=== PATIENT | male | born 1960 | race American Indian/Alaskan Native ===

== ENCOUNTER 2016-11-08 14:16 | Emergency (ER) | payer MEDICAID ==
[2016-11-08] MEDS ORDERED: MOTRIN PO ONE (19:06)
[2016-11-08] MEDS ORDERED: MOTRIN ONE (19:07)
[2016-11-08 19:54] VITALS: BP 162/88
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
[2016-11-08] MEDS ORDERED: PERCOCET 5/325 PO ONE (19:56)
--- NOTE | 2016-11-08 21:02 | XRay Report ---
FINAL REPORT PROCEDURE: XR KNEE 1-2V RT TECHNIQUE: Three views of the right knee are obtained HISTORY: fall pain, prior surgery COMPARISON: No prior studies are available for comparison. FINDINGS: Moderate osteoarthritic changes are seen. No evidence of hardware failure is seen in the tibia. Large joint effusion is seen. Diffuse soft tissue swelling is seen. No fracture or dislocation is seen. IMPRESSION: Arthritic changes are seen with large joint effusion. No fracture is seen.
== END 2016-11-08 22:20 | disposition home or self-care (01) ==
LOC: ED 14:16
DX: S80.01XA Contusion of right knee, initial encounter (principal); S89.91XA Unspecified injury of right lower leg, initial encounter; M19.90 Unspecified osteoarthritis, unspecified site; I10 Essential (primary) hypertension; E11.9 Type 2 diabetes mellitus without complications; I25.2 Old myocardial infarction; H40.9 Unspecified glaucoma; F17.200 Nicotine dependence, unspecified, uncomplicated; Z98.890 Other specified postprocedural states; Z79.82 Long term (current) use of aspirin; W19.XXXA Unspecified fall, initial encounter; Y93.9 Activity, unspecified; Y92.89 Other specified places as the place of occurrence of the external cause; Y99.9 Unspecified external cause status

== ENCOUNTER 2017-09-17 17:51 | Inpatient (IN) | payer MEDICAID ==
[2017-09-17 20:03] LABS: Basophils # (Auto) 0.1 K/mm3 (0.0-0.1); Basophils % (Auto) 0.7 % (0.0-1.8); Eosinophils # (Auto) 0.1 K/mm3 (0.0-0.4); Eosinophils % (Auto) 1.5 % (0.0-4.3); Hematocrit 47.3 % (35.5-45.6); Lymphocytes # (Auto) 3.5 K/mm3 (1.2-5.4); Mean Corpuscular HGB Conc 34 % (32-34); Mean Corpuscular Hemoglobin 32 pg (28-32); Mean Corpuscular Volume 94 fl (84-94); Monocytes # (Auto) 0.7 K/mm3 (0.0-0.8); Monocytes % (Auto) 8.6 % (0.0-7.3); Platelet Count 290 K/mm3 (140-440); Red Blood Count 5.05 M/mm3 (3.65-5.03); Red Cell Distribution Width 17.8 % (13.2-15.2)
[2017-09-17 20:16] LABS: BUN/Creatinine Ratio 17; Blood Urea Nitrogen 10 mg/dL (9-20); Calcium 9.3 mg/dL (8.4-10.2); Hemolysis Index 3
[2017-09-18] MEDS ORDERED: MORPHINE IV ONE (10:21)
[2017-09-18] MEDS ORDERED: NACL 0.9% 500 ML 500 ML IV ONE (10:22)
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
--- NOTE | 2017-09-18 10:58 | XRay Report ---
Single view chest: Compared to 07/06/16. History: Chest pain. Findings: Normal cardiomediastinal silhouette the trachea is midline. No consolidation, pneumothorax or pleural effusion. Impression: No acute cardiopulmonary findings.
--- NOTE | 2017-09-18 12:04 | Cat Scan Report ---
CT scan of head without IV contrast: History: Headache. Findings: Ventricles are normal in size and midline the patient. No evidence of acute ischemia, hemorrhage or mass. No extra-axial fluid collection. Normal brainstem and cerebellum. Normal visualized sinuses and mastoid air cells. Impression: No acute intracranial abnormality.
[2017-09-18] MEDS ORDERED: NON-FORMULARY (Acetaminophen [Acetaminophen Er Tab] 650 MG) PO PRN (17:59)
[2017-09-18] MEDS ORDERED: NON-FORMULARY (Ipratropium/Albuterol Sulfate [Combivent Respimat] 1 PUFF) IH SCH (18:00)
[2017-09-18] MEDS ORDERED: ZOFRAN IV PRN (18:02)
[2017-09-18] MEDS ORDERED: SODIUM CHLORIDE FLUSH SYRINGE 10 ML IV PRN (18:02)
[2017-09-18] MEDS ORDERED: TYLENOL PO PRN (18:02)
[2017-09-18] MEDS: DUONEB *Not for PRN Use IH SCH ×2 (18:35→19:17)
--- NOTE | 2017-09-18 19:26 | History and Physical Report ---
History of Present Illness Date of examination: 09/18/17 Date of admission: 09/18/17 12:17 Chief complaint: Chief complaint: Left-sided chest pain for 2 weeks History of present illness: History of Present Illness: 57-year-old black male presents to the emergency room for left-sided chest pain for last couple of weeks. Chest pain radiates to the left arm. Chest there is also associated with some shortness of breath. Has wheezing. Patient has a medical history of coronary artery disease with 2 stents and 2 MIs. Patient also has history of diabetes hypertension and glaucoma causing legal blindness and bipolar disorder. Patient had a cardiac cath in June of last year that showed a few lesions at 60% occlusion RS and is being medically managed. Patient also says that he is exposed to black mold from our last 1 month and has problems breathing. Patient also has wheezing secondary to the mold exposure. No fever or chills. Smokes about a pack a day. No recent travel. Chest pain is about 8 on a scale of 1-10. Radiating to the left arm. No diaphoresis ,no palpitations. No diaphoresis. Past Medical History Hypertension: Yes Heart Attack/AMI: Yes (x 2) Diabetes: Yes Psychiatric Treatment: Yes (bipolar) Additional medical history: glaucoma. legally blind Surgical History y Past Surgical History?: Yes Hx Coronary Stent: Yes (x 2) Additional Surgical History: hernia repair. right leg surgery. Secondary to a crush injury Family history Social History Smoking Status: Current Every Day Smoker-smokes over half a pack a day Substance Use Type: Marijuana Medications Home Medications: Home Medications Medication Instructions Recorded Confirmed Last Taken Type AtorvaSTATin [Lipitor] 40 mg PO QHS #30 tablet 07/08/16 09/18/17 Unknown Rx Lisinopril [Zestril TAB] 5 mg PO QDAY #30 tablet 07/08/16 09/18/17 Unknown Rx amLODIPine [Norvasc] 5 mg PO DAILY #30 tab 07/08/16 09/18/17 Unknown Rx Acetaminophen [Acetaminophen ER 650 mg PO Q12H PRN 09/18/17 09/18/17 Unknown History TAB] Aspirin EC [Ecotrin] 325 mg PO QDAY 09/18/17 09/18/17 Unknown History Bimatoprost [Lumigan 0.01%] 1 drop OP HS 09/18/17 09/18/17 Unknown History Finasteride [Proscar] 5 mg PO QDAY 09/18/17 09/18/17 Unknown History Gabapentin [Neurontin] 100 mg PO BID 09/18/17 09/18/17 Unknown History Ipratropium/Albuterol Sulfate 1 puff IH QID 09/18/17 09/18/17 Unknown History [Combivent Respimat] Ipratropium/Albuterol Sulfate 1 ampul IH Q6HR 09/18/17 09/18/17 Unknown History [DUONEB *Not for PRN Use*] Sertraline [Zoloft] 50 mg PO QDAY 09/18/17 09/18/17 Unknown History Tamsulosin [Flomax] 0.4 mg PO QDAY 09/18/17 09/18/17 Unknown History hydrOXYzine PAMOATE [Vistaril] 50 mg PO HS 09/18/17 09/18/17 Unknown History Review of Systems ROS: Stated complaint: CHEST PAIN Other details as noted in HPI Comment: All other systems reviewed and negative Constitutional: denies: chills, fever Eyes: denies: eye pain, eye discharge, vision change ENT: denies: ear pain, throat pain Respiratory: shortness of breath. denies: cough Cardiovascular: chest pain. denies: palpitations Gastrointestinal: denies: abdominal pain, nausea, diarrhea Genitourinary: denies: urgency, dysuria Musculoskeletal: denies: back pain, joint swelling Skin: denies: rash, lesions Neurological: headache, paresthesias Medications and Allergies Allergies Allergy/AdvReac Type Severity Reaction Status Date / Time No Known Allergies Allergy Unverified 07/06/16 11:37 Home Medications Medication Instructions Recorded Confirmed Last Taken Type AtorvaSTATin [Lipitor] 40 mg PO QHS #30 tablet 07/08/16 09/18/17 Unknown Rx Lisinopril [Zestril TAB] 5 mg PO QDAY #30 tablet 07/08/16 09/18/17 Unknown Rx amLODIPine [Norvasc] 5 mg PO DAILY #30 tab 07/08/16 09/18/17 Unknown Rx Acetaminophen [Acetaminophen ER 650 mg PO Q12H PRN 09/18/17 09/18/17 Unknown History TAB] Aspirin EC [Ecotrin] 325 mg PO QDAY 09/18/17 09/18/17 Unknown History Bimatoprost [Lumigan 0.01%] 1 drop OP HS 09/18/17 09/18/17 Unknown History Finasteride [Proscar] 5 mg PO QDAY 09/18/17 09/18/17 Unknown History Gabapentin [Neurontin] 100 mg PO BID 09/18/17 09/18/17 Unknown History Ipratropium/Albuterol Sulfate 1 puff IH QID 09/18/17 09/18/17 Unknown History [Combivent Respimat] Ipratropium/Albuterol Sulfate 1 ampul IH Q6HR 09/18/17 09/18/17 Unknown History [DUONEB *Not for PRN Use*] Sertraline [Zoloft] 50 mg PO QDAY 09/18/17 09/18/17 Unknown History Tamsulosin [Flomax] 0.4 mg PO QDAY 09/18/17 09/18/17 Unknown History hydrOXYzine PAMOATE [Vistaril] 50 mg PO HS 09/18/17 09/18/17 Unknown History Active Meds: Active Medications Acetaminophen (Tylenol) 650 mg PO Q4H PRN PRN Reason: Pain MILD(1-3)/Fever >100.5/[facility] Albuterol/Ipratropium (Duoneb *Not For Prn Use*) 1 ampul IH Q6HR [facility] Last Admin: 09/18/17 19:17 Dose: 1 ampul Amlodipine Besylate (Norvasc) 5 mg PO DAILY [facility] Aspirin (Ecotrin) 325 mg PO QDAY [facility] Atorvastatin Calcium (Lipitor) 40 mg PO QHS [facility] Famotidine (Pepcid) 20 mg PO BID [facility] Finasteride (Proscar) 5 mg PO QDAY [facility] Gabapentin (Neurontin) 100 mg PO BID [facility] Heparin Sodium (Porcine) (Heparin) 5,000 unit SUB-Q Q8HR [facility] Hydromorphone HCl (Dilaudid) 0.25 mg IV Q3H PRN PRN Reason: Pain, Moderate (4-6) Hydroxyzine Pamoate (Vistaril) 50 mg PO HS [facility] Insulin Human Lispro (Humalog) 0 unit SUB-Q [facility]; Protocol Latanoprost (Latanoprost 0.005%) 1 drops OU QPM [facility] Lisinopril (Zestril) 5 mg PO QDAY [facility] Morphine Sulfate (Morphine) 2 mg IV Q4H PRN PRN Reason: Pain, Moderate (4-6) Ondansetron HCl (Zofran) 4 mg IV Q8H PRN PRN Reason: Nausea And Vomiting Oxycodone/Acetaminophen (Percocet 5/325) 1 tab PO Q6H PRN PRN Reason: Pain, Moderate (4-6) Sertraline HCl (Zoloft) 50 mg PO QDAY [facility] Sodium Chloride (Sodium Chloride Flush Syringe 10 Ml) 10 ml IV BID [facility] Sodium Chloride (Sodium Chloride Flush Syringe 10 Ml) 10 ml IV PRN PRN PRN Reason: LINE FLUSH Tamsulosin HCl (Flomax) 0.4 mg PO QDAY [facility] Exam - Physical Exam Narrative exam: lying in bed comfortably - Constitutional Vitals: Temp Pulse Resp BP Pulse Ox 98.2 F 60 18 124/64 96 09/18/17 17:39 09/18/17 19:18 09/18/17 19:18 09/18/17 17:39 09/18/17 17:39 General appearance: Present: no acute distress, well-nourished - EENT Eyes: Present: PERRL ENT: hearing intact, clear oral mucosa - Neck Neck: Present: supple, normal ROM - Respiratory Respiratory effort: normal Respiratory: bilateral: CTA - Cardiovascular Heart rate: 54 Rhythm: regular Heart Sounds: Present: S1 & S2. Absent: rub, click - Extremities Extremities: no ischemia, pulses intact, pulses symmetrical, No edema Peripheral Pulses: within normal limits - Abdominal General gastrointestinal: Present: soft, non-tender, non-distended, normal bowel sounds Male genitourinary: Present: normal - Rectal Rectal Exam: deferred - Integumentary Integumentary: Present: clear, warm, dry - Musculoskeletal Musculoskeletal: gait normal, strength equal bilaterally - Psychiatric Psychiatric: appropriate mood/affect, intact judgment & insight - Neurologic Neurologic: CNII-XII intact, moves all extremities - Allied Health Allied health notes reviewed: nursing, case management Results - Labs CBC & Chem 7: 09/17/17 19:49 09/17/17 19:49 Labs: Laboratory Last Values WBC 8.2 K/mm3 (4.5-11.0) 09/17/17 19:49 RBC 5.05 M/mm3 (3.65-5.03) H 09/17/17 19:49 Hgb 16.0 gm/dl (11.8-15.2) H 09/17/17 19:49 Hct 47.3 % (35.5-45.6) H 09/17/17 19:49 MCV 94 fl (84-94) 09/17/17 19:49 MCH 32 pg (28-32) 09/17/17 19:49 MCHC 34 % (32-34) 09/17/17 19:49 RDW 17.8 % (13.2-15.2) H 09/17/17 19:49 Plt Count 290 K/mm3 (140-440) 09/17/17 19:49 Lymph % (Auto) 43.0 % (13.4-35.0) H 09/17/17 19:49 [place] % (Auto) 8.6 % (0.0-7.3) H 09/17/17 19:49 Eos % (Auto) 1.5 % (0.0-4.3) 09/17/17 19:49 Baso % (Auto) 0.7 % (0.0-1.8) 09/17/17 19:49 Lymph # 3.5 K/mm3 (1.2-5.4) 09/17/17 19:49 [place] # 0.7 K/mm3 (0.0-0.8) 09/17/17 19:49 Eos # 0.1 K/mm3 (0.0-0.4) 09/17/17 19:49 Baso # 0.1 K/mm3 (0.0-0.1) 09/17/17 19:49 Seg Neutrophils % 46.2 % (40.0-70.0) 09/17/17 19:49 Seg Neutrophils # 3.8 K/mm3 (1.8-7.7) 09/17/17 19:49 D-Dimer 246.88 ng/mlDDU (0-234) H 09/18/17 10:29 Sodium 140 mmol/L (137-145) 09/17/17 19:49 Potassium 4.4 mmol/L (3.6-5.0) 09/17/17 19:49 Chloride 100.4 mmol/L (98-107) 09/17/17 19:49 Carbon Dioxide 28 mmol/L (22-30) 09/17/17 19:49 Anion Gap 16 mmol/L 09/17/17 19:49 BUN 10 mg/dL (9-20) 09/17/17 19:49 Creatinine 0.6 mg/dL (0.8-1.5) L 09/17/17 19:49 Estimated GFR > 60 ml/min 09/17/17 19:49 BUN/Creatinine Ratio 17 % 09/17/17 19:49 Glucose 97 mg/dL (75-100) 09/17/17 19:49 POC Glucose 84 (70-105) 09/18/17 12:26 Calcium 9.3 mg/dL (8.4-10.2) 09/17/17 19:49 Troponin T < 0.010 ng/mL (0.00-0.029) 09/18/17 04:04 Short CBC 09/17/17 Range/Units 19:49 WBC 8.2 (4.5-11.0) K/mm3 Hgb 16.0 H (11.8-15.2) gm/dl Hct 47.3 H (35.5-45.6) % Plt Count 290 (140-440) K/mm3 BMP 09/17/17 19:49 Sodium 140 Potassium 4.4 Chloride 100.4 Carbon Dioxide 28 BUN 10 Creatinine 0.6 L Glucose 97 Calcium 9.3 Cardiac Enzymes 09/17/17 09/17/17 09/18/17 Range/Units 19:49 23:02 04:04 Troponin T < 0.010 < 0.010 < 0.010 (0.00-0.029) ng/mL - Imaging and Cardiology EKG: report reviewed (normal sinus rhythm and sinus bradycardia heart rate of 54 1 minute left atrial enlargement EKG interpreted by me) Imaging and Cardiology: Chest x-ray Findings: Normal cardiomediastinal silhouette the trachea is midline. No consolidation, pneumothorax or pleural effusion. Impression: No acute cardiopulmonary findings. CT head Impression: No acute intracranial abnormality. Assessment and Plan Advance Directives: Yes (full code) VTE prophylaxis?: Chemical Plan of care discussed with patient/family: Yes - Patient Problems (1) Chest pain Current Visit: Yes Status: Acute Qualifiers: Chest pain type: unspecified Qualified Code(s): R07.9 - Chest pain, unspecified Plan to address problem: Chest pain workup Serial troponins negative still now Lexiscan in the morning GERD in the differential diagnosis Costochondritis unlikely--no chest wall tenderness (2) HTN (hypertension) Current Visit: Yes Status: Chronic Qualifiers: Hypertension type: essential hypertension Qualified Code(s): I10 - Essential (primary) hypertension Plan to address problem: Continue antihypertensives (3) CAD (coronary artery disease) Current Visit: No Status: Chronic Qualifiers: Coronary Disease-Associated Artery/Lesion type: [place] artery [place] vs. transplanted heart: [place] heart Plan to address problem: Continue aspirin and statins (4) BPH (benign prostatic hyperplasia) Current Visit: Yes Status: Chronic Qualifiers: Lower urinary tract symptom presence: symptoms present Lower urinary tract symptom detail: incomplete bladder emptying Qualified Code(s): N40.1 - Benign prostatic hyperplasia with lower urinary tract symptoms; R39.14 - Feeling of incomplete bladder emptying Plan to address problem: Continue Flomax and Proscar (5) Peripheral neuropathy Current Visit: Yes Status: Chronic Qualifiers: Peripheral neuropathy type: polyneuropathy, unspecified Qualified Code(s): G62.9 - Polyneuropathy, unspecified Plan to address problem: Continue gabapentin (6) COPD (chronic obstructive pulmonary disease) Current Visit: Yes Status: Chronic Qualifiers: COPD type: unspecified COPD Qualified Code(s): J44.9 - Chronic obstructive pulmonary disease, unspecified Plan to address problem: Continue Duonebs (7) Depression Current Visit: Yes Status: Chronic Qualifiers: Depression Type: unspecified Qualified Code(s): F32.9 - Major depressive disorder, single episode, unspecified Plan to address problem: Continue Zoloft (8) DVT prophylaxis Current Visit: Yes Status: Acute Plan to address problem: On Lovenox 40 mg subcutaneous daily
[2017-09-18] MEDS ORDERED: DUONEB *Not for PRN Use IH SCH (20:00)
[2017-09-18] MEDS: MORPHINE IV PRN (20:30)
[2017-09-18] MEDS: ZESTRIL PO SCH (20:33)
[2017-09-18] MEDS: ZOLOFT PO SCH (20:34)
[2017-09-18] MEDS: FLOMAX PO SCH (20:34)
[2017-09-18] MEDS: PEPCID PO SCH (20:34)
[2017-09-18] MEDS: NORVASC PO SCH (20:37)
[2017-09-18] MEDS: ECOTRIN PO SCH (20:37)
[2017-09-18] MEDS: HEPARIN SUB-Q SCH (20:38)
[2017-09-18] MEDS: PROSCAR PO SCH (20:50)
[2017-09-18] MEDS: SODIUM CHLORIDE FLUSH SYRINGE 10 ML IV SCH (20:50)
[2017-09-18] MEDS: NEURONTIN PO SCH (21:00)
[2017-09-18] MEDS ORDERED: NON-FORMULARY (Bimatoprost [Lumigan 0.01%] 1 DROP) OP SCH (22:00)
[2017-09-19] MEDS: DUONEB *Not for PRN Use IH SCH (00:15)
[2017-09-19] MEDS: HEPARIN SUB-Q SCH ×4 (00:16→22:52)
[2017-09-19] MEDS: PEPCID PO SCH ×3 (00:17→22:52)
[2017-09-19] MEDS: SODIUM CHLORIDE FLUSH SYRINGE 10 ML IV SCH ×3 (00:17→22:52)
[2017-09-19] MEDS: HumaLOG SUB-Q SCH ×5 (01:38→23:06)
[2017-09-19] MEDS: PERCOCET 5/325 PO PRN ×2 (01:39→14:05)
[2017-09-19] MEDS: VISTARIL PO SCH ×2 (01:39→22:52)
[2017-09-19 06:30] LABS: Basophils % (Auto) 0.6 % (0.0-1.8); Eosinophils # (Auto) 0.2 K/mm3 (0.0-0.4); Eosinophils % (Auto) 3.3 % (0.0-4.3); Hematocrit 44.7 % (35.5-45.6); Hemoglobin 15.3 gm/dl (11.8-15.2); Lymphocytes % (Auto) 51.9 % (13.4-35.0); Mean Corpuscular HGB Conc 34 % (32-34); Mean Corpuscular Hemoglobin 32 pg (28-32); Mean Corpuscular Volume 93 fl (84-94); Monocytes # (Auto) 0.2 K/mm3 (0.0-0.8); Monocytes % (Auto) 3.7 % (0.0-7.3); Platelet Count 280 K/mm3 (140-440); Red Cell Distribution Width 17.9 % (13.2-15.2)
[2017-09-19] MEDS: MORPHINE IV PRN (06:44)
[2017-09-19 06:49] LABS: Alanine Aminotransferase 16 units/L (7-56); Albumin 3.9 g/dL (3.9-5); BUN/Creatinine Ratio 19; Blood Urea Nitrogen 13 mg/dL (9-20); Hemolysis Index 7
[2017-09-19] MEDS: DILAUDID IV PRN ×5 (08:35→23:58)
[2017-09-19] MEDS ORDERED: LEXISCAN IV ONE (09:54)
--- NOTE | 2017-09-19 12:18 | Consultation ---
History of Present Illness Consult date: 09/19/17 Consult reason: chest pain History of present illness: Patient is presenting with left sided chest pain that has been going on for several days now. Pain is describes as tightness that is worse with 'stress' associated with radiation down the left arm and face. ECG showing no ischemic changes when compared to previous. Troponins are negative. Recent cath June 2016 showing patent Cx and PDA stents, Borderline 60% ostial OM1 stenosis, 50% ostial Cx stenosis, 40% mid D1 stenosis. Past History Past Medical History: acute [place], CAD, hypertension, hyperlipidemia Past Surgical History: PTCA Social history: smoking Family history: hypertension Medications and Allergies Allergies Allergy/AdvReac Type Severity Reaction Status Date / Time No Known Allergies Allergy Unverified 07/06/16 11:37 Home Medications Medication Instructions Recorded Confirmed Last Taken Type AtorvaSTATin [Lipitor] 40 mg PO QHS #30 tablet 07/08/16 09/18/17 Unknown Rx Lisinopril [Zestril TAB] 5 mg PO QDAY #30 tablet 07/08/16 09/18/17 Unknown Rx amLODIPine [Norvasc] 5 mg PO DAILY #30 tab 07/08/16 09/18/17 Unknown Rx Acetaminophen [Acetaminophen ER 650 mg PO Q12H PRN 09/18/17 09/18/17 Unknown History TAB] Aspirin EC [Ecotrin] 325 mg PO QDAY 09/18/17 09/18/17 Unknown History Bimatoprost [Lumigan 0.01%] 1 drop OP HS 09/18/17 09/18/17 Unknown History Finasteride [Proscar] 5 mg PO QDAY 09/18/17 09/18/17 Unknown History Gabapentin [Neurontin] 100 mg PO BID 09/18/17 09/18/17 Unknown History Ipratropium/Albuterol Sulfate 1 puff IH QID 09/18/17 09/18/17 Unknown History [Combivent Respimat] Ipratropium/Albuterol Sulfate 1 ampul IH Q6HR 09/18/17 09/18/17 Unknown History [DUONEB *Not for PRN Use*] Sertraline [Zoloft] 50 mg PO QDAY 09/18/17 09/18/17 Unknown History Tamsulosin [Flomax] 0.4 mg PO QDAY 09/18/17 09/18/17 Unknown History hydrOXYzine PAMOATE [Vistaril] 50 mg PO HS 09/18/17 09/18/17 Unknown History Active Meds: Active Medications Acetaminophen (Tylenol) 650 mg PO Q4H PRN PRN Reason: Pain MILD(1-3)/Fever >100.5/[facility] Albuterol (Proventil) 2.5 mg IH Q4HRT PRN PRN Reason: Shortness Of Breath Amlodipine Besylate (Norvasc) 5 mg PO DAILY [facility] Last Admin: 09/18/17 20:37 Dose: 5 mg Aspirin (Ecotrin) 325 mg PO QDAY [facility] Last Admin: 09/18/17 20:37 Dose: 325 mg Atorvastatin Calcium (Lipitor) 40 mg PO QHS [facility] Last Admin: 09/19/17 00:16 Dose: Not Given Famotidine (Pepcid) 20 mg PO BID [facility] Last Admin: 09/19/17 00:17 Dose: Not Given Finasteride (Proscar) 5 mg PO QDAY [facility] Last Admin: 09/18/17 20:50 Dose: Not Given Gabapentin (Neurontin) 100 mg PO BID [facility] Last Admin: 09/18/17 21:00 Dose: 100 mg Heparin Sodium (Porcine) (Heparin) 5,000 unit SUB-Q Q8HR [facility] Last Admin: 09/19/17 06:35 Dose: 5,000 unit Hydromorphone HCl (Dilaudid) 0.25 mg IV Q3H PRN PRN Reason: Pain, Moderate (4-6) Hydroxyzine Pamoate (Vistaril) 50 mg PO [facility] Last Admin: 09/19/17 01:39 Dose: 50 mg Insulin Human Lispro (Humalog) 0 unit SUB-Q [facility]; Protocol Last Admin: 09/19/17 07:30 Dose: Not Given Latanoprost (Latanoprost 0.005%) 1 drops OU QPM [facility] Lisinopril (Zestril) 5 mg PO QDAY [facility] Last Admin: 09/18/17 20:33 Dose: 5 mg Morphine Sulfate (Morphine) 2 mg IV Q4H PRN PRN Reason: Pain, Moderate (4-6) Last Admin: 09/19/17 06:44 Dose: 2 mg Ondansetron HCl (Zofran) 4 mg IV Q8H PRN PRN Reason: Nausea And Vomiting Oxycodone/Acetaminophen (Percocet 5/325) 1 tab PO Q6H PRN PRN Reason: Pain, Moderate (4-6) Last Admin: 09/19/17 01:39 Dose: 1 tab Sertraline HCl (Zoloft) 50 mg PO QDAY [facility] Last Admin: 09/18/17 20:34 Dose: 50 mg Sodium Chloride (Sodium Chloride Flush Syringe 10 Ml) 10 ml IV BID [facility] Last Admin: 09/19/17 00:17 Dose: Not Given Sodium Chloride (Sodium Chloride Flush Syringe 10 Ml) 10 ml IV PRN PRN PRN Reason: LINE FLUSH Tamsulosin HCl (Flomax) 0.4 mg PO QDAY [facility] Last Admin: 09/18/17 20:34 Dose: 0.4 mg Review of Systems All systems: negative Physical Examination Vital Signs Temp Pulse Resp BP Pulse Ox 98.6 F 56 L 16 111/69 96 09/17/17 19:10 09/17/17 19:10 09/17/17 19:10 09/17/17 19:10 09/17/17 19:10 General appearance: no acute distress HEENT: Positive: PERRL Neck: Positive: neck supple Cardiac: Positive: Reg Rate and Rhythm Lungs: Positive: Normal Exam Neuro: Positive: Grossly Intact Abdomen: Positive: Soft Extremities: Present: normal Results 09/19/17 06:06 09/19/17 06:06 Cardiac Enzymes 09/17/17 09/17/17 09/17/17 Range/Units 19:49 19:49 23:02 WBC 8.2 (4.5-11.0) K/mm3 RBC 5.05 H (3.65-5.03) M/mm3 Hgb 16.0 H (11.8-15.2) gm/dl Hct 47.3 H (35.5-45.6) % MCV 94 (84-94) fl MCH 32 (28-32) pg MCHC 34 (32-34) % RDW 17.8 H (13.2-15.2) % Plt Count 290 (140-440) K/mm3 Lymph % (Auto) 43.0 H (13.4-35.0) % [place] % (Auto) 8.6 H (0.0-7.3) % Eos % (Auto) 1.5 (0.0-4.3) % Baso % (Auto) 0.7 (0.0-1.8) % Lymph # 3.5 (1.2-5.4) K/mm3 [place] # 0.7 (0.0-0.8) K/mm3 Eos # 0.1 (0.0-0.4) K/mm3 Baso # 0.1 (0.0-0.1) K/mm3 Seg Neutrophils % 46.2 (40.0-70.0) % Seg Neutrophils # 3.8 (1.8-7.7) K/mm3 D-Dimer (0-234) ng/mlDDU Sodium 140 (137-145) mmol/L Potassium 4.4 (3.6-5.0) mmol/L Chloride 100.4 (98-107) mmol/L Carbon Dioxide 28 (22-30) mmol/L Anion Gap 16 mmol/L BUN 10 (9-20) mg/dL Creatinine 0.6 L (0.8-1.5) mg/dL Estimated GFR > 60 ml/min BUN/Creatinine Ratio 17 % Glucose 97 (75-100) mg/dL POC Glucose (70-105) Hemoglobin A1c (4-6) % Calcium 9.3 (8.4-10.2) mg/dL Total Bilirubin (0.1-1.2) mg/dL AST (5-40) units/L ALT (7-56) units/L Alkaline Phosphatase (35-129) units/L Troponin T < 0.010 < 0.010 (0.00-0.029) ng/mL Total Protein (6.3-8.2) g/dL Albumin (3.9-5) g/dL Albumin/Globulin Ratio % 09/18/17 09/18/17 09/18/17 Range/Units 04:04 10:29 12:26 WBC (4.5-11.0) K/mm3 RBC (3.65-5.03) M/mm3 Hgb (11.8-15.2) gm/dl Hct (35.5-45.6) % MCV (84-94) fl MCH (28-32) pg MCHC (32-34) % RDW (13.2-15.2) % Plt Count (140-440) K/mm3 Lymph % (Auto) (13.4-35.0) % [place] % (Auto) (0.0-7.3) % Eos % (Auto) (0.0-4.3) % Baso % (Auto) (0.0-1.8) % Lymph # (1.2-5.4) K/mm3 [place] # (0.0-0.8) K/mm3 Eos # (0.0-0.4) K/mm3 Baso # (0.0-0.1) K/mm3 Seg Neutrophils % (40.0-70.0) % Seg Neutrophils # (1.8-7.7) K/mm3 D-Dimer 246.88 H (0-234) ng/mlDDU Sodium (137-145) mmol/L Potassium (3.6-5.0) mmol/L Chloride (98-107) mmol/L Carbon Dioxide (22-30) mmol/L Anion Gap mmol/L BUN (9-20) mg/dL Creatinine (0.8-1.5) mg/dL Estimated GFR ml/min BUN/Creatinine Ratio % Glucose (75-100) mg/dL POC Glucose 84 (70-105) Hemoglobin A1c (4-6) % Calcium (8.4-10.2) mg/dL Total Bilirubin (0.1-1.2) mg/dL AST (5-40) units/L ALT (7-56) units/L Alkaline Phosphatase (35-129) units/L Troponin T < 0.010 (0.00-0.029) ng/mL Total Protein (6.3-8.2) g/dL Albumin (3.9-5) g/dL Albumin/Globulin Ratio % 09/18/17 09/18/17 09/19/17 Range/Units 22:49 22:49 00:48 WBC (4.5-11.0) K/mm3 RBC (3.65-5.03) M/mm3 Hgb (11.8-15.2) gm/dl Hct (35.5-45.6) % MCV (84-94) fl MCH (28-32) pg MCHC (32-34) % RDW (13.2-15.2) % Plt Count (140-440) K/mm3 Lymph % (Auto) (13.4-35.0) % [place] % (Auto) (0.0-7.3) % Eos % (Auto) (0.0-4.3) % Baso % (Auto) (0.0-1.8) % Lymph # (1.2-5.4) K/mm3 [place] # (0.0-0.8) K/mm3 Eos # (0.0-0.4) K/mm3 Baso # (0.0-0.1) K/mm3 Seg Neutrophils % (40.0-70.0) % Seg Neutrophils # (1.8-7.7) K/mm3 D-Dimer (0-234) ng/mlDDU Sodium (137-145) mmol/L Potassium (3.6-5.0) mmol/L Chloride (98-107) mmol/L Carbon Dioxide (22-30) mmol/L Anion Gap mmol/L BUN (9-20) mg/dL Creatinine (0.8-1.5) mg/dL Estimated GFR ml/min BUN/Creatinine Ratio % Glucose (75-100) mg/dL POC Glucose 111 H (70-105) Hemoglobin A1c 5.7 (4-6) % Calcium (8.4-10.2) mg/dL Total Bilirubin (0.1-1.2) mg/dL AST (5-40) units/L ALT (7-56) units/L Alkaline Phosphatase (35-129) units/L Troponin T < 0.010 (0.00-0.029) ng/mL Total Protein (6.3-8.2) g/dL Albumin (3.9-5) g/dL Albumin/Globulin Ratio % 09/19/17 09/19/17 09/19/17 Range/Units 06:06 06:06 06:06 WBC 5.8 (4.5-11.0) K/mm3 RBC 4.80 (3.65-5.03) M/mm3 Hgb 15.3 H (11.8-15.2) gm/dl Hct 44.7 (35.5-45.6) % MCV 93 (84-94) fl MCH 32 (28-32) pg MCHC 34 (32-34) % RDW 17.9 H (13.2-15.2) % Plt Count 280 (140-440) K/mm3 Lymph % (Auto) 51.9 H (13.4-35.0) % [place] % (Auto) 3.7 (0.0-7.3) % Eos % (Auto) 3.3 (0.0-4.3) % Baso % (Auto) 0.6 (0.0-1.8) % Lymph # 3.0 (1.2-5.4) K/mm3 [place] # 0.2 (0.0-0.8) K/mm3 Eos # 0.2 (0.0-0.4) K/mm3 Baso # 0.0 (0.0-0.1) K/mm3 Seg Neutrophils % 40.5 (40.0-70.0) % Seg Neutrophils # 2.4 (1.8-7.7) K/mm3 D-Dimer (0-234) ng/mlDDU Sodium 139 (137-145) mmol/L Potassium 4.2 (3.6-5.0) mmol/L Chloride 100.8 (98-107) mmol/L Carbon Dioxide 26 (22-30) mmol/L Anion Gap 16 mmol/L BUN 13 (9-20) mg/dL Creatinine 0.7 L (0.8-1.5) mg/dL Estimated GFR > 60 ml/min BUN/Creatinine Ratio 19 % Glucose 105 H (75-100) mg/dL POC Glucose (70-105) Hemoglobin A1c (4-6) % Calcium 9.0 (8.4-10.2) mg/dL Total Bilirubin < 0.20 (0.1-1.2) mg/dL AST 22 (5-40) units/L ALT 16 (7-56) units/L Alkaline Phosphatase 81 (35-129) units/L Troponin T < 0.010 (0.00-0.029) ng/mL Total Protein 6.6 (6.3-8.2) g/dL Albumin 3.9 (3.9-5) g/dL Albumin/Globulin Ratio 1.4 % 09/19/17 Range/Units 08:40 WBC (4.5-11.0) K/mm3 RBC (3.65-5.03) M/mm3 Hgb (11.8-15.2) gm/dl Hct (35.5-45.6) % MCV (84-94) fl MCH (28-32) pg MCHC (32-34) % RDW (13.2-15.2) % Plt Count (140-440) K/mm3 Lymph % (Auto) (13.4-35.0) % [place] % (Auto) (0.0-7.3) % Eos % (Auto) (0.0-4.3) % Baso % (Auto) (0.0-1.8) % Lymph # (1.2-5.4) K/mm3 [place] # (0.0-0.8) K/mm3 Eos # (0.0-0.4) K/mm3 Baso # (0.0-0.1) K/mm3 Seg Neutrophils % (40.0-70.0) % Seg Neutrophils # (1.8-7.7) K/mm3 D-Dimer (0-234) ng/mlDDU Sodium (137-145) mmol/L Potassium (3.6-5.0) mmol/L Chloride (98-107) mmol/L Carbon Dioxide (22-30) mmol/L Anion Gap mmol/L BUN (9-20) mg/dL Creatinine (0.8-1.5) mg/dL Estimated GFR ml/min BUN/Creatinine Ratio % Glucose (75-100) mg/dL POC Glucose 86 (70-105) Hemoglobin A1c (4-6) % Calcium (8.4-10.2) mg/dL Total Bilirubin (0.1-1.2) mg/dL AST (5-40) units/L ALT (7-56) units/L Alkaline Phosphatase (35-129) units/L Troponin T (0.00-0.029) ng/mL Total Protein (6.3-8.2) g/dL Albumin (3.9-5) g/dL Albumin/Globulin Ratio % CBC 09/19/17 Range/Units 06:06 WBC 5.8 (4.5-11.0) K/mm3 RBC 4.80 (3.65-5.03) M/mm3 Hgb 15.3 H (11.8-15.2) gm/dl Hct 44.7 (35.5-45.6) % Plt Count 280 (140-440) K/mm3 Lymph # 3.0 (1.2-5.4) K/mm3 [place] # 0.2 (0.0-0.8) K/mm3 Eos # 0.2 (0.0-0.4) K/mm3 Baso # 0.0 (0.0-0.1) K/mm3 Comprehensive Metabolic Panel 09/19/17 Range/Units 06:06 Sodium 139 (137-145) mmol/L Potassium 4.2 (3.6-5.0) mmol/L Chloride 100.8 (98-107) mmol/L Carbon Dioxide 26 (22-30) mmol/L BUN 13 (9-20) mg/dL Creatinine 0.7 L (0.8-1.5) mg/dL Glucose 105 H (75-100) mg/dL Calcium 9.0 (8.4-10.2) mg/dL AST 22 (5-40) units/L ALT 16 (7-56) units/L Alkaline Phosphatase 81 (35-129) units/L Total Protein 6.6 (6.3-8.2) g/dL Albumin 3.9 (3.9-5) g/dL - EKG Interpretation EKG: sinus rhythm EKG interpretations - Telemetry EKG Rhythm: Sinus Rhythm Assessment and Plan Chest pain No ischemic ECG changes Negative troponin Abnormal MPI showing a small and mildly reversible apical and mid anterior wall defect concerning for ischemia in the LAD distribution Coronary artery disease Cardiac cath 06/2016 showing patent Cx and PDA stents Borderline 60% ostial OM1 stenosis 50% ostial Cx stenosis 40% mid D1 stenosis Systemic Hypertension Hyperlipidemia Tobacco use Recommendations: Proceed with coronary angiography in am
[2017-09-19] MEDS ORDERED: NACL 0.9% 500 ML 500 ML IV SCH (13:00)
--- NOTE | 2017-09-19 14:04 | Progress Note ---
Assessment and Plan Chest pain with abnormal stress test - plan for cardiac cath tomorrow h/CAD s/p stent placement, cont aspirin, statin HLD, cont statin HTN, stable, cont current meds Obesity, dietary recommendation when medically stable Subjective Date of service: 09/19/17 Interval history: Pt seen and examined still c/o intermittent chest pain stress test this am was abnormal Objective - Constitutional Vitals: Vital Signs - 12hr 09/19/17 09/19/17 09/19/17 02:39 04:10 06:44 Temperature 98.1 F Pulse Rate 53 L Respiratory 20 18 20 Rate Blood Pressure 97/59 O2 Sat by Pulse 97 Oximetry 09/19/17 09/19/17 09/19/17 07:30 09:06 10:23 Temperature 98.3 F Pulse Rate 52 L 53 L Respiratory 18 Rate Blood Pressure 128/81 134/71 O2 Sat by Pulse 98 98 Oximetry 09/19/17 09/19/17 09/19/17 10:35 10:36 10:37 Temperature Pulse Rate 66 68 70 Respiratory Rate Blood Pressure 143/84 139/76 121/71 O2 Sat by Pulse Oximetry 09/19/17 09/19/17 09/19/17 10:38 10:39 10:40 Temperature Pulse Rate 67 66 64 Respiratory Rate Blood Pressure 119/74 106/69 114/70 O2 Sat by Pulse Oximetry 09/19/17 11:58 Temperature 98.5 F Pulse Rate 62 Respiratory 20 Rate Blood Pressure 142/78 O2 Sat by Pulse 96 Oximetry General appearance: Present: no acute distress, well-nourished - EENT Eyes: PERRL, EOM intact ENT: hearing intact, clear oral mucosa Ears: bilateral: normal - Neck Neck: supple, normal ROM - Respiratory Respiratory effort: normal Respiratory: bilateral: CTA - Cardiovascular Rhythm: regular Heart Sounds: Present: S1 & S2. Absent: gallop, rub Extremities: pulses intact, No edema, normal color, Full ROM - Gastrointestinal General gastrointestinal: Present: soft, non-tender, non-distended, normal bowel sounds - Integumentary Integumentary: clear, warm, dry - Musculoskeletal Musculoskeletal: 1, strength equal bilaterally - Neurologic Neurologic: moves all extremities - Psychiatric Psychiatric: memory intact, appropriate mood/affect, intact judgment & insight - Labs CBC & Chem 7: 09/20/17 05:49 09/20/17 05:49 Labs: Abnormal lab results 09/19/17 09/19/17 09/19/17 Range/Units 00:48 06:06 06:06 Hgb 15.3 H (11.8-15.2) gm/dl RDW 17.9 H (13.2-15.2) % Lymph % (Auto) 51.9 H (13.4-35.0) % Creatinine 0.7 L (0.8-1.5) mg/dL Glucose 105 H (75-100) mg/dL POC Glucose 111 H (70-105)
[2017-09-19] MEDS: PROSCAR PO SCH (14:45)
[2017-09-19] MEDS: FLOMAX PO SCH (14:45)
[2017-09-19] MEDS: NEURONTIN PO SCH ×2 (14:45→22:52)
[2017-09-19] MEDS: ECOTRIN PO SCH (14:45)
[2017-09-19] MEDS: NORVASC PO SCH (14:45)
[2017-09-19] MEDS: ZESTRIL PO SCH (14:46)
[2017-09-19] MEDS: ZOLOFT PO SCH (14:47)
[2017-09-19] MEDS ORDERED: LATANOPROST 0.005% OU SCH ×2 (18:00→22:00)
--- NOTE | 2017-09-19 22:35 | Treadmill Report ---
INDICATION: Chest pain. ORDERING PHYSICIAN: Bart Webb MD FINDINGS: There is evidence of a small mildly reversible mid and apical anterior wall defect suggesting possible ischemia in LAD distribution. The left ventricle is mildly dilated. The left ventricular ejection fraction is measured at 52% with normal wall motion and wall thickening. CONCLUSION: 1. Abnormal perfusion scan revealing a small mildly reversible apical and mid anterior wall defect suggesting ischemia in the LAD distribution. 2. Mildly dilated left ventricular cavity with an ejection fraction measured at 52%. JOB# [id number] AP/NTS
[2017-09-20 06:05] LABS: Hematocrit 45.1 % (35.5-45.6); Hemoglobin 15.4 gm/dl (11.8-15.2); Mean Corpuscular HGB Conc 34 % (32-34); Mean Corpuscular Hemoglobin 32 pg (28-32); Mean Corpuscular Volume 93 fl (84-94); Platelet Count 260 K/mm3 (140-440); Red Blood Count 4.85 M/mm3 (3.65-5.03); Red Cell Distribution Width 17.4 % (13.2-15.2)
[2017-09-20] MEDS: HEPARIN SUB-Q SCH ×3 (06:25→22:24)
[2017-09-20 06:30] LABS: BUN/Creatinine Ratio 16; Blood Urea Nitrogen 11 mg/dL (9-20); Hemolysis Index 9
[2017-09-20 06:34] LABS: INR 0.96 (0.87-1.13)
[2017-09-20 06:35] LABS: Partial Thromboplastin Time 30.8 Sec. (24.2-36.6)
[2017-09-20] MEDS ORDERED: NACL 0.9% 500 ML 500 ML IV SCH (07:30)
[2017-09-20] MEDS: HumaLOG SUB-Q SCH ×2 (08:31→22:00)
[2017-09-20] MEDS ORDERED: ECOTRIN PO ONE (11:14)
[2017-09-20] MEDS: ECOTRIN PO SCH (11:18)
[2017-09-20] MEDS ORDERED: SUBLIMAZE ONE (12:03)
[2017-09-20] MEDS ORDERED: HEPARIN/NS 5000 UNIT/500ML(CATH LAB) 1,000 ML IR ONE (12:03)
[2017-09-20] MEDS ORDERED: VERSED ONE (12:03)
[2017-09-20] MEDS ORDERED: HEPARIN 10,000 UNITS/10 ML ONE (12:03)
[2017-09-20] MEDS ORDERED: CALAN ONE (12:03)
[2017-09-20] MEDS ORDERED: NACL 0.9% 500 ML 500 ML ONE (12:04)
[2017-09-20] MEDS ORDERED: NITROGLYCERIN SYRINGE 0 ML ONE (12:04)
[2017-09-20] MEDS ORDERED: XYLOCAINE 2% INFILTRATI ONE ×2 (12:04→12:09)
[2017-09-20] MEDS ORDERED: ATROPINE 0.1% (CARDIAC) ONE (12:38)
--- NOTE | 2017-09-20 13:40 | Progress Note ---
Assessment and Plan - Patient Problems (1) CAD (coronary artery disease) Current Visit: No Status: Chronic Qualifiers: Coronary Disease-Associated Artery/Lesion type: viejas artery Resighini vs. transplanted heart: viejas heart Plan to address problem: Catheterization completed via the right femoral artery. No complications. We found patent stents in the mid circumflex and distal right coronary arteries, otherwise mild nonobstructive irregularities. Left ventricular systolic function was reduced at 30-35%, representing a predominantly nonischemic cardiomyopathy. The patient is recommended for medical therapy for his coronary artery disease, nonischemic cardiomyopathy to include lisinopril, Coreg, statin, Imdur, aspirin and Plavix. I have also recommended aggressive risk factor modification including smoking cessation. Otherwise, he is stable for cardiac discharge, with outpatient cardiac follow- up in 7 days. Subjective Date of service: 09/20/17 Interval history: Catheterization completed via the right femoral artery. No complications. We found patent stents in the mid circumflex and distal right coronary arteries, otherwise mild nonobstructive irregularities. Left ventricular systolic function was reduced at 30-35%, representing a predominantly nonischemic cardiomyopathy. Objective Vital Signs Temp Pulse Pulse Resp Resp BP BP 09/20/17 09:05 58 L 09/20/17 07:57 97.6 F 54 L 18 120/74 09/20/17 04:54 98.6 F 60 18 110/58 09/20/17 00:17 98.7 F 58 L 18 101/65 09/19/17 23:59 18 09/19/17 23:58 18 09/19/17 20:56 61 20 09/19/17 19:51 98.9 F 60 20 108/80 09/19/17 18:00 62 09/19/17 16:03 98.5 F 61 18 112/61 09/19/17 14:27 62 Pulse Ox 09/20/17 09:05 09/20/17 07:57 99 09/20/17 04:54 94 09/20/17 00:17 94 09/19/17 23:59 09/19/17 23:58 09/19/17 20:56 97 09/19/17 19:51 100 09/19/17 18:00 09/19/17 16:03 97 09/19/17 14:27 - Physical Examination General: No Apparent Distress HEENT: Positive: PERRL Neck: Positive: neck supple Cardiac: Positive: Reg Rate and Rhythm Lungs: Positive: Decreased Breath Sounds Neuro: Positive: Grossly Intact Abdomen: Positive: Soft Skin: Positive: Clear Extremities: Absent: edema - Labs and Meds Coagulation 09/20/17 Range/Units 05:49 PT 13.3 (12.2-14.9) Sec. INR 0.96 (0.87-1.13) APTT 30.8 (24.2-36.6) Sec. CBC 09/20/17 Range/Units 05:49 WBC 7.0 (4.5-11.0) K/mm3 RBC 4.85 (3.65-5.03) M/mm3 Hgb 15.4 H (11.8-15.2) gm/dl Hct 45.1 (35.5-45.6) % Plt Count 260 (140-440) K/mm3 Comprehensive Metabolic Panel 09/20/17 Range/Units 05:49 Sodium 135 L (137-145) mmol/L Potassium 4.2 (3.6-5.0) mmol/L Chloride 98.2 (98-107) mmol/L Carbon Dioxide 25 (22-30) mmol/L BUN 11 (9-20) mg/dL Creatinine 0.7 L (0.8-1.5) mg/dL Glucose 96 (75-100) mg/dL Calcium 9.0 (8.4-10.2) mg/dL - Imaging and Cardiology EKG: report reviewed (normal sinus rhythm and sinus bradycardia heart rate of 54 1 minute left atrial enlargement EKG interpreted by me)
--- NOTE | 2017-09-20 13:46 | Cardiac Catherization Report ---
CARDIAC CATHETERIZATION REPORT REASON FOR PROCEDURE: Chest pain and abnormal thallium stress test. PROCEDURES: 1. Left heart catheterization. 2. Selective left and right coronary angiography. 3. Left ventricle angiography. 4. Sedation time: Stat 12:39 and end 12:55. The patient was prepped and draped in a sterile fashion after informed consent. The right femoral artery was entered using Seldinger technique followed by placement of a 6-Malaysian sheath. Selective left and right coronary angiography was performed using #4 right Rodrigo, and a #4 left Rodrigo. A pigtail catheter was used for left ventricle angiography. The catheters and sheaths were removed, hemostasis achieved over the right femoral arteriotomy using an Angio-Seal device. The patient was returned to the postprocedure unit in stable condition. There were no complications. FINDINGS: HEMODYNAMICS: Left ventricle end diastolic pressure was 18, following coronary angiography. Ascending aortic pressure was 129/63. There was no significant pressure gradient on pullback across the aortic valve. CORONARY ANGIOGRAPHY: Left main coronary artery was angiographically normal. The left anterior descending artery and its diagonal branches contained mild luminal irregularities. There were mild irregularities of the mid and distal LAD. A medium sized ramus intermedius artery contained mild narrowing in its proximal to mid segment, there was an up to 20-30% luminal stenosis in this segment. The first obtuse marginal branch of the circumflex artery was a large vessel extending through most of the lateral wall, this vessel was free of significant disease. Following this, the AV groove circumflex was a medium sized system, which branched into a medium sized mid obtuse marginal and a much smaller terminal obtuse marginal. A stent was visible in the mid AV groove circumflex, the stented segment overlapped the origin of the mid obtuse marginal, stent was widely patent with only mild in-stent restenosis. The right coronary artery was dominant. This vessel contained mild diffuse atherosclerosis of its mid segment. A stent was visible in the distal right coronary artery, the terminal posterolateral branch. This distal right coronary artery stent was also widely patent. The left ventricle was mildly to moderately dilated. There was moderate left ventricular systolic dysfunction with diffuse hypokinesis. Left ventricular ejection fraction 30-35%. The severity of the left ventricular dysfunction is disproportionate to the degree of coronary artery disease that is evident. CONCLUSION: 1. Patent mid circumflex artery stent. 2. Patent distal right coronary artery stent. 3. Otherwise, mild irregularities with no significant residual stenosis. 4. Dilated, predominantly nonischemic cardiomyopathy, moderate left ventricular systolic dysfunction, ejection fraction 30-35%. RECOMMENDATION: 1. Risk factor modification including smoking cessation. 2. Medical therapy for coronary artery disease and nonischemic cardiomyopathy. JOB# [id number] CA/NTS
[2017-09-20] MEDS: PLAVIX PO SCH ×2 (14:31→17:05)
[2017-09-20] MEDS: IMDUR PO SCH ×2 (14:32→17:05)
[2017-09-20] MEDS: COREG PO SCH ×2 (14:33→22:24)
[2017-09-20] MEDS: ZOLOFT PO SCH (14:34)
[2017-09-20] MEDS: ZESTRIL PO SCH (14:34)
[2017-09-20] MEDS: FLOMAX PO SCH (14:34)
[2017-09-20] MEDS: PROSCAR PO SCH (14:34)
[2017-09-20] MEDS: NORVASC PO SCH (14:35)
[2017-09-20] MEDS: PEPCID PO SCH ×2 (14:35→22:24)
[2017-09-20] MEDS: NEURONTIN PO SCH ×2 (14:36→22:24)
[2017-09-20] MEDS ORDERED: NACL 0.9% 1000 ML 1,000 ML IV SCH (15:00)
--- NOTE | 2017-09-20 15:40 | Discharge Summary ---
Providers - Providers Date of Admission: 09/20/17 14:09 Date of discharge: 09/21/17 Attending physician: CHARISMA MEREDITH 09/18/17 12:22 Consult to Cardiology [CONS] Routine Consulting Provider: NANCY KERR Reason For Exam: chest pain 09/20/17 13:23 Consult to Cardiac Rehabilitation [CONS] Routine Reason For Exam: Cardiac Rehab Evaluation Primary care physician: MATERIAL MOVERS Hospitalization Condition: Stable Pertinent studies: Head CT MPI stress test Cardiac Cath CXR Hospital course: Discharge diagnosis and management: Chest pain with abnormal stress test - likely from underlying CHF - s/p cardiac cath today showed patent stents in the mid circumflex and distal right coronary arteries, otherwise mild nonobstructive irregularities. Left ventricular systolic function was reduced at 30-35%, representing a predominantly nonischemic cardiomyopathy. New diagnosed systolic CHF, compensated now h/o CAD s/p stent placement, cont aspirin, statin HLD, cont statin HTN, stable, cont current meds Obesity, dietary recommendation when medically stable Disposition: TO HOME OR SELFCARE Time spent for discharge: 34 minutes Core Measure Documentation - Palliative Care Palliative Care/ Comfort Measures: Not Applicable - Core Measures Any of the following diagnoses?: none Exam - Physical Exam Narrative exam: General appearance: Present: no acute distress, well-nourished - EENT Eyes: PERRL, EOM intact ENT: hearing intact, clear oral mucosa Ears: bilateral: normal - Neck Neck: supple, normal ROM - Respiratory Respiratory effort: normal Respiratory: bilateral: CTA - Cardiovascular Rhythm: regular Heart Sounds: Present: S1 & S2. Absent: gallop, rub Extremities: pulses intact, No edema, normal color, Full ROM - Gastrointestinal General gastrointestinal: Present: soft, non-tender, non-distended, normal bowel sounds - Integumentary Integumentary: clear, warm, dry - Musculoskeletal Musculoskeletal: 1, strength equal bilaterally - Neurologic Neurologic: moves all extremities - Psychiatric Psychiatric: memory intact, appropriate mood/affect, intact judgment & insight - Constitutional Vitals: Temp Pulse Resp BP Pulse Ox 97.6 F 56 L 20 135/54 99 09/20/17 07:57 09/20/17 14:33 09/20/17 13:23 09/20/17 14:32 09/20/17 13:23 Plan Activity: advance as tolerated Weight Bearing Status: Non-Weight Bearing Diet: low cholesterol, low salt Follow up with: PRIMARY CARE, [Primary Care Provider] - 3-5 Days Prescriptions: AtorvaSTATin [Lipitor] 40 mg PO QHS #30 tablet Aspirin EC [Aspirin Enteric Coated TAB] 81 mg PO QDAY #30 tablet Carvedilol [Coreg] 6.25 mg PO BID #60 tablet Clopidogrel [Plavix] 75 mg PO QDAY #30 tablet ISOSORBIDE MONOnitrate [Imdur ER] 30 mg PO QDAY #30 tablet Lisinopril [Zestril TAB] 5 mg PO QDAY #30 tablet
[2017-09-20] MEDS: MORPHINE IV PRN ×2 (17:19→22:25)
--- NOTE | 2017-09-20 17:23 | Progress Note ---
Assessment and Plan Chest pain with abnormal stress test - likely from underlying CHF - s/p cardiac cath today showed patent stents in the mid circumflex and distal right coronary arteries, otherwise mild nonobstructive irregularities. Left ventricular systolic function was reduced at 30-35%, representing a predominantly nonischemic cardiomyopathy. - cont aspirin/statin/plavix New diagnosed systolic CHF, compensated now h/o CAD s/p stent placement, cont aspirin, statin HLD, cont statin HTN, stable, cont current meds Obesity, dietary recommendation when medically stable Homelessness, SW informed - patient was planned to d/c today as was cleared by cardiology. But he refused to go and stated he is homeless no place to go. SW notified. Subjective Date of service: 09/20/17 Interval history: Pt seen and examined cont to c/o intermittent chest pain and SOB s/p cardiac cath today states he is homeless Objective - Exam Narrative Exam: General appearance: Present: no acute distress, well-nourished - EENT Eyes: PERRL, EOM intact ENT: hearing intact, clear oral mucosa Ears: bilateral: normal - Neck Neck: supple, normal ROM - Respiratory Respiratory effort: normal Respiratory: bilateral: CTA - Cardiovascular Rhythm: regular Heart Sounds: Present: S1 & S2. Absent: gallop, rub Extremities: pulses intact, No edema, normal color, Full ROM - Gastrointestinal General gastrointestinal: Present: soft, non-tender, non-distended, normal bowel sounds - Integumentary Integumentary: clear, warm, dry - Musculoskeletal Musculoskeletal: 1, strength equal bilaterally - Neurologic Neurologic: moves all extremities - Psychiatric Psychiatric: memory intact, appropriate mood/affect, intact judgment & insight - Constitutional Vitals: Vital Signs - 12hr 09/20/17 09/20/17 09/20/17 07:57 09:05 11:00 Temperature 97.6 F Pulse Rate 54 L 58 L Respiratory 18 Rate Blood Pressure 120/74 O2 Sat by Pulse 99 98 Oximetry 09/20/17 09/20/17 09/20/17 13:23 14:32 14:33 Temperature Pulse Rate 56 L 56 L Respiratory 20 Rate Blood Pressure 135/54 O2 Sat by Pulse 99 Oximetry 09/20/17 17:19 Temperature Pulse Rate Respiratory 20 Rate Blood Pressure O2 Sat by Pulse Oximetry - Labs CBC & Chem 7: 09/20/17 05:49 09/20/17 05:49 Labs: Abnormal lab results 09/20/17 09/20/17 Range/Units 05:49 05:49 Hgb 15.4 H (11.8-15.2) gm/dl RDW 17.4 H (13.2-15.2) % Sodium 135 L (137-145) mmol/L Creatinine 0.7 L (0.8-1.5) mg/dL
[2017-09-20] MEDS: VISTARIL PO SCH (22:23)
[2017-09-20] MEDS: SODIUM CHLORIDE FLUSH SYRINGE 10 ML IV SCH (22:29)
[2017-09-21] MEDS: PROVENTIL IH PRN ×2 (01:07→12:54)
[2017-09-21] MEDS: HEPARIN SUB-Q SCH ×2 (04:59→16:43)
[2017-09-21] MEDS: MORPHINE IV PRN (04:59)
--- NOTE | 2017-09-21 09:31 | Progress Note ---
Assessment and Plan Chest pain, musculoskeletal [facility] this admission: patent stents in the mid circumflex and distal right coronary arteries, otherwise mild nonobstructive irregularities. Left ventricular systolic function was reduced at 30-35%, representing a predominantly nonischemic cardiomyopathy. Coronary artery disease Systemic Hypertension Hyperlipidemia Tobacco use Recommendations: Continue medical therapy for coronary artery disease and nonischemic cardiomyopathy. Advised smoking cessation. Otherwise, he is stable for cardiac discharge. Patient will f/u with [facility] as scheduled . Subjective Date of service: 09/21/17 Interval history: Patient reports musculoskeletal chest pain, worse with deep inspirations. Objective Vital Signs Temp Pulse Pulse Resp Resp BP Pulse Ox 09/21/17 04:15 98.1 F 56 L 20 125/62 97 09/21/17 01:35 18 98 09/21/17 01:15 74 18 98 09/21/17 01:07 78 17 09/21/17 01:00 78 09/21/17 00:13 97.7 F 63 18 111/49 99 09/20/17 22:24 59 L 110/61 09/20/17 20:55 97.8 F 59 L 20 110/61 96 09/20/17 18:01 134/67 09/20/17 17:45 77 129/82 100 09/20/17 17:31 54 L 127/67 96 09/20/17 17:19 20 09/20/17 17:15 56 L 123/67 99 09/20/17 17:00 58 L 132/66 98 09/20/17 16:45 57 L 124/70 95 09/20/17 16:30 113/67 09/20/17 16:15 56 L 122/69 97 09/20/17 16:03 99.1 F 62 18 126/69 99 09/20/17 15:45 57 L 134/69 95 09/20/17 15:30 57 L 124/69 94 09/20/17 15:15 62 130/61 97 09/20/17 15:00 66 138/81 98 09/20/17 14:45 61 147/76 99 09/20/17 14:33 56 L 09/20/17 14:32 56 L 135/54 09/20/17 14:30 61 143/83 99 09/20/17 14:16 59 L 135/54 99 09/20/17 14:01 58 L 131/69 100 09/20/17 13:59 61 129/79 100 09/20/17 13:47 57 L 95 09/20/17 13:45 58 L 95 09/20/17 13:31 58 L 40/20 100 09/20/17 13:24 98.1 F 52 L 18 141/72 100 09/20/17 13:23 20 99 09/20/17 11:00 98 - Physical Examination General: No Apparent Distress HEENT: Positive: PERRL Cardiac: Positive: Reg Rate and Rhythm Lungs: Positive: Decreased Breath Sounds Neuro: Positive: Grossly Intact Extremities: Absent: edema
[2017-09-21] MEDS ORDERED: HALFPRIN EC PO SCH (10:00)
[2017-09-21] MEDS: PLAVIX PO SCH (10:30)
[2017-09-21] MEDS: NORVASC PO SCH (10:30)
[2017-09-21] MEDS: ZESTRIL PO SCH (10:30)
[2017-09-21] MEDS: NEURONTIN PO SCH (10:30)
[2017-09-21] MEDS: ZOLOFT PO SCH (10:30)
[2017-09-21] MEDS: FLOMAX PO SCH (10:30)
[2017-09-21] MEDS: PEPCID PO SCH (10:31)
[2017-09-21] MEDS: PROSCAR PO SCH (10:31)
[2017-09-21] MEDS: COREG PO SCH (10:32)
[2017-09-21] MEDS: IMDUR PO SCH (10:33)
[2017-09-21 15:04] VITALS: BP 117/61
--- NOTE | 2017-09-21 15:24 | Cat Scan Report ---
CTA CHEST INDICATION: Elevated d-dimer. COMPARISON: None similar. FINDINGS: Chest CTA performed following intravenous administration of 100 cc of Omnipaque 350. Rotational MIP's also obtained. Normal heart size. No effusions. No aortic aneurysm or dissection. Slight aortic arch calcifications. No suspicious pulmonary arterial filling defects. No size significant adenopathy. Patent central airway. Normal imaged thyroid. Slight emphysematous changes towards the apices, right more than left. Mild left lower lobe scarring posteriorly. A small 3-4 mm right paramediastinal calcified lung nodule on axial image 42, series 2. Mild nonspecific distal esophageal wall prominence/thickening, not excluded for gastroesophageal reflux and/or hiatal hernia, amongst others. No significant abnormality in the imaged upper abdomen. Multilevel spinal right-sided osteophytes. CONCLUSION: No acute chest CT abnormality with few other incidental findings, as above. Thank you for the opportunity to participate in this patient's care.
[2017-09-21] MEDS: PERCOCET 5/325 PO PRN (16:42)
== END 2017-09-21 18:28 | disposition home or self-care (01) | DRG 287 ==
LOC: ED 17:51 → 4A 09-18 12:17 → OBSVTOIN 09-20 14:09
PROVIDERS: ADMIT Internal Medicine; ATTEND Internal Medicine
PROC: 4A023N7 Measurement of Cardiac Sampling and Pressure, Left Heart, Percutaneous Approach (ICD-10-PCS; principal; 2017-09-20)
PROC: B2151ZZ Fluoroscopy of Left Heart using Low Osmolar Contrast (ICD-10-PCS; 2017-09-20)
PROC: B2111ZZ Fluoroscopy of Multiple Coronary Arteries using Low Osmolar Contrast (ICD-10-PCS; 2017-09-20)
DX: I11.0 Hypertensive heart disease with heart failure (principal); I50.21 Acute systolic (congestive) heart failure; K21.9 Gastro-esophageal reflux disease without esophagitis; I25.10 Atherosclerotic heart disease of native coronary artery without angina pectoris; I25.2 Old myocardial infarction; H54.8 Legal blindness, as defined in USA; H40.9 Unspecified glaucoma; Z79.82 Long term (current) use of aspirin; Z79.899 Other long term (current) drug therapy; F31.9 Bipolar disorder, unspecified; F17.200 Nicotine dependence, unspecified, uncomplicated; Z98.61 Coronary angioplasty status; R20.2 Paresthesia of skin; N40.0 Benign prostatic hyperplasia without lower urinary tract symptoms; E11.42 Type 2 diabetes mellitus with diabetic polyneuropathy; J44.9 Chronic obstructive pulmonary disease, unspecified; Z82.49 Family history of ischemic heart disease and other diseases of the circulatory system; E78.5 Hyperlipidemia, unspecified; E66.9 Obesity, unspecified; Z68.33 Body mass index [BMI] 33.0-33.9, adult; Z71.3 Dietary counseling and surveillance; I42.9 Cardiomyopathy, unspecified; Z59.0 Homelessness
CPT/HCPCS: 36415; 70450; 71045; 71275; 78452; 80048; 80053; 82565; 82962; 83036; 84484; 85025; 85027; 85379; 85610; 85730; 93005; 93010; 93017; 93458; 94640; 94760; 96374; 99285; A9270-GY; A9502; C1760; C1894; G0378; J0461; J1170; J1644; J2250; J2270; J2785; J3010; J7040; Q0177; Q9967

== ENCOUNTER 2018-11-27 11:54 | Inpatient (IN) | payer MEDICAID ==
--- NOTE | 2018-11-27 12:48 | Emergency Department Report ---
ED Neuro Deficit HPI - General Chief Complaint: Chest Pain Stated Complaint: DIFFICULTY BREATHING/CHEST PAIN Time Seen by Provider: 11/27/18 12:33 Source: patient, EMS Mode of arrival: Stretcher Limitations: Physical Limitation - History of Present Illness Initial Comments: Patient is 58 years old male, legally blind with history of hypertension and adrian betes. Patient brought to the emergency room via EMS initially for evaluation of left sided chest pain that is started this morning. Upon my examination patient stated that his symptoms started with numbness to his left face, left upper and lower extremity. Patient stated that he tried to walk and he felt weak on the left side and he fell, he denied any injury. Patient denied any slurred speech. Patient stated that his symptoms started approximately 9 AM. Stroke protocol immediately initiated. -: Sudden Location: left face, left arm, left leg Presenting Symptoms: Present: Weak/Paralyzed One Side, Facial Droop/Numbness History of same: No - Related Data Home Medications: Home Medications Medication Instructions Recorded Confirmed Last Taken Acetaminophen [Acetaminophen ER 650 mg PO Q12H PRN 09/18/17 11/27/18 11/26/18 TAB] Aspirin EC 325 mg PO QDAY 09/18/17 11/27/18 11/26/18 Bimatoprost [Lumigan 0.01%] 1 drop OP HS 09/18/17 11/27/18 11/26/18 Finasteride [Proscar] 5 mg PO QDAY 09/18/17 11/27/18 11/26/18 Gabapentin [Neurontin] 100 mg PO BID 09/18/17 11/27/18 11/26/18 Ipratropium/Albuterol Sulfate 1 puff IH QID 09/18/17 11/27/18 11/26/18 [Combivent Respimat] Ipratropium/Albuterol Sulfate 1 ampul IH Q6HR 09/18/17 11/27/18 11/26/18 [DUONEB *Not for PRN Use*] Sertraline [Zoloft] 50 mg PO QDAY 09/18/17 11/27/18 11/26/18 Tamsulosin [Flomax] 0.4 mg PO QDAY 09/18/17 11/27/18 11/26/18 hydrOXYzine PAMOATE [Vistaril] 50 mg PO HS 09/18/17 11/27/18 11/26/18 Previous Rx's Medication Instructions Recorded Last Taken Type amLODIPine [Norvasc] 5 mg PO DAILY #30 tab 07/08/16 11/26/18 Rx Aspirin EC [Halfprin EC] 81 mg PO QDAY #30 tablet 09/20/17 11/26/18 Rx Carvedilol [Coreg] 6.25 mg PO BID #60 tablet 09/20/17 11/26/18 Rx Clopidogrel [Plavix] 75 mg PO QDAY #30 tablet 09/20/17 11/26/18 Rx ISOSORBIDE MONOnitrate [Imdur ER] 30 mg PO QDAY #30 tablet 09/20/17 11/26/18 Rx AtorvaSTATin [Lipitor] 40 mg PO QHS #30 tablet 09/21/17 11/26/18 Rx Lisinopril [Zestril TAB] 5 mg PO QDAY #30 tablet 09/21/17 11/26/18 Rx Naproxen [Naprosyn] 500 mg PO BID #14 tablet 01/19/18 11/26/18 Rx Allergies/Adverse Reactions: Allergies Allergy/AdvReac Type Severity Reaction Status Date / Time ibuprofen [From Motrin] AdvReac Unknown Anaphylaxis Verified 11/27/18 16:09 ED Review of Systems ROS: Stated complaint: DIFFICULTY BREATHING/CHEST PAIN Other details as noted in HPI Comment: All other systems reviewed and negative Constitutional: denies: chills, fever Respiratory: shortness of breath. denies: cough Cardiovascular: chest pain. denies: palpitations, dyspnea on exertion Gastrointestinal: denies: abdominal pain, nausea, vomiting Genitourinary: denies: as per HPI Musculoskeletal: denies: back pain Neurological: headache, weakness, numbness, paresthesias. denies: confusion, abnormal gait ED Past Medical Hx - Past Medical History Hx Hypertension: Yes Hx Heart Attack/AMI: Yes Hx Congestive Heart Failure: No Hx Diabetes: Yes Hx Psychiatric Treatment: Yes (bipolar) Hx Asthma: No Hx COPD: No Additional medical history: glaucoma. legally blind - Surgical History Hx Coronary Stent: Yes (x2) Additional Surgical History: hernia repair. R leg sx 12/2016 - Social History Smoking Status: Current Every Day Smoker Substance Use Type: Alcohol - Medications Home Medications: Home Medications Medication Instructions Recorded Confirmed Last Taken Type amLODIPine [Norvasc] 5 mg PO DAILY #30 tab 07/08/16 11/27/18 11/26/18 Rx Acetaminophen [Acetaminophen ER 650 mg PO Q12H PRN 09/18/17 11/27/18 11/26/18 History TAB] Aspirin EC 325 mg PO QDAY 09/18/17 11/27/18 11/26/18 History Bimatoprost [Lumigan 0.01%] 1 drop OP HS 09/18/17 11/27/18 11/26/18 History Finasteride [Proscar] 5 mg PO QDAY 09/18/17 11/27/18 11/26/18 History Gabapentin [Neurontin] 100 mg PO BID 09/18/17 11/27/18 11/26/18 History Ipratropium/Albuterol Sulfate 1 puff IH QID 09/18/17 11/27/18 11/26/18 History [Combivent Respimat] Ipratropium/Albuterol Sulfate 1 ampul IH Q6HR 09/18/17 11/27/18 11/26/18 History [DUONEB *Not for PRN Use*] Sertraline [Zoloft] 50 mg PO QDAY 09/18/17 11/27/18 11/26/18 History Tamsulosin [Flomax] 0.4 mg PO QDAY 09/18/17 11/27/18 11/26/18 History hydrOXYzine PAMOATE [Vistaril] 50 mg PO HS 09/18/17 11/27/18 11/26/18 History Aspirin EC [Halfprin EC] 81 mg PO QDAY #30 tablet 09/20/17 11/27/18 11/26/18 Rx Carvedilol [Coreg] 6.25 mg PO BID #60 tablet 09/20/17 11/27/18 11/26/18 Rx Clopidogrel [Plavix] 75 mg PO QDAY #30 tablet 09/20/17 11/27/18 11/26/18 Rx ISOSORBIDE MONOnitrate [Imdur ER] 30 mg PO QDAY #30 tablet 09/20/17 11/27/18 11/26/18 Rx AtorvaSTATin [Lipitor] 40 mg PO QHS #30 tablet 09/21/17 11/27/18 11/26/18 Rx Lisinopril [Zestril TAB] 5 mg PO QDAY #30 tablet 09/21/17 11/27/18 11/26/18 Rx Naproxen [Naprosyn] 500 mg PO BID #14 tablet 01/19/18 11/27/18 11/26/18 Rx ED Neuro Physical Exam - General Limitations: Physical Limitation General appearance: alert, in no apparent distress Suspected Stroke: Yes - Head Head exam: Present: atraumatic, normocephalic, normal inspection - Eye Eye exam: Present: normal appearance - ENT ENT exam: Present: normal exam, normal orophraynx, mucous membranes moist - Neck Neck exam: Present: normal inspection, full ROM. Absent: tenderness, meningismus, lymphadenopathy, thyromegaly - Respiratory Respiratory exam: Present: normal lung sounds bilaterally - Cardiovascular Cardiovascular Exam: Present: regular rate, normal rhythm, normal heart sounds - GI/Abdominal GI/Abdominal exam: Present: soft, normal bowel sounds. Absent: distended, tenderness, guarding, rebound, rigid, organomegaly, mass, bruit, pulsatile mass - Extremities Exam Extremities exam: Present: normal inspection, full ROM, normal capillary refill. Absent: pedal edema, calf tenderness - Back Exam Back exam: Present: normal inspection, full ROM. Absent: CVA tenderness (R), CVA tenderness (L), muscle spasm, paraspinal tenderness, vertebral tenderness - Neurological Exam Neurological exam: Present: alert, oriented X3 - NIHSS Assessment Interval: Baseline 1a. Level of Consciousness: alert/keenly responsive 1b. LOC Questions: answers both correctly 1c. LOC Commands: performs tasks correctly 2. Best Gaze: normal 3. Visual: bilateral hemianopia 4. Facial Palsy: minor paralysis 5b. Motor Arm Right: no drift 5a. Motor Arm Left: no drift 6a. Motor Leg Left: no drift 6b. Motor Leg Right: no drift 7. Limb Ataxia: absent 8. Sensory: mild/moderate sensory loss 9. Best Language: no aphasia 10. Dysarthria: normal 11. Extinction/Inattention: no abnormality Total Score: 5 Stroke Severity: Moderate Stroke - Psychiatric Psychiatric exam: Present: normal mood - Skin Skin exam: Present: warm, intact, normal color ED Course Vital Signs 11/27/18 11/27/18 11/27/18 12:17 12:25 14:25 Temperature 98.6 F Pulse Rate 65 65 60 Respiratory 16 17 Rate Blood Pressure 117/70 Blood Pressure 117/70 116/61 [Right] O2 Sat by Pulse 100 99 Oximetry - Lab Data Lab Results 11/27/18 11/27/18 11/27/18 Range/Units 12:52 13:12 13:12 Thrombin Time 16.4 (15.1-19.6) Sec. POC Glucose 94 (70-105) Total Creatine Kinase 189 H (55-170) units/L CK-MB (CK-2) 2.3 (0.0-4.0) ng/mL CK-MB (CK-2) Rel Index 1.2 (0-4) - EKG Data -: EKG Interpreted by Me EKG shows normal: sinus rhythm Rate: normal Interpretation: no acute changes - Radiology Data Radiology results: report reviewed - Medical Decision Making Patient is 58 years old male, legally blind with history of hypertension and diabetes. Patient brought to the emergency room via EMS initially for evaluation of left sided chest pain that is started this morning. Upon my examination patient stated that his symptoms started with numbness to his left face, left upper and lower extremity. Patient stated that he tried to walk and he felt weak on the left side and he fell, he denied any injury. Patient denied any slurred speech. Patient stated that his symptoms started approximately 9 AM. Stroke protocol immediately initiated. Stroke telemetry neurologist examine the patient through video conference. He indicated that patient is not a TPA candidate. I discussed the patient with Dr. Saldana, he agreed to admit the patient to medical service. Critical Care Time: Yes Critical care time in (mins) excluding proc time.: 30 Critical care attestation.: If time is entered above; I have spent that time in minutes in the direct care of this critically ill patient, excluding procedure time. ED Disposition Clinical Impression: Chest pain CVA (cerebral vascular accident) Qualifiers: Precerebral and cerebral artery: middle cerebral artery Laterality of affected vessel: right Disposition: DC-09 OP ADMIT IP TO THIS HOSP Is pt being admited?: Yes Condition: Stable
--- NOTE | 2018-11-27 13:17 | Cat Scan Report ---
CT HEAD WITHOUT CONTRAST INDICATION : Stroke symptoms. Code stroke. TECHNIQUE: Axial imaging performed from the skull apex through the skull base without the use of con trast. All CT scans at this location are performed using CT dose reduction for ALARA by means of aut omated exposure control. COMPARISON: 09/18/2017 FINDINGS: Parenchyma: No abnormal density. No mass or mass effect. No hemorrhage or edema. Ventricles: Ventricles are normal in size and appear symmetric. Soft tissues: Soft tissues including the orbits appear normal. Bones: No acute osseous abnormality. Sinuses: Sinuses and mastoid air cells are clear. IMPRESSION: No evidence of acute infarct or hemorrhage. A verbal report was given to Dr. Lai in the emergency department on 11/27/2018 at 13:11 [place] Time. CODE STROKE Signer Name: Steven Pike MD Signed: 11/27/2018 1:13 PM Workstation Name: [id number]
[2018-11-27 13:44] LABS: Creatine Kinase MB 2.3 ng/mL (0.0-4.0)
--- NOTE | 2018-11-27 14:09 | XRay Report ---
CHEST 1 VIEW INDICATION: Stroke. COMPARISON: 09/18/2017 FINDINGS: Support devices: None. Heart: Borderline large. Pulmonary vasculature: Redistribution of pulmonary blood flow to the upper lobes. Lungs/Pleura: Normally expanded and clear lungs. No pleural effusion. Additional findings: Degenerative change in the spine. IMPRESSION: Borderline cardiomegaly and pulmonary venous hypertension. No CHF or pneumonia. Signer Name: Steven Pike MD Signed: 11/27/2018 2:05 PM Workstation Name: [id number]
[2018-11-27] MEDS ORDERED: MILK OF MAGNESIA PO PRN (14:58)
[2018-11-27] MEDS ORDERED: REGLAN PO PRN (14:58)
[2018-11-27] MEDS ORDERED: PROVENTIL IH PRN (14:58)
[2018-11-27] MEDS ORDERED: PHENERGAN PR PRN (14:58)
[2018-11-27] MEDS ORDERED: ZOFRAN IV PRN (14:58)
[2018-11-27] MEDS ORDERED: DULCOLAX PR PRN (14:58)
--- NOTE | 2018-11-27 14:58 | History and Physical Report ---
History of Present Illness Chief complaint: Im weak on my left side History of present illness: 58 YO Male with HTN, DM, Legally Blind, [place], Nicotine Dependence, CAD S/P Stent Placement, Bipolar Disorder, Glaucoma present to ED for evaluation. Pt states that he was in his usual state of health at bedtime around 2100hrs. Pt states that he experienced numbness to his the left side of his face and his left arm and leg that began around 0900 hrs. Pt states that he attempted to walk to a neighbors home and subsequently fell down due to his left sided weakness and subsequently lost consciousness. Pt also reports a headache, and chest discomfort. EMS notified, and upon arrival the patient was found to be in distress and transported to [facility]. Pt seen and evaluated in ED. A code stroke was called. Pt found to have symptoms consistent with CVA. Pt admitted to medical floor and initiated on CVA protocol. Teleneurology consulted in ED. Pt denies fever, chills, CP, Palpitations, NVD, Trauma, BRBPR, Productive cough, vertigo, loss of bowel/bladder continence, skin rash, or recent ill contacts. Prior admission on 09/20/18 reviewed. All listed medication reconciled at time of admission. Past History Past Medical History: other (see hpi) Past Surgical History: hernia repair, Other (Right leg surgery, cardiac stent placement) Social history: single, smoking Family history: diabetes, hypertension Medications and Allergies Allergies Allergy/AdvReac Type Severity Reaction Status Date / Time ibuprofen [From Motrin] AdvReac Unknown Anaphylaxis Verified 11/27/18 16:09 Home Medications Medication Instructions Recorded Confirmed Last Taken Type amLODIPine [Norvasc] 5 mg PO DAILY #30 tab 07/08/16 09/18/17 Unknown Rx Acetaminophen [Acetaminophen ER 650 mg PO Q12H PRN 09/18/17 09/18/17 Unknown History TAB] Aspirin EC 325 mg PO QDAY 09/18/17 09/18/17 Unknown History Bimatoprost [Lumigan 0.01%] 1 drop OP HS 09/18/17 09/18/17 Unknown History Finasteride [Proscar] 5 mg PO QDAY 09/18/17 09/18/17 Unknown History Gabapentin [Neurontin] 100 mg PO BID 09/18/17 09/18/17 Unknown History Ipratropium/Albuterol Sulfate 1 puff IH QID 09/18/17 09/18/17 Unknown History [Combivent Respimat] Ipratropium/Albuterol Sulfate 1 ampul IH Q6HR 09/18/17 09/18/17 Unknown History [DUONEB *Not for PRN Use*] Sertraline [Zoloft] 50 mg PO QDAY 09/18/17 09/18/17 Unknown History Tamsulosin [Flomax] 0.4 mg PO QDAY 09/18/17 09/18/17 Unknown History hydrOXYzine PAMOATE [Vistaril] 50 mg PO HS 09/18/17 09/18/17 Unknown History Aspirin EC [Halfprin EC] 81 mg PO QDAY #30 tablet 09/20/17 Unknown Rx Carvedilol [Coreg] 6.25 mg PO BID #60 tablet 09/20/17 Unknown Rx Clopidogrel [Plavix] 75 mg PO QDAY #30 tablet 09/20/17 Unknown Rx ISOSORBIDE MONOnitrate [Imdur ER] 30 mg PO QDAY #30 tablet 09/20/17 Unknown Rx AtorvaSTATin [Lipitor] 40 mg PO QHS #30 tablet 09/21/17 Unknown Rx Lisinopril [Zestril TAB] 5 mg PO QDAY #30 tablet 09/21/17 Unknown Rx Naproxen [Naprosyn] 500 mg PO BID #14 tablet 01/19/18 Unknown Rx Review of Systems Constitutional: no weight loss, no weight gain, no fever, no chills, no sweats, no night sweats, no malaise Ears, nose, mouth and throat: headache, no ear pain, no ear discharge, no tinnitis, no decreased hearing, no nose pain Cardiovascular: no chest pain, no orthopnea, no palpitations, no rapid/irregular heart beat, no edema Respiratory: no cough, no cough with sputum, no excessive sputum, no hemoptysis, no shortness of breath Gastrointestinal: no nausea, no vomiting, no diarrhea, no constipation, no change in bowel habits Genitourinary Male: no hematuria, no flank pain, no discharge, no urinary frequency, no urinary hesitancy Rectal: no pain, no incontinence, no bleeding Musculoskeletal: no neck stiffness, no neck pain, no shooting arm pain, no arm numbness/tingling Integumentary: no rash, no pruritis, no redness, no sores, no wounds Neurological: paralysis, weakness, numbness, syncope, lack of coordination, headaches, gait dysfunction, no seizures, no tremors, no confusion, no memory loss Psychiatric: no anxiety, no memory loss, no change in sleep habits, no sleep disturbances, no insomnia, no hypersomnia, no change in appetite Endocrine: no cold intolerance, no heat intolerance, no polyphagia, no excessive thirst, no polydipsia, no polyuria, no nocturia Hematologic/Lymphatic: no easy bruising, no easy bleeding, no lymphadenopathy, no lymphedema Allergic/Immunologic: no urticaria, no allergic rhinitis, no wheezing, no persistent infections, no anaphylaxis, no angioedema Exam - Constitutional Vitals: Temp Pulse Resp BP Pulse Ox 98.6 F 60 17 116/61 99 11/27/18 14:25 11/27/18 14:25 11/27/18 14:25 11/27/18 14:25 11/27/18 14:25 General appearance: Present: mild distress - EENT Eyes: Present: PERRL ENT: hearing intact, clear oral mucosa - Neck Neck: Present: supple, normal ROM - Respiratory Respiratory effort: normal Respiratory: bilateral: CTA - Cardiovascular Heart Sounds: Present: S1 & S2. Absent: rub, click - Extremities Extremities: pulses symmetrical, No edema Peripheral Pulses: within normal limits - Abdominal General gastrointestinal: Present: soft, non-tender, non-distended, normal bowel sounds Male genitourinary: Present: normal - Integumentary Integumentary: Present: clear, warm, dry - Musculoskeletal Musculoskeletal: left sided weakness - Psychiatric Psychiatric: appropriate mood/affect, intact judgment & insight - Neurologic Neurologic: CNII-XII intact, moves all extremities, no gait normal Results - Labs Labs: Abnormal lab results 11/27/18 Range/Units 13:12 Total Creatine Kinase 189 H (55-170) units/L Assessment and Plan - Patient Problems (1) CVA (cerebral vascular accident) Current Visit: Yes Status: Acute Qualifiers: Precerebral and cerebral artery: middle cerebral artery Laterality of affected vessel: right Plan to address problem: Stroke Protocol: CT Head, neuro check, seizure precautions, Neurology consulted in ED, Echo, carotid doppler, antiplatelet therapy, lipid panel, statin therapy, Further imaging as per neurology team. (2) Diabetes Current Visit: Yes Status: Acute Plan to address problem: ADA diet, insulin sliding scale, accu check, hypoglycemia protocol. (3) HTN (hypertension) Current Visit: No Status: Chronic Qualifiers: Hypertension type: essential hypertension Qualified Code(s): I10 - Essential (primary) hypertension Plan to address problem: monitor bp q shift, supportive care. (4) Syncope and collapse Current Visit: Yes Status: Acute Plan to address problem: Echo, seizure precautions, neuro checks, supportive care, IVF resuscitation therapy (5) Glaucoma Current Visit: Yes Status: Acute Plan to address problem: continue eye drops, outpatient Ophthalmology F/U care. (6) DVT prophylaxis Current Visit: No Status: Acute Plan to address problem: SCD to BLE while in bed
--- NOTE | 2018-11-27 15:00 | Cat Scan Report ---
CTA CHEST WITH CONTRAST INDICATION : chest pain rule out aortic dissection.. TECHNIQUE: Axial imaging performed through the chest, with contrast bolus timing set to maximize opa cification of the pulmonary arteries. Sagittal and coronal reformatted images. 3-plane MIP reformatte d images were obtained. All CT scans at this location are performed using CT dose reduction for ALAR A by means of automated exposure control. 100 mL of intravenous contrast administered. COMPARISON: FINDINGS: Bolus: Contrast bolus timing is adequate. PTE: No filling defect is present to suggest PTE. Thoracic aorta: No significant abnormality. Mediastinum: Heart and great vessels appear normal. No pathologic mediastinal adenopathy. Lungs: Lungs are clear. Bones: Degenerative changes in the spine with nothing acute. Upper abdomen: Limited imaging of the upper abdomen shows nothing acute. IMPRESSION: No evidence for aortic dissection. Unremarkable CTA chest. Signer Name: Dylan Mauricio Jr, MD Signed: 11/27/2018 2:55 PM Workstation Name: [id number]
[2018-11-27] MEDS ORDERED: NON-FORMULARY (Acetaminophen [Acetaminophen Er Tab] 650 MG) PO PRN (15:03)
--- NOTE | 2018-11-27 15:42 | Consultation ---
History of Present Illness - Reason for Consult Consult date: 11/27/18 STROKE - History of Present Illness [facility] Tele[facility]urology Consult Services Date of Service: 11/27/2018 12:55:05 Impression: RO Acute Ischemic Stroke Comments: Pt has left sided weakness that is noted, for a few days. Symptoms seem to be worsening. CTA head/neck and chest. is negative. Recommend MRI and MRA head/neck stat Metrics: Last Known Well: 11/23/2018 12:59:11 [facility] Notification Time: 11/27/2018 12:54:04 Arrival Time: 11/27/2018 12:56:47 Stamp Time: 11/27/2018 12:55:05 Time First Login Attempt: 11/27/2018 12:57:31 Video Start Time: 11/27/2018 12:57:31 Symptoms: something wrong with my face, NIHSS Start Assessment Time: 11/27/2018 13:01:46 Patient is not a candidate for tPA. Patient was not deemed candidate for tPA thrombolytics because of Last Well Known Above 4.5 Hours. Video End Time: 11/27/2018 01:20:00 CT head showed no acute hemorrhage or acute core infarct. ER physician notified of the decision on thrombolytics management. Our recommendations are outlined below. Recommendations: Antiplatelet Therapy Recommended Recommended Scan: MRI Head Therapies: Physical Therapy, Occupational Therapy, Speech Therapy Assessment When A pplicable Dysphaghia Screen: Swallow Evaluation, Bedside DVT prophylaxis: Choice of Primary Team Disposition: Follow up with Teleneurology Follow up History of Present Illness: Patient is a 58 years old Male. Patient was brought by EMS for symptoms of something wrong with my face, The patient was walking and saw a derek and could not breath. He initially came in to the hospital as chest pain. He had chest pain and came on emergency. The patient has left sided arm weaknss. CT head showed no acute hemorrhage or acute core infarct. Last seen normal was beyond 4.5 hours of presentation. There is no history of hemorrhagic complications or intracranial hemorrhage. There is no history of Recent Anticoagulants. There is no history of recent major surgery. There is no history of recent stroke. Examination: 1A: Level of Consciousness - Alert; keenly responsive + 0 1B: Ask Month and Age - 1 Question Right + 1 1C: Blink Eyes & Squeeze Hands - Performs Both Tasks + 0 2: Test Horizontal Extraocular Movements - Normal + 0 3: Test Visual Wolff - Complete Hemianopia + 2 4: Test Facial Palsy (Use Grimace if Obtunded) - Normal symmetry + 0 5A: Test Left Arm Motor Drift - Drift, but doesn't hit bed + 1 5B: Test Right Arm Motor Drift - Drift, hits bed + 2 6A: Test Left Leg Motor Drift - No Drift for 5 Seconds + 0 6B: Test Right Leg Motor Drift - No Drift for 5 Seconds + 0 7: Test Limb Ataxia (FNF/Heel-Caballero) - No Ataxia + 0 8: Test Sensation - Normal; No sensory loss + 0 9: Test Language/Aphasia - Normal; No aphasia + 0 10: Test Dysarthria - Normal + 0 11: Test Extinction/Inattention - Visual/tactile/auditory/spatial/personal inattention + 1 NIHSS Score: 7 Patient was informed the Neurology Consult would happen via TeleHealth consult by way of interactive audio and video telecommunications and consented to receiving care in this manner. Due to the immediate potential for life-threatening deterioration due to underlying acute neurologic illness, I spent 35 minutes providing critical care. This time includes time for face to face visit via telemedicine, review of medical records, imaging studies and discussion of findings with providers, the patient and/or family. Dr Lui [facility] Past History Past Surgical History: hernia repair, Other (Right leg surgery, cardiac stent placement) Social history: single, smoking Family history: diabetes, hypertension Medications and Allergies Allergies Allergy/AdvReac Type Severity Reaction Status Date / Time No Known Allergies Allergy Unverified 07/06/16 11:37 Home Medications Medication Instructions Recorded Confirmed Last Taken Type amLODIPine [Norvasc] 5 mg PO DAILY #30 tab 07/08/16 09/18/17 Unknown Rx Acetaminophen [Acetaminophen ER 650 mg PO Q12H PRN 09/18/17 09/18/17 Unknown History TAB] Aspirin EC 325 mg PO QDAY 09/18/17 09/18/17 Unknown History Bimatoprost [Lumigan 0.01%] 1 drop OP HS 09/18/17 09/18/17 Unknown History Finasteride [Proscar] 5 mg PO QDAY 09/18/17 09/18/17 Unknown History Gabapentin [Neurontin] 100 mg PO BID 09/18/17 09/18/17 Unknown History Ipratropium/Albuterol Sulfate 1 puff IH QID 09/18/17 09/18/17 Unknown History [Combivent Respimat] Ipratropium/Albuterol Sulfate 1 ampul IH Q6HR 09/18/17 09/18/17 Unknown History [DUONEB *Not for PRN Use*] Sertraline [Zoloft] 50 mg PO QDAY 09/18/17 09/18/17 Unknown History Tamsulosin [Flomax] 0.4 mg PO QDAY 09/18/17 09/18/17 Unknown History hydrOXYzine PAMOATE [Vistaril] 50 mg PO HS 09/18/17 09/18/17 Unknown History Aspirin EC [Halfprin EC] 81 mg PO QDAY #30 tablet 09/20/17 Unknown Rx Carvedilol [Coreg] 6.25 mg PO BID #60 tablet 09/20/17 Unknown Rx Clopidogrel [Plavix] 75 mg PO QDAY #30 tablet 09/20/17 Unknown Rx ISOSORBIDE MONOnitrate [Imdur ER] 30 mg PO QDAY #30 tablet 09/20/17 Unknown Rx AtorvaSTATin [Lipitor] 40 mg PO QHS #30 tablet 09/21/17 Unknown Rx Lisinopril [Zestril TAB] 5 mg PO QDAY #30 tablet 09/21/17 Unknown Rx Naproxen [Naprosyn] 500 mg PO BID #14 tablet 01/19/18 Unknown Rx Active Meds: Active Medications Acetaminophen (Tylenol) 650 mg PO Q4H PRN PRN Reason: Pain, Mild (1-3) Albuterol (Proventil) 2.5 mg IH Q3HRT PRN PRN Reason: Shortness Of Breath Aspirin (Aspirin) 325 mg PO QDAY [facility] Aspirin (Ecotrin) 325 mg PO QDAY [facility] Atorvastatin Calcium (Lipitor) 40 mg PO QHS [facility] Bisacodyl (Dulcolax) 10 mg [place] QDAY PRN PRN Reason: Constipation Clopidogrel Bisulfate (Plavix) 75 mg PO QDAY [facility] Finasteride (Proscar) 5 mg PO QDAY [facility] Gabapentin (Neurontin) 100 mg PO BID [facility] Hydroxyzine Pamoate (Vistaril) 50 mg PO HS [facility] Magnesium Hydroxide (Milk Of Magnesia) 30 ml PO Q4H PRN PRN Reason: Constipation Metoclopramide HCl (Reglan) 10 mg PO Q6H PRN PRN Reason: Nausea And Vomiting Miscellaneous Medication (Acetaminophen [Acetaminophen Er Tab]) 650 mg PO Q12H PRN PRN Reason: Pain, Moderate (4-6) Miscellaneous Medication (Bimatoprost [Lumigan 0.01%]) 1 drop OP HS [facility] Naproxen (Naprosyn) 500 mg PO BID [facility] Ondansetron HCl (Zofran) 4 mg IV Q8H PRN PRN Reason: Nausea And Vomiting Promethazine HCl (Phenergan) 25 mg [place] Q6H PRN PRN Reason: Nausea And Vomiting Sertraline HCl (Zoloft) 50 mg PO QDAY [facility] Sodium Chloride (Sodium Chloride Flush Syringe 10 Ml) 10 ml INJ PRN PRN PRN Reason: LINE FLUSH Tamsulosin HCl (Flomax) 0.4 mg PO QDAY [facility] Exam - Constitutional Vitals: Temp Pulse Resp BP Pulse Ox 98.6 F 60 17 116/61 99 11/27/18 14:25 11/27/18 14:25 11/27/18 14:25 11/27/18 14:25 11/27/18 14:25 Results - Labs Labs: Abnormal lab results 11/27/18 Range/Units 13:12 Total Creatine Kinase 189 H (55-170) units/L
--- NOTE | 2018-11-27 16:22 | Cat Scan Report ---
CTA ABDOMEN HISTORY: Chest pain, rule out aortic dissection COMPARISON: None. TECHNIQUE: Noncontrast CT abdomen obtained. Routine postcontrast CT angiography of the abdomen and p gaurav performed. Multiplanar/MIP/3D reformats were post-processed. All CT scans at this location are performed using CT dose reduction for ALARA by means of automated exposure control. CONTRAST: 100 ml of Omnipaque 350 FINDINGS: CTA ABDOMEN: Abdominal Aorta: No significant abnormality. Mild distal calcific plaques. Celiac Artery: No significant abnormality. Superior Mesenteric Artery: No significant abnormality. Renal Arteries: Right: No significant abnormality. Left: No significant abnormality. Inferior Mesenteric Artery: No significant abnormality. CTA PELVIS: RIGHT: Common Iliac Artery: No significant abnormality. Internal Iliac Artery: No significant abnormality. External Iliac Artery: No significant abnormality. LEFT: Common Iliac Artery: No significant abnormality. Internal Iliac Artery: No significant abnormality. External Iliac Artery: No significant abnormality. NONTARGET STRUCTURES: ABDOMEN: GI:No significant abnormality. :No significant abnormality. Lymphatics:No significant abnormality. PELVIS: :No significant abnormality. Osseous Structures: No significant abnormality. Additional Findings: None IMPRESSION: Unremarkable CTA of the abdomen. No evidence for dissection. Signer Name: Dylan Mauricio Jr, MD Signed: 11/27/2018 4:17 PM Workstation Name: [id number]
--- NOTE | 2018-11-27 17:50 | Consultation ---
History of Present Illness Consult date: 11/27/18 History of present illness: This is a 58 YO M who presented to the ED with multiple complaints. He was having chest pain, radiating pain down the left arm and decreased vision. Has compromised vision at baseline from glaucoma. Past History Past Medical History: acute [place], CAD, other (bipolar) Past Surgical History: hernia repair, Other (Right leg surgery, cardiac stent placement) Social history: single, smoking Family history: diabetes, hypertension Medications and Allergies Allergies Allergy/AdvReac Type Severity Reaction Status Date / Time ibuprofen [From Motrin] AdvReac Unknown Anaphylaxis Verified 11/27/18 16:09 Home Medications Medication Instructions Recorded Confirmed Last Taken Type amLODIPine [Norvasc] 5 mg PO DAILY #30 tab 07/08/16 11/27/18 11/26/18 Rx Acetaminophen [Acetaminophen ER 650 mg PO Q12H PRN 09/18/17 11/27/18 11/26/18 History TAB] Aspirin EC 325 mg PO QDAY 09/18/17 11/27/18 11/26/18 History Bimatoprost [Lumigan 0.01%] 1 drop OP HS 09/18/17 11/27/18 11/26/18 History Finasteride [Proscar] 5 mg PO QDAY 09/18/17 11/27/18 11/26/18 History Gabapentin [Neurontin] 100 mg PO BID 09/18/17 11/27/18 11/26/18 History Ipratropium/Albuterol Sulfate 1 puff IH QID 09/18/17 11/27/18 11/26/18 History [Combivent Respimat] Ipratropium/Albuterol Sulfate 1 ampul IH Q6HR 09/18/17 11/27/18 11/26/18 History [DUONEB *Not for PRN Use*] Sertraline [Zoloft] 50 mg PO QDAY 09/18/17 11/27/18 11/26/18 History Tamsulosin [Flomax] 0.4 mg PO QDAY 09/18/17 11/27/18 11/26/18 History hydrOXYzine PAMOATE [Vistaril] 50 mg PO HS 09/18/17 11/27/18 11/26/18 History Aspirin EC [Halfprin EC] 81 mg PO QDAY #30 tablet 09/20/17 11/27/18 11/26/18 Rx Carvedilol [Coreg] 6.25 mg PO BID #60 tablet 09/20/17 11/27/18 11/26/18 Rx Clopidogrel [Plavix] 75 mg PO QDAY #30 tablet 09/20/17 11/27/18 11/26/18 Rx ISOSORBIDE MONOnitrate [Imdur ER] 30 mg PO QDAY #30 tablet 09/20/17 11/27/18 11/26/18 Rx AtorvaSTATin [Lipitor] 40 mg PO QHS #30 tablet 09/21/17 11/27/18 11/26/18 Rx Lisinopril [Zestril TAB] 5 mg PO QDAY #30 tablet 09/21/17 11/27/18 11/26/18 Rx Naproxen [Naprosyn] 500 mg PO BID #14 tablet 01/19/18 11/27/18 11/26/18 Rx Active Meds: Active Medications Acetaminophen (Tylenol) 650 mg PO Q4H PRN PRN Reason: Pain, Mild (1-3) Albuterol (Proventil) 2.5 mg IH Q3HRT PRN PRN Reason: Shortness Of Breath Aspirin (Ecotrin) 325 mg PO QDAY [facility] Atorvastatin Calcium (Lipitor) 40 mg PO QHS [facility] Bisacodyl (Dulcolax) 10 mg [place] QDAY PRN PRN Reason: Constipation Clopidogrel Bisulfate (Plavix) 75 mg PO QDAY [facility] Finasteride (Proscar) 5 mg PO QDAY [facility] Gabapentin (Neurontin) 100 mg PO BID [facility] Hydroxyzine Pamoate (Vistaril) 50 mg PO HS [facility] Latanoprost (Latanoprost 0.005%) 1 drops OU QHS [facility] Magnesium Hydroxide (Milk Of Magnesia) 30 ml PO Q4H PRN PRN Reason: Constipation Metoclopramide HCl (Reglan) 10 mg PO Q6H PRN PRN Reason: Nausea And Vomiting Naproxen (Naprosyn) 500 mg PO BID [facility] Ondansetron HCl (Zofran) 4 mg IV Q8H PRN PRN Reason: Nausea And Vomiting Promethazine HCl (Phenergan) 25 mg [place] Q6H PRN PRN Reason: Nausea And Vomiting Sertraline HCl (Zoloft) 50 mg PO QDAY [facility] Sodium Chloride (Sodium Chloride Flush Syringe 10 Ml) 10 ml IV PRN PRN PRN Reason: LINE FLUSH Tamsulosin HCl (Flomax) 0.4 mg PO QDAY [facility] Review of Systems Neurological: loss of vision Physical Examination - Vital Signs Vital Signs: Vital Signs Pulse 65 11/27/18 12:17 - Constitutional General appearance: comfortable - EENT EENT: Present: ATNC, mucous membranes moist - Respiratory Respiratory: Present: lungs clear, normal breath sounds - Cardiovascular Cardiovascular: Present: regular rate - Gastrointestinal Gastrointestinal: Present: normoactive bowel sounds - Integumentary Integumentary: Present: normal - Neurologic Cranial nerve examination: face symmetric, tongue midline Sensorimotor examination: intact Motor examination - right side: 2/5: hip flexors, knee extensors, dorsiflexion, toe extension (EHL), plantarflexion, 5/5: biceps, triceps, wrist flexion, wrist extension, employment programs analyst Motor examination - left side: 5/5: biceps, triceps, wrist flexion, wrist extension, employment programs analyst, hip flexors, knee extensors, dorsiflexion, toe extension (EHL), plantarflexion Detailed sensory examination: intact Reflexes: 1+: ankle, bicep, knee, tricep - Psychiatric Psychiatric: Present: mood/affect appropriate Results - Laboratory Findings Abnormal Lab Findings: Abnormal Labs 11/27/18 13:12 Total Creatine Kinase 189 H - Diagnostic Findings Additional findings: CT head WNL Assessment and Plan This is a 58 YO M with mostly chest pain and radiating pain into the left arm. doubt stroke but has risk factors. Pain in left arm cardiac vs cervical radiculopathy Recommend: Find to do stroke work up MRI Brain and cervical Continue care for all medical issues as you are doing
[2018-11-27] MEDS: TYLENOL PO PRN (20:23)
--- NOTE | 2018-11-27 20:27 | Magnetic Resonance Report ---
MRA HEAD WITHOUT CONTRAST HISTORY: Left-sided weakness COMPARISON: None. TECHNIQUE: Routine MRA of the head is performed. 3-D/MIP reformats postprocessed. CONTRAST: None. FINDINGS: Intracranial vertebral arteries: No significant abnormality. Left vertebral artery is the dominant ar marilou. Right vertebral artery ends in the right PICA. Basilar artery: No significant abnormality. Posterior cerebral arteries: No significant abnormality. Intracranial internal carotid arteries: No significant abnormality. Anterior cerebral arteries: No significant abnormality. Middle cerebral arteries: No significant abnormality. Variants and anomalies:None Additional findings: None. IMPRESSION: Normal MRA of the brain. Signer Name: Renetta Zamora MD Signed: 11/27/2018 8:22 PM Workstation Name: [id number]
--- NOTE | 2018-11-27 20:29 | Magnetic Resonance Report ---
MRA NECK WITHOUT CONTRAST HISTORY: Left-sided weakness COMPARISON: None. TECHNIQUE: Routine MRA of the neck was performed. 3-D/MIP reformats postprocessed. Percentage stenos is is determined by direct quantitative measurements of distal internal carotid artery diameter kiran red with normal reference segments or by criteria similar to NASCET where applicable. CONTRAST: None. FINDINGS: Aortic arch: Arch is not included in this field of view. Cervical vertebral arteries: Patent in the foraminal segments. Common carotid arteries: No significant abnormality. Carotid bifurcations: Normal Cervical internal carotid arteries: No significant abnormality. Additional findings: None. IMPRESSION: 1. Normal nonenhanced MRA of the neck. Signer Name: Renetta Zamora MD Signed: 11/27/2018 8:24 PM Workstation Name: [id number]
[2018-11-27] MEDS ORDERED: NON-FORMULARY (Bimatoprost [Lumigan 0.01%] 1 DROP) OP SCH (22:00)
[2018-11-27] MEDS: VISTARIL PO SCH (22:00)
[2018-11-27] MEDS: NEURONTIN PO SCH (22:00)
[2018-11-27] MEDS: NAPROSYN PO SCH (22:01)
[2018-11-27] MEDS: LATANOPROST 0.005% OU SCH (22:07)
[2018-11-27] MEDS: SODIUM CHLORIDE FLUSH SYRINGE 10 ML IV PRN (22:10)
[2018-11-28 07:50] LABS: Chol/HDL Ratio 2.35 %
[2018-11-28] MEDS ORDERED: ASPIRIN PO SCH (10:00)
--- NOTE | 2018-11-28 10:01 | Magnetic Resonance Report ---
MRI CERVICAL SPINE WITHOUT CONTRAST INDICATION / CLINICAL INFORMATION: radiating neck pain on the left. Radiculopathy. TECHNIQUE: Multisequence, multiplanar images of the cervical spine were obtained. COMPARISON: None available. FINDINGS: CRANIOCERVICAL JUNCTION:No significant abnormality. ALIGNMENT: No significant abnormality. VERTEBRAE:Normal marrow signal and vertebral body height for age. Discs: There is mild diffuse disc desiccation and narrowing. Facet joints: Mild diffuse arthritic changes. No hypertrophic changes. VISUALIZED SPINAL CORD: No significant abnormality. SIHOB-ON-DMDOL ANALYSIS: C2-3: No significant disc abnormality, spinal canal stenosis, or neural foraminal stenosis. C3-4: Mild right uncovertebral spurring and moderate left uncovertebral spurring. Left neural foramin al narrowing is estimated at 50-75%. No central canal narrowing. C4-5: Mild posterior and bilateral uncovertebral spurring. Mild to moderate bilateral neural foramina l narrowing is estimated at 50 %. No central canal narrowing. C5-6: Mild to moderate bilateral uncovertebral spurring, left greater than right. Mild left neural fo raminal narrowing is estimated at 50 %. No central canal narrowing. C6-7: Mild bilateral uncovertebral spurring. Mild bilateral neural foraminal narrowing is estimated a t 25-50%. C7-T1: No significant disc abnormality, spinal canal stenosis, or neural foraminal stenosis. PARASPINAL SOFT TISSUES: No significant abnormality. ADDITIONAL FINDINGS: None. IMPRESSION: Mild to moderate multilevel degenerative disc disease and mild facet arthropathy as described above. No evidence for acute injury, malalignment, bone lesion or large herniation. Signer Name: Dylan Mauricio Jr, MD Signed: 11/28/2018 9:57 AM Workstation Name: [id number]
[2018-11-28] MEDS: FLOMAX PO SCH (10:23)
[2018-11-28] MEDS: NEURONTIN PO SCH ×2 (10:23→22:12)
[2018-11-28] MEDS: NAPROSYN PO SCH ×2 (10:23→22:09)
[2018-11-28] MEDS: ECOTRIN PO SCH (10:23)
[2018-11-28] MEDS: PLAVIX PO SCH (10:23)
[2018-11-28] MEDS: ZOLOFT PO SCH (10:23)
[2018-11-28] MEDS: PROSCAR PO SCH (10:23)
[2018-11-28] MEDS: SODIUM CHLORIDE FLUSH SYRINGE 10 ML IV PRN (10:24)
[2018-11-28] MEDS: TYLENOL PO PRN (12:37)
[2018-11-28] MEDS: ULTRAM PO PRN ×2 (15:07→22:10)
--- NOTE | 2018-11-28 16:25 | Progress Note ---
Assessment and Plan - Patient Problems (1) Radiculopathy Current Visit: Yes Status: Acute Plan to address problem: Superior his to be most likely etiology at this particular time. Symptoms not consistent with cardiac pain at this point. Essential workup was unremarkable. If cardiac isoenzymes stress test or unremarkable. We'll discharge home with primary care follow-up. In cardiology follow-up outpatient. (2) Chest pain Current Visit: Yes Status: Acute Plan to address problem: Patient actually did not have chest pain today. Patient had pain along the most interest. Of bus and lateral aspect of pectoral major. Pain was with palpation as well. Musculoskeletal versus radiculopathy. The conclusion of cardiac workup. Extremities negative for discharge home. (3) Diabetes Current Visit: Yes Status: Acute Plan to address problem: Present patient no evidence of hyperglycemia patient is not on any hypoglycemic agents. Will observe. May be diet controlled. (4) Paresthesias Current Visit: No Status: Acute Plan to address problem: Paresthesias as resolved. Likely secondary to radiculopathy. (5) HTN (hypertension) Current Visit: No Status: Chronic Qualifiers: Hypertension type: essential hypertension Qualified Code(s): I10 - Essential (primary) hypertension Plan to address problem: Patient currently has upper control blood pressure. Risk factors remained very well controlled. LDL 68. History Interval history: Should 58-year-old with a history of hypertension diabetes coronary artery disease status post stent bipolar disorder since with left arm pain. Patient states pain is intermittent will grab his chest. Associated with some shortness of breath as well. Initial workup has been unremarkable. Was questionable cardiac versus radiculopathy. Therefore patient had MRI done which was negative MRI of head MRI MRA unremarkable CT scan. Unremarkable abdominal CT unremarkable. Therefore stroke was ruled out. Hospitalist Physical - Constitutional Vitals: Temp Pulse Resp BP Pulse Ox 98.1 F 53 L 16 138/75 96 11/28/18 12:30 11/28/18 12:30 11/28/18 12:30 11/28/18 12:30 11/28/18 12:30 General appearance: Present: mild distress - EENT Eyes: Present: PERRL, EOM intact ENT: hearing intact, clear oral mucosa, dentition normal - Neck Neck: Present: supple, normal ROM - Respiratory Respiratory effort: normal Respiratory: bilateral: CTA - Cardiovascular Rhythm: regular - Extremities Extremities: no ischemia, pulses intact, pulses symmetrical, No edema, normal temperature Extremity abnormal: edema Peripheral Pulses: within normal limits - Abdominal General gastrointestinal: soft, non-tender, non-distended, normal bowel sounds - Integumentary Integumentary: Present: clear, warm, dry - Psychiatric Psychiatric: appropriate mood/affect, intact judgment & insight, cooperative - Neurologic Neurologic: CNII-XII intact Results - Labs Labs: Laboratory Last Values Thrombin Time 16.4 Sec. (15.1-19.6) 11/27/18 13:12 POC Glucose 123 (70-105) H 11/28/18 11:51 Total Creatine Kinase 189 units/L (55-170) H 11/27/18 13:12 CK-MB (CK-2) 2.3 ng/mL (0.0-4.0) 11/27/18 13:12 CK-MB (CK-2) Rel Index 1.2 (0-4) 11/27/18 13:12 Troponin T < 0.010 ng/mL (0.00-0.029) 11/27/18 22:50 Triglycerides 45 mg/dL (2-149) 11/28/18 07:09 Cholesterol 127 mg/dL (50-199) 11/28/18 07:09 LDL Cholesterol Direct 68 mg/dL (50-130) 11/28/18 07:09 HDL Cholesterol 54 mg/dL (40-59) 11/28/18 07:09 Cholesterol/HDL Ratio 2.35 % 11/28/18 07:09 Active Medications - Current Medications Current Medications: Generic Name Dose Route Start Last Admin Trade Name Freq PRN Reason Stop Dose Admin Acetaminophen 650 mg 11/27/18 14:58 11/28/18 12:37 Tylenol PO 650 mg Q4H PRN Administration Pain, Mild (1-3) Albuterol 2.5 mg 11/27/18 14:58 Proventil IH Q3HRT PRN Shortness Of Breath Aspirin 325 mg 11/28/18 10:00 11/28/18 10:23 Ecotrin PO 325 mg QDAY [facility] Administration Atorvastatin Calcium 40 mg 11/27/18 22:00 11/27/18 22:00 Lipitor PO 40 mg QHS [facility] Administration Bisacodyl 10 mg 11/27/18 14:58 Dulcolax [place] QDAY PRN Constipation Clopidogrel Bisulfate 75 mg 11/28/18 10:00 11/28/18 10:23 Plavix PO 75 mg QDAY [facility] Administration Finasteride 5 mg 11/28/18 10:00 11/28/18 10:23 Proscar PO 5 mg QDAY [facility] Administration Gabapentin 100 mg 11/27/18 22:00 11/28/18 10:23 Neurontin PO 100 mg BID [facility] Administration Hydroxyzine Pamoate 50 mg 11/27/18 22:00 11/27/18 22:00 Vistaril PO 50 mg HS [facility] Administration Latanoprost 1 drops 11/27/18 22:00 11/27/18 22:07 Latanoprost 0.005% OU 1 drops QHS [facility] Administration Magnesium Hydroxide 30 ml 11/27/18 14:58 Milk Of Magnesia PO Q4H PRN Constipation Metoclopramide HCl 10 mg 11/27/18 14:58 Reglan PO Q6H PRN Nausea And Vomiting Naproxen 500 mg 11/27/18 22:00 11/28/18 10:23 Naprosyn PO 500 mg BID [facility] Administration Ondansetron HCl 4 mg 11/27/18 14:58 Zofran IV Q8H PRN Nausea And Vomiting Promethazine HCl 25 mg 11/27/18 14:58 Phenergan [place] Q6H PRN Nausea And Vomiting Sertraline HCl 50 mg 11/28/18 10:00 11/28/18 10:23 Zoloft PO 50 mg QDAY [facility] Administration Sodium Chloride 10 ml 11/27/18 14:58 11/28/18 10:24 Sodium Chloride Flush Syringe 10 Ml IV 10 ml PRN PRN Administration LINE FLUSH Tamsulosin HCl 0.4 mg 11/28/18 10:00 11/28/18 10:23 Flomax PO 0.4 mg QDAY [facility] Administration Tramadol HCl 50 mg 11/28/18 14:53 11/28/18 15:07 Ultram PO 50 mg Q6H PRN Administration Pain, Moderate (4-6)
[2018-11-28] MEDS: LATANOPROST 0.005% OU SCH (22:08)
[2018-11-28] MEDS: VISTARIL PO SCH (22:09)
[2018-11-29] MEDS: ZOLOFT PO SCH (09:22)
[2018-11-29] MEDS: PLAVIX PO SCH (09:22)
[2018-11-29] MEDS: FLOMAX PO SCH (09:22)
[2018-11-29] MEDS: NAPROSYN PO SCH ×2 (09:22→21:52)
[2018-11-29] MEDS: PROSCAR PO SCH (09:23)
[2018-11-29] MEDS: ECOTRIN PO SCH (09:23)
[2018-11-29] MEDS: SODIUM CHLORIDE FLUSH SYRINGE 10 ML IV PRN (09:23)
[2018-11-29] MEDS: NEURONTIN PO SCH ×2 (09:23→22:12)
--- NOTE | 2018-11-29 10:26 | Consultation ---
History of Present Illness Consult date: 11/29/18 Consult reason: chest pain History of present illness: 58-year old male with a history of coronary artery disease dating back to 2016. Patient also has a non-ischemic cardiomyopathy by cardiac done September of 2017 reports patent stents in the mid circumflex and distal right coronary arteries, otherwise mild nonobstructive irregularities. Ejection fraction 30-35%. Follow up echocardiograms has shown a resolving cardiomyopathy with a ejection fraction 55-60%. Patient was admitted to this hospital 11/27 with multiple complaints. A cardiac consultation has been requested for chest pain evaluation. Chest pain is poorly described. He denies chest pain on exertion but reports intermittent shortness of breath. Cardiac enzymes were normal. An ECG is sinus rhythm, no acute ischemic changes. Past History Past Medical History: acute OR, CAD, other (bipolar) Past Surgical History: hernia repair, Other (Right leg surgery, cardiac stent placement) Social history: single, smoking Family history: diabetes, hypertension Medications and Allergies Allergies Allergy/AdvReac Type Severity Reaction Status Date / Time ibuprofen [From Motrin] AdvReac Unknown Anaphylaxis Verified 11/27/18 16:09 Home Medications Medication Instructions Recorded Confirmed Last Taken Type amLODIPine [Norvasc] 5 mg PO DAILY #30 tab 07/08/16 11/27/18 11/26/18 Rx Acetaminophen [Acetaminophen ER 650 mg PO Q12H PRN 09/18/17 11/27/18 11/26/18 History TAB] Aspirin EC 325 mg PO QDAY 09/18/17 11/27/18 11/26/18 History Bimatoprost [Lumigan 0.01%] 1 drop OP HS 09/18/17 11/27/18 11/26/18 History Finasteride [Proscar] 5 mg PO QDAY 09/18/17 11/27/18 11/26/18 History Gabapentin [Neurontin] 100 mg PO BID 09/18/17 11/27/18 11/26/18 History Ipratropium/Albuterol Sulfate 1 puff IH QID 09/18/17 11/27/18 11/26/18 History [Combivent Respimat] Ipratropium/Albuterol Sulfate 1 ampul IH Q6HR 09/18/17 11/27/18 11/26/18 History [DUONEB *Not for PRN Use*] Sertraline [Zoloft] 50 mg PO QDAY 09/18/17 11/27/18 11/26/18 History Tamsulosin [Flomax] 0.4 mg PO QDAY 09/18/17 11/27/18 11/26/18 History hydrOXYzine PAMOATE [Vistaril] 50 mg PO HS 09/18/17 11/27/18 11/26/18 History Aspirin EC [Halfprin EC] 81 mg PO QDAY #30 tablet 09/20/17 11/27/18 11/26/18 Rx Carvedilol [Coreg] 6.25 mg PO BID #60 tablet 09/20/17 11/27/18 11/26/18 Rx Clopidogrel [Plavix] 75 mg PO QDAY #30 tablet 09/20/17 11/27/18 11/26/18 Rx ISOSORBIDE MONOnitrate [Imdur ER] 30 mg PO QDAY #30 tablet 09/20/17 11/27/18 11/26/18 Rx AtorvaSTATin [Lipitor] 40 mg PO QHS #30 tablet 09/21/17 11/27/18 11/26/18 Rx Lisinopril [Zestril TAB] 5 mg PO QDAY #30 tablet 09/21/17 11/27/18 11/26/18 Rx Naproxen [Naprosyn] 500 mg PO BID #14 tablet 01/19/18 11/27/18 11/26/18 Rx Active Meds: Active Medications Acetaminophen (Tylenol) 650 mg PO Q4H PRN PRN Reason: Pain, Mild (1-3) Last Admin: 11/28/18 12:37 Dose: 650 mg Documented by: Albuterol (Proventil) 2.5 mg IH Q3HRT PRN PRN Reason: Shortness Of Breath Aspirin (Ecotrin) 325 mg PO QDAY [facility] Last Admin: 11/29/18 09:23 Dose: 325 mg Documented by: Atorvastatin Calcium (Lipitor) 40 mg PO QHS [facility] Last Admin: 11/28/18 22:09 Dose: 40 mg Documented by: Bisacodyl (Dulcolax) 10 mg MT QDAY PRN PRN Reason: Constipation Clopidogrel Bisulfate (Plavix) 75 mg PO QDAY [facility] Last Admin: 11/29/18 09:22 Dose: 75 mg Documented by: Finasteride (Proscar) 5 mg PO QDAY [facility] Last Admin: 11/29/18 09:23 Dose: 5 mg Documented by: Gabapentin (Neurontin) 100 mg PO BID [facility] Last Admin: 11/29/18 09:23 Dose: 100 mg Documented by: Hydroxyzine Pamoate (Vistaril) 50 mg PO HS [facility] Last Admin: 11/28/18 22:09 Dose: 50 mg Documented by: Latanoprost (Latanoprost 0.005%) 1 drops OU QHS [facility] Last Admin: 11/28/18 22:08 Dose: 1 drops Documented by: Magnesium Hydroxide (Milk Of Magnesia) 30 ml PO Q4H PRN PRN Reason: Constipation Metoclopramide HCl (Reglan) 10 mg PO Q6H PRN PRN Reason: Nausea And Vomiting Naproxen (Naprosyn) 500 mg PO BID [facility] Last Admin: 11/29/18 09:22 Dose: 500 mg Documented by: Ondansetron HCl (Zofran) 4 mg IV Q8H PRN PRN Reason: Nausea And Vomiting Promethazine HCl (Phenergan) 25 mg MT Q6H PRN PRN Reason: Nausea And Vomiting Sertraline HCl (Zoloft) 50 mg PO QDAY [facility] Last Admin: 11/29/18 09:22 Dose: 50 mg Documented by: Sodium Chloride (Sodium Chloride Flush Syringe 10 Ml) 10 ml IV PRN PRN PRN Reason: LINE FLUSH Last Admin: 11/29/18 09:23 Dose: 10 ml Documented by: Tamsulosin HCl (Flomax) 0.4 mg PO QDAY [facility] Last Admin: 11/29/18 09:22 Dose: 0.4 mg Documented by: Tramadol HCl (Ultram) 50 mg PO Q6H PRN PRN Reason: Pain, Moderate (4-6) Last Admin: 11/28/18 22:10 Dose: 50 mg Documented by: Physical Examination Vital Signs Pulse 65 11/27/18 12:17 General appearance: no acute distress HEENT: Positive: PERRL Neck: Positive: trachea midline Cardiac: Positive: Reg Rate and Rhythm Lungs: Positive: Decreased Breath Sounds Neuro: Positive: Grossly Intact Assessment and Plan Chest pain, musculoskeletal [facility] 09/2017: patent stents in the mid circumflex and distal right coronary arteries, otherwise mild nonobstructive irregularities. Left ventricular systolic function was reduced at 30-35% Resolving nonischemic cardiomyopathy EF 50-55% by echocardiogram this admission Hx of Coronary artery disease Systemic Hypertension Hyperlipidemia Recommendations: Continue medical therapy for coronary artery disease. Presantine thallium stress test will be done tomorrow morning.
--- NOTE | 2018-11-29 11:37 | Progress Note ---
Assessment and Plan Assessment and plan: Radiculopathy And see appropriate pain control and anti-inflammatories. Chest pain Patient's pain is reproducible with palpation. Cardiology was consulted and opted for stress test in a.m. If stress test negative, patient will be discharged home. Diabetes Continue sliding scale insulin and Accu-Cheks. HTN (hypertension) Continue antihypertensive medications. History Interval history: No new issues overnight. Hospitalist Physical - Constitutional Vitals: Temp Pulse Resp BP Pulse Ox 98.9 F 54 L 18 150/83 95 11/29/18 04:57 11/29/18 04:57 11/29/18 04:57 11/29/18 04:57 11/29/18 04:57 General appearance: Present: no acute distress - EENT Eyes: Present: PERRL, EOM intact ENT: hearing intact, clear oral mucosa, dentition normal - Neck Neck: Present: supple, normal ROM - Respiratory Respiratory effort: normal Respiratory: bilateral: CTA - Cardiovascular Rhythm: regular Heart Sounds: Present: S1 & S2. Absent: gallop, rub - Extremities Extremities: no ischemia, No edema, Full ROM - Abdominal General gastrointestinal: soft, non-tender, non-distended, normal bowel sounds - Integumentary Integumentary: Present: clear, warm, dry - Neurologic Neurologic: CNII-XII intact, moves all extremities Results - Labs Labs: Laboratory Last Values Thrombin Time 16.4 Sec. (15.1-19.6) 11/27/18 13:12 POC Glucose 118 (70-105) H 11/28/18 21:39 Total Creatine Kinase 189 units/L (55-170) H 11/27/18 13:12 CK-MB (CK-2) 2.3 ng/mL (0.0-4.0) 11/27/18 13:12 CK-MB (CK-2) Rel Index 1.2 (0-4) 11/27/18 13:12 Troponin T < 0.010 ng/mL (0.00-0.029) 11/27/18 22:50 Triglycerides 45 mg/dL (2-149) 11/28/18 07:09 Cholesterol 127 mg/dL (50-199) 11/28/18 07:09 LDL Cholesterol Direct 68 mg/dL (50-130) 11/28/18 07:09 HDL Cholesterol 54 mg/dL (40-59) 11/28/18 07:09 Cholesterol/HDL Ratio 2.35 % 11/28/18 07:09 Active Medications - Current Medications Current Medications: Generic Name Dose Route Start Last Admin Trade Name Freq PRN Reason Stop Dose Admin Acetaminophen 650 mg 11/27/18 14:58 11/28/18 12:37 Tylenol PO 650 mg Q4H PRN Administration Pain, Mild (1-3) Albuterol 2.5 mg 11/27/18 14:58 Proventil IH Q3HRT PRN Shortness Of Breath Aspirin 325 mg 11/28/18 10:00 11/29/18 09:23 Ecotrin PO 325 mg QDAY [facility] Administration Atorvastatin Calcium 40 mg 11/27/18 22:00 11/28/18 22:09 Lipitor PO 40 mg QHS [facility] Administration Bisacodyl 10 mg 11/27/18 14:58 Dulcolax [place] QDAY PRN Constipation Clopidogrel Bisulfate 75 mg 11/28/18 10:00 11/29/18 09:22 Plavix PO 75 mg QDAY [facility] Administration Finasteride 5 mg 11/28/18 10:00 11/29/18 09:23 Proscar PO 5 mg QDAY [facility] Administration Gabapentin 100 mg 11/27/18 22:00 11/29/18 09:23 Neurontin PO 100 mg BID [facility] Administration Hydroxyzine Pamoate 50 mg 11/27/18 22:00 11/28/18 22:09 Vistaril PO 50 mg HS [facility] Administration Isosorbide Mononitrate 60 mg 11/29/18 11:00 Imdur PO QDAY [facility] Latanoprost 1 drops 11/27/18 22:00 11/28/18 22:08 Latanoprost 0.005% OU 1 drops QHS [facility] Administration Magnesium Hydroxide 30 ml 11/27/18 14:58 Milk Of Magnesia PO Q4H PRN Constipation Metoclopramide HCl 10 mg 11/27/18 14:58 Reglan PO Q6H PRN Nausea And Vomiting Metoprolol Tartrate 12.5 mg 11/29/18 22:00 Lopressor PO BID [facility] Naproxen 500 mg 11/27/18 22:00 11/29/18 09:22 Naprosyn PO 500 mg BID [facility] Administration Ondansetron HCl 4 mg 10/16/19 14:58 Zofran IV Q8H PRN Nausea And Vomiting Promethazine HCl 25 mg 11/27/18 14:58 Phenergan CA Q6H PRN Nausea And Vomiting Sertraline HCl 50 mg 11/28/18 10:00 11/29/18 09:22 Zoloft PO 50 mg QDAY [facility] Administration Sodium Chloride 10 ml 11/27/18 14:58 11/29/18 09:23 Sodium Chloride Flush Syringe 10 Ml IV 10 ml PRN PRN Administration LINE FLUSH Tamsulosin HCl 0.4 mg 11/28/18 10:00 11/29/18 09:22 Flomax PO 0.4 mg QDAY [facility] Administration Tramadol HCl 50 mg 11/28/18 14:53 11/28/18 22:10 Ultram PO 50 mg Q6H PRN Administration Pain, Moderate (4-6)
[2018-11-29] MEDS: IMDUR PO SCH (13:04)
[2018-11-29] MEDS: TYLENOL PO PRN (20:25)
[2018-11-29] MEDS: LATANOPROST 0.005% OU SCH (21:51)
[2018-11-29] MEDS: LOPRESSOR PO SCH (21:53)
[2018-11-29] MEDS: VISTARIL PO SCH (21:55)
[2018-11-30] MEDS ORDERED: LEXISCAN IV ONE ×2 (08:01→08:07)
--- NOTE | 2018-11-30 09:32 | Progress Note ---
Assessment and Plan 1. Chest pain rule out ischemic coronary artery disease 2. Coronary artery disease status post multiple PCI's and stenting 3. Systemic arterial hypertension 4. Hyperlipidemia 5. Bipolar disorder Plan. Lexiscan MPI done today if negative discharge plan. Subjective Date of service: 11/30/18 Interval history: No chest pains Objective Vital Signs Temp Pulse Resp BP Pulse Ox 11/30/18 05:19 98.1 F 51 L 16 108/46 97 11/29/18 22:59 98.3 F 54 L 16 119/53 96 11/29/18 21:53 65 132/73 11/29/18 18:03 97.8 F 65 16 132/73 96 11/29/18 13:04 150/81 11/29/18 12:00 98.5 F 55 L 16 150/81 93 - Physical Examination General: Appears Well, No Apparent Distress HEENT: Positive: PERRL Neck: Positive: trachea midline Cardiac: Lungs: Neuro: Positive: Grossly Intact Abdomen: /Rectal: Normal Prostate, No Masses Skin: Musculoskeletal: No Fluid Collection, No Pain, Normal Range of Motion Gait: Normal Gait Extremities:
--- NOTE | 2018-11-30 09:48 | Discharge Summary ---
Providers - Providers Date of Admission: 11/27/18 14:58 Date of discharge: 11/30/18 Attending physician: HARESH BERNARD 11/27/18 Consult to Physician [CONS] Routine Comment: Consulting Provider: AMMY DE LA O Physician Instructions: Reason For Exam: cva 11/27/18 14:58 Occupational Therapy Evaluate and Treat [CONS] Routine Comment: Reason For Exam: Neuro deficits Physical Therapy Evaluation and Treat [CONS] Routine Comment: Reason For Exam: Neuro deficits 11/27/18 14:59 Speech Therapy Evaluation and Treat [CONS] Routine Reason For Exam: swallow eval 11/29/18 08:46 Consult to Physician [CONS] Routine Comment: Consulting Provider: SHARAD BOBO Physician Instructions: Reason For Exam: cp Primary care physician: DAMASCENER Hospitalization Reason for admission: cp, left arm numbness Condition: Stable Hospital course: 58-year old male admitted to this hospital 11/27 with multiple complaints primary complaints were left arm weakness/numbness and chest pain. The patient was seen by neurology in consultation who recommended MRI/MRA which is found be negative for CVA. Cervical MRI was completed which revealed mild to moderate multilevel degenerative disc disease and mild facet arthropathy. Etiology of left arm complaints was felt to be related to cervical radiculopathy. With regards to the chest pain, the Pt has a history of coronary artery disease dating back to 2016. Patient also has a non-ischemic cardiomyopathy by cardiac done September of 2017 reports patent stents in the mid circumflex and distal right coronary arteries, otherwise mild nonobstructive irregularities. Ejection fraction 30-35%. Follow up echocardiograms including one completed on this adm ission has shown a resolving cardiomyopathy with a ejection fraction 55-60%. Also, only showing concentric left ventricular hypertrophy. A cardiac consultation was requested for chest pain evaluation. Chest pain was poorly described. He denied chest pain on exertion but reported intermittent shortness of breath. Cardiac enzymes were normal. An ECG is sinus rhythm, no acute ischemic changes. Cardiology recommended stress test and if negative patient will be discharged home. Dedicated discharge time 35 minutes. Disposition: [id number] TO HOME OR SELFCARE Time spent for discharge: 35 - Discharge Diagnoses (1) Chest pain Status: Acute (2) Diabetes Status: Acute (3) Glaucoma Status: Acute (4) Radiculopathy Status: Acute (5) Diabetes mellitus type 2 in obese Status: Acute (6) Obesity (BMI 30.0-34.9) Status: Acute (7) Paresthesias Status: Acute (8) BPH (benign prostatic hyperplasia) Status: Chronic Qualifiers: Lower urinary tract symptom presence: symptoms present Lower urinary tract symptom detail: incomplete bladder emptying Qualified Code(s): N40.1 - Benign prostatic hyperplasia with lower urinary tract symptoms; R39.14 - Feeling of incomplete bladder emptying (9) CAD (coronary artery disease) Status: Chronic Qualifiers: Coronary Disease-Associated Artery/Lesion type: [place] artery [place] vs. transplanted heart: [place] heart (10) COPD (chronic obstructive pulmonary disease) Status: Chronic Qualifiers: COPD type: unspecified COPD Qualified Code(s): J44.9 - Chronic obstructive pulmonary disease, unspecified (11) HTN (hypertension) Status: Chronic Qualifiers: Hypertension type: essential hypertension Qualified Code(s): I10 - Essential (primary) hypertension Core Measure Documentation - Palliative Care Palliative Care/ Comfort Measures: Not Applicable - Core Measures Any of the following diagnoses?: none Exam - Constitutional Vitals: Temp Pulse Resp BP Pulse Ox 98.1 F 51 L 16 108/46 97 11/30/18 05:19 11/30/18 05:19 11/30/18 05:19 11/30/18 05:19 11/30/18 05:19 General appearance: Present: no acute distress, well-nourished - EENT Eyes: Present: PERRL ENT: hearing intact, clear oral mucosa - Neck Neck: Present: supple, normal ROM - Respiratory Respiratory effort: normal Respiratory: bilateral: CTA - Cardiovascular Heart Sounds: Present: S1 & S2. Absent: rub, click - Extremities Extremities: pulses symmetrical, No edema Peripheral Pulses: within normal limits - Abdominal General gastrointestinal: Present: soft, non-tender, non-distended, normal bowel sounds Male genitourinary: Present: normal - Integumentary Integumentary: Present: clear, warm, dry - Musculoskeletal Musculoskeletal: gait normal, strength equal bilaterally - Psychiatric Psychiatric: appropriate mood/affect, intact judgment & insight - Neurologic Neurologic: CNII-XII intact, moves all extremities Plan Activity: advance as tolerated Weight Bearing Status: Weight Bear as Tolerated Diet: diabetic Follow up with: NATASHA JENKINS MD [Primary Care Provider] - 3-5 Days SHARAD BOBO MD [Staff Physician] - 7 Days AMMY DE LA O MD [Staff Physician] - 7 Days Prescriptions: Aspirin EC 325 mg PO QDAY #30 Ipratropium/Albuterol Sulfate [Combivent Respimat] 1 puff IH QID 30 Days Ipratropium/Albuterol Sulfate [DUONEB *Not for PRN Use*] 1 ampul IH Q6HR 30 Days Tamsulosin [Flomax] 0.4 mg PO QDAY #30 cap ISOSORBIDE MONOnitrate [Imdur ER] 60 mg PO QDAY #60 tablet Latanoprost 0.005% 1 drops OU QHS 30 Days bottle AtorvaSTATin [Lipitor] 40 mg PO QHS #30 tablet Metoprolol [Lopressor TAB] 12.5 mg PO BID #60 tablet Gabapentin [Neurontin] 100 mg PO BID #60 capsule amLODIPine [Norvasc] 5 mg PO DAILY #30 tab Clopidogrel [Plavix] 75 mg PO QDAY #30 tablet Finasteride [Proscar] 5 mg PO QDAY #30 hydrOXYzine PAMOATE [Vistaril] 50 mg PO HS #30 cap Lisinopril [Zestril TAB] 5 mg PO QDAY #30 tablet Sertraline [Zoloft] 50 mg PO QDAY #30
--- NOTE | 2018-11-30 11:47 | Event Note ---
Date: 11/30/18 Lexiscan Stress MPI is normal perfusion scans with mild diaphragmatic attenuation.
[2018-11-30] MEDS: FLOMAX PO SCH (11:52)
[2018-11-30] MEDS: NEURONTIN PO SCH (11:53)
[2018-11-30] MEDS: PLAVIX PO SCH (11:53)
[2018-11-30] MEDS: IMDUR PO SCH (11:53)
[2018-11-30] MEDS: PROSCAR PO SCH (11:54)
[2018-11-30] MEDS: LOPRESSOR PO SCH (11:54)
[2018-11-30] MEDS: ZOLOFT PO SCH (11:54)
[2018-11-30] MEDS: NAPROSYN PO SCH (11:55)
[2018-11-30] MEDS: ECOTRIN PO SCH (11:55)
[2018-11-30 15:43] VITALS: BP 148/75
== END 2018-11-30 16:30 | disposition home or self-care (01) | DRG 552 ==
LOC: ED 11:54 → 3A 14:58
PROVIDERS: ADMIT Internal Medicine; ATTEND Hospitalist
DX: M50.121 Cervical disc disorder at C4-C5 level with radiculopathy (principal); I10 Essential (primary) hypertension; H40.9 Unspecified glaucoma; H54.8 Legal blindness, as defined in USA; I25.10 Atherosclerotic heart disease of native coronary artery without angina pectoris; F17.200 Nicotine dependence, unspecified, uncomplicated; E78.5 Hyperlipidemia, unspecified; I42.9 Cardiomyopathy, unspecified; N40.1 Benign prostatic hyperplasia with lower urinary tract symptoms; R07.89 Other chest pain; R39.14 Feeling of incomplete bladder emptying; J44.9 Chronic obstructive pulmonary disease, unspecified; E11.9 Type 2 diabetes mellitus without complications; E66.9 Obesity, unspecified; F31.9 Bipolar disorder, unspecified; W18.39XA Other fall on same level, initial encounter; I25.2 Old myocardial infarction; Z95.5 Presence of coronary angioplasty implant and graft; Y93.89 Activity, other specified; Y92.098 Other place in other non-institutional residence as the place of occurrence of the external cause; Y99.8 Other external cause status; Z83.3 Family history of diabetes mellitus; Z82.49 Family history of ischemic heart disease and other diseases of the circulatory system; Z88.6 Allergy status to analgesic agent; Z79.82 Long term (current) use of aspirin; Z79.899 Other long term (current) drug therapy; Z79.1 Long term (current) use of non-steroidal anti-inflammatories (NSAID); Z68.34 Body mass index [BMI] 34.0-34.9, adult; Z79.84 Long term (current) use of oral hypoglycemic drugs
CPT/HCPCS: 36415; 70450; 70544; 70547; 71045; 71275; 72141; 74175; 78452; 80061; 82550; 82553; 82962; 84484; 85670; 93005; 93010; 93017; 93306; 96374; 96375; 99406; G0378; A9270-GY; A9502; J2785; Q0177; Q9967

== ENCOUNTER 2018-12-16 20:04 | Emergency (ER) | payer MEDICAID ==
[2018-12-16] MEDS ORDERED: LORazepam 2 MG/ML VIAL IM PRN (20:26)
[2018-12-16] MEDS ORDERED: HALOPERIDOL LACTATE 5 MG/1 ML INJ IM PRN (20:26)
[2018-12-16] MEDS ORDERED: DEXTROSE 50% IN WATER (25GM) 50 ML SYRINGE IV ONE (20:26)
[2018-12-16] MEDS ORDERED: DEXTROSE 50% IN WATER (25GM) 50 ML SYRINGE IV PRN (20:26)
[2018-12-16] MEDS ORDERED: THIAMINE 100 MG, FOLIC ACID 1 MG, MULTIPLE VITAMIN INJ, ADULT 10 ML in SODIUM CHLORIDE ... IV ONE (20:26)
[2018-12-16] MEDS ORDERED: HALOPERIDOL LACTATE 5 MG/1 ML INJ ONE (20:27)
[2018-12-16] MEDS ORDERED: LORazepam 2 MG/ML VIAL ONE (20:27)
--- NOTE | 2018-12-16 20:29 | Emergency Department Report ---
ED General Adult HPI - General Chief complaint: Alcohol Stated complaint: ETOH Time Seen by Provider: 12/16/18 20:12 Source: patient, EMS ( EMS documentation not available at time of chart dictation ), RN notes reviewed, old records reviewed Mode of arrival: Stretcher Limitations: Other (intoxication, patient is a poor historian) - History of Present Illness Initial comments: This is a 58-year-old gentleman. Patient recently admitted to this hospital for multiple complaints, had MRI, MRA of the brain, negative for stroke, MRI cervical spine, demonstrating DJD, felt to have cervical radiculopathy, also has history of chest pain, has ejection fraction 30-35%, had a nonischemic cardiomyopathy, cardiac catheterization in 2018 showed essentially unremarkable arteries, with some patent stents. Patient also currently has a history of diabetes, glaucoma, obesity. He is brought to the hospital by emergency medical services. Apparently, the patient drank a large quantity of alcohol prior to arrival, and was found outside. Uncertain if he tripped, fell, or loose consciousness. In the emergency room, the patient is awake, moving 4 extremities, but floridly intoxicated, and does not exhibit decision-making capacity. In addition, he is not accompanied by any friends or family at this time for collateral information. His last known well time is not known at this time. -: unknown Quality: other Consistency: other Improves with: other Worsens with: other - Related Data Home Medications Medication Instructions Recorded Confirmed Last Taken Acetaminophen [Acetaminophen ER 650 mg PO Q12H PRN 09/18/17 11/27/18 11/26/18 TAB] Bimatoprost [Lumigan 0.01%] 1 drop OP HS 09/18/17 11/27/18 11/26/18 Previous Rx's Medication Instructions Recorded Last Taken Type Aspirin EC [Halfprin EC] 81 mg PO QDAY #30 tablet 09/20/17 11/26/18 Rx Naproxen [Naprosyn TAB] 500 mg PO BID #14 tablet 01/19/18 11/26/18 Rx Aspirin EC 325 mg PO QDAY #30 11/30/18 Unknown Rx AtorvaSTATin [Lipitor] 40 mg PO QHS #30 tablet 11/30/18 Unknown Rx Clopidogrel [Plavix] 75 mg PO QDAY #30 tablet 11/30/18 Unknown Rx Finasteride [Proscar] 5 mg PO QDAY #30 11/30/18 Unknown Rx Gabapentin 100 mg PO BID #60 capsule 11/30/18 Unknown Rx ISOSORBIDE MONOnitrate [Imdur ER] 60 mg PO QDAY #60 tablet 11/30/18 Unknown Rx Ipratropium/Albuterol Sulfate 1 puff IH QID 30 Days 11/30/18 Unknown Rx [Combivent Respimat] Ipratropium/Albuterol Sulfate 1 ampul IH Q6HR 30 Days 11/30/18 Unknown Rx [DUONEB *Not for PRN Use*] Latanoprost 0.005% 1 drops OU QHS 30 Days bottle 11/30/18 Unknown Rx Lisinopril [Zestril TAB] 5 mg PO QDAY #30 tablet 11/30/18 Unknown Rx Metoprolol [Lopressor TAB] 12.5 mg PO BID #60 tablet 11/30/18 Unknown Rx Sertraline [Zoloft] 50 mg PO QDAY tablet 11/30/18 Unknown Rx Sertraline [Zoloft] 50 mg PO QDAY #30 11/30/18 Unknown Rx Tamsulosin [Flomax] 0.4 mg PO QDAY #30 cap 11/30/18 Unknown Rx amLODIPine 5 mg PO DAILY #30 tab 11/30/18 Unknown Rx hydrOXYzine PAMOATE [Vistaril] 50 mg PO HS #30 cap 11/30/18 Unknown Rx traMADol [Ultram 50 MG tab] 50 mg PO Q6H PRN tablet 11/30/18 Unknown Rx Allergies Allergy/AdvReac Type Severity Reaction Status Date / Time ibuprofen [From Motrin] AdvReac Unknown Anaphylaxis Verified 11/27/18 16:09 ED Review of Systems ROS: Stated complaint: ETOH Other details as noted in HPI Comment: Unobtainable due to pts medical conditions ED Past Medical Hx - Past Medical History Hx Hypertension: Yes Hx Heart Attack/AMI: Yes Hx Congestive Heart Failure: No Hx Diabetes: Yes Hx Psychiatric Treatment: Yes (bipolar) Hx Asthma: No Hx COPD: No Additional medical history: glaucoma. legally blind - Surgical History Hx Coronary Stent: Yes (x2) Additional Surgical History: hernia repair. R leg sx 12/2016 - Social History Smoking Status: Current Every Day Smoker Substance Use Type: Alcohol - Medications Home Medications: Home Medications Medication Instructions Recorded Confirmed Last Taken Type Acetaminophen [Acetaminophen ER 650 mg PO Q12H PRN 09/18/17 11/27/18 11/26/18 History TAB] Bimatoprost [Lumigan 0.01%] 1 drop OP HS 09/18/17 11/27/18 11/26/18 History Aspirin EC [Halfprin EC] 81 mg PO QDAY #30 tablet 09/20/17 11/27/18 11/26/18 Rx Naproxen [Naprosyn TAB] 500 mg PO BID #14 tablet 01/19/18 11/27/18 11/26/18 Rx Aspirin EC 325 mg PO QDAY #30 11/30/18 Unknown Rx AtorvaSTATin [Lipitor] 40 mg PO QHS #30 tablet 11/30/18 Unknown Rx Clopidogrel [Plavix] 75 mg PO QDAY #30 tablet 11/30/18 Unknown Rx Finasteride [Proscar] 5 mg PO QDAY #30 11/30/18 Unknown Rx Gabapentin 100 mg PO BID #60 capsule 11/30/18 Unknown Rx ISOSORBIDE MONOnitrate [Imdur ER] 60 mg PO QDAY #60 tablet 11/30/18 Unknown Rx Ipratropium/Albuterol Sulfate 1 puff IH QID 30 Days 11/30/18 Unknown Rx [Combivent Respimat] Ipratropium/Albuterol Sulfate 1 ampul IH Q6HR 30 Days 11/30/18 Unknown Rx [DUONEB *Not for PRN Use*] Latanoprost 0.005% 1 drops OU QHS 30 Days bottle 11/30/18 Unknown Rx Lisinopril [Zestril TAB] 5 mg PO QDAY #30 tablet 11/30/18 Unknown Rx Metoprolol [Lopressor TAB] 12.5 mg PO BID #60 tablet 11/30/18 Unknown Rx Sertraline [Zoloft] 50 mg PO QDAY tablet 11/30/18 Unknown Rx Sertraline [Zoloft] 50 mg PO QDAY #30 11/30/18 Unknown Rx Tamsulosin [Flomax] 0.4 mg PO QDAY #30 cap 11/30/18 Unknown Rx amLODIPine 5 mg PO DAILY #30 tab 11/30/18 Unknown Rx hydrOXYzine PAMOATE [Vistaril] 50 mg PO HS #30 cap 11/30/18 Unknown Rx traMADol [Ultram 50 MG tab] 50 mg PO Q6H PRN tablet 11/30/18 Unknown Rx ED Physical Exam - General Limitations: Altered Mental Status, Other (intoxication) General appearance: appears intoxicated, obese - Head Head exam: Present: atraumatic, normocephalic - Eye Eye exam: Present: normal appearance, EOMI. Absent: nystagmus - ENT ENT exam: Present: normal exam, normal orophraynx, mucous membranes moist, normal external ear exam - Neck Neck exam: Present: normal inspection, full ROM. Absent: tenderness, meningismus - Respiratory Respiratory exam: Present: normal lung sounds bilaterally. Absent: respiratory distress, chest wall tenderness, decreased breath sounds - Cardiovascular Cardiovascular Exam: Present: regular rate, normal rhythm, normal heart sounds. Absent: bradycardia, tachycardia, irregular rhythm, systolic murmur, diastolic murmur, rubs, gallop - GI/Abdominal GI/Abdominal exam: Present: soft. Absent: distended, tenderness, guarding, rebound, rigid, pulsatile mass - Rectal Rectal exam: Present: normal inspection - exam: Present: normal inspection External exam: Present: normal external exam - Extremities Exam Extremities exam: Present: normal inspection, full ROM, other (2+ pulses noted in the bilateral upper, lower extremities. There is no long bone tenderness. Musculoskeletal compartments are soft. The pelvis is stable.). Absent: pedal edema, calf tenderness - Back Exam Back exam: Present: normal inspection, full ROM. Absent: tenderness, CVA tenderness (R), CVA tenderness (L), paraspinal tenderness, vertebral tenderness - Neurological Exam Neurological exam: Present: altered, other (moving 4 extremities spontaneously. No facial droop. Making nonsensical sounds. Detailed neurologic examination not possible secondary to intoxication) - Psychiatric Psychiatric exam: Present: agitated - Skin Skin exam: Present: warm, dry, intact, normal color. Absent: rash ED Course Vital Signs 12/16/18 12/16/18 12/16/18 20:20 20:31 20:38 Temperature 97.7 F Pulse Rate 83 Respiratory 18 Rate Blood Pressure 164/97 Blood Pressure [Left] Blood Pressure 158/72 [Right] O2 Sat by Pulse 96 94 98 Oximetry 12/16/18 12/16/18 12/16/18 20:45 21:00 21:15 Temperature Pulse Rate 82 79 82 Respiratory 16 15 17 Rate Blood Pressure 164/97 138/86 140/88 Blood Pressure [Left] Blood Pressure [Right] O2 Sat by Pulse Oximetry 12/16/18 12/16/18 12/16/18 21:30 21:45 22:00 Temperature Pulse Rate 85 82 81 Respiratory 18 20 17 Rate Blood Pressure 128/91 134/84 142/80 Blood Pressure [Left] Blood Pressure [Right] O2 Sat by Pulse Oximetry 12/16/18 12/16/18 12/16/18 22:15 22:30 22:45 Temperature Pulse Rate 75 76 77 Respiratory 14 13 11 L Rate Blood Pressure 151/81 162/77 149/86 Blood Pressure [Left] Blood Pressure [Right] O2 Sat by Pulse Oximetry 12/16/18 12/16/18 12/16/18 22:57 23:00 23:15 Temperature Pulse Rate 83 78 85 Respiratory 18 15 13 Rate Blood Pressure 149/86 156/74 152/75 Blood Pressure [Left] Blood Pressure [Right] O2 Sat by Pulse Oximetry 12/16/18 12/16/18 12/17/18 23:31 23:45 00:01 Temperature Pulse Rate 84 99 H 100 H Respiratory 11 L 12 21 Rate Blood Pressure 184/55 184/55 125/56 Blood Pressure [Left] Blood Pressure [Right] O2 Sat by Pulse 95 98 Oximetry 12/17/18 12/17/18 12/17/18 00:41 00:45 01:01 Temperature Pulse Rate 82 84 82 Respiratory 12 17 14 Rate Blood Pressure 125/56 125/56 138/85 Blood Pressure [Left] Blood Pressure [Right] O2 Sat by Pulse 97 97 95 Oximetry 12/17/18 12/17/18 12/17/18 01:15 01:30 01:45 Temperature Pulse Rate 85 85 98 H Respiratory 18 13 20 Rate Blood Pressure 125/56 183/90 162/70 Blood Pressure [Left] Blood Pressure [Right] O2 Sat by Pulse 82 L Oximetry 12/17/18 12/17/18 12/17/18 02:01 02:15 02:30 Temperature Pulse Rate 90 93 H 104 H Respiratory 17 19 18 Rate Blood Pressure 154/62 172/67 192/91 Blood Pressure [Left] Blood Pressure [Right] O2 Sat by Pulse Oximetry 12/17/18 12/17/18 12/17/18 02:45 03:00 03:15 Temperature Pulse Rate 83 86 84 Respiratory 16 17 14 Rate Blood Pressure 164/82 163/92 161/86 Blood Pressure [Left] Blood Pressure [Right] O2 Sat by Pulse Oximetry 12/17/18 12/17/18 12/17/18 03:30 03:45 04:00 Temperature Pulse Rate 82 85 86 Respiratory 12 9 L 12 Rate Blood Pressure 144/73 159/85 152/87 Blood Pressure [Left] Blood Pressure [Right] O2 Sat by Pulse Oximetry 12/17/18 12/17/18 12/17/18 04:15 04:30 04:45 Temperature Pulse Rate 85 87 78 Respiratory 14 14 11 L Rate Blood Pressure 160/84 155/89 174/90 Blood Pressure [Left] Blood Pressure [Right] O2 Sat by Pulse 96 97 Oximetry 12/17/18 12/17/18 12/17/18 05:00 05:15 05:31 Temperature Pulse Rate 76 82 77 Respiratory 11 L 13 12 Rate Blood Pressure 140/78 156/90 167/81 Blood Pressure [Left] Blood Pressure [Right] O2 Sat by Pulse 96 97 100 Oximetry 12/17/18 12/17/18 12/17/18 05:45 06:00 07:47 Temperature 98.8 F Pulse Rate 76 75 83 Respiratory 12 14 16 Rate Blood Pressure 144/83 160/76 Blood Pressure 159/84 [Left] Blood Pressure [Right] O2 Sat by Pulse 95 96 100 Oximetry 12/17/18 12/17/18 12/17/18 08:45 09:45 10:45 Temperature Pulse Rate 78 84 71 Respiratory 13 14 13 Rate Blood Pressure 161/80 144/57 144/57 Blood Pressure [Left] Blood Pressure [Right] O2 Sat by Pulse 100 100 100 Oximetry 12/17/18 11:49 Temperature 98.8 F Pulse Rate 80 Respiratory 16 Rate Blood Pressure Blood Pressure 115/80 [Left] Blood Pressure [Right] O2 Sat by Pulse 100 Oximetry - Reevaluation(s) Reevaluation #1: 12/16/18 20:45 Differential diagnosis, including not limited to: Alcohol intoxication, elec trolyte derangement, intracranial injury, cervical spine injury Assessment and plan: 58-year-old gentleman who is intoxicated at this time. He is protecting his airway, he is hemodynamically stable, on primary and secondary survey does not appear to have any significant blunt or penetrating injuries He will be placed in a cervical collar and in soft restraints. The patient does not respond to verbal techniques, or show of force, he does not have decision- making capacity, it he needs to be evaluated for potentially emergent life- threatening of injuries. CT scan, brain, cervical spine pending. Appropriate laboratory studies pending. X-ray chest pending at this time. We'll reassess after his data points have resulted. Reevaluation #2: 12/16/18 23:38 X-ray the chest is negative for acute disease. X-ray of the pelvis is negative for acute disease. CT scan brain, cervical spine pending at this time. Care will be transferred to the overnight physician, Dr. Rogers Fox, to follow-up on CT scans, and reassess for clinical sobriety. ED Medical Decision Making - Lab Data Result diagrams: 12/16/18 20:34 12/16/18 20:34 Vital Signs 12/16/18 20:38 Temperature 97.7 F Pulse Rate 83 Respiratory 18 Rate Blood Pressure 158/72 [Right] O2 Sat by Pulse 98 Oximetry Vital Signs 12/16/18 20:38 Temperature 97.7 F Pulse Rate 83 Respiratory 18 Rate Blood Pressure 158/72 [Right] O2 Sat by Pulse 98 Oximetry Lab Results 12/16/18 12/16/18 12/16/18 Range/Units 20:34 20:34 20:34 WBC 10.5 (4.5-11.0) K/mm3 RBC 5.17 H (3.65-5.03) M/mm3 Hgb 16.4 H (11.8-15.2) gm/dl Hct 48.6 H (35.5-45.6) % MCV 94 (84-94) fl MCH 32 (28-32) pg MCHC 34 (32-34) % RDW 14.9 (13.2-15.2) % Plt Count 278 (140-440) K/mm3 PT 13.3 (12.2-14.9) Sec. INR 1.02 (0.87-1.13) Sodium 145 (137-145) mmol/L Potassium 4.0 (3.6-5.0) mmol/L Chloride 105.9 (98-107) mmol/L Carbon Dioxide 23 (22-30) mmol/L Anion Gap 20 mmol/L BUN 10 (9-20) mg/dL Creatinine 0.7 L (0.8-1.5) mg/dL Estimated GFR > 60 ml/min BUN/Creatinine Ratio 14 % Glucose 106 H (75-100) mg/dL POC Glucose (70-105) Calcium 9.2 (8.4-10.2) mg/dL Magnesium 2.10 (1.7-2.3) mg/dL Total Creatine Kinase 547 H (55-170) units/L 12/16/18 Range/Units 20:57 WBC (4.5-11.0) K/mm3 RBC (3.65-5.03) M/mm3 Hgb (11.8-15.2) gm/dl Hct (35.5-45.6) % MCV (84-94) fl MCH (28-32) pg MCHC (32-34) % RDW (13.2-15.2) % Plt Count (140-440) K/mm3 PT (12.2-14.9) Sec. INR (0.87-1.13) Sodium (137-145) mmol/L Potassium (3.6-5.0) mmol/L Chloride (98-107) mmol/L Carbon Dioxide (22-30) mmol/L Anion Gap mmol/L BUN (9-20) mg/dL Creatinine (0.8-1.5) mg/dL Estimated GFR ml/min BUN/Creatinine Ratio % Glucose (75-100) mg/dL POC Glucose 87 (70-105) Calcium (8.4-10.2) mg/dL Magnesium (1.7-2.3) mg/dL Total Creatine Kinase (55-170) units/L - EKG Data 12/16/18 21:08 The EKG shows a sinus rhythm, 80 beats for minute, normal axis, QTC 466 ms, there is low voltage in the lateral leads, there is nonspecific ST T abnormalities anteroseptal leads, the EKG is abnormal, it appears to be unchanged from prior EKG from November 2018. The EKG is not consistent with STEMI - Radiology Data Radiology results: pending, report reviewed, image reviewed Critical care attestation.: If time is entered above; I have spent that time in minutes in the direct care of this critically ill patient, excluding procedure time. ED Disposition Clinical Impression: Alcohol intoxication Disposition: - TO HOME OR SELFCARE Is pt being admited?: No Does the pt Need Aspirin: No Condition: Stable Additional Instructions: Please limit or avoid consumption of alcohol. Long-term consumption of alcohol may cause disability, addiction, loss of quality of life, cardiac issues, neurologic issues. Recommend the patient continue current outpatient medications. Follow-up with your primary care doctor or back end architect within the next 2 weeks. Make certain to take an [id number] multivitamin. Return to the emergency room right away with new, worsened or different symptoms, or symptoms not present on the initial emergency room evaluation. Referrals: PRIMARY CARE, [Primary Care Provider] - 3-5 Days PETERSON GAITAN MD [Staff Physician] - 3-5 Days [facility] [Provider Group] - 3-5 Days
[2018-12-16 20:51] LABS: Hematocrit 48.6 % (35.5-45.6); Hemoglobin 16.4 gm/dl (11.8-15.2); Mean Corpuscular HGB Conc 34 % (32-34); Mean Corpuscular Volume 94 fl (84-94); Platelet Count 278 K/mm3 (140-440); Red Blood Count 5.17 M/mm3 (3.65-5.03); Red Cell Distribution Width 14.9 % (13.2-15.2)
[2018-12-16 21:00] LABS: BUN/Creatinine Ratio 14; Blood Urea Nitrogen 10 mg/dL (9-20); Calcium 9.2 mg/dL (8.4-10.2); Hemolysis Index 2
[2018-12-16 21:01] LABS: INR 1.02 (0.87-1.13)
--- NOTE | 2018-12-16 23:33 | XRay Report ---
AP PELVIS INDICATION / CLINICAL INFORMATION: etoh fall drunk. COMPARISON: None available. FINDINGS: No appreciable fracture or dislocation. Signer Name: Everton Tamayo MD Signed: 12/16/2018 11:28 PM Workstation Name: [id number]
--- NOTE | 2018-12-16 23:33 | XRay Report ---
CHEST 1 VIEW 12/16/2018 10:44 PM INDICATION / CLINICAL INFORMATION: etoh drunk fell. COMPARISON: 11/27/18 FINDINGS: SUPPORT DEVICES: None. HEART / MEDIASTINUM: Upper normal size and stable. LUNGS / PLEURA: No significant pulmonary or pleural abnormality. No pneumothorax. ADDITIONAL FINDINGS: No significant additional findings. IMPRESSION: 1. No acute findings. No significant change. Signer Name: Laurie Hodgson MD Signed: 12/16/2018 11:28 PM Workstation Name: [id number]
--- NOTE | 2018-12-17 01:17 | Cat Scan Report ---
CT HEAD WITHOUT CONTRAST INDICATION / CLINICAL INFORMATION: EtOH fall drunkl. TECHNIQUE: All CT scans at this location are performed using CT dose reduction for ALARA by means of automated e xposure control. COMPARISON: CT dated 11/27/18 FINDINGS: HEMORRHAGE: None. EXTRA-AXIAL SPACES: Normal in size and morphology for the patient's age. VENTRICULAR SYSTEM: Normal in size and morphology for the patient's age. CEREBRAL PARENCHYMA: No significant abnormality. No acute territorial infarct. MIDLINE SHIFT OR HERNIATION: None. CEREBELLUM / BRAINSTEM: No significant abnormality. ORBITS: Normal as visualized. SOFT TISSUES of HEAD: Mild forehead soft tissue swelling. CALVARIUM: No significant abnormality. PARANASAL SINUSES / MASTOID AIR CELLS: Normal as visualized. ADDITIONAL FINDINGS: None. IMPRESSION: 1. No acute intracranial abnormality. No significant change. Signer Name: Laurie Hodgson MD Signed: 12/17/2018 1:12 AM Workstation Name: [id number]
--- NOTE | 2018-12-17 01:18 | Cat Scan Report ---
CT CERVICAL SPINE WITHOUT CONTRAST INDICATION / CLINICAL INFORMATION: MAIN: EtOH fall drunk. TECHNIQUE: Axial CT images were obtained through the cervical spine. Sagittal and coronal reformatted images wer e produced. All CT scans at this location are performed using CT dose reduction for ALARA by means of automated exposure control. COMPARISON: None available. FINDINGS: VERTEBRAE: No significant abnormality. ALIGNMENT: No significant abnormality. DISC SPACES: No significant abnormality. FACET JOINTS: No significant abnormality. CRANIOCERVICAL JUNCTION:No significant abnormality. SPINAL CANAL: No significant abnormality. PARASPINAL SOFT TISSUES: No significant abnormality. ADDITIONAL FINDINGS: None. LUNG APICES: No significant abnormality of visualized lungs. IMPRESSION: 1. No acute abnormality. Signer Name: Laurie Hodgson MD Signed: 12/17/2018 1:14 AM Workstation Name: [id number]
[2018-12-17 11:50] VITALS: BP 115/80
== END 2018-12-17 11:49 | disposition home or self-care (01) ==
LOC: ED 20:04
DX: F10.120 Alcohol abuse with intoxication, uncomplicated (principal); M54.12 Radiculopathy, cervical region; I42.9 Cardiomyopathy, unspecified; I10 Essential (primary) hypertension; E11.9 Type 2 diabetes mellitus without complications; F31.9 Bipolar disorder, unspecified; F17.200 Nicotine dependence, unspecified, uncomplicated; Z79.899 Other long term (current) drug therapy; Z95.1 Presence of aortocoronary bypass graft; Z79.82 Long term (current) use of aspirin
CPT/HCPCS: 36415; 70450; 71045; 72125; 72170; 80048; 82550; 82962; 83735; 85027; 85610; 93005; 96365; 96366; 96372; 96375; 99285; J1630; J2060; J3411; J7030; 80320; G0480

== ENCOUNTER 2019-07-16 20:29 | Emergency (ER) | payer MEDICAID ==
[2019-07-16 21:41] VITALS: BP 137/76
[2019-07-16] MEDS ORDERED: MORPHINE 4 MG/1 ML INJ IM ONE (23:49)
[2019-07-16] MEDS ORDERED: ONDANSETRON 4 MG/2 ML INJ IM ONE (23:49)
--- NOTE | 2019-07-16 23:54 | Emergency Department Report ---
ED Lower Extremity HPI - General Chief Complaint: Extremity Injury, Lower Stated Complaint: RT LEG PAIN Time Seen by Provider: 07/16/19 23:43 Source: EMS Mode of arrival: Wheelchair Limitations: Physical Limitation - History of Present Illness Initial Comments: Patient is 58 years old male with history of hypertension, diabetes and bipolar disorder. Patient presented to the ER complaining of right leg pain. Patient stated that he fell last Sunday and he went to [facility] and he had a x-ray done and he was told that he had a tibia fracture but patient elected to come to [place] to follow-up with his primary care physician. Patient stated that he is here for pain medication. Patient stated that he is unable to fill his pain medicine that prescribe to him for his pain. Patient denied any other injuries. MD Complaint: leg injury - Related Data Home Medications Medication Instructions Recorded Confirmed Last Taken Acetaminophen [Acetaminophen ER 650 mg PO Q12H PRN 09/18/17 11/27/18 11/26/18 TAB] Bimatoprost [Lumigan 0.01%] 1 drop OP HS 09/18/17 11/27/18 11/26/18 Previous Rx's Medication Instructions Recorded Last Taken Type Aspirin EC [Halfprin EC] 81 mg PO QDAY #30 tablet 09/20/17 11/26/18 Rx Naproxen [Naprosyn TAB] 500 mg PO BID #14 tablet 01/19/18 11/26/18 Rx Aspirin EC [Ecotrin] 325 mg PO QDAY #30 11/30/18 Unknown Rx AtorvaSTATin [Lipitor] 40 mg PO QHS #30 tablet 11/30/18 Unknown Rx Clopidogrel [Plavix] 75 mg PO QDAY #30 tablet 11/30/18 Unknown Rx Finasteride [Proscar] 5 mg PO QDAY #30 11/30/18 Unknown Rx Gabapentin 100 mg PO BID #60 capsule 11/30/18 Unknown Rx ISOSORBIDE MONOnitrate [Imdur ER] 60 mg PO QDAY #60 tablet 11/30/18 Unknown Rx Ipratropium/Albuterol Sulfate 1 puff IH QID 30 Days 11/30/18 Unknown Rx [Combivent Respimat] Ipratropium/Albuterol Sulfate 1 ampul IH Q6HR 30 Days 11/30/18 Unknown Rx [DUONEB *Not for PRN Use*] Latanoprost 0.005% 1 drops OU QHS 30 Days bottle 11/30/18 Unknown Rx Metoprolol [Lopressor TAB] 12.5 mg PO BID #60 tablet 11/30/18 Unknown Rx Sertraline [Zoloft] 50 mg PO QDAY tablet 11/30/18 Unknown Rx Sertraline [Zoloft] 50 mg PO QDAY #30 11/30/18 Unknown Rx Tamsulosin [Flomax] 0.4 mg PO QDAY #30 cap 11/30/18 Unknown Rx amLODIPine 5 mg PO DAILY #30 tab 11/30/18 Unknown Rx hydrOXYzine PAMOATE [Vistaril] 50 mg PO HS #30 cap 11/30/18 Unknown Rx lisinopriL [Zestril TAB] 5 mg PO QDAY #30 tablet 11/30/18 Unknown Rx traMADoL [Ultram 50 MG tab] 50 mg PO Q6H PRN tablet 11/30/18 Unknown Rx Allergies Allergy/AdvReac Type Severity Reaction Status Date / Time ibuprofen [From Motrin] AdvReac Unknown Anaphylaxis Verified 11/27/18 16:09 ED Review of Systems ROS: Stated complaint: RT LEG PAIN Other details as noted in HPI Comment: All other systems reviewed and negative Constitutional: denies: chills, fever Respiratory: denies: cough, shortness of breath Cardiovascular: denies: chest pain Gastrointestinal: denies: abdominal pain, nausea, vomiting Musculoskeletal: denies: back pain ED Past Medical Hx - Past Medical History Previous Medical History?: Yes Hx Hypertension: Yes Hx Heart Attack/AMI: Yes Hx Congestive Heart Failure: No Hx Diabetes: Yes Hx Psychiatric Treatment: Yes (bipolar) Hx Asthma: No Hx COPD: No Additional medical history: glaucoma. legally blind - Surgical History Hx Coronary Stent: Yes (x2) Additional Surgical History: hernia repair. R leg sx 12/2016 - Social History Smoking Status: Unknown if ever smoked Substance Use Type: Alcohol, Marijuana - Medications Home Medications: Home Medications Medication Instructions Recorded Confirmed Last Taken Type Acetaminophen [Acetaminophen ER 650 mg PO Q12H PRN 09/18/17 11/27/18 11/26/18 History TAB] Bimatoprost [Lumigan 0.01%] 1 drop OP HS 09/18/17 11/27/18 11/26/18 History Aspirin EC [Halfprin EC] 81 mg PO QDAY #30 tablet 09/20/17 11/27/18 11/26/18 Rx Naproxen [Naprosyn TAB] 500 mg PO BID #14 tablet 01/19/18 11/27/18 11/26/18 Rx Aspirin EC [Ecotrin] 325 mg PO QDAY #30 11/30/18 Unknown Rx AtorvaSTATin [Lipitor] 40 mg PO QHS #30 tablet 11/30/18 Unknown Rx Clopidogrel [Plavix] 75 mg PO QDAY #30 tablet 11/30/18 Unknown Rx Finasteride [Proscar] 5 mg PO QDAY #30 11/30/18 Unknown Rx Gabapentin 100 mg PO BID #60 capsule 11/30/18 Unknown Rx ISOSORBIDE MONOnitrate [Imdur ER] 60 mg PO QDAY #60 tablet 11/30/18 Unknown Rx Ipratropium/Albuterol Sulfate 1 puff IH QID 30 Days 11/30/18 Unknown Rx [Combivent Respimat] Ipratropium/Albuterol Sulfate 1 ampul IH Q6HR 30 Days 11/30/18 Unknown Rx [DUONEB *Not for PRN Use*] Latanoprost 0.005% 1 drops OU QHS 30 Days bottle 11/30/18 Unknown Rx Metoprolol [Lopressor TAB] 12.5 mg PO BID #60 tablet 11/30/18 Unknown Rx Sertraline [Zoloft] 50 mg PO QDAY tablet 11/30/18 Unknown Rx Sertraline [Zoloft] 50 mg PO QDAY #30 11/30/18 Unknown Rx Tamsulosin [Flomax] 0.4 mg PO QDAY #30 cap 11/30/18 Unknown Rx amLODIPine 5 mg PO DAILY #30 tab 11/30/18 Unknown Rx hydrOXYzine PAMOATE [Vistaril] 50 mg PO HS #30 cap 11/30/18 Unknown Rx lisinopriL [Zestril TAB] 5 mg PO QDAY #30 tablet 11/30/18 Unknown Rx traMADoL [Ultram 50 MG tab] 50 mg PO Q6H PRN tablet 11/30/18 Unknown Rx ED Physical Exam - General Limitations: Physical Limitation General appearance: alert, in no apparent distress - Head Head exam: Present: atraumatic, normocephalic, normal inspection - Eye Eye exam: Present: normal appearance - ENT ENT exam: Present: normal exam, normal orophraynx, mucous membranes moist - Neck Neck exam: Present: normal inspection, full ROM. Absent: tenderness, meningismus - Respiratory Respiratory exam: Present: normal lung sounds bilaterally - Cardiovascular Cardiovascular Exam: Present: regular rate, normal rhythm, normal heart sounds - GI/Abdominal GI/Abdominal exam: Present: soft, normal bowel sounds. Absent: distended, tenderness, guarding, rebound, rigid, organomegaly, mass, bruit, pulsatile mass, hernia - Expanded Lower Extremity Exam Right Hip exam: Present: normal inspection, full ROM. Absent: tenderness Upper Leg exam: Present: normal inspection, full ROM Knee exam: Present: tenderness, swelling Lower Leg exam: Present: tenderness, swelling Ankle exam: Present: normal inspection, full ROM. Absent: tenderness Foot/Toe exam: Present: normal inspection, full ROM. Absent: tenderness Neuro vascular tendon exam: Present: no vascular compromise - Back Exam Back exam: Present: normal inspection, full ROM. Absent: CVA tenderness (R), CVA tenderness (L) - Neurological Exam Neurological exam: Present: alert, oriented X3, CN II-XII intact - Psychiatric Psychiatric exam: Present: normal mood. Absent: suicidal ideation - Skin Skin exam: Present: warm, intact, normal color ED Course Vital Signs 07/16/19 21:36 Temperature 98.6 F Pulse Rate 83 Respiratory 18 Rate Blood Pressure 137/76 O2 Sat by Pulse 95 Oximetry ED Lower Extremity MDM - Radiology Data Radiology results: report reviewed Patient is 58 years old male with history of hypertension, diabetes and bipolar disorder. Patient presented to the ER complaining of right leg pain. Patient stated that he fell last Sunday and he went to [facility] and he had a x-ray done and he was told that he had a tibia fracture but patient elected to come to [place] to follow-up with his primary care physician. Patient stated that he is here for pain medication. Patient stated that he is unable to fill his pain medicine that prescribe to him for his pain. Patient denied any other injuries. Patient received morphine 4 mg for pain. X-ray of the right tibia and fibula showed a healed fracture. Patient noted to have a splint on from his previous hospital visit. Patient advised to continue with his splint. I gave patient Dr. Batres, orthopedics to follow-up with in the next 2 to 3 days. Patient also given a prescription for his pain. At this moment I I do not see any evidence of compartment syndrome. Patient advised to return to the ER if he develop any new symptoms. Critical care attestation.: If time is entered above; I have spent that time in minutes in the direct care of this critically ill patient, excluding procedure time. ED Disposition Clinical Impression: Right leg pain Disposition: DC-01 TO HOME OR SELFCARE Is pt being admited?: No Condition: Stable Instructions: Leg Fracture (ED) Referrals: ERASTO BATRES MD [Staff Physician] - 3-5 Days
--- NOTE | 2019-07-17 00:27 | XRay Report ---
Right foreleg 4 views INDICATION: Right foreleg pain following injury IMPRESSION: Evidence of healed mid shaft fracture of the distal tibia and fibula. No new or acute fra ctures identified. Evidence of removed fixation hardware. Severe posttraumatic degenerative changes o f the knee present. Signer Name: Deepak Vincent MD Signed: 07/17/2019 12:22 AM Workstation Name: [id number]
== END 2019-07-17 01:58 | disposition home or self-care (01) ==
LOC: ED 20:29
DX: M79.604 Pain in right leg (principal); I10 Essential (primary) hypertension; I25.2 Old myocardial infarction; E11.9 Type 2 diabetes mellitus without complications; F31.9 Bipolar disorder, unspecified; F12.10 Cannabis abuse, uncomplicated; Z98.890 Other specified postprocedural states; Z79.899 Other long term (current) drug therapy; Z88.8 Allergy status to other drugs, medicaments and biological substances
CPT/HCPCS: 73590; 96372; 99283; J2270; J2405

== ENCOUNTER 2019-11-20 08:04 | Outpatient (CLI) | payer MEDICAID ==
[2019-11-20] MEDS ORDERED: LIDOCAINE (4%) 40 MG/ML TOPICAL SOLN 50 ML BOTTLE TP ONE (08:06)
== END 2019-11-20 08:05 | disposition home or self-care (01) ==
LOC: WOUND 08:04
PROVIDERS: ATTEND Surgery
DX: T81.31XA Disruption of external operation (surgical) wound, not elsewhere classified, initial encounter (principal); L97.212 Non-pressure chronic ulcer of right calf with fat layer exposed; I10 Essential (primary) hypertension; I25.2 Old myocardial infarction; H54.7 Unspecified visual loss; F17.210 Nicotine dependence, cigarettes, uncomplicated; F41.9 Anxiety disorder, unspecified; Z96.651 Presence of right artificial knee joint; Z95.5 Presence of coronary angioplasty implant and graft; Y83.8 Other surgical procedures as the cause of abnormal reaction of the patient, or of later complication, without mention of misadventure at the time of the procedure; Y92.238 Other place in hospital as the place of occurrence of the external cause
CPT/HCPCS: 11042; G0463; 99214

== ENCOUNTER 2019-11-21 11:04 | Inpatient (IN) | payer MEDICAID ==
[2019-11-21] MEDS ORDERED: HYDROmorphone 1 MG/1 ML INJ IV ONE (15:42)
--- NOTE | 2019-11-21 15:48 | Emergency Department Report ---
ED Extremity Problem HPI - General Chief complaint: Extremity Injury, Lower Stated complaint: PER DR BATRES RT SWOLLEN/INFECTED Time Seen by Provider: 11/21/19 15:40 Source: patient Mode of arrival: Ambulatory Limitations: No Limitations - History of Present Illness Initial comments: 59-year-old -[place] male presents to the emergency room for right knee drainage infection status post right knee replacement on August 25. Surgery was done by Dr. Batres here at the hospital. Patient states that he has not had any physical therapy no home nurse. Patient reports he did go to the wound care clinic yesterday had a cleaned out and was told to come to the emergency room for IV antibiotics and reevaluation. Patient denies any fever chills just reports excruciating pain to his right knee with copious amount of drainage. MD Complaint: extremity pain, extremity swelling Location: right, knee History of Same: No -: Yes arthralgia Severity scale (0 -10): 10 Quality: stabbing, aching, sharp Consistency: constant Improves with: nothing Worsens with: weight bearing, palpation Associated Symptoms: arthralgias - Related Data Home Medications Medication Instructions Recorded Confirmed Last Taken Acetaminophen [Acetaminophen ER 650 mg PO Q12H PRN 09/18/17 09/11/19 08/12/19 TAB] Bimatoprost [Lumigan 0.01%] 1 drop OP HS 09/18/17 08/26/19 09/10/19 Previous Rx's Medication Instructions Recorded Last Taken Type Aspirin EC [Ecotrin] 325 mg PO QDAY #30 11/30/18 08/12/19 09:00 Rx AtorvaSTATin [Lipitor] 40 mg PO QHS #30 tablet 11/30/18 09/10/19 Rx Finasteride [Proscar] 5 mg PO QDAY #30 11/30/18 09/11/19 08:30 Rx Gabapentin 100 mg PO BID #60 capsule 11/30/18 09/11/19 08:30 Rx ISOSORBIDE MONOnitrate [Imdur ER] 60 mg PO QDAY #60 tablet 11/30/18 09/11/19 08:30 Rx Ipratropium/Albuterol Sulfate 1 puff IH QID 30 Days 11/30/18 08/31/19 Rx [Combivent Respimat] Ipratropium/Albuterol Sulfate 1 ampul IH Q6HR 30 Days 11/30/18 08/31/19 Rx [DUONEB *Not for PRN Use*] Latanoprost 0.005% 1 drops OU QHS 30 Days bottle 11/30/18 09/10/19 Rx Metoprolol [Lopressor TAB] 12.5 mg PO BID #60 tablet 11/30/18 09/11/19 08:30 Rx Sertraline [Zoloft] 50 mg PO QDAY tablet 11/30/18 09/11/19 08:30 Rx Tamsulosin [Flomax] 0.4 mg PO QDAY #30 cap 11/30/18 09/11/19 08:30 Rx amLODIPine 5 mg PO DAILY #30 tab 11/30/18 09/11/19 08:30 Rx hydrOXYzine PAMOATE [Vistaril] 50 mg PO HS #30 cap 11/30/18 09/10/19 Rx Apixaban [Eliquis] 5 mg PO DAILY #30 tablet 09/12/19 Unknown Rx Oxycodone HCl/Acetaminophen 1 each PO Q6HR PRN #30 tablet 09/12/19 Unknown Rx [Percocet 10/325 mg] Allergies Allergy/AdvReac Type Severity Reaction Status Date / Time ibuprofen [From Motrin] Allergy Unknown Anaphylaxis Verified 09/11/19 12:38 tramadol Allergy Hives Verified 09/11/19 12:39 ED Review of Systems ROS: Stated complaint: PER DR BATRES RT SWOLLEN/INFECTED Other details as noted in HPI Comment: All other systems reviewed and negative ED Past Medical Hx - Past Medical History Previous Medical History?: Yes Hx Hypertension: Yes Hx Heart Attack/AMI: Yes (2015; neg stress test and normal EF 11/2018) Hx Congestive Heart Failure: Yes Hx Diabetes: No Hx Liver Disease: No Hx Renal Disease: No Hx Psychiatric Treatment: Yes (bipolar) Hx Asthma: No Hx COPD: Yes Hx HIV: No Additional medical history: glaucoma. legally blind - Surgical History Past Surgical History?: Yes Hx Coronary Stent: Yes Additional Surgical History: hernia repair. R leg sx 12/2016 - Social History Smoking Status: Current Every Day Smoker - Medications Home Medications: Home Medications Medication Instructions Recorded Confirmed Last Taken Type Acetaminophen [Acetaminophen ER 650 mg PO Q12H PRN 09/18/17 09/11/19 08/12/19 History TAB] Bimatoprost [Lumigan 0.01%] 1 drop OP HS 09/18/17 08/26/19 09/10/19 History Aspirin EC [Ecotrin] 325 mg PO QDAY #30 11/30/18 08/26/19 08/12/19 09:00 Rx AtorvaSTATin [Lipitor] 40 mg PO QHS #30 tablet 11/30/18 09/11/19 09/10/19 Rx Finasteride [Proscar] 5 mg PO QDAY #30 11/30/18 08/26/19 09/11/19 08:30 Rx Gabapentin 100 mg PO BID #60 capsule 11/30/18 08/26/19 09/11/19 08:30 Rx ISOSORBIDE MONOnitrate [Imdur ER] 60 mg PO QDAY #60 tablet 11/30/18 08/26/19 09/11/19 08:30 Rx Ipratropium/Albuterol Sulfate 1 puff IH QID 30 Days 11/30/18 09/11/19 08/31/19 Rx [Combivent Respimat] Ipratropium/Albuterol Sulfate 1 ampul IH Q6HR 30 Days 11/30/18 09/11/19 08/31/19 Rx [DUONEB *Not for PRN Use*] Latanoprost 0.005% 1 drops OU QHS 30 Days bottle 11/30/18 08/26/19 09/10/19 Rx Metoprolol [Lopressor TAB] 12.5 mg PO BID #60 tablet 11/30/18 09/11/19 09/11/19 08:30 Rx Sertraline [Zoloft] 50 mg PO QDAY tablet 11/30/18 08/26/19 09/11/19 08:30 Rx Tamsulosin [Flomax] 0.4 mg PO QDAY #30 cap 11/30/18 08/26/19 09/11/19 08:30 Rx amLODIPine 5 mg PO DAILY #30 tab 11/30/18 08/26/19 09/11/19 08:30 Rx hydrOXYzine PAMOATE [Vistaril] 50 mg PO HS #30 cap 11/30/18 08/26/19 09/10/19 Rx Apixaban [Eliquis] 5 mg PO DAILY #30 tablet 09/12/19 Unknown Rx Oxycodone HCl/Acetaminophen 1 each PO Q6HR PRN #30 tablet 09/12/19 Unknown Rx [Percocet 10/325 mg] ED Physical Exam - General Limitations: No Limitations General appearance: alert, in distress - Head Head exam: Present: atraumatic, normocephalic - Eye Eye exam: Present: normal appearance - ENT ENT exam: Present: mucous membranes moist - Neck Neck exam: Present: normal inspection, full ROM - Respiratory Respiratory exam: Present: normal lung sounds bilaterally - Cardiovascular Cardiovascular Exam: Present: regular rate - Expanded Lower Extremity Exam Right Hip exam: Present: normal inspection, full ROM Upper Leg exam: Present: normal inspection, full ROM Knee exam: Present: tenderness, swelling, erythema Lower Leg exam: Present: tenderness, swelling Foot/Toe exam: Present: full ROM Neuro vascular tendon exam: Present: no vascular compromise - Neurological Exam Neurological exam: Present: alert, oriented X3 - Psychiatric Psychiatric exam: Present: normal affect, normal mood ED Course Vital Signs 11/21/19 11/21/19 12:27 18:06 Temperature 98.9 F Pulse Rate 87 Respiratory 17 Rate Blood Pressure 147/72 [Left] O2 Sat by Pulse 100 Oximetry - Reevaluation(s) Reevaluation #1: 11/21/19 17:[address] Batres he requests the patient be admitted for him to do a washout in the morning. Call Dr. Matute hospitalist he will call me back to discuss case. ED Medical Decision Making - Lab Data Result diagrams: 11/22/19 09:20 11/22/19 12:59 - Radiology Data Radiology results: report reviewed Ordering Physician: KINGA ZEPEDA Date of Service: 11/21/19 Procedure(s): CT lower extremity RT w con Accession Number(s): [id number] cc: KINGA ZEPEDA CT lower extremity RT w con INDICATION / CLINICAL INFORMATION: Right knee swelling warmth status post surgery. TECHNIQUE: Routine CT foot right foreleg with IV contrast All CT scans at this location are performed using CT dose reduction for [place] by means of automated exposure control. COMPARISON: Radiograph 09/11/2019 FINDINGS: The exam was somewhat limited secondary to streak artifact from indwelling right knee arthroplasty however there does appear to be a significant amount of anterior soft tissue cellulitis involving the anterior soft tissues of the knee. In addition there appears to be a right suprapatellar effusion with significant surrounding soft tissue edema. There are chronic changes identified from prior hardware removal involving the proximal anterior tibia with diffuse disuse type osteopenia. Several foci of gas are identified within the knee joint space. No definite periprosthetic fracture is identified. IMPRESSION: 1. Small suprapatellar effusion with severe overlying cellulitis involving the soft tissues above and below the knee, as outlined above. Given the mixed fluid and gas within the articular space/suprapatellar pouch, septic arthrosis cannot be excluded. In addition, I cannot exclude early osteomyelitis involving the upper tibia especially near the tibial arthroplasty component which is difficult to visualize given adjacent streak artifact.. Signer Name: Deepak Vincent MD Signed: 11/21/2019 5:55 PM Workstation Name: [id number] Transcribed By: CHARLES Dictated By: Deepak Vincent MD Electronically Authenticated By: Deepak Vincent MD Signed Date/Time: 11/21/191754 DD/ 46 TD/TT: - Medical Decision Making 59-year-old -[place] male presents to the emergency room for right knee drainage infection status post right knee replacement on August 25. Surgery was done by Dr. Batres here at the hospital. Patient states that he has not had any physical therapy no home nurse. Patient reports he did go to the wound care clinic yesterday had a cleaned out and was told to come to the emergency room for IV antibiotics and reevaluation. Patient denies any fever chills just reports excruciating pain to his right knee with copious amount of drainage. Patient initially had basic labs done CBC CMP lactic acid mag and false. CT of right knee shows small suprapatellar effusion with severely overlying cellulitis involving the soft tissue above and below the knee. Given the mixed estelle and gas within the articular space/suprapatellar pouch, septic arthrosis cannot be excluded. In addition it cannot exclude early osteomyelitis involving the upper tibia especially near the tibia arthroplasty component which is difficult to visualize with adjacent streak artifact per radiologist. Patient was started with 2 g Ancef IV normal saline IV MAC pain medication. Contacted Dr. Batres informed him of his patient he request patient to be admitted under hospitalist and he will washout in the morning. Spoke to Dr. Juju wells orders were placed. Critical care attestation.: If time is entered above; I have spent that time in minutes in the direct care of this critically ill patient, excluding procedure time. ED Disposition Clinical Impression: Septic joint of right knee joint, Cellulitis of knee, right Disposition: DC-09 OP ADMIT IP TO THIS HOSP Is pt being admited?: Yes Does the pt Need Aspirin: Yes Condition: Stable
[2019-11-21 16:36] LABS: Basophils # (Auto) 0.1 K/mm3 (0.0-0.1); Basophils % (Auto) 0.4 % (0.0-1.8); Eosinophils # (Auto) 0.2 K/mm3 (0.0-0.4); Hematocrit 31.4 % (35.5-45.6); Hemoglobin 10.8 gm/dl (11.8-15.2); Lymphocytes # (Auto) 2.2 K/mm3 (1.2-5.4); Mean Corpuscular HGB Conc 35 % (32-34); Mean Corpuscular Volume 90 fl (84-94); Monocytes # (Auto) 1.2 K/mm3 (0.0-0.8); Monocytes % (Auto) 7.5 % (0.0-7.3); Platelet Count 688 K/mm3 (140-440); Red Blood Count 3.49 M/mm3 (3.65-5.03)
[2019-11-21 16:40] LABS: Alanine Aminotransferase 39 units/L (7-56); Albumin 3.6 g/dL (3.9-5); Blood Urea Nitrogen 9 mg/dL (9-20); Calcium 9.9 mg/dL (8.4-10.2); Hemolysis Index 43
[2019-11-21 16:43] LABS: BUN/Creatinine Ratio 15
--- NOTE | 2019-11-21 18:00 | Cat Scan Report ---
CT lower extremity RT w con INDICATION / CLINICAL INFORMATION: Right knee swelling warmth status post surgery. TECHNIQUE: Routine CT foot right foreleg with IV contrast All CT scans at this location are performed using CT d ose reduction for [place] by means of automated exposure control. COMPARISON: Radiograph 09/11/2019 FINDINGS: The exam was somewhat limited secondary to streak artifact from indwelling right knee arthroplasty ho wever there does appear to be a significant amount of anterior soft tissue cellulitis involving the a nterior soft tissues of the knee. In addition there appears to be a right suprapatellar effusion with significant surrounding soft tissue edema. There are chronic changes identified from prior hardware removal involving the proximal anterior tibia with diffuse disuse type osteopenia. Several foci of ga s are identified within the knee joint space. No definite periprosthetic fracture is identified. IMPRESSION: 1. Small suprapatellar effusion with severe overlying cellulitis involving the soft tissues above and below the knee, as outlined above. Given the mixed fluid and gas within the articular space/suprapat ellar pouch, septic arthrosis cannot be excluded. In addition, I cannot exclude early osteomyelitis involving the upper tibia especially near the tibial arthroplasty component which is difficult to vis ualize given adjacent streak artifact.. Signer Name: Deepak Vincent MD Signed: 11/21/2019 5:55 PM Workstation Name: [id number]
[2019-11-21] MEDS ORDERED: ASPIRIN 81 MG TAB CHEW PO ONE (19:23)
[2019-11-21] MEDS ORDERED: ACETAMINOPHEN 650 MG PO PRN (22:13)
--- NOTE | 2019-11-21 22:13 | History and Physical Report ---
History of Present Illness Date of examination: 11/21/19 Date of admission: 11/21/19 19:52 Chief complaint: Right knee drainage for 1 week History of present illness: 59-year-old -[place] male sent to the emergency room from wound care clinic for right knee giant drainage of mucopurulent fluid. Patient had a knee replacement on August 25. Patient has bilateral follow-up after total knee replacement. No fever or chills. Patient patient continues to have drainage and pain in the right knee. Pain is about 6 on a scale of 1-10. No fever or chills. No recent exposure to coronavirus. 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 Right knee drainage area was cleaned with the wound care clinic. Patient is wound care clinic wanted him to have IV antibiotics and possible right knee washout by Dr. Batres. Dr. Batres is a surgeon in August 31. - Past Medical History Previous Medical History?: Yes Hx Hypertension: Yes Hx Heart Attack/AMI: Yes (2015; neg stress test and normal EF 11/2018) Hx Congestive Heart Failure: Yes Hx Psychiatric Treatment: Yes (bipola Hx COPD: Yes Additional medical history: glaucoma. legally blind - Surgical History Past Surgical History?: Yes Hx Coronary Stent: Yes Additional Surgical History: hernia repair. R leg sx 12/2016 - Social History Smoking Status: Current Every Day Smoker Family history Htn Review of Systems ROS: Stated complaint: PER DR BATRES RT SWOLLEN/INFECTED Other details as noted in HPI Comment: All other systems reviewed and negative Medications and Allergies Allergies Allergy/AdvReac Type Severity Reaction Status Date / Time ibuprofen [From Motrin] Allergy Unknown Anaphylaxis Verified 09/11/19 12:38 tramadol Allergy Hives Verified 09/11/19 12:39 Home Medications Medication Instructions Recorded Confirmed Last Taken Type Acetaminophen [Acetaminophen ER 650 mg PO Q12H PRN 09/18/17 09/11/19 08/12/19 History TAB] Bimatoprost [Lumigan 0.01%] 1 drop OP HS 09/18/17 08/26/19 09/10/19 History Aspirin EC [Ecotrin] 325 mg PO QDAY #30 11/30/18 08/26/19 08/12/19 09:00 Rx AtorvaSTATin [Lipitor] 40 mg PO QHS #30 tablet 11/30/18 09/11/19 09/10/19 Rx Finasteride [Proscar] 5 mg PO QDAY #30 11/30/18 08/26/19 09/11/19 08:30 Rx Gabapentin 100 mg PO BID #60 capsule 11/30/18 08/26/19 09/11/19 08:30 Rx ISOSORBIDE MONOnitrate [Imdur ER] 60 mg PO QDAY #60 tablet 11/30/18 08/26/19 09/11/19 08:30 Rx Ipratropium/Albuterol Sulfate 1 puff IH QID 30 Days 11/30/18 09/11/19 08/31/19 Rx [Combivent Respimat] Ipratropium/Albuterol Sulfate 1 ampul IH Q6HR 30 Days 11/30/18 09/11/19 08/31/19 Rx [DUONEB *Not for PRN Use*] Latanoprost 0.005% 1 drops OU QHS 30 Days bottle 11/30/18 08/26/19 09/10/19 Rx Metoprolol [Lopressor TAB] 12.5 mg PO BID #60 tablet 11/30/18 09/11/19 09/11/19 08:30 Rx Sertraline [Zoloft] 50 mg PO QDAY tablet 11/30/18 08/26/19 09/11/19 08:30 Rx Tamsulosin [Flomax] 0.4 mg PO QDAY #30 cap 11/30/18 08/26/19 09/11/19 08:30 Rx amLODIPine 5 mg PO DAILY #30 tab 11/30/18 08/26/19 09/11/19 08:30 Rx hydrOXYzine PAMOATE [Vistaril] 50 mg PO HS #30 cap 11/30/18 08/26/19 09/10/19 Rx Apixaban [Eliquis] 5 mg PO DAILY #30 tablet 09/12/19 Unknown Rx Oxycodone HCl/Acetaminophen 1 each PO Q6HR PRN #30 tablet 09/12/19 Unknown Rx [Percocet 10/325 mg] Active Meds: Active Medications Hydromorphone HCl (Dilaudid) 0.5 mg IV Q3H PRN PRN Reason: Pain , Severe (7-10) Exam - Constitutional Vitals: Temp Pulse Resp BP Pulse Ox 98.9 F 87 17 147/72 100 11/21/19 18:06 11/21/19 12:27 11/21/19 12:27 11/21/19 12:27 11/21/19 12:27 General appearance: Present: mild distress, well-nourished - EENT Eyes: Present: PERRL ENT: hearing intact, clear oral mucosa - Neck Neck: Present: supple, normal ROM - Respiratory Respiratory effort: normal Respiratory: bilateral: CTA - Cardiovascular Heart rate: 78 Rhythm: regular Heart Sounds: Present: S1 & S2. Absent: rub, click - Extremities Extremities: pulses symmetrical, No edema Peripheral Pulses: within normal limits - Abdominal General gastrointestinal: Present: soft, non-tender, non-distended, normal bowel sounds Male genitourinary: Present: normal - Integumentary Integumentary: Present: clear, warm, dry - Musculoskeletal Musculoskeletal: gait normal, strength equal bilaterally - Psychiatric Psychiatric: appropriate mood/affect, intact judgment & insight - Neurologic Neurologic: CNII-XII intact, moves all extremities Results - Labs CBC & Chem 7: 11/21/19 15:53 11/21/19 15:53 Labs: Laboratory Last Values WBC 16.6 K/mm3 (4.5-11.0) H 11/21/19 15:53 RBC 3.49 M/mm3 (3.65-5.03) L 11/21/19 15:53 Hgb 10.8 gm/dl (11.8-15.2) L 11/21/19 15:53 Hct 31.4 % (35.5-45.6) L 11/21/19 15:53 MCV 90 fl (84-94) 11/21/19 15:53 MCH 31 pg (28-32) 11/21/19 15:53 MCHC 35 % (32-34) H 11/21/19 15:53 RDW 15.0 % (13.2-15.2) 11/21/19 15:53 Plt Count 688 K/mm3 (140-440) H 11/21/19 15:53 Lymph % (Auto) 13.0 % (13.4-35.0) L 11/21/19 15:53 [place] % (Auto) 7.5 % (0.0-7.3) H 11/21/19 15:53 Eos % (Auto) 1.0 % (0.0-4.3) 11/21/19 15:53 Baso % (Auto) 0.4 % (0.0-1.8) 11/21/19 15:53 Lymph # (Auto) 2.2 K/mm3 (1.2-5.4) 11/21/19 15:53 [place] # (Auto) 1.2 K/mm3 (0.0-0.8) H 11/21/19 15:53 Eos # (Auto) 0.2 K/mm3 (0.0-0.4) 11/21/19 15:53 Baso # (Auto) 0.1 K/mm3 (0.0-0.1) 11/21/19 15:53 Seg Neutrophils % 78.1 % (40.0-70.0) H 11/21/19 15:53 Seg Neutrophils # 13.0 K/mm3 (1.8-7.7) H 11/21/19 15:53 Sodium 137 mmol/L (137-145) 11/21/19 15:53 Potassium 4.7 mmol/L (3.6-5.0) 11/21/19 15:53 Chloride 98.3 mmol/L (98-107) 11/21/19 15:53 Carbon Dioxide 22 mmol/L (22-30) 11/21/19 15:53 Anion Gap 21 mmol/L 11/21/19 15:53 BUN 9 mg/dL (9-20) 11/21/19 15:53 Creatinine 0.6 mg/dL (0.8-1.3) L 11/21/19 15:53 Estimated GFR > 60 ml/min 11/21/19 15:53 BUN/Creatinine Ratio 15 % 11/21/19 15:53 Glucose 95 mg/dL (75-100) 11/21/19 15:53 Lactic Acid 0.80 mmol/L (0.7-2.0) 11/21/19 15:53 Calcium 9.9 mg/dL (8.4-10.2) 11/21/19 15:53 Phosphorus 3.50 mg/dL (2.5-4.5) 11/21/19 15:53 Magnesium 1.70 mg/dL (1.7-2.3) 11/21/19 15:53 Total Bilirubin 0.20 mg/dL (0.1-1.2) 11/21/19 15:53 AST 26 units/L (5-40) 11/21/19 15:53 ALT 39 units/L (7-56) 11/21/19 15:53 Alkaline Phosphatase 236 units/L (35-129) H 11/21/19 15:53 Lactate Dehydrogenase 207 units/L (91-180) H 11/21/19 15:53 Total Protein 8.1 g/dL (6.3-8.2) 11/21/19 15:53 Albumin 3.6 g/dL (3.9-5) L 11/21/19 15:53 Albumin/Globulin Ratio 0.8 % 11/21/19 15:53 - Imaging and Cardiology Imaging and Cardiology: More CT of the lower extremity Small suprapatellar patellar effusion with severe overlying cellulitis involving the soft tissues below and below the knee as outlined above. Given the mixed fluid and gas within the articular space/superolateral patellar pouch aseptic arthritis cannot be excluded. In addition I cannot exclude early osteomyelitis involving the upper tibia especially near the tibial arthroplasty complement. It is difficult to visualize given a distant streak infarct. Assessment and Plan Advance Directives: Yes (Full code) VTE prophylaxis?: Chemical Plan of care discussed with patient/family: Yes - Patient Problems (1) Cellulitis of knee, right Current Visit: Yes Status: Acute Plan to address problem: Patient initiated on Ancef and vancomycin. Orthopedic consult with Dr. Batres. Possible washout of the knee. Osteomyelitis suspected. (2) Glaucoma Current Visit: Yes Status: Chronic Qualifiers: Glaucoma type: unspecified Plan to address problem: Continue eyedrops. Especially the thromboplastin tomorrow. (3) Hypertension Current Visit: Yes Status: Chronic Qualifiers: Hypertension type: essential hypertension Qualified Code(s): I10 - Essent ial (primary) hypertension Plan to address problem: Continue antihypertensives. Patient not taking any medications at home. (4) BPH (benign prostatic hyperplasia) Current Visit: Yes Status: Chronic Qualifiers: Lower urinary tract symptom presence: symptoms present Plan to address problem: Continue Flomax and Proscar. (5) DVT prophylaxis Current Visit: Yes Status: Acute Plan to address problem: On heparin and GI prophylaxis.
[2019-11-21] MEDS ORDERED: HYDROmorphone 1 MG/1 ML INJ ONE (22:22)
[2019-11-21] MEDS ORDERED: ACETAMINOPHEN 325 MG TAB PO PRN (22:33)
[2019-11-21] MEDS ORDERED: VANCOMYCIN 1,500 MG in SODIUM CHLORIDE 0.9% 500 ML 500 ML IV ONE (23:00)
[2019-11-21] MEDS ORDERED: VANCOMYCIN PHARMACY TO DOSE IV SCH (23:00)
[2019-11-21] MEDS: METOPROLOL TARTRATE 25 MG TAB PO SCH (23:46)
[2019-11-21] MEDS: GABAPENTIN 100 MG CAP PO SCH (23:46)
[2019-11-22] MEDS: ceFAZolin/NS 1 GM/50 ML 1 GM/50 ML BAG IV SCH ×4 (00:15→22:00)
[2019-11-22] MEDS: HYDROmorphone 1 MG/1 ML INJ IV PRN ×8 (00:30→22:00)
[2019-11-22] MEDS: IPRATROPIUM/ALBUTEROL SULFATE 3 ML AMPUL.NEB IH SCH ×4 (01:38→22:06)
--- NOTE | 2019-11-22 08:00 | Progress Note ---
Assessment and Plan Assessment and plan: (1) Cellulitis of knee, right CT is concerning for septic arthritis, suprapatellar effusion, early osteomyelitis of the upper tibia Current Visit: Yes Status: Acute Plan to address problem: Patient initiated on Ancef and vancomycin. Orthopedic consult with Dr. Batres and will do washout this morning Possible washout of the knee. Osteomyelitis suspected. After surgery if the patient has osteomyelitis and in need of long-term IV antibiotics will consult ID Pain is uncontrolled and I increased his Dilaudid. (2) Glaucoma Current Visit: Yes Status: Chronic Qualifiers: Glaucoma type: unspecified Plan to address problem: Continue eyedrops. Especially the thromboplastin tomorrow. (3) Hypertension Current Visit: Yes Status: Chronic Qualifiers: Hypertension type: essential hypertension Qualified Code(s): I10 - Essential (primary) hypertension Plan to address problem: Continue antihypertensives. Patient not taking any medications at home. (4) BPH (benign prostatic hyperplasia) Current Visit: Yes Status: Chronic Qualifiers: Lower urinary tract symptom presence: symptoms present Plan to address problem: Continue Flomax and Proscar. (5) DVT prophylaxis Current Visit: Yes Status: Acute Plan to address problem: SCDs and GI prophylaxis. History Interval history: Patient was seen and evaluated this morning Patient was complaining severe pain on the right knee Hospitalist Physical - Physical exam Narrative exam: Not in cardiopulmonary distress. The patient appeared well nourished and normally developed. Vital signs as documented. Head exam is unremarkable. No scleral icterus . Neck is without jugular venous distension, thyromegaly, or carotid bruits. Lungs are clear to auscultation. Cardiac exam reveals regular rate and Rhythm. Abdominal exam reveals normal bowel sounds, nontender, no organomegaly. 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 No focal weakness. - Constitutional Vitals: Temp Pulse Resp BP Pulse Ox 98.0 F 79 20 146/72 98 11/22/19 07:32 11/22/19 07:32 11/22/19 07:32 11/22/19 07:32 11/22/19 07:32 General appearance: Present: mild distress, well-nourished Results - Labs CBC & Chem 7: 11/22/19 09:20 11/22/19 09:20 Labs: Laboratory Last Values WBC 16.6 K/mm3 (4.5-11.0) H 11/21/19 15:53 RBC 3.49 M/mm3 (3.65-5.03) L 11/21/19 15:53 Hgb 10.8 gm/dl (11.8-15.2) L 11/21/19 15:53 Hct 31.4 % (35.5-45.6) L 11/21/19 15:53 MCV 90 fl (84-94) 11/21/19 15:53 MCH 31 pg (28-32) 11/21/19 15:53 MCHC 35 % (32-34) H 11/21/19 15:53 RDW 15.0 % (13.2-15.2) 11/21/19 15:53 Plt Count 688 K/mm3 (140-440) H 11/21/19 15:53 Lymph % (Auto) 13.0 % (13.4-35.0) L 11/21/19 15:53 [place] % (Auto) 7.5 % (0.0-7.3) H 11/21/19 15:53 Eos % (Auto) 1.0 % (0.0-4.3) 11/21/19 15:53 Baso % (Auto) 0.4 % (0.0-1.8) 11/21/19 15:53 Lymph # (Auto) 2.2 K/mm3 (1.2-5.4) 11/21/19 15:53 [place] # (Auto) 1.2 K/mm3 (0.0-0.8) H 11/21/19 15:53 Eos # (Auto) 0.2 K/mm3 (0.0-0.4) 11/21/19 15:53 Baso # (Auto) 0.1 K/mm3 (0.0-0.1) 11/21/19 15:53 Seg Neutrophils % 78.1 % (40.0-70.0) H 11/21/19 15:53 Seg Neutrophils # 13.0 K/mm3 (1.8-7.7) H 11/21/19 15:53 Sodium 137 mmol/L (137-145) 11/21/19 15:53 Potassium 4.7 mmol/L (3.6-5.0) 11/21/19 15:53 Chloride 98.3 mmol/L (98-107) 11/21/19 15:53 Carbon Dioxide 22 mmol/L (22-30) 11/21/19 15:53 Anion Gap 21 mmol/L 11/21/19 15:53 BUN 9 mg/dL (9-20) 11/21/19 15:53 Creatinine 0.6 mg/dL (0.8-1.3) L 11/21/19 15:53 Estimated GFR > 60 ml/min 11/21/19 15:53 BUN/Creatinine Ratio 15 % 11/21/19 15:53 Glucose 95 mg/dL (75-100) 11/21/19 15:53 Lactic Acid 0.80 mmol/L (0.7-2.0) 11/21/19 15:53 Calcium 9.9 mg/dL (8.4-10.2) 11/21/19 15:53 Phosphorus 3.50 mg/dL (2.5-4.5) 11/21/19 15:53 Magnesium 1.70 mg/dL (1.7-2.3) 11/21/19 15:53 Total Bilirubin 0.20 mg/dL (0.1-1.2) 11/21/19 15:53 AST 26 units/L (5-40) 11/21/19 15:53 ALT 39 units/L (7-56) 11/21/19 15:53 Alkaline Phosphatase 236 units/L (35-129) H 11/21/19 15:53 Lactate Dehydrogenase 207 units/L (91-180) H 11/21/19 15:53 Total Protein 8.1 g/dL (6.3-8.2) 11/21/19 15:53 Albumin 3.6 g/dL (3.9-5) L 11/21/19 15:53 Albumin/Globulin Ratio 0.8 % 11/21/19 15:53 Turner/IV: Voiding Method Urinal IV Catheter Type [Left Peripheral IV Antecubital] Active Medications - Current Medications Current Medications: Generic Name Dose Route Start Last Admin Trade Name Freq PRN Reason Stop Dose Admin Acetaminophen 650 mg 11/21/19 22:33 Tylenol PO Q12H PRN Pain, Moderate (4-6) Albuterol/Ipratropium 1 ampul 11/22/19 02:00 11/22/19 01:38 Duoneb *Not For Prn Use* IH Not Given Q6HRT [facility] Amlodipine Besylate 5 mg 11/22/19 10:00 Amlodipine PO DAILY [facility] Atorvastatin Calcium 40 mg 11/22/19 22:00 Lipitor PO QHS [facility] Finasteride 5 mg 11/22/19 10:00 Proscar PO QDAY CASIM[facility]O Gabapentin 100 mg 11/21/19 23:00 11/21/19 23:46 Gabapentin PO 100 mg BID CASIMIRO Administration Hydromorphone HCl 0.5 mg 11/21/19 19:16 11/22/19 06:30 Dilaudid IV 0.5 mg Q3H PRN Administration Pain , Severe (7-10) Hydroxyzine Pamoate 50 mg 11/22/19 22:00 Vistaril PO HS [facility] Cefazolin Sodium 1 gm in 50 mls @ 100 mls/hr 11/21/19 23:45 11/22/19 06:30 Ancef/Ns 1 Gm/50 Ml IV 100 mls/hr Q8HR [facility] Administration Protocol Vancomycin HCl 1,250 mg/ 275 mls @ 166.667 mls/hr 11/22/19 12:00 Sodium Chloride IV Q12H [facility] Isosorbide Mononitrate 60 mg 11/22/19 10:00 Imdur PO QDAY [facility] Latanoprost 1 drops 11/22/19 22:00 Latanoprost 0.005% OU QHS [facility] Losartan Potassium 50 mg 11/22/19 10:00 Cozaar PO QDAY [facility] Metoprolol Tartrate 12.5 mg 11/21/19 23:00 11/21/19 23:46 Metoprolol PO 12.5 mg BID CASIMIRO Administration Sertraline HCl 50 mg 11/22/19 10:00 Zoloft PO QDAY [facility] Tamsulosin HCl 0.4 mg 11/22/19 10:00 Flomax PO QDAY [facility]
--- NOTE | 2019-11-22 08:42 | XRay Report ---
Right knee 2 views INDICATION: Right knee pain. IMPRESSION: Prominent swelling identified along the anterior prepatellar soft tissues. Small amount o f gas noted within the anterior joint space. Signer Name: Deepak Vincent MD Signed: 11/22/2019 8:37 AM Workstation Name: [id number]
[2019-11-22 09:46] LABS: Basophils # (Auto) 0.2 K/mm3 (0.0-0.1); Eosinophils # (Auto) 0.1 K/mm3 (0.0-0.4); Eosinophils % (Auto) 0.6 % (0.0-4.3); Hematocrit 31.4 % (35.5-45.6); Hemoglobin 11.1 gm/dl (11.8-15.2); Lymphocytes # (Auto) 2.6 K/mm3 (1.2-5.4); Lymphocytes % (Auto) 16.3 % (13.4-35.0); Mean Corpuscular HGB Conc 35 % (32-34); Mean Corpuscular Volume 89 fl (84-94); Monocytes # (Auto) 1.4 K/mm3 (0.0-0.8); Monocytes % (Auto) 8.8 % (0.0-7.3); Platelet Count 709 K/mm3 (140-440); Red Blood Count 3.54 M/mm3 (3.65-5.03); Red Cell Distribution Width 14.7 % (13.2-15.2)
[2019-11-22 09:55] LABS: Blood Urea Nitrogen 10 mg/dL (9-20); Calcium 9.4 mg/dL (8.4-10.2); Hemolysis Index 247
[2019-11-22 10:36] LABS: BUN/Creatinine Ratio TNR
[2019-11-22] MEDS: GABAPENTIN 100 MG CAP PO SCH ×2 (10:37→22:06)
[2019-11-22] MEDS: METOPROLOL TARTRATE 25 MG TAB PO SCH ×2 (10:38→22:05)
[2019-11-22] MEDS: VANCOMYCIN 1,250 MG in SODIUM CHLORIDE 0.9% 250ML 250 ML IV SCH ×2 (12:41→23:23)
[2019-11-22 13:24] LABS: Blood Urea Nitrogen 9 mg/dL (9-20); Calcium 9.7 mg/dL (8.4-10.2); Hemolysis Index 1
[2019-11-22 13:31] LABS: BUN/Creatinine Ratio 15
--- NOTE | 2019-11-22 15:24 | Anesthesia Consultation ---
Anesthesia Consult and Med Hx Date of service: 11/22/19 - Airway Anesthetic Teeth Evaluation: Good ROM Head & Neck: Adequate Mental/Hyoid Distance: Adequate Mallampati Class: Class II Intubation Access Assessment: Probably Good - Pulmonary Exam CTA: Yes - Cardiac Exam Cardiac Exam: RRR - Pre-Operative Health Status ASA Pre-Surgery Classification: ASA2 Proposed Anesthetic Plan: General - Pulmonary Hx Smoking: Yes Hx Asthma: No Hx Respiratory Symptoms: No COPD: Yes Hx Pneumonia: No Hx Sleep Apnea: No - Cardiovascular System Hx Hypertension: Yes Hx Coronary Artery Disease: Yes Hx Heart Attack/AMI: Yes (2015) Hx Angina: No Hx Percutaneous Transluminal Coronary Angioplasty (PTCA): No Hx Cardia Arrhythmia: No Hx Internal Defibrillator: No Hx Valvular Heart Disease: No Hx Heart Murmur: No Hx Peripheral Vascular Disease: No - Central Nervous System Hx Neuromuscular Disorder: Yes (cervical radiculopathy) Hx Seizures: No CVA: No Hx Psychiatric Problems: No - Gastrointestinal Hx Ulcer: No Hx Gastroesophageal Reflux Disease: No - Endocrine Hx Renal Disease: No Hx End Stage Renal Disease: No Hx Cirrhosis: No Hx Liver Disease: No Hx Insulin Dependent Diabetes: No Hx Non-Insulin Dependent Diabetes: No Hx Thyroid Disease: No Hx Hyperthyroidism: No - Hematic Hx Anemia: No Hx Sickle Cell Disease: No - Other Systems Hx Cancer: No Hx Obesity: No - Additional Comments Anesthesia Medical History Comments: Patient denied previous anesthesia complication
--- NOTE | 2019-11-22 15:25 | Anesthesia Day of Surgery ---
Anesthesia Day of Surgery - Day of Surgery Patient Examined: Yes Patient H&P Reviewed: Yes Patient is NPO: Yes Cardiac Clearance: No Pulmonary Clearance: No
[2019-11-22] MEDS ORDERED: dexAMETHasone 20 MG/5 ML VIAL ONE (15:29)
[2019-11-22] MEDS ORDERED: ONDANSETRON 4 MG/2 ML INJ ONE (15:29)
[2019-11-22] MEDS ORDERED: LIDOCAINE MPF (2%) 20 MG/1 ML VIAL 5 ML ONE (15:29)
[2019-11-22] MEDS ORDERED: HYDROmorphone 1 MG/1 ML INJ ONE ×3 (15:30→19:14)
[2019-11-22] MEDS ORDERED: propofoL 200 MG/20 ML VIAL IV ONE (15:30)
[2019-11-22] MEDS ORDERED: SODIUM CHLORIDE 0.9% IRRIG SOLN 2000 ML IR ONE ×2 (15:57)
[2019-11-22] MEDS ORDERED: GENTAMICIN 40 MG/ML VIAL 2 ML IV ONE ×2 (15:57)
[2019-11-22] MEDS ORDERED: WATER FOR IRRIG STERILE 1,500 ML BOTTLE IR ONE (15:59)
[2019-11-22] MEDS ORDERED: GENTAMICIN 40 MG/ML VIAL 2 ML ONE (16:01)
[2019-11-22] MEDS ORDERED: BUPIVACAINE/PF (0.5%) 5 MG/1 ML 30 ML VIAL INFILTRATI ONE ×2 (16:27→16:36)
[2019-11-22] MEDS ORDERED: KETOROLAC 30 MG/1 ML INJ ONE (16:27)
[2019-11-22] MEDS ORDERED: SODIUM CHLORIDE 0.9% 100 ML ONE (16:28)
[2019-11-22] MEDS ORDERED: SODIUM CHLORIDE 0.9% 100 ML IVPB IV ONE (16:35)
[2019-11-22] MEDS ORDERED: MORPHINE 10 MG/1 ML INJ IM ONE (16:37)
[2019-11-22] MEDS ORDERED: KETOROLAC 30 MG/1 ML INJ IV ONE (16:38)
[2019-11-22] MEDS ORDERED: LACTATED RINGERS 1,000 ML ONE (16:58)
--- NOTE | 2019-11-22 17:00 | Consultation ---
History of Present Illness - [facility] Consult date: 11/22/19 Consult reason: joint pain History of present illness: 59 y/o male with c/o pain and drainage right knee, recently underwent TKR 2 mos ago Medications and Allergies Allergies Allergy/AdvReac Type Severity Reaction Status Date / Time ibuprofen [From Motrin] Allergy Unknown Anaphylaxis Verified 09/11/19 12:38 tramadol Allergy Hives Verified 09/11/19 12:39 Home Medications Medication Instructions Recorded Confirmed Last Taken Type Acetaminophen [Acetaminophen ER 650 mg PO Q12H PRN 09/18/17 09/11/19 08/12/19 History TAB] Bimatoprost [Lumigan 0.01%] 1 drop OP HS 09/18/17 08/26/19 09/10/19 History Aspirin EC [Ecotrin] 325 mg PO QDAY #30 11/30/18 08/26/19 08/12/19 09:00 Rx AtorvaSTATin [Lipitor] 40 mg PO QHS #30 tablet 11/30/18 09/11/19 09/10/19 Rx Finasteride [Proscar] 5 mg PO QDAY #30 11/30/18 08/26/19 09/11/19 08:30 Rx Gabapentin 100 mg PO BID #60 capsule 11/30/18 08/26/19 09/11/19 08:30 Rx ISOSORBIDE MONOnitrate [Imdur ER] 60 mg PO QDAY #60 tablet 11/30/18 08/26/19 09/11/19 08:30 Rx Ipratropium/Albuterol Sulfate 1 puff IH QID 30 Days 11/30/18 09/11/19 08/31/19 Rx [Combivent Respimat] Ipratropium/Albuterol Sulfate 1 ampul IH Q6HR 30 Days 11/30/18 09/11/19 08/31/19 Rx [DUONEB *Not for PRN Use*] Latanoprost 0.005% 1 drops OU QHS 30 Days bottle 11/30/18 08/26/19 09/10/19 Rx Metoprolol [Lopressor TAB] 12.5 mg PO BID #60 tablet 11/30/18 09/11/19 09/11/19 08:30 Rx Sertraline [Zoloft] 50 mg PO QDAY tablet 11/30/18 08/26/19 09/11/19 08:30 Rx Tamsulosin [Flomax] 0.4 mg PO QDAY #30 cap 11/30/18 08/26/19 09/11/19 08:30 Rx amLODIPine 5 mg PO DAILY #30 tab 11/30/18 08/26/19 09/11/19 08:30 Rx hydrOXYzine PAMOATE [Vistaril] 50 mg PO HS #30 cap 11/30/18 08/26/19 09/10/19 Rx Apixaban [Eliquis] 5 mg PO DAILY #30 tablet 09/12/19 Unknown Rx Oxycodone HCl/Acetaminophen 1 each PO Q6HR PRN #30 tablet 09/12/19 Unknown Rx [Percocet 10/325 mg] Active Meds: Active Medications Acetaminophen (Tylenol) 650 mg PO Q12H PRN PRN Reason: Pain, Moderate (4-6) Albuterol/Ipratropium (Duoneb *Not For Prn Use*) 1 ampul IH Q6HRT [facility] Last Admin: 11/22/19 14:49 Dose: 1 ampul Documented by: Amlodipine Besylate (Amlodipine) 5 mg PO DAILY [facility] Atorvastatin Calcium (Lipitor) 40 mg PO QHS [facility] Finasteride (Proscar) 5 mg PO QDAY [facility] Gabapentin (Gabapentin) 100 mg PO BID [facility] Last Admin: 11/21/19 23:46 Dose: 100 mg Documented by: Hydromorphone HCl (Dilaudid) 2 mg IV Q3H PRN PRN Reason: Pain , Severe (7-10) Last Admin: 11/22/19 13:35 Dose: 2 mg Documented by: Hydroxyzine Pamoate (Vistaril) 50 mg PO HS [facility] Cefazolin Sodium (Ancef/Ns 1 Gm/50 Ml) 1 gm in 50 mls @ 100 mls/hr IV Q8HR [facility]; Protocol Last Admin: 11/22/19 06:30 Dose: 100 mls/hr Documented by: Vancomycin HCl 1,250 mg/ (Sodium Chloride) 275 mls @ 166.667 mls/hr IV Q12H [facility] Isosorbide Mononitrate (Imdur) 60 mg PO QDAY [facility] Latanoprost (Latanoprost 0.005%) 1 drops OU QHS [facility] Losartan Potassium (Cozaar) 50 mg PO QDAY [facility] Metoprolol Tartrate (Metoprolol) 12.5 mg PO BID [facility] Last Admin: 11/21/19 23:46 Dose: 12.5 mg Documented by: Sertraline HCl (Zoloft) 50 mg PO QDAY [facility] Tamsulosin HCl (Flomax) 0.4 mg PO QDAY [facility] Assessment and Plan infected right knee, s/p TKR will admit, take to OR for debridement and irrigation, followed by long-tern IVAB tx
--- NOTE | 2019-11-22 17:05 | Procedure Note ---
Date of procedure: 11/22/19 Pre-op diagnosis: Infected right knee status post right total knee replacement Post-op diagnosis: same Procedure: Debridement irrigation right knee Procedure The patient was brought to the OR and placed on the OR table in supine position following induction intubation by anesthesia the patient's right lower extremity was prepped and draped in the usual sterile manner. A timeout procedure was done to identify the patient and the correct operative site. The patient was noted to have 3 areas along the incision line inferiorly which dehisced along with some purulent drainage noted. Inflation of the pneumatic tourniquet to 300 mmHg utilizing the previous midline incision the incision was taken down through skin subcu the patella tendon was seen and appeared to be intact as well as the medial patellar retinacular the the structures were incised examination of the knee joint patient was noted to have no evidence of loosening of either the femoral or tibial component using rongeurs and curettes the saw you was debrided next pulse lavage solution with gentamicin was used to irrigate the wound copiously approximately 4 L of fluid were used to irrigate the wound following this the medial patellar retinaculum was repaired using a #1 Prolene the superficial subcutaneous tissues were closed with 2-0 Vicryl a a wound VAC will be used to mill operator helper in wound healing as well as IV antibiotics for approximately 6 to 8 weeks patient tolerated procedure there were no complications Anesthesia: ROCKY Surgeon: ERASTO SMITH Wafer Slicer: ALIREZA BLANC Estimated blood loss: minimal Pathology: list (Fluid in tissue cultures were sent for microbiology) Specimen disposition: to lab Condition: stable Disposition: PACU
[2019-11-22] MEDS ORDERED: HYDROmorphone 1 MG/1 ML INJ IV PRN (17:48)
[2019-11-22] MEDS ORDERED: ONDANSETRON 4 MG/2 ML INJ IV PRN (17:48)
--- NOTE | 2019-11-22 19:12 | Post Anesthesia Evaluation ---
- Post Anesthesia Evaluation Patient Participated: Yes Airway Patent: Yes Stable Respiratory Function: Yes Nausea/Vomiting: No Temp > 96.8F: Yes Pain Manageable: Yes Adequeate Hydration: Yes Anesthesia Complications: No Block Receding Appropriately: Not Applicable Patient on Ventilator: No
[2019-11-22] MEDS ORDERED: NON-FORMULARY EACH (Bimatoprost [Lumigan 0.01%] 1 DROP) OP SCH (22:00)
[2019-11-22] MEDS: LATANOPROST 0.005% OPHTH SOLN 2.5 ML OU SCH (22:07)
[2019-11-23] MEDS: HYDROmorphone 1 MG/1 ML INJ IV PRN ×6 (02:10→23:51)
[2019-11-23 05:53] LABS: Hematocrit 30.7 % (35.5-45.6); Hemoglobin 10.5 gm/dl (11.8-15.2); Mean Corpuscular HGB Conc 34 % (32-34); Mean Corpuscular Volume 90 fl (84-94); Platelet Count 755 K/mm3 (140-440); Red Blood Count 3.42 M/mm3 (3.65-5.03); Red Cell Distribution Width 15.2 % (13.2-15.2)
[2019-11-23 06:07] LABS: BUN/Creatinine Ratio 21; Blood Urea Nitrogen 15 mg/dL (9-20); Calcium 9.2 mg/dL (8.4-10.2); Hemolysis Index 3
[2019-11-23 07:09] LABS: Anisocytosis 1+; Band Neutrophils # (Manual) 0.1 K/mm3; Basophils % (Manual) 0 % (0.0-1.8); Eosinophils % (Manual) 0 % (0.0-4.3); Monocytes % (Manual) 1.5 % (0.0-7.3); Platelet Estimate Consistent w Auto; Target Cells 1+; Total Cells Counted 200
[2019-11-23] MEDS: ceFAZolin/NS 1 GM/50 ML 1 GM/50 ML BAG IV SCH (07:09)
[2019-11-23] MEDS: IPRATROPIUM/ALBUTEROL SULFATE 3 ML AMPUL.NEB IH SCH ×3 (07:31→21:12)
[2019-11-23] MEDS: FINASTERIDE 5 MG TAB PO SCH ×2 (11:23→19:16)
[2019-11-23] MEDS: METOPROLOL TARTRATE 25 MG TAB PO SCH ×2 (11:23→22:27)
[2019-11-23] MEDS: LOSARTAN 50 MG TAB PO SCH ×2 (11:24→19:16)
[2019-11-23] MEDS: amLODIPine 5 MG TAB PO SCH ×2 (11:24→19:16)
[2019-11-23] MEDS: TAMSULOSIN 0.4 MG CAP PO SCH ×2 (11:24→19:16)
[2019-11-23] MEDS: GABAPENTIN 100 MG CAP PO SCH ×2 (11:25→22:26)
[2019-11-23] MEDS: SERTRALINE 50 MG TAB PO SCH ×2 (11:25→19:16)
--- NOTE | 2019-11-23 12:23 | Progress Note ---
Assessment and Plan - Patient Problems (1) Cellulitis of knee, right Current Visit: Yes Status: Acute Plan to address problem: Cellulitis right knee status post total knee replacement. Now debridement and irrigation with wound VAC. High suspicion for osteomyelitis. Await ID recommendations for long-term antibiotic use. Patient currently on vancomycin and Ancef now. (2) Septic joint of right knee joint Current Visit: Yes Status: Acute Plan to address problem: Status post debridement irrigation. (3) Diabetes Current Visit: No Status: Acute Plan to address problem: Patient continues to have very good control of diabetes. Current Accu-Chek 80. (4) Dyslipidemia Current Visit: No Status: Acute Plan to address problem: Goal LDL less than 100. Subjective Date of service: 11/23/19 Principal diagnosis: Right knee cellulitis status post irrigation and debridement. Interval history: 59-year-old male with right knee pain status post total knee replacement 2 months ago presents with worsening pain serosanguineous exudate. Patient had irrigation and debridement done yesterday and wound VAC placed in knee. Patient currently on Ancef and vancomycin. Patient complains of pain to the area. Objective - Constitutional Vitals: Vital Signs - 12hr 11/23/19 11/23/19 11/23/19 02:10 02:40 06:00 Temperature Pulse Rate Pulse Rate [ Bilateral] Respiratory 20 20 18 Rate Respiratory Rate [Bilateral ] Blood Pressure Blood Pressure [Left] O2 Sat by Pulse Oximetry 11/23/19 11/23/19 11/23/19 06:02 06:30 07:23 Temperature 97.8 F 98.1 F Pulse Rate 73 62 Pulse Rate [ Bilateral] Respiratory 18 18 19 Rate Respiratory Rate [Bilateral ] Blood Pressure 134/75 132/67 Blood Pressure [Left] O2 Sat by Pulse 96 98 Oximetry 11/23/19 11/23/19 11/23/19 07:30 07:31 11:00 Temperature 98.2 F Pulse Rate 70 Pulse Rate [ 64 Bilateral] Respiratory 20 Rate Respiratory 18 Rate [Bilateral ] Blood Pressure Blood Pressure 138/72 [Left] O2 Sat by Pulse 99 98 Oximetry General appearance: Present: no acute distress, well-nourished - EENT Eyes: PERRL, EOM intact ENT: hearing intact, clear oral mucosa Ears: bilateral: normal - Neck Neck: supple, normal ROM - Respiratory Respiratory effort: normal Respiratory: bilateral: CTA - Breasts Breasts: normal - Cardiovascular Rhythm: regular Heart Sounds: Present: S1 & S2. Absent: gallop, rub Extremities: pulses intact, No edema, normal color, Full ROM Extremity abnormal: other (Right knee has wound VAC to the patella area. Some single sanguinous fluid.) - Gastrointestinal General gastrointestinal: Present: soft, non-tender, non-distended, normal bowel sounds - Genitourinary Male genitourinary: normal - Integumentary Integumentary: clear, warm, dry - Musculoskeletal Musculoskeletal: 1, strength equal bilaterally - Neurologic Neurologic: moves all extremities - Psychiatric Psychiatric: memory intact, appropriate mood/affect, intact judgment & insight - Labs CBC & Chem 7: 11/23/19 05:30 11/23/19 05:30 Labs: Abnormal lab results 11/22/19 11/23/19 11/23/19 Range/Units 12:59 05:30 05:30 WBC 21.3 H (4.5-11.0) K/mm3 RBC 3.42 L (3.65-5.03) M/mm3 Hgb 10.5 L (11.8-15.2) gm/dl Hct 30.7 L (35.5-45.6) % Plt Count 755 H (140-440) K/mm3 Seg Neuts % (Manual) 92.5 H (40.0-70.0) % Lymphocytes % (Manual) 5.5 L (13.4-35.0) % Seg Neutrophils # Man 19.7 H (1.8-7.7) K/mm3 Sodium 133 L (137-145) mmol/L Chloride 96.4 L (98-107) mmol/L Creatinine 0.6 L 0.7 L (0.8-1.3) mg/dL Glucose 138 H (75-100) mg/dL
[2019-11-23] MEDS: VANCOMYCIN 1,250 MG in SODIUM CHLORIDE 0.9% 250ML 250 ML IV SCH ×2 (12:30→23:51)
--- NOTE | 2019-11-23 12:32 | Progress Note ---
Assessment and Plan continue IVAB and observation will consult ID for skilled nursing IVAB tx Subjective Date of service: 11/23/19 Principal diagnosis: Right knee cellulitis status post irrigation and debridement. Interval history: c/o pain right knee, otherwise ok... Objective Vital signs: Vital Signs - 12hr 11/23/19 11/23/19 11/23/19 02:10 02:40 06:00 Temperature Pulse Rate Pulse Rate [ Bilateral] Respiratory 20 20 18 Rate Respiratory Rate [Bilateral ] Blood Pressure Blood Pressure [Left] O2 Sat by Pulse Oximetry 11/23/19 11/23/19 11/23/19 06:02 06:30 07:23 Temperature 97.8 F 98.1 F Pulse Rate 73 62 Pulse Rate [ Bilateral] Respiratory 18 18 19 Rate Respiratory Rate [Bilateral ] Blood Pressure 134/75 132/67 Blood Pressure [Left] O2 Sat by Pulse 96 98 Oximetry 11/23/19 11/23/19 11/23/19 07:30 07:31 11:00 Temperature 98.2 F Pulse Rate 70 Pulse Rate [ 64 Bilateral] Respiratory 20 Rate Respiratory 18 Rate [Bilateral ] Blood Pressure Blood Pressure 138/72 [Left] O2 Sat by Pulse 99 98 Oximetry Incision: draining, clean and dry Weight bearing status: as tolerated - Labs CBC & BMP: 11/23/19 05:30 11/23/19 05:30 Labs: Abnormal lab results 11/22/19 11/23/19 11/23/19 Range/Units 12:59 05:30 05:30 WBC 21.3 H (4.5-11.0) K/mm3 RBC 3.42 L (3.65-5.03) M/mm3 Hgb 10.5 L (11.8-15.2) gm/dl Hct 30.7 L (35.5-45.6) % Plt Count 755 H (140-440) K/mm3 Seg Neuts % (Manual) 92.5 H (40.0-70.0) % Lymphocytes % (Manual) 5.5 L (13.4-35.0) % Seg Neutrophils # Man 19.7 H (1.8-7.7) K/mm3 Sodium 133 L (137-145) mmol/L Chloride 96.4 L (98-107) mmol/L Creatinine 0.6 L 0.7 L (0.8-1.3) mg/dL Glucose 138 H (75-100) mg/dL
--- NOTE | 2019-11-23 13:31 | Consultation ---
History of Present Illness - Reason for Consult Consult date: 11/23/19 [facility] Requesting physician: ERASTO SMITH - History of Present Illness 59 years old male with history of with history of right total knee replacement on 08/26/2019 readmitted on due to surgical wound drainage associated with edema and tenderness. Pain is 6 out of 10. Patient reports he noted initially a small opening in the upper part of the wound with serous drainage. He then noted a second opening in the bottom of the wound. He reports last week large amount of copious purulence drained. He was placed on oral antibiotics. On arrival, patient was afebrile, HR 87, BP 147/72, O2 sat 100%. Initial WBC 16 0.6. Platelets 688. Creatinine 0.6. CT of the knee shows small suprapatellar effusion with severe cellulitis of the soft tissue. X-ray of the knee shows prominent swelling of the anterior prepatellar soft tissue with gas in the joint space. Status post debridement and irrigation of the knee on , OR findings no loosening of either femoral or tibial component, debrided with pulse lavage with gentamicin solution copiously with 4 L. Review of Systems: positive in bold print General: fever, chills, malaise Cutaneous: rash, pruritus Head: headaches or injury Eyes: changes in vision, eye pain, double vision Ears: ear pain, ear discharge, ringing or hearing loss Nose: nose bleeding, stuffiness Mouth & throat: bleeding gums, horseness, no dental problems, or swollen glands Neck: no pain, node enlargement/lumps, tyroid enlargement or tenderness Respiratory: SOB, cough, SCHULER, wheezing, sputum, hemoptysis, pleuritic chest pain Cardiovascular: chest pain, leg edema, cyanosis, SCHULER, orthopnea Musculoskeletal: Right knee edema, tenderness, wound dehiscence with purulence Gastrointestinal: nausea, vomiting, hematemesis, diarrhea, constipation, melena, bright red blood in stools, fecal incontinence, jaundice Genitourinary/Reproductive: frequent urination, dysuria, hematuria, incontinence Neurogical: seizures, headaches, weakness, paresthesias, loss of speech or vision; memory loss, vertigo, tremors, numbness Psychiatric: stable mood; excessive anxiety, sadness or moodiness Medications and Allergies Allergies Allergy/AdvReac Type Severity Reaction Status Date / Time ibuprofen [From Motrin] Allergy Unknown Anaphylaxis Verified 09/11/19 12:38 tramadol Allergy Hives Verified 09/11/19 12:39 Home Medications Medication Instructions Recorded Confirmed Last Taken Type Acetaminophen [Acetaminophen ER 650 mg PO Q12H PRN 09/18/17 09/11/19 08/12/19 History TAB] Bimatoprost [Lumigan 0.01%] 1 drop OP HS 09/18/17 08/26/19 09/10/19 History Aspirin EC [Ecotrin] 325 mg PO QDAY #30 11/30/18 08/26/19 08/12/19 09:00 Rx AtorvaSTATin [Lipitor] 40 mg PO QHS #30 tablet 11/30/18 09/11/19 09/10/19 Rx Finasteride [Proscar] 5 mg PO QDAY #30 11/30/18 08/26/19 09/11/19 08:30 Rx Gabapentin 100 mg PO BID #60 capsule 11/30/18 08/26/19 09/11/19 08:30 Rx ISOSORBIDE MONOnitrate [Imdur ER] 60 mg PO QDAY #60 tablet 11/30/18 08/26/19 09/11/19 08:30 Rx Ipratropium/Albuterol Sulfate 1 puff IH QID 30 Days 11/30/18 09/11/19 08/31/19 Rx [Combivent Respimat] Ipratropium/Albuterol Sulfate 1 ampul IH Q6HR 30 Days 11/30/18 09/11/19 08/31/19 Rx [DUONEB *Not for PRN Use*] Latanoprost 0.005% 1 drops OU QHS 30 Days bottle 11/30/18 08/26/19 09/10/19 Rx Metoprolol [Lopressor TAB] 12.5 mg PO BID #60 tablet 11/30/18 09/11/19 09/11/19 08:30 Rx Sertraline [Zoloft] 50 mg PO QDAY tablet 11/30/18 08/26/19 09/11/19 08:30 Rx Tamsulosin [Flomax] 0.4 mg PO QDAY #30 cap 11/30/18 08/26/19 09/11/19 08:30 Rx amLODIPine 5 mg PO DAILY #30 tab 1008/26/19 09/11/19 08:30 Rx hydrOXYzine PAMOATE [Vistaril] 50 mg PO HS #30 cap 11/30/18 08/26/19 09/10/19 Rx Apixaban [Eliquis] 5 mg PO DAILY #30 tablet 09/12/19 Unknown Rx Oxycodone HCl/Acetaminophen 1 each PO Q6HR PRN #30 tablet 09/12/19 Unknown Rx [Percocet 10/325 mg] Active Meds: Active Medications Acetaminophen (Tylenol) 650 mg PO Q12H PRN PRN Reason: Pain, Moderate (4-6) Albuterol/Ipratropium (Duoneb *Not For Prn Use*) 1 ampul IH TIDRT [facility] Last Admin: 11/23/19 13:25 Dose: 1 ampul Documented by: Amlodipine Besylate (Amlodipine) 5 mg PO DAILY [facility] Last Admin: 11/23/19 11:24 Dose: 5 mg Documented by: Atorvastatin Calcium (Lipitor) 40 mg PO QHS [facility] Last Admin: 11/22/19 22:07 Dose: 40 mg Documented by: Finasteride (Proscar) 5 mg PO QDAY [facility] Last Admin: 11/23/19 11:23 Dose: 5 mg Documented by: Gabapentin (Gabapentin) 100 mg PO BID [facility] Last Admin: 11/23/19 11:25 Dose: 100 mg Documented by: Hydromorphone HCl (Dilaudid) 2 mg IV Q3H PRN PRN Reason: Pain , Severe (7-10) Last Admin: 11/23/19 11:21 Dose: 2 mg Documented by: Hydromorphone HCl (Dilaudid) 0.5 mg IV Q10MIN PRN PRN Reason: Pain , Severe (7-10) Stop: 11/23/19 17:47 Last Admin: 11/22/19 18:03 Dose: 0.5 mg Documented by: Hydromorphone HCl (Dilaudid) 0.25 mg IV Q10MIN PRN PRN Reason: Pain, Moderate (4-6) Stop: 11/23/19 17:47 Hydroxyzine Pamoate (Vistaril) 50 mg PO HS [facility] Vancomycin HCl 1,250 mg/ (Sodium Chloride) 275 mls @ 166.667 mls/hr IV Q12H [facility] Last Admin: 11/22/19 23:23 Dose: 166.667 mls/hr Documented by: Piperacillin Sod/Tazobactam Sod (Zosyn/Ns 3.375gm/50ml) 3.375 gm in 50 mls @ 100 mls/hr IV Q8HR [facility]; Protocol Isosorbide Mononitrate (Imdur) 60 mg PO QDAY [facility] Last Admin: 11/23/19 11:23 Dose: 60 mg Documented by: Latanoprost (Latanoprost 0.005%) 1 drops OU QHS [facility] Last Admin: 11/22/19 22:07 Dose: 1 drops Documented by: Losartan Potassium (Cozaar) 50 mg PO QDAY [facility] Last Admin: 11/23/19 11:24 Dose: 50 mg Documented by: Metoprolol Tartrate (Metoprolol) 12.5 mg PO BID [facility] Last Admin: 11/23/19 11:23 Dose: 12.5 mg Documented by: Ondansetron HCl (Zofran) 4 mg IV ONCE PRN PRN Reason: Nausea And Vomiting Sertraline HCl (Zoloft) 50 mg PO QDAY [facility] Last Admin: 11/23/19 11:25 Dose: 50 mg Documented by: Tamsulosin HCl (Flomax) 0.4 mg PO QDAY [facility] Last Admin: 11/23/19 11:24 Dose: 0.4 mg Documented by: Physical Examination - Physical Exam Narrative exam: General appearance: Alert in NAD Eyes: anicteric sclerae, moist conjunctivae; no lid-lag; PERRLA HENT: Atraumatic; oropharynx clear with moist mucous membranes and no oral thrush; normal hard and soft palate. Lungs: CTA, with normal respiratory effort and no intercostal retractions CV: RRR no murmur Abdomen: Soft, non-tender; no masses or hepatosplenomegaly Extremities: Right knee covered with surgical dressing Skin: No rash. Psych: Appropriate affect, alert and oriented to person, place and time. Neuro: alert and oriented x 3. Moving all extermities - Constitutional Vitals: Vital Signs Temp Pulse Resp BP Pulse Ox 98.2 F 69 16 138/72 98 11/23/19 11:00 11/23/19 13:25 11/23/19 13:25 11/23/19 11:00 11/23/19 11:00 Temperature -Last 24 Hours Temperature 98.2 F Temperature 98.1 F Temperature 97.8 F Temperature 98.0 F Temperature 97.6 F Temperature 98.9 F Temperature 98.8 F Temperature 97.1 F Temperature 97.8 F Results - Labs CBC & Chem 7: 11/23/19 05:30 11/23/19 05:30 Labs: Abnormal lab results 11/22/19 11/23/19 11/23/19 Range/Units 12:59 05:30 05:30 WBC 21.3 H (4.5-11.0) K/mm3 RBC 3.42 L (3.65-5.03) M/mm3 Hgb 10.5 L (11.8-15.2) gm/dl Hct 30.7 L (35.5-45.6) % Plt Count 755 H (140-440) K/mm3 Seg Neuts % (Manual) 92.5 H (40.0-70.0) % Lymphocytes % (Manual) 5.5 L (13.4-35.0) % Seg Neutrophils # Man 19.7 H (1.8-7.7) K/mm3 Sodium 133 L (137-145) mmol/L Chloride 96.4 L (98-107) mmol/L Creatinine 0.6 L 0.7 L (0.8-1.3) mg/dL Glucose 138 H (75-100) mg/dL Assessment and Plan Cultures: OR culture with Staph aureus Assessment: 59 years old male with history of with history of right total knee replacement on 08/26/2019 readmitted on due to surgical wound drainage associated with edema and tenderness: #Leukocytosis: Secondary to right total knee replacement infection. 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 X-ray shows prominent swelling of the anterior prepatellar soft tissue with gas in the joint space. Status post debridement and irrigation of the knee on 11/22/2019, OR findings no loosening of either femoral or tibial component, debrided with pulse lavage with gentamicin solution copiously with 4 L. #Thrombocytosis: Likely due to infection. Recommendations: -Stop Zosyn -Start cefazolin 2 g IV every 8 hours -Continue vancomycin with PK consult -In light of debridement and retained prosthesis, patient will require 6 weeks of IV antibiotics followed by 6 months of oral antibiotics including rifampin -Obtain CRP Dr. Brandon evangelista tomorrow. Will follow. Moraima Plata MD Infectious Diseases [facility] M [phone] O [phone]
[2019-11-23] MEDS: CALCIUM CARBONATE 500 MG TAB CHEW PO PRN (16:54)
[2019-11-23] MEDS: PIPERACILLIN/TAZOBACTAM 3.375 3.375 GM/50 ML BAG IV SCH (19:19)
[2019-11-23] MEDS: LATANOPROST 0.005% OPHTH SOLN 2.5 ML OU SCH (22:27)
[2019-11-24] MEDS: HYDROmorphone 1 MG/1 ML INJ IV PRN ×6 (04:30→22:31)
[2019-11-24] MEDS: IPRATROPIUM/ALBUTEROL SULFATE 3 ML AMPUL.NEB IH SCH ×3 (07:41→20:39)
[2019-11-24] MEDS: LOSARTAN 50 MG TAB PO SCH (10:33)
[2019-11-24] MEDS: SERTRALINE 50 MG TAB PO SCH (10:34)
[2019-11-24] MEDS: amLODIPine 5 MG TAB PO SCH (10:34)
[2019-11-24] MEDS: GABAPENTIN 100 MG CAP PO SCH ×2 (10:34→22:30)
[2019-11-24] MEDS: FINASTERIDE 5 MG TAB PO SCH (10:34)
[2019-11-24] MEDS: TAMSULOSIN 0.4 MG CAP PO SCH (10:34)
[2019-11-24] MEDS: METOPROLOL TARTRATE 25 MG TAB PO SCH ×2 (10:35→22:29)
[2019-11-24] MEDS: CALCIUM CARBONATE 500 MG TAB CHEW PO PRN ×2 (12:00→18:14)
--- NOTE | 2019-11-24 12:38 | Progress Note ---
Assessment and Plan - Patient Problems (1) Cellulitis of knee, right Current Visit: Yes Status: Acute Plan to address problem: Cellulitis right knee improving. Antibiotics have been changed per infectious disease. Patient currently on ceftezole and 2 g IV every 8. Also will require 6 weeks IV antibiotics as well as 6 months of oral rifampin. Await case management to set up outpatient antibiotic therapy in preparation for discharge. We will also place midline as well prior to discharge (2) Septic joint of right knee joint Current Visit: Yes Status: Acute Plan to address problem: Antibiotics IV for 6 weeks as specified by infectious disease an additional 6 months of oral rifampin after discharge since we are retaining the prosthesis. (3) Diabetes Current Visit: No Status: Acute Plan to address problem: Patient continues to have very good control of diabetes. Current Accu-Chek 80. (4) Dyslipidemia Current Visit: No Status: Acute Plan to address problem: Goal LDL less than 100. Subjective Date of service: 11/24/19 Principal diagnosis: Right knee cellulitis status post irrigation and debridement. Interval history: 59-year-old male with right knee pain status post total knee replacement 2 months ago presents with worsening pain serosanguineous exudate. Postop day 3 of irrigation and debridement and wound VAC placement patient complains of local knee pain. Objective - Constitutional Vitals: Vital Signs - 12hr 11/24/19 11/24/19 11/24/19 05:27 07:22 07:40 Temperature 98.0 F 98.1 F Pulse Rate 70 69 Pulse Rate [ 76 Bilateral] Respiratory 18 18 Rate Respiratory 18 Rate [Bilateral ] Blood Pressure 122/70 125/69 O2 Sat by Pulse 94 95 Oximetry 11/24/19 11/24/19 11/24/19 09:20 09:49 11:30 Temperature 98.3 F Pulse Rate 75 Pulse Rate [ Bilateral] Respiratory 18 18 Rate Respiratory Rate [Bilateral ] Blood Pressure 149/76 O2 Sat by Pulse 99 97 Oximetry General appearance: Present: no acute distress - EENT ENT: other (Blindness) - Neck Neck: supple, normal ROM - Respiratory Respiratory effort: normal Respiratory: bilateral: CTA - Cardiovascular Rhythm: regular Heart Sounds: Present: S1 & S2. Absent: gallop, rub Extremity abnormal: other (Right knee with drain in place minimal drainage. Swelling appears to have decreased.) - Gastrointestinal General gastrointestinal: Present: soft, non-tender, non-distended, normal bowel sounds - Integumentary Integumentary: clear, warm, dry - Musculoskeletal Musculoskeletal: 1, strength equal bilaterally - Neurologic Neurologic: moves all extremities - Psychiatric Psychiatric: memory intact, appropriate mood/affect, intact judgment & insight - Labs CBC & Chem 7: 11/23/19 05:30 11/23/19 05:30 Labs: Abnormal lab results 11/23/19 Range/Units 15:11 C-Reactive Protein 8.30 H (0.00-1.30) mg/dL
--- NOTE | 2019-11-24 14:02 | Progress Note ---
Assessment and Plan Cultures: OR culture with MRSA Assessment: 59 years old male with history of with history of right total knee replacement on 08/26/2019 readmitted on due to surgical wound drainage associated with edema and tenderness: #Leukocytosis: Secondary to right total knee replacement infection. 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 X-ray shows prominent swelling of the anterior prepatellar soft tissue with gas in the joint space. Status post debridement and irrigation of the knee on 11/22/2019, OR findings no loosening of either femoral or tibial component, debrided with pulse lavage with gentamicin solution copiously with 4 L. #Thrombocytosis: Likely due to infection. Recommendations: -Stop cefazolin -Continue vancomycin with PK consult, goal trough 10-20 -In light of debridement and retained prosthesis, patient will require 6 weeks of IV antibiotics followed by 6 months of oral antibiotics including rifampin -Await vanc trough to ensure therapeutic vancomycin -Follow leukocytosis -Ultimately need PICC line, antibiotics to be determined if white count improves. We will follow Ayla Taylor MD [facility] M: [phone] O: [phone] F: [phone] Subjective Date of service: 11/24/19 Principal diagnosis: Right knee cellulitis status post irrigation and debridement. Interval history: Afebrile, white count worsened, now 21.3. Wound cultures now with MRSA. Objective - Exam Narrative Exam: General appearance: Alert in NAD Eyes: anicteric sclerae, moist conjunctivae; no lid-lag; PERRLA HENT: Atraumatic; oropharynx clear with moist mucous membranes and no oral thrush; normal hard and soft palate. Lungs: CTA, with normal respiratory effort and no intercostal retractions CV: RRR no murmur Abdomen: Soft, non-tender; no masses or hepatosplenomegaly Extremities: Right knee covered with surgical dressing Skin: No rash. Psych: Appropriate affect, alert and oriented to person, place and time. Neuro: alert and oriented x 3. Moving all extremities - Constitutional Vitals: Vital Signs Temp Pulse Resp BP Pulse Ox 98.3 F 75 18 149/76 97 11/24/19 11:30 11/24/19 11:30 11/24/19 11:30 11/24/19 11:30 11/24/19 11:30 Temperature -Last 24 Hours Temperature 98.3 F Temperature 98.1 F Temperature 98.0 F Temperature 97.9 F Temperature 98.4 F - Labs CBC & Chem 7: 11/23/19 05:30 11/23/19 05:30 Labs: Abnormal lab results 11/23/19 Range/Units 15:11 C-Reactive Protein 8.30 H (0.00-1.30) mg/dL
[2019-11-24] MEDS: VANCOMYCIN 1,250 MG in SODIUM CHLORIDE 0.9% 250ML 250 ML IV SCH (15:37)
[2019-11-24] MEDS: LATANOPROST 0.005% OPHTH SOLN 2.5 ML OU SCH (22:30)
[2019-11-25] MEDS: VANCOMYCIN 1,250 MG in SODIUM CHLORIDE 0.9% 250ML 250 ML IV SCH ×4 (01:59→17:01)
[2019-11-25] MEDS: HYDROmorphone 1 MG/1 ML INJ IV PRN ×6 (04:23→21:36)
[2019-11-25] MEDS: FINASTERIDE 5 MG TAB PO SCH (09:04)
[2019-11-25] MEDS: CALCIUM CARBONATE 500 MG TAB CHEW PO PRN ×2 (09:04→15:27)
[2019-11-25] MEDS: LOSARTAN 50 MG TAB PO SCH (09:04)
[2019-11-25] MEDS: METOPROLOL TARTRATE 25 MG TAB PO SCH ×2 (09:04→21:45)
[2019-11-25] MEDS: SERTRALINE 50 MG TAB PO SCH (09:05)
[2019-11-25] MEDS: GABAPENTIN 100 MG CAP PO SCH ×2 (09:05→21:37)
[2019-11-25] MEDS: TAMSULOSIN 0.4 MG CAP PO SCH (09:05)
[2019-11-25] MEDS: amLODIPine 5 MG TAB PO SCH (09:05)
--- NOTE | 2019-11-25 09:51 | Progress Note ---
Assessment and Plan Assessment and plan: Right knee prosthetic joint infection. Wound culture growing Staph aureus. Plain films reveal swelling of the prepatellar soft tissue with gas in the joint space. Patient is status post debridement and irrigation of the knee on 11/22/2019. Sepsis. Etiology secondary to above. Continue IV antibiotics. ID following. Patient will require 6 weeks of IV antibiotics per ID. Leukocytosis. Secondary to above. Thrombocytosis. Etiology secondary to infection. Disposition. Patient will need PICC line placement and long-term IV antibiotics. We will discuss with case management. History Interval history: No new issues overnight. Hospitalist Physical - Constitutional Vitals: Temp Pulse Resp BP Pulse Ox 98.5 F 73 18 140/67 96 11/25/19 07:24 11/25/19 07:24 11/25/19 07:24 11/25/19 07:24 11/25/19 07:24 General appearance: Present: no acute distress - EENT Eyes: Present: PERRL, EOM intact ENT: hearing intact, clear oral mucosa, dentition normal - Neck Neck: Present: supple, normal ROM - Respiratory Respiratory effort: normal Respiratory: bilateral: CTA - Cardiovascular Rhythm: regular Heart Sounds: Present: S1 & S2. Absent: gallop, rub - Extremities Extremities: no ischemia, No edema, Full ROM - Abdominal General gastrointestinal: soft, non-tender, non-distended, normal bowel sounds - Integumentary Integumentary: Present: clear, warm, dry - Neurologic Neurologic: CNII-XII intact, moves all extremities Results - Labs CBC & Chem 7: 11/23/19 05:30 11/23/19 05:30 Labs: Laboratory Last Values WBC 21.3 K/mm3 (4.5-11.0) H 11/23/19 05:30 RBC 3.42 M/mm3 (3.65-5.03) L 11/23/19 05:30 Hgb 10.5 gm/dl (11.8-15.2) L 11/23/19 05:30 Hct 30.7 % (35.5-45.6) L 11/23/19 05:30 MCV 90 fl (84-94) 11/23/19 05:30 MCH 31 pg (28-32) 11/23/19 05:30 MCHC 34 % (32-34) 11/23/19 05:30 RDW 15.2 % (13.2-15.2) 11/23/19 05:30 Plt Count 755 K/mm3 (140-440) H 11/23/19 05:30 Lymph % (Auto) 16.3 % (13.4-35.0) 11/22/19 09:20 [place] % (Auto) 8.8 % (0.0-7.3) H 11/22/19 09:20 Eos % (Auto) 0.6 % (0.0-4.3) 11/22/19 09:20 Baso % (Auto) 1.0 % (0.0-1.8) 11/22/19 09:20 Lymph # (Auto) 2.6 K/mm3 (1.2-5.4) 11/22/19 09:20 [place] # (Auto) 1.4 K/mm3 (0.0-0.8) H 11/22/19 09:20 Eos # (Auto) 0.1 K/mm3 (0.0-0.4) 11/22/19 09:20 Baso # (Auto) 0.2 K/mm3 (0.0-0.1) H 11/22/19 09:20 Add Manual Diff Complete 11/23/19 05:30 Total Counted 200 11/23/19 05:30 Seg Neutrophils % 73.3 % (40.0-70.0) H 11/22/19 09:20 Seg Neuts % (Manual) 92.5 % (40.0-70.0) H 11/23/19 05:30 Band Neutrophils % 0.5 % 11/23/19 05:30 Lymphocytes % (Manual) 5.5 % (13.4-35.0) L 11/23/19 05:30 Reactive Lymphs % (Man) 0 % 11/23/19 05:30 Monocytes % (Manual) 1.5 % (0.0-7.3) 11/23/19 05:30 Eosinophils % (Manual) 0 % (0.0-4.3) 11/23/19 05:30 Basophils % (Manual) 0 % (0.0-1.8) 11/23/19 05:30 Metamyelocytes % 0 % 11/23/19 05:30 Myelocytes % 0 % 11/23/19 05:30 Promyelocytes % 0 % 11/23/19 05:30 Blast Cells % 0 % 11/23/19 05:30 Nucleated RBC % Not Reportable 11/23/19 05:30 Seg Neutrophils # 11.8 K/mm3 (1.8-7.7) H 11/22/19 09:20 Seg Neutrophils # Man 19.7 K/mm3 (1.8-7.7) H 11/23/19 05:30 Band Neutrophils # 0.1 K/mm3 11/23/19 05:30 Lymphocytes # (Manual) 1.2 K/mm3 (1.2-5.4) 11/23/19 05:30 Abs React Lymphs (Man) 0.0 K/mm3 11/23/19 05:30 Monocytes # (Manual) 0.3 K/mm3 (0.0-0.8) 11/23/19 05:30 Eosinophils # (Manual) 0.0 K/mm3 (0.0-0.4) 11/23/19 05:30 Basophils # (Manual) 0.0 K/mm3 (0.0-0.1) 11/23/19 05:30 Metamyelocytes # 0.0 K/mm3 11/23/19 05:30 Myelocytes # 0.0 K/mm3 11/23/19 05:30 Promyelocytes # 0.0 K/mm3 11/23/19 05:30 Blast Cells # 0.0 K/mm3 11/23/19 05:30 WBC Morphology Not Reportable 11/23/19 05:30 Hypersegmented Neuts Not Reportable 11/23/19 05:30 Hyposegmented Neuts Not Reportable 11/23/19 05:30 Hypogranular Neuts Not Reportable 11/23/19 05:30 Smudge Cells Not Reportable 11/23/19 05:30 Toxic Granulation Not Reportable 11/23/19 05:30 Toxic Vacuolation Not Reportable 11/23/19 05:30 Dohle Bodies Not Reportable 11/23/19 05:30 Pelger-Huet Anomaly Not Reportable 11/23/19 05:30 Gregorio Rods Not Reportable 11/23/19 05:30 Platelet Estimate Consistent w auto 11/23/19 05:30 Clumped Platelets Not Reportable 11/23/19 05:30 Plt Clumps, EDTA Not Reportable 11/23/19 05:30 Large Platelets Not Reportable 11/23/19 05:30 Giant Platelets Not Reportable 11/23/19 05:30 Platelet Satelliting Not Reportable 11/23/19 05:30 Plt Morphology Comment Not Reportable 11/23/19 05:30 RBC Morphology Not Reportable 11/23/19 05:30 Dimorphic RBCs Not Reportable 11/23/19 05:30 Polychromasia Not Reportable 11/23/19 05:30 Hypochromasia Not Reportable 11/23/19 05:30 Poikilocytosis Not Reportable 11/23/19 05:30 Anisocytosis 1+ 11/23/19 05:30 Microcytosis Not Reportable 11/23/19 05:30 Macrocytosis Not Reportable 11/23/19 05:30 Spherocytes Not Reportable 11/23/19 05:30 Pappenheimer Bodies Not Reportable 11/23/19 05:30 Sickle Cells Not Reportable 11/23/19 05:30 Target Cells 1+ 11/23/19 05:30 Tear Drop Cells Not Reportable 11/23/19 05:30 Ovalocytes Not Reportable 11/23/19 05:30 Helmet Cells Not Reportable 11/23/19 05:30 Ruff-[place] Bodies Not Reportable 11/23/19 05:30 [place] Rings Not Reportable 11/23/19 05:30 [place] Cells Not Reportable 11/23/19 05:30 Bite Cells Not Reportable 11/23/19 05:30 Crenated Cell Not Reportable 11/23/19 05:30 Elliptocytes Not Reportable 11/23/19 05:30 Acanthocytes (Spur) Not Reportable 11/23/19 05:30 Rouleaux Not Reportable 11/23/19 05:30 Hemoglobin C Crystals Not Reportable 11/23/19 05:30 Schistocytes Not Reportable 11/23/19 05:30 Malaria parasites Not Reportable 11/23/19 05:30 Yoel Bodies Not Reportable 11/23/19 05:30 Hem Pathologist Commnt No 11/23/19 05:30 Sodium 133 mmol/L (137-145) L 11/23/19 05:30 Potassium 4.7 mmol/L (3.6-5.0) 11/23/19 05:30 Chloride 96.4 mmol/L (98-107) L 11/23/19 05:30 Carbon Dioxide 22 mmol/L (22-30) 11/23/19 05:30 Anion Gap 19 mmol/L 11/23/19 05:30 BUN 15 mg/dL (9-20) 11/23/19 05:30 Creatinine 0.7 mg/dL (0.8-1.3) L 11/23/19 05:30 Estimated GFR > 60 ml/min 11/23/19 05:30 BUN/Creatinine Ratio 21 % 11/23/19 05:30 Glucose 138 mg/dL (75-100) H 11/23/19 05:30 Lactic Acid 0.80 mmol/L (0.7-2.0) 11/21/19 15:53 Calcium 9.2 mg/dL (8.4-10.2) 11/23/19 05:30 Phosphorus 3.50 mg/dL (2.5-4.5) 11/21/19 15:53 Magnesium 1.70 mg/dL (1.7-2.3) 11/21/19 15:53 Total Bilirubin 0.20 mg/dL (0.1-1.2) 11/21/19 15:53 AST 26 units/L (5-40) 11/21/19 15:53 ALT 39 units/L (7-56) 11/21/19 15:53 Alkaline Phosphatase 236 units/L (35-129) H 11/21/19 15:53 Lactate Dehydrogenase 207 units/L (91-180) H 11/21/19 15:53 C-Reactive Protein 8.30 mg/dL (0.00-1.30) H 11/23/19 15:11 Total Protein 8.1 g/dL (6.3-8.2) 11/21/19 15:53 Albumin 3.6 g/dL (3.9-5) L 11/21/19 15:53 Albumin/Globulin Ratio 0.8 % 11/21/19 15:53 Vancomycin Trough 4.1 ug/mL (5.0-20.0) L 11/24/19 13:46 Microbiology: Microbiology 11/23/19 15:11 Peripheral/Venous Blood Culture - Preliminary NO GROWTH AFTER 24 HOURS 11/23/19 15:11 Peripheral/Venous Blood Culture - Preliminary NO GROWTH AFTER 24 HOURS 11/22/19 16:50 Knee - Right Anaerobic Culture - Preliminary 11/22/19 16:50 Knee - Right Surgical Biopsy Culture - Preliminary Methicillin Resist S. Aureus 11/22/19 16:50 Knee - Right Wound Culture - Final Methicillin Resist S. Aureus Turner/IV: Voiding Method Urinal IV Catheter Type [Right INT / Saline Lock Forearm] IV Catheter Type [Left Peripheral IV Antecubital] Active Medications - Current Medications Current Medications: Generic Name Dose Route Start Last Admin Trade Name Freq PRN Reason Stop Dose Admin Acetaminophen 650 mg 11/21/19 22:33 Tylenol PO Q12H PRN Pain, Moderate (4-6) Albuterol/Ipratropium 1 ampul 11/23/19 08:00 11/24/19 20:39 Duoneb *Not For Prn Use* IH 1 ampul TIDRT CASIMIRO Administration Amlodipine Besylate 5 mg 11/22/19 10:00 11/25/19 09:05 Amlodipine PO 5 mg DAILY CASIMIRO Administration Atorvastatin Calcium 40 mg 11/22/19 22:00 11/24/19 22:30 Lipitor PO 40 mg QHS CASIMIRO Administration Calcium Carbonate/Glycine 1,000 mg 11/23/19 16:13 11/25/19 09:04 Tums PO 1,000 mg Q4H PRN Administration Indigestion Finasteride 5 mg 11/22/19 10:00 11/25/19 09:04 Proscar PO 5 mg QDAY CASIMIRO Administration Gabapentin 100 mg 11/21/19 23:00 11/25/19 09:05 Gabapentin PO 100 mg BID CASIMIRO Administration Hydromorphone HCl 2 mg 11/22/19 08:57 11/25/19 09:06 Dilaudid IV 2 mg Q3H PRN Administration Pain , Severe (7-10) Hydroxyzine Pamoate 50 mg 11/22/19 22:00 11/24/19 22:30 Vistaril PO 50 mg HS CASIMIRO Administration Vancomycin HCl 1,250 mg/ 275 mls @ 166.667 mls/hr 11/25/19 00:00 11/25/19 09:05 Sodium Chloride IV 166.667 mls/hr Q8H CASIMIRO Administration Isosorbide Mononitrate 60 mg 11/22/19 10:00 11/25/19 09:04 Imdur PO 60 mg QDAY CASIMIRO Administration Latanoprost 1 drops 11/22/19 22:00 11/24/19 22:30 Latanoprost 0.005% OU 1 drops QHS CASIMIRO Administration Losartan Potassium 50 mg 11/22/19 10:00 11/25/19 09:04 Cozaar PO 50 mg QDAY CASIMIRO Administration Metoprolol Tartrate 12.5 mg 11/21/19 23:00 11/25/19 09:04 Metoprolol PO 12.5 mg BID CASIMIRO Administration Sertraline HCl 50 mg 11/22/19 10:00 11/25/19 09:05 Zoloft PO 50 mg QDAY CASIMIRO Administration Tamsulosin HCl 0.4 mg 11/22/19 10:00 11/25/19 09:05 Flomax PO 0.4 mg QDAY CASIMIRO Administration
--- NOTE | 2019-11-25 11:19 | Progress Note ---
Assessment and Plan Cultures: OR culture with MRSA Assessment: 59 years old male with history of with history of right total knee replacement on 08/26/2019 readmitted on due to surgical wound drainage associated with edema and tenderness: #Leukocytosis: Secondary to right total knee replacement infection. 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 X-ray shows prominent swelling of the anterior prepatellar soft tissue with gas in the joint space. Status post debridement and irrigation of the knee on 11/22/2019, OR findings no loosening of either femoral or tibial component, debrided with pulse lavage with gentamicin solution copiously with 4 L. #Thrombocytosis: Likely due to infection. Recommendations: -Continue vancomycin with PK consult, goal trough 10-20 -In light of debridement and retained prosthesis, patient will require 6 weeks of IV antibiotics followed by 6 months of oral antibiotics including rifampin -Vancomycin trough was low which likely explains leukocytosis. If next is low would switch to daptomycin -Follow leukocytosis -Ultimately need PICC line, antibiotics to be determined if white count improves. We will follow Ayla Taylor MD [facility] M: [phone] O: [phone] F: [phone] Subjective Date of service: 11/25/19 Principal diagnosis: Right knee cellulitis status post irrigation and debridement. Interval history: Afebrile, no other acute issues at present time. Vancomycin trough was low yesterday at 4.1. Objective - Exam Narrative Exam: General appearance: Alert in NAD Eyes: anicteric sclerae, moist conjunctivae; no lid-lag; PERRLA HENT: Atraumatic; oropharynx clear with moist mucous membranes and no oral thrush; normal hard and soft palate. Lungs: CTA, with normal respiratory effort and no intercostal retractions CV: RRR no murmur Abdomen: Soft, non-tender; no masses or hepatosplenomegaly Extremities: Right knee covered with surgical dressing Skin: No rash. Psych: Appropriate affect, alert and oriented to person, place and time. Neuro: alert and oriented x 3. Moving all extremities - Constitutional Vitals: Vital Signs Temp Pulse Resp BP Pulse Ox 98.5 F 73 18 140/67 96 11/25/19 07:24 11/25/19 07:24 11/25/19 07:24 11/25/19 07:24 11/25/19 07:24 Temperature -Last 24 Hours Temperature 98.5 F Temperature 98.6 F Temperature 98.3 F Temperature 98.3 F Temperature 97.8 F Temperature 98.3 F - Labs CBC & Chem 7: 11/23/19 05:30 11/23/19 05:30 Labs: Abnormal lab results 11/24/19 Range/Units 13:46 Vancomycin Trough 4.1 L (5.0-20.0) ug/mL
--- NOTE | 2019-11-25 15:12 | Progress Note ---
Assessment and Plan Continue IV antibiotics observation physical therapy and pain management Subjective Date of service: 11/25/19 Principal diagnosis: Right knee cellulitis status post irrigation and debridement. Interval history: Complaining of right knee pain otherwise doing okay Objective Vital signs: Vital Signs - 12hr 11/25/19 11/25/19 11/25/19 05:28 07:24 09:36 Temperature 98.6 F 98.5 F Pulse Rate 71 73 Respiratory 18 18 18 Rate Blood Pressure 118/68 140/67 O2 Sat by Pulse 93 96 Oximetry 11/25/19 11:32 Temperature 98.6 F Pulse Rate 71 Respiratory 18 Rate Blood Pressure 119/57 O2 Sat by Pulse 94 Oximetry Incision: clean and dry Weight bearing status: as tolerated - Labs CBC & BMP: 11/23/19 05:30 11/23/19 05:30
[2019-11-25] MEDS: IPRATROPIUM/ALBUTEROL SULFATE 3 ML AMPUL.NEB IH SCH ×3 (17:52→20:16)
[2019-11-25] MEDS: LATANOPROST 0.005% OPHTH SOLN 2.5 ML OU SCH (21:36)
[2019-11-26] MEDS: VANCOMYCIN 1,250 MG in SODIUM CHLORIDE 0.9% 250ML 250 ML IV SCH ×4 (01:18→23:44)
[2019-11-26] MEDS: HYDROmorphone 1 MG/1 ML INJ IV PRN ×6 (01:18→22:28)
--- NOTE | 2019-11-26 09:02 | Progress Note ---
Assessment and Plan Assessment and plan: Right knee prosthetic joint infection. Wound culture growing Staph aureus. Plain films reveal swelling of the prepatellar soft tissue with gas in the joint space. Patient is status post debridement and irrigation of the knee on 11/22/2019. Sepsis. Etiology secondary to above. Continue IV antibiotics. ID following. Patient will require 6 weeks of IV antibiotics per ID. Leukocytosis. Secondary to above. Thrombocytosis. Etiology secondary to infection. Disposition. Patient will need PICC line placement and long-term IV antibiotics. We will discuss with case management. 11/26/2019. Continue vancomycin per ID recommendations. Follow-up trough level and switch to daptomycin if leukocytosis persists. PICC line placement ordered. ID following. History Interval history: No new issues overnight. Hospitalist Physical - Constitutional Vitals: Temp Pulse Resp BP Pulse Ox 98.5 F 73 16 130/72 95 11/26/19 07:46 11/26/19 07:46 11/26/19 07:46 11/26/19 07:46 11/26/19 07:46 General appearance: Present: no acute distress - EENT Eyes: Present: PERRL, EOM intact ENT: hearing intact, clear oral mucosa, dentition normal - Neck Neck: Present: supple, normal ROM - Respiratory Respiratory effort: normal Respiratory: bilateral: CTA - Cardiovascular Rhythm: regular Heart Sounds: Present: S1 & S2. Absent: gallop, rub - Extremities Extremities: no ischemia, No edema, Full ROM - Abdominal General gastrointestinal: soft, non-tender, non-distended, normal bowel sounds - Integumentary Integumentary: Present: clear, warm, dry - Neurologic Neurologic: CNII-XII intact, moves all extremities Results - Labs CBC & Chem 7: 11/23/19 05:30 11/23/19 05:30 Labs: Laboratory Last Values WBC 21.3 K/mm3 (4.5-11.0) H 11/23/19 05:30 RBC 3.42 M/mm3 (3.65-5.03) L 11/23/19 05:30 Hgb 10.5 gm/dl (11.8-15.2) L 11/23/19 05:30 Hct 30.7 % (35.5-45.6) L 11/23/19 05:30 MCV 90 fl (84-94) 11/23/19 05:30 MCH 31 pg (28-32) 11/23/19 05:30 MCHC 34 % (32-34) 11/23/19 05:30 RDW 15.2 % (13.2-15.2) 11/23/19 05:30 Plt Count 755 K/mm3 (140-440) H 11/23/19 05:30 Lymph % (Auto) 16.3 % (13.4-35.0) 11/22/19 09:20 [place] % (Auto) 8.8 % (0.0-7.3) H 11/22/19 09:20 Eos % (Auto) 0.6 % (0.0-4.3) 11/22/19 09:20 Baso % (Auto) 1.0 % (0.0-1.8) 11/22/19 09:20 Lymph # (Auto) 2.6 K/mm3 (1.2-5.4) 11/22/19 09:20 [place] # (Auto) 1.4 K/mm3 (0.0-0.8) H 11/22/19 09:20 Eos # (Auto) 0.1 K/mm3 (0.0-0.4) 11/22/19 09:20 Baso # (Auto) 0.2 K/mm3 (0.0-0.1) H 11/22/19 09:20 Add Manual Diff Complete 11/23/19 05:30 Total Counted 200 11/23/19 05:30 Seg Neutrophils % 73.3 % (40.0-70.0) H 11/22/19 09:20 Seg Neuts % (Manual) 92.5 % (40.0-70.0) H 11/23/19 05:30 Band Neutrophils % 0.5 % 11/23/19 05:30 Lymphocytes % (Manual) 5.5 % (13.4-35.0) L 11/23/19 05:30 Reactive Lymphs % (Man) 0 % 11/23/19 05:30 Monocytes % (Manual) 1.5 % (0.0-7.3) 11/23/19 05:30 Eosinophils % (Manual) 0 % (0.0-4.3) 11/23/19 05:30 Basophils % (Manual) 0 % (0.0-1.8) 11/23/19 05:30 Metamyelocytes % 0 % 11/23/19 05:30 Myelocytes % 0 % 11/23/19 05:30 Promyelocytes % 0 % 11/23/19 05:30 Blast Cells % 0 % 11/23/19 05:30 Nucleated RBC % Not Reportable 11/23/19 05:30 Seg Neutrophils # 11.8 K/mm3 (1.8-7.7) H 11/22/19 09:20 Seg Neutrophils # Man 19.7 K/mm3 (1.8-7.7) H 11/23/19 05:30 Band Neutrophils # 0.1 K/mm3 11/23/19 05:30 Lymphocytes # (Manual) 1.2 K/mm3 (1.2-5.4) 11/23/19 05:30 Abs React Lymphs (Man) 0.0 K/mm3 11/23/19 05:30 Monocytes # (Manual) 0.3 K/mm3 (0.0-0.8) 11/23/19 05:30 Eosinophils # (Manual) 0.0 K/mm3 (0.0-0.4) 11/23/19 05:30 Basophils # (Manual) 0.0 K/mm3 (0.0-0.1) 11/23/19 05:30 Metamyelocytes # 0.0 K/mm3 11/23/19 05:30 Myelocytes # 0.0 K/mm3 11/23/19 05:30 Promyelocytes # 0.0 K/mm3 11/23/19 05:30 Blast Cells # 0.0 K/mm3 11/23/19 05:30 WBC Morphology Not Reportable 11/23/19 05:30 Hypersegmented Neuts Not Reportable 11/23/19 05:30 Hyposegmented Neuts Not Reportable 11/23/19 05:30 Hypogranular Neuts Not Reportable 11/23/19 05:30 Smudge Cells Not Reportable 11/23/19 05:30 Toxic Granulation Not Reportable 11/23/19 05:30 Toxic Vacuolation Not Reportable 11/23/19 05:30 Dohle Bodies Not Reportable 11/23/19 05:30 Pelger-Huet Anomaly Not Reportable 11/23/19 05:30 Gregorio Rods Not Reportable 11/23/19 05:30 Platelet Estimate Consistent w auto 11/23/19 05:30 Clumped Platelets Not Reportable 11/23/19 05:30 Plt Clumps, EDTA Not Reportable 11/23/19 05:30 Large Platelets Not Reportable 11/23/19 05:30 Giant Platelets Not Reportable 11/23/19 05:30 Platelet Satelliting Not Reportable 11/23/19 05:30 Plt Morphology Comment Not Reportable 11/23/19 05:30 RBC Morphology Not Reportable 11/23/19 05:30 Dimorphic RBCs Not Reportable 11/23/19 05:30 Polychromasia Not Reportable 11/23/19 05:30 Hypochromasia Not Reportable 11/23/19 05:30 Poikilocytosis Not Reportable 11/23/19 05:30 Anisocytosis 1+ 11/23/19 05:30 Microcytosis Not Reportable 11/23/19 05:30 Macrocytosis Not Reportable 11/23/19 05:30 Spherocytes Not Reportable 11/23/19 05:30 Pappenheimer Bodies Not Reportable 11/23/19 05:30 Sickle Cells Not Reportable 11/23/19 05:30 Target Cells 1+ 11/23/19 05:30 Tear Drop Cells Not Reportable 11/23/19 05:30 Ovalocytes Not Reportable 11/23/19 05:30 Helmet Cells Not Reportable 11/23/19 05:30 Ruff-[place] Bodies Not Reportable 11/23/19 05:30 [place] Rings Not Reportable 11/23/19 05:30 [place] Cells Not Reportable 11/23/19 05:30 Bite Cells Not Reportable 11/23/19 05:30 Crenated Cell Not Reportable 11/23/19 05:30 Elliptocytes Not Reportable 11/23/19 05:30 Acanthocytes (Spur) Not Reportable 11/23/19 05:30 Rouleaux Not Reportable 11/23/19 05:30 Hemoglobin C Crystals Not Reportable 11/23/19 05:30 Schistocytes Not Reportable 11/23/19 05:30 Malaria parasites Not Reportable 11/23/19 05:30 Yoel Bodies Not Reportable 11/23/19 05:30 Hem Pathologist Commnt No 11/23/19 05:30 Sodium 133 mmol/L (137-145) L 11/23/19 05:30 Potassium 4.7 mmol/L (3.6-5.0) 11/23/19 05:30 Chloride 96.4 mmol/L (98-107) L 11/23/19 05:30 Carbon Dioxide 22 mmol/L (22-30) 11/23/19 05:30 Anion Gap 19 mmol/L 11/23/19 05:30 BUN 15 mg/dL (9-20) 11/23/19 05:30 Creatinine 0.7 mg/dL (0.8-1.3) L 11/23/19 05:30 Estimated GFR > 60 ml/min 11/23/19 05:30 BUN/Creatinine Ratio 21 % 11/23/19 05:30 Glucose 138 mg/dL (75-100) H 11/23/19 05:30 Lactic Acid 0.80 mmol/L (0.7-2.0) 11/21/19 15:53 Calcium 9.2 mg/dL (8.4-10.2) 11/23/19 05:30 Phosphorus 3.50 mg/dL (2.5-4.5) 11/21/19 15:53 Magnesium 1.70 mg/dL (1.7-2.3) 11/21/19 15:53 Total Bilirubin 0.20 mg/dL (0.1-1.2) 11/21/19 15:53 AST 26 units/L (5-40) 11/21/19 15:53 ALT 39 units/L (7-56) 11/21/19 15:53 Alkaline Phosphatase 236 units/L (35-129) H 11/21/19 15:53 Lactate Dehydrogenase 207 units/L (91-180) H 11/21/19 15:53 C-Reactive Protein 8.30 mg/dL (0.00-1.30) H 11/23/19 15:11 Total Protein 8.1 g/dL (6.3-8.2) 11/21/19 15:53 Albumin 3.6 g/dL (3.9-5) L 11/21/19 15:53 Albumin/Globulin Ratio 0.8 % 11/21/19 15:53 Vancomycin Trough 14.8 ug/mL (5.0-20.0) 11/25/19 23:10 Microbiology: Microbiology 10/11/20 15:11 Peripheral/Venous Blood Culture - Preliminary NO GROWTH AFTER 48 HOURS 11/23/19 15:11 Peripheral/Venous Blood Culture - Preliminary NO GROWTH AFTER 48 HOURS Turner/IV: Voiding Method Urinal IV Catheter Type [Right INT / Saline Lock Forearm] IV Catheter Type [Left Peripheral IV Antecubital] Active Medications - Current Medications Current Medications: Generic Name Dose Route Start Last Admin Trade Name Freq PRN Reason Stop Dose Admin Acetaminophen 650 mg 11/21/19 22:33 Tylenol PO Q12H PRN Pain, Moderate (4-6) Albuterol/Ipratropium 1 ampul 11/23/19 08:00 11/25/19 20:16 Duoneb *Not For Prn Use* IH Not Given TIDRT CASIMIRO Amlodipine Besylate 5 mg 11/22/19 10:00 11/25/19 09:05 Amlodipine PO 5 mg DAILY CASIMIRO Administration Atorvastatin Calcium 40 mg 11/22/19 22:00 11/25/19 21:37 Lipitor PO 40 mg QHS CASIMIRO Administration Calcium Carbonate/Glycine 1,000 mg 11/23/19 16:13 11/25/19 15:27 Tums PO 1,000 mg Q4H PRN Administration Indigestion Finasteride 5 mg 11/22/19 10:00 11/25/19 09:04 Proscar PO 5 mg QDAY CASIMIRO Administration Gabapentin 100 mg 11/21/19 23:00 11/25/19 21:37 Gabapentin PO 100 mg BID CASIMIRO Administration Hydromorphone HCl 2 mg 11/22/19 08:57 11/26/19 06:40 Dilaudid IV 2 mg Q3H PRN Administration Pain , Severe (7-10) Hydroxyzine Pamoate 50 mg 11/22/19 22:00 11/25/19 21:37 Vistaril PO 50 mg HS CASIMIRO Administration Vancomycin HCl 1,250 mg/ 275 mls @ 166.667 mls/hr 11/25/19 00:00 11/26/19 08:07 Sodium Chloride IV 166.667 mls/hr Q8H CASIMIRO Administration Isosorbide Mononitrate 60 mg 11/22/19 10:00 11/25/19 09:04 Imdur PO 60 mg QDAY CASIMIRO Administration Latanoprost 1 drops 11/22/19 22:00 11/25/19 21:36 Latanoprost 0.005% OU 1 drops QHS CASIMIRO Administration Losartan Potassium 50 mg 11/22/19 10:00 11/25/19 09:04 Cozaar PO 50 mg QDAY CASIMIRO Administration Metoprolol Tartrate 12.5 mg 11/21/19 23:00 11/25/19 21:45 Metoprolol PO 12.5 mg BID CASIMIRO Administration Sertraline HCl 50 mg 11/22/19 10:00 11/25/19 09:05 Zoloft PO 50 mg QDAY CASIMIRO Administration Tamsulosin HCl 0.4 mg 11/22/19 10:00 11/25/19 09:05 Flomax PO 0.4 mg QDAY CASIMIRO Administration
[2019-11-26] MEDS: TAMSULOSIN 0.4 MG CAP PO SCH (09:50)
[2019-11-26] MEDS: GABAPENTIN 100 MG CAP PO SCH ×2 (09:50→22:28)
[2019-11-26] MEDS: LOSARTAN 50 MG TAB PO SCH (09:50)
[2019-11-26] MEDS: amLODIPine 5 MG TAB PO SCH (09:50)
[2019-11-26] MEDS: METOPROLOL TARTRATE 25 MG TAB PO SCH ×2 (09:50→22:44)
[2019-11-26] MEDS: FINASTERIDE 5 MG TAB PO SCH (10:00)
[2019-11-26] MEDS: SERTRALINE 50 MG TAB PO SCH (10:20)
[2019-11-26] MEDS: IPRATROPIUM/ALBUTEROL SULFATE 3 ML AMPUL.NEB IH SCH ×3 (10:47→20:13)
--- NOTE | 2019-11-26 15:13 | Progress Note ---
Assessment and Plan Cultures: OR culture with MRSA Assessment: 59 years old male with history of with history of right total knee replacement on 08/26/2019 readmitted on due to surgical wound drainage associated with edema and tenderness: #Leukocytosis: Secondary to right total knee replacement infection. 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 X-ray shows prominent swelling of the anterior prepatellar soft tissue with gas in the joint space. Status post debridement and irrigation of the knee on 11/22/2019, OR findings no loosening of either femoral or tibial component, debrided with pulse lavage with gentamicin solution copiously with 4 L. #Thrombocytosis: Likely due to infection. Recommendations: -Continue vancomycin with PK consult, goal trough 10-20 -In light of debridement and retained prosthesis, patient will require 6 weeks of IV antibiotics followed by 6 months of oral antibiotics including rifampin -Repeat CBC in a.m. -Ordered PICC line We will follow Ayla Taylor MD [facility] ([facility]) M: [phone] O: [phone] F: [phone] Subjective Date of service: 11/26/19 Principal diagnosis: Right knee cellulitis status post irrigation and debridement. Interval history: Afebrile, no acute changes. Vancomycin trough now therapeutic. Objective - Exam Narrative Exam: General appearance: Alert in NAD Eyes: anicteric sclerae, moist conjunctivae; no lid-lag; PERRLA HENT: Atraumatic; oropharynx clear with moist mucous membranes and no oral thrush; normal hard and soft palate. Lungs: CTA, with normal respiratory effort and no intercostal retractions CV: RRR no murmur Abdomen: Soft, non-tender; no masses or hepatosplenomegaly Extremities: Right knee covered with surgical dressing Skin: No rash. Psych: Appropriate affect, alert and oriented to person, place and time. Neuro: alert and oriented x 3. Moving all extremities - Constitutional Vitals: Vital Signs Temp Pulse Resp BP Pulse Ox 98.8 F 88 18 133/68 97 11/26/19 12:00 11/26/19 12:00 11/26/19 12:00 11/26/19 12:00 11/26/19 12:00 Temperature -Last 24 Hours Temperature 98.8 F Temperature 98.5 F Temperature 98.5 F Temperature 99.4 F Temperature 98.4 F Temperature 98.4 F - Labs CBC & Chem 7: 11/23/19 05:30 11/23/19 05:30
[2019-11-26] MEDS: LATANOPROST 0.005% OPHTH SOLN 2.5 ML OU SCH (22:28)
[2019-11-27] MEDS: HYDROmorphone 1 MG/1 ML INJ IV PRN ×5 (01:44→20:36)
--- NOTE | 2019-11-27 08:19 | Progress Note ---
Assessment and Plan Assessment and plan: Right knee prosthetic joint infection. Wound culture growing Staph aureus. Plain films reveal swelling of the prepatellar soft tissue with gas in the joint space. Patient is status post debridement and irrigation of the knee on 11/22/2019. Sepsis. Etiology secondary to above. Continue IV antibiotics. ID following. Patient will require 6 weeks of IV antibiotics per ID. Leukocytosis. Secondary to above. Thrombocytosis. Etiology secondary to infection. Disposition. Patient will need PICC line placement and long-term IV antibiotics. We will discuss with case management. 11/26/2019. Continue vancomycin per ID recommendations. Follow-up trough level and switch to daptomycin if leukocytosis persists. PICC line placement ordered. ID following. 11/27/2019. Continue antibiotics per ID recommendations. PICC line placement today. Patient will require 6 weeks of IV antibiotics followed by 6 months of oral antibiotics including rifampin. History Interval history: No new issues overnight. Hospitalist Physical - Constitutional Vitals: Temp Pulse Resp BP Pulse Ox 98.3 F 71 18 125/71 96 11/27/19 06:03 11/27/19 06:03 11/27/19 06:03 11/27/19 06:03 11/27/19 06:03 General appearance: Present: no acute distress - EENT Eyes: Present: PERRL, EOM intact ENT: hearing intact, clear oral mucosa, dentition normal - Neck Neck: Present: supple, normal ROM - Respiratory Respiratory effort: normal Respiratory: bilateral: CTA - Cardiovascular Rhythm: regular Heart Sounds: Present: S1 & S2. Absent: gallop, rub - Extremities Extremities: no ischemia, No edema, Full ROM - Abdominal General gastrointestinal: soft, non-tender, non-distended, normal bowel sounds - Integumentary Integumentary: Present: clear, warm, dry - Neurologic Neurologic: CNII-XII intact, moves all extremities Results - Labs CBC & Chem 7: 11/23/19 05:30 11/23/19 05:30 Labs: Laboratory Last Values WBC 21.3 K/mm3 (4.5-11.0) H 11/23/19 05:30 RBC 3.42 M/mm3 (3.65-5.03) L 11/23/19 05:30 Hgb 10.5 gm/dl (11.8-15.2) L 11/23/19 05:30 Hct 30.7 % (35.5-45.6) L 11/23/19 05:30 MCV 90 fl (84-94) 11/23/19 05:30 MCH 31 pg (28-32) 11/23/19 05:30 MCHC 34 % (32-34) 11/23/19 05:30 RDW 15.2 % (13.2-15.2) 11/23/19 05:30 Plt Count 755 K/mm3 (140-440) H 11/23/19 05:30 Lymph % (Auto) 16.3 % (13.4-35.0) 11/22/19 09:20 Barron % (Auto) 8.8 % (0.0-7.3) H 11/22/19 09:20 Eos % (Auto) 0.6 % (0.0-4.3) 11/22/19 09:20 Baso % (Auto) 1.0 % (0.0-1.8) 11/22/19 09:20 Lymph # (Auto) 2.6 K/mm3 (1.2-5.4) 11/22/19 09:20 Barron # (Auto) 1.4 K/mm3 (0.0-0.8) H 11/22/19 09:20 Eos # (Auto) 0.1 K/mm3 (0.0-0.4) 11/22/19 09:20 Baso # (Auto) 0.2 K/mm3 (0.0-0.1) H 11/22/19 09:20 Add Manual Diff Complete 11/23/19 05:30 Total Counted 200 11/23/19 05:30 Seg Neutrophils % 73.3 % (40.0-70.0) H 11/22/19 09:20 Seg Neuts % (Manual) 92.5 % (40.0-70.0) H 11/23/19 05:30 Band Neutrophils % 0.5 % 11/23/19 05:30 Lymphocytes % (Manual) 5.5 % (13.4-35.0) L 11/23/19 05:30 Reactive Lymphs % (Man) 0 % 11/23/19 05:30 Monocytes % (Manual) 1.5 % (0.0-7.3) 11/23/19 05:30 Eosinophils % (Manual) 0 % (0.0-4.3) 11/23/19 05:30 Basophils % (Manual) 0 % (0.0-1.8) 11/23/19 05:30 Metamyelocytes % 0 % 11/23/19 05:30 Myelocytes % 0 % 11/23/19 05:30 Promyelocytes % 0 % 11/23/19 05:30 Blast Cells % 0 % 11/23/19 05:30 Nucleated RBC % Not Reportable 11/23/19 05:30 Seg Neutrophils # 11.8 K/mm3 (1.8-7.7) H 11/22/19 09:20 Seg Neutrophils # Man 19.7 K/mm3 (1.8-7.7) H 11/23/19 05:30 Band Neutrophils # 0.1 K/mm3 11/23/19 05:30 Lymphocytes # (Manual) 1.2 K/mm3 (1.2-5.4) 11/23/19 05:30 Abs React Lymphs (Man) 0.0 K/mm3 11/23/19 05:30 Monocytes # (Manual) 0.3 K/mm3 (0.0-0.8) 11/23/19 05:30 Eosinophils # (Manual) 0.0 K/mm3 (0.0-0.4) 11/23/19 05:30 Basophils # (Manual) 0.0 K/mm3 (0.0-0.1) 11/23/19 05:30 Metamyelocytes # 0.0 K/mm3 11/23/19 05:30 Myelocytes # 0.0 K/mm3 11/23/19 05:30 Promyelocytes # 0.0 K/mm3 11/23/19 05:30 Blast Cells # 0.0 K/mm3 11/23/19 05:30 WBC Morphology Not Reportable 11/23/19 05:30 Hypersegmented Neuts Not Reportable 11/23/19 05:30 Hyposegmented Neuts Not Reportable 11/23/19 05:30 Hypogranular Neuts Not Reportable 11/23/19 05:30 Smudge Cells Not Reportable 11/23/19 05:30 Toxic Granulation Not Reportable 11/23/19 05:30 Toxic Vacuolation Not Reportable 11/23/19 05:30 Dohle Bodies Not Reportable 11/23/19 05:30 Pelger-Huet Anomaly Not Reportable 11/23/19 05:30 Gregorio Rods Not Reportable 11/23/19 05:30 Platelet Estimate Consistent w auto 11/23/19 05:30 Clumped Platelets Not Reportable 11/23/19 05:30 Plt Clumps, EDTA Not Reportable 11/23/19 05:30 Large Platelets Not Reportable 11/23/19 05:30 Giant Platelets Not Reportable 11/23/19 05:30 Platelet Satelliting Not Reportable 11/23/19 05:30 Plt Morphology Comment Not Reportable 11/23/19 05:30 RBC Morphology Not Reportable 11/23/19 05:30 Dimorphic RBCs Not Reportable 11/23/19 05:30 Polychromasia Not Reportable 11/23/19 05:30 Hypochromasia Not Reportable 11/23/19 05:30 Poikilocytosis Not Reportable 11/23/19 05:30 Anisocytosis 1+ 11/23/19 05:30 Microcytosis Not Reportable 11/23/19 05:30 Macrocytosis Not Reportable 11/23/19 05:30 Spherocytes Not Reportable 11/23/19 05:30 Pappenheimer Bodies Not Reportable 11/23/19 05:30 Sickle Cells Not Reportable 11/23/19 05:30 Target Cells 1+ 11/23/19 05:30 Tear Drop Cells Not Reportable 11/23/19 05:30 Ovalocytes Not Reportable 11/23/19 05:30 Helmet Cells Not Reportable 11/23/19 05:30 [place] Bodies Not Reportable 11/23/19 05:30 [place] Rings Not Reportable 11/23/19 05:30 Jazmine Cells Not Reportable 11/23/19 05:30 Bite Cells Not Reportable 11/23/19 05:30 Crenated Cell Not Reportable 11/23/19 05:30 Elliptocytes Not Reportable 11/23/19 05:30 Acanthocytes (Spur) Not Reportable 11/23/19 05:30 Rouleaux Not Reportable 11/23/19 05:30 Hemoglobin C Crystals Not Reportable 11/23/19 05:30 Schistocytes Not Reportable 11/23/19 05:30 Malaria parasites Not Reportable 11/23/19 05:30 Yoel Bodies Not Reportable 11/23/19 05:30 Hem Pathologist Commnt No 11/23/19 05:30 Sodium 133 mmol/L (137-145) L 11/23/19 05:30 Potassium 4.7 mmol/L (3.6-5.0) 11/23/19 05:30 Chloride 96.4 mmol/L (98-107) L 11/23/19 05:30 Carbon Dioxide 22 mmol/L (22-30) 11/23/19 05:30 Anion Gap 19 mmol/L 11/23/19 05:30 BUN 15 mg/dL (9-20) 11/23/19 05:30 Creatinine 0.7 mg/dL (0.8-1.3) L 11/23/19 05:30 Estimated GFR > 60 ml/min 11/23/19 05:30 BUN/Creatinine Ratio 21 % 11/23/19 05:30 Glucose 138 mg/dL (75-100) H 11/23/19 05:30 Lactic Acid 0.80 mmol/L (0.7-2.0) 11/21/19 15:53 Calcium 9.2 mg/dL (8.4-10.2) 11/23/19 05:30 Phosphorus 3.50 mg/dL (2.5-4.5) 11/21/19 15:53 Magnesium 1.70 mg/dL (1.7-2.3) 11/21/19 15:53 Total Bilirubin 0.20 mg/dL (0.1-1.2) 11/21/19 15:53 AST 26 units/L (5-40) 11/21/19 15:53 ALT 39 units/L (7-56) 11/21/19 15:53 Alkaline Phosphatase 236 units/L (35-129) H 11/21/19 15:53 Lactate Dehydrogenase 207 units/L (91-180) H 11/21/19 15:53 C-Reactive Protein 8.30 mg/dL (0.00-1.30) H 11/23/19 15:11 Total Protein 8.1 g/dL (6.3-8.2) 11/21/19 15:53 Albumin 3.6 g/dL (3.9-5) L 11/21/19 15:53 Albumin/Globulin Ratio 0.8 % 11/21/19 15:53 Vancomycin Trough 14.8 ug/mL (5.0-20.0) 11/25/19 23:10 Microbiology: Microbiology 11/22/19 16:50 Knee - Right Surgical Biopsy Culture - Preliminary Methicillin Resist S. Aureus Enterococcus Faecalis 11/22/19 16:50 Knee - Right Anaerobic Culture - Final 11/23/19 15:11 Peripheral/Venous Blood Culture - Preliminary NO GROWTH AFTER 72 HOURS 11/23/19 15:11 Peripheral/Venous Blood Culture - Preliminary NO GROWTH AFTER 72 HOURS Turner/IV: Voiding Method Urinal IV Catheter Type [Left Forearm INT / Saline Lock ] IV Catheter Type [Right INT / Saline Lock Forearm] IV Catheter Type [Left Peripheral IV Antecubital] Active Medications - Current Medications Current Medications: Generic Name Dose Route Start Last Admin Trade Name Freq PRN Reason Stop Dose Admin Acetaminophen 650 mg 11/21/19 22:33 Tylenol PO Q12H PRN Pain, Moderate (4-6) Albuterol/Ipratropium 1 ampul 11/23/19 08:00 11/26/19 20:13 Duoneb *Not For Prn Use* IH 1 ampul TIDRT CASIMIRO Administration Amlodipine Besylate 5 mg 11/22/19 10:00 11/26/19 09:50 Amlodipine PO 5 mg DAILY CASIMIRO Administration Atorvastatin Calcium 40 mg 11/22/19 22:00 11/26/19 22:28 Lipitor PO 40 mg QHS CASIMIRO Administration Calcium Carbonate/Glycine 1,000 mg 11/23/19 16:13 11/25/19 15:27 Tums PO 1,000 mg Q4H PRN Administration Indigestion Finasteride 5 mg 11/22/19 10:00 11/26/19 10:00 Proscar PO 5 mg QDAY CASIMIRO Administration Gabapentin 100 mg 11/21/19 23:00 11/26/19 22:28 Gabapentin PO 100 mg BID CASIMIRO Administration Hydromorphone HCl 2 mg 11/22/19 08:57 11/27/19 01:44 Dilaudid IV 2 mg Q3H PRN Administration Pain , Severe (7-10) Hydroxyzine Pamoate 50 mg 11/22/19 22:00 11/26/19 22:28 Vistaril PO 50 mg HS CASIMIRO Administration Vancomycin HCl 1,250 mg/ 275 mls @ 166.667 mls/hr 11/25/19 00:00 11/26/19 23:44 Sodium Chloride IV 166.667 mls/hr Q8H CASIMIRO Administration Isosorbide Mononitrate 60 mg 11/22/19 10:00 11/26/19 09:50 Imdur PO 60 mg QDAY CASIMIRO Administration Latanoprost 1 drops 11/22/19 22:00 11/26/19 22:28 Latanoprost 0.005% OU 1 drops QHS CASIMIRO Administration Losartan Potassium 50 mg 11/22/19 10:00 11/26/19 09:50 Cozaar PO 50 mg QDAY CASIMIRO Administration Metoprolol Tartrate 12.5 mg 11/21/19 23:00 11/26/19 22:44 Metoprolol PO 12.5 mg BID CASIMIRO Administration Sertraline HCl 50 mg 11/22/19 10:00 11/26/19 10:20 Zoloft PO 50 mg QDAY CASIMIRO Administration Tamsulosin HCl 0.4 mg 11/22/19 10:00 11/26/19 09:50 Flomax PO 0.4 mg QDAY CASIMIRO Administration
[2019-11-27] MEDS: VANCOMYCIN 1,250 MG in SODIUM CHLORIDE 0.9% 250ML 250 ML IV SCH ×2 (09:26→17:41)
[2019-11-27] MEDS: FINASTERIDE 5 MG TAB PO SCH (09:26)
[2019-11-27] MEDS: GABAPENTIN 100 MG CAP PO SCH ×2 (09:27→21:21)
[2019-11-27] MEDS: amLODIPine 5 MG TAB PO SCH (09:27)
[2019-11-27] MEDS: SERTRALINE 50 MG TAB PO SCH (09:27)
[2019-11-27] MEDS: LOSARTAN 50 MG TAB PO SCH (09:27)
[2019-11-27] MEDS: TAMSULOSIN 0.4 MG CAP PO SCH (09:27)
[2019-11-27] MEDS: METOPROLOL TARTRATE 25 MG TAB PO SCH ×2 (09:27→21:22)
[2019-11-27] MEDS: IPRATROPIUM/ALBUTEROL SULFATE 3 ML AMPUL.NEB IH SCH ×2 (09:32→15:28)
[2019-11-27 10:36] LABS: Hematocrit 29.8 % (35.5-45.6); Hemoglobin 10.1 gm/dl (11.8-15.2); Mean Corpuscular HGB Conc 34 % (32-34); Mean Corpuscular Volume 88 fl (84-94); Red Blood Count 3.38 M/mm3 (3.65-5.03); Red Cell Distribution Width 15.2 % (13.2-15.2)
[2019-11-27 10:43] LABS: Platelet Count 1031 K/mm3 (140-440)
[2019-11-27 10:58] LABS: Blood Urea Nitrogen 10 mg/dL (9-20); Calcium 9.8 mg/dL (8.4-10.2); Hemolysis Index 1
[2019-11-27 10:59] LABS: BUN/Creatinine Ratio 17
[2019-11-27 11:20] LABS: Anisocytosis 1+; Band Neutrophils # (Manual) 0.1 K/mm3; Basophils % (Manual) 0 % (0.0-1.8); Eosinophils % (Manual) 0 % (0.0-4.3); Poikilocytosis 1+; Target Cells 1+; Total Cells Counted 100
[2019-11-27 11:21] LABS: Platelet Estimate Appears Increased
--- NOTE | 2019-11-27 15:05 | Progress Note ---
Assessment and Plan Cultures: OR culture with MRSA Assessment: 59 years old male with history of with history of right total knee replacement on 08/26/2019 readmitted on due to surgical wound drainage associated with edema and tenderness: #Leukocytosis: Secondary to right total knee replacement infection. 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 X-ray shows prominent swelling of the anterior prepatellar soft tissue with gas in the joint space. Status post debridement and irrigation of the knee on 11/22/2019, OR findings no loosening of either femoral or tibial component, debrided with pulse lavage with gentamicin solution copiously with 4 L. #Thrombocytosis: Likely due to infection. Recommendations: -Continue vancomycin with PK consult, goal trough 10-20 -In light of debridement and retained prosthesis, patient will require 6 weeks of IV antibiotics followed by 6 months of oral antibiotics including rifampin -BCx negative, will start rifampin 300mg q12h. Need to monitor for drug in teractions. No absolute contraindications noted amongst current medications. -Ordered PICC line -Case management consulted for vancomycin 1.25g q8h until 01/03/2020 We will follow Ayla Taylor MD [facility] ([facility]) M: [phone] O: [phone] F: [phone] Subjective Date of service: 11/27/19 Principal diagnosis: Right knee cellulitis status post irrigation and debridement. Interval history: Afebrile, white count improved to 13.5. No other acute issues. Objective - Exam Narrative Exam: General appearance: Alert in NAD Eyes: anicteric sclerae, moist conjunctivae; no lid-lag; PERRLA HENT: Atraumatic; oropharynx clear with moist mucous membranes and no oral thrush; normal hard and soft palate. Lungs: CTA, with normal respiratory effort and no intercostal retractions CV: RRR no murmur Abdomen: Soft, non-tender; no masses or hepatosplenomegaly Extremities: Right knee covered with surgical dressing Skin: No rash. Psych: Appropriate affect, alert and oriented to person, place and time. Neuro: alert and oriented x 3. Moving all extremities - Constitutional Vitals: Vital Signs Temp Pulse Resp BP Pulse Ox 98.1 F 68 19 114/61 96 11/27/19 11:00 11/27/19 11:00 11/27/19 11:00 11/27/19 11:00 11/27/19 11:00 Temperature -Last 24 Hours Temperature 98.1 F Temperature 98.3 F Temperature 98.2 F Temperature 98.2 F Temperature 98.5 F Temperature 98.5 F - Labs CBC & Chem 7: 11/27/19 09:18 11/27/19 09:18 Labs: Abnormal lab results 11/27/19 11/27/19 Range/Units 09:18 09:18 WBC 13.5 H (4.5-11.0) K/mm3 RBC 3.38 L (3.65-5.03) M/mm3 Hgb 10.1 L (11.8-15.2) gm/dl Hct 29.8 L (35.5-45.6) % Plt Count 1031 H* (140-440) K/mm3 Seg Neuts % (Manual) 74.0 H (40.0-70.0) % Monocytes % (Manual) 10.0 H (0.0-7.3) % Seg Neutrophils # Man 10.0 H (1.8-7.7) K/mm3 Monocytes # (Manual) 1.4 H (0.0-0.8) K/mm3 Sodium 135 L (137-145) mmol/L Chloride 96.5 L (98-107) mmol/L Creatinine 0.6 L (0.8-1.3) mg/dL Glucose 165 H (75-100) mg/dL
--- NOTE | 2019-11-27 17:24 | Progress Note ---
Subjective Date of service: 11/27/19 Principal diagnosis: Right knee cellulitis status post irrigation and debridement. Interval history: Complaining of right knee pain otherwise doing okay Objective Vital signs: Vital Signs - 12hr 11/27/19 11/27/19 11/27/19 06:03 09:32 10:00 Temperature 98.3 F Pulse Rate 71 Pulse Rate [ 79 Bilateral] Respiratory 18 Rate Respiratory 18 Rate [Bilateral ] Blood Pressure 125/71 Blood Pressure [Left] O2 Sat by Pulse 96 96 Oximetry 11/27/19 11/27/19 11:00 16:00 Temperature 98.1 F 97.6 F Pulse Rate 68 72 Pulse Rate [ Bilateral] Respiratory 19 18 Rate Respiratory Rate [Bilateral ] Blood Pressure Blood Pressure 114/61 105/48 [Left] O2 Sat by Pulse 96 94 Oximetry - Labs CBC & BMP: 11/27/19 09:18 11/27/19 09:18 Labs: Abnormal lab results 11/27/19 11/27/19 Range/Units 09:18 09:18 WBC 13.5 H (4.5-11.0) K/mm3 RBC 3.38 L (3.65-5.03) M/mm3 Hgb 10.1 L (11.8-15.2) gm/dl Hct 29.8 L (35.5-45.6) % Plt Count 1031 H* (140-440) K/mm3 Seg Neuts % (Manual) 74.0 H (40.0-70.0) % Monocytes % (Manual) 10.0 H (0.0-7.3) % Seg Neutrophils # Man 10.0 H (1.8-7.7) K/mm3 Monocytes # (Manual) 1.4 H (0.0-0.8) K/mm3 Sodium 135 L (137-145) mmol/L Chloride 96.5 L (98-107) mmol/L Creatinine 0.6 L (0.8-1.3) mg/dL Glucose 165 H (75-100) mg/dL
[2019-11-27] MEDS: LATANOPROST 0.005% OPHTH SOLN 2.5 ML OU SCH (21:21)
[2019-11-28] MEDS: IPRATROPIUM/ALBUTEROL SULFATE 3 ML AMPUL.NEB IH SCH ×3 (00:36→19:09)
[2019-11-28] MEDS: VANCOMYCIN 1,250 MG in SODIUM CHLORIDE 0.9% 250ML 250 ML IV SCH ×3 (00:36→17:29)
[2019-11-28] MEDS: rifAMPin 300 MG CAP PO SCH ×3 (00:36→21:15)
[2019-11-28] MEDS: HYDROmorphone 1 MG/1 ML INJ IV PRN ×4 (00:43→21:16)
--- NOTE | 2019-11-28 11:22 | Progress Note ---
Assessment and Plan Assessment and plan: Right knee prosthetic joint infection. Wound culture growing Staph aureus. Plain films reveal swelling of the prepatellar soft tissue with gas in the joint space. Patient is status post debridement and irrigation of the knee on 11/22/2019. Sepsis. Etiology secondary to above. Continue IV antibiotics. ID following. Patient will require 6 weeks of IV antibiotics per ID. Leukocytosis. Secondary to above. Thrombocytosis. Etiology secondary to infection. Disposition. Patient will need PICC line placement and long-term IV antibiotics. We will discuss with case management. 11/26/2019. Continue vancomycin per ID recommendations. Follow-up trough level and switch to daptomycin if leukocytosis persists. PICC line placement ordered. ID following. 11/27/2019. Continue antibiotics per ID recommendations. PICC line placement today. Patient will require 6 weeks of IV antibiotics followed by 6 months of oral antibiotics including rifampin. 11/28/19. PICC line placed. Await for wound vac and IV abx arrangements for discharge. D/W CM. Anticipate d/c next 1-2 days History Interval history: No new issues overnight. Hospitalist Physical - Constitutional Vitals: Temp Pulse Resp BP Pulse Ox 98 F 77 16 133/68 97 11/28/19 07:00 11/28/19 07:17 11/28/19 07:17 11/28/19 07:00 11/28/19 07:18 General appearance: Present: no acute distress - EENT Eyes: Present: PERRL, EOM intact ENT: hearing intact, clear oral mucosa, dentition normal - Neck Neck: Present: supple, normal ROM - Respiratory Respiratory effort: normal Respiratory: bilateral: CTA - Cardiovascular Rhythm: regular Heart Sounds: Present: S1 & S2. Absent: gallop, rub - Extremities Extremities: no ischemia, No edema, Full ROM - Abdominal General gastrointestinal: soft, non-tender, non-distended, normal bowel sounds - Integumentary Integumentary: Present: clear, warm, dry - Neurologic Neurologic: CNII-XII intact, moves all extremities Results - Labs CBC & Chem 7: 11/27/19 09:18 11/27/19 09:18 Labs: Laboratory Last Values WBC 13.5 K/mm3 (4.5-11.0) H 11/27/19 09:18 RBC 3.38 M/mm3 (3.65-5.03) L 11/27/19 09:18 Hgb 10.1 gm/dl (11.8-15.2) L 11/27/19 09:18 Hct 29.8 % (35.5-45.6) L 11/27/19 09:18 MCV 88 fl (84-94) 11/27/19 09:18 MCH 30 pg (28-32) 11/27/19 09:18 MCHC 34 % (32-34) 11/27/19 09:18 RDW 15.2 % (13.2-15.2) 11/27/19 09:18 Plt Count 1031 K/mm3 (140-440) H* 11/27/19 09:18 Lymph % (Auto) 16.3 % (13.4-35.0) 11/22/19 09:20 [place] % (Auto) 8.8 % (0.0-7.3) H 11/22/19 09:20 Eos % (Auto) 0.6 % (0.0-4.3) 11/22/19 09:20 Baso % (Auto) 1.0 % (0.0-1.8) 11/22/19 09:20 Lymph # (Auto) 2.6 K/mm3 (1.2-5.4) 11/22/19 09:20 Bacon # (Auto) 1.4 K/mm3 (0.0-0.8) H 11/22/19 09:20 Eos # (Auto) 0.1 K/mm3 (0.0-0.4) 11/22/19 09:20 Baso # (Auto) 0.2 K/mm3 (0.0-0.1) H 11/22/19 09:20 Add Manual Diff Complete 11/27/19 09:18 Total Counted 100 11/27/19 09:18 Seg Neutrophils % 73.3 % (40.0-70.0) H 11/22/19 09:20 Seg Neuts % (Manual) 74.0 % (40.0-70.0) H 11/27/19 09:18 Band Neutrophils % 1.0 % 11/27/19 09:18 Lymphocytes % (Manual) 15.0 % (13.4-35.0) 11/27/19 09:18 Reactive Lymphs % (Man) 0 % 11/27/19 09:18 Monocytes % (Manual) 10.0 % (0.0-7.3) H 11/27/19 09:18 Eosinophils % (Manual) 0 % (0.0-4.3) 11/27/19 09:18 Basophils % (Manual) 0 % (0.0-1.8) 11/27/19 09:18 Metamyelocytes % 0 % 11/27/19 09:18 Myelocytes % 0 % 11/27/19 09:18 Promyelocytes % 0 % 11/27/19 09:18 Blast Cells % 0 % 11/27/19 09:18 Nucleated RBC % Not Reportable 11/27/19 09:18 Seg Neutrophils # 11.8 K/mm3 (1.8-7.7) H 11/22/19 09:20 Seg Neutrophils # Man 10.0 K/mm3 (1.8-7.7) H 11/27/19 09:18 Band Neutrophils # 0.1 K/mm3 11/27/19 09:18 Lymphocytes # (Manual) 2.0 K/mm3 (1.2-5.4) 11/27/19 09:18 Abs React Lymphs (Man) 0.0 K/mm3 11/27/19 09:18 Monocytes # (Manual) 1.4 K/mm3 (0.0-0.8) H 11/27/19 09:18 Eosinophils # (Manual) 0.0 K/mm3 (0.0-0.4) 11/27/19 09:18 Basophils # (Manual) 0.0 K/mm3 (0.0-0.1) 11/27/19 09:18 Metamyelocytes # 0.0 K/mm3 11/27/19 09:18 Myelocytes # 0.0 K/mm3 11/27/19 09:18 Promyelocytes # 0.0 K/mm3 11/27/19 09:18 Blast Cells # 0.0 K/mm3 11/27/19 09:18 WBC Morphology Not Reportable 11/27/19 09:18 Hypersegmented Neuts Not Reportable 11/27/19 09:18 Hyposegmented Neuts Not Reportable 11/27/19 09:18 Hypogranular Neuts Not Reportable 11/27/19 09:18 Smudge Cells Not Reportable 11/27/19 09:18 Toxic Granulation Not Reportable 11/27/19 09:18 Toxic Vacuolation Not Reportable 11/27/19 09:18 Dohle Bodies Not Reportable 11/27/19 09:18 Pelger-Huet Anomaly Not Reportable 11/27/19 09:18 Gregorio Rods Not Reportable 11/27/19 09:18 Platelet Estimate Appears increased 11/27/19 09:18 Clumped Platelets Not Reportable 11/27/19 09:18 Plt Clumps, EDTA Not Reportable 11/27/19 09:18 Large Platelets Not Reportable 11/27/19 09:18 Giant Platelets Not Reportable 11/27/19 09:18 Platelet Satelliting Not Reportable 11/27/19 09:18 Plt Morphology Comment Not Reportable 11/27/19 09:18 RBC Morphology Not Reportable 11/27/19 09:18 Dimorphic RBCs Not Reportable 11/27/19 09:18 Polychromasia Not Reportable 11/27/19 09:18 Hypochromasia Not Reportable 11/27/19 09:18 Poikilocytosis 1+ 11/27/19 09:18 Anisocytosis 1+ 11/27/19 09:18 Microcytosis Not Reportable 11/27/19 09:18 Macrocytosis Not Reportable 11/27/19 09:18 Spherocytes Not Reportable 11/27/19 09:18 Pappenheimer Bodies Not Reportable 11/27/19 09:18 Sickle Cells Not Reportable 11/27/19 09:18 Target Cells 1+ 11/27/19 09:18 Tear Drop Cells Not Reportable 11/27/19 09:18 Ovalocytes Not Reportable 11/27/19 09:18 Helmet Cells Not Reportable 11/27/19 09:18 [place] Bodies Not Reportable 11/27/19 09:18 [place] Rings Not Reportable 11/27/19 09:18 [place] Cells Not Reportable 11/27/19 09:18 Bite Cells Not Reportable 11/27/19 09:18 Crenated Cell Not Reportable 11/27/19 09:18 Elliptocytes Not Reportable 11/27/19 09:18 Acanthocytes (Spur) Not Reportable 11/27/19 09:18 Rouleaux Not Reportable 11/27/19 09:18 Hemoglobin C Crystals Not Reportable 11/27/19 09:18 Schistocytes Not Reportable 11/27/19 09:18 Malaria parasites Not Reportable 11/27/19 09:18 Yoel Bodies Not Reportable 11/27/19 09:18 Hem Pathologist Commnt No 11/27/19 09:18 Sodium 135 mmol/L (137-145) L 11/27/19 09:18 Potassium 4.0 mmol/L (3.6-5.0) 11/27/19 09:18 Chloride 96.5 mmol/L (98-107) L 11/27/19 09:18 Carbon Dioxide 28 mmol/L (22-30) 11/27/19 09:18 Anion Gap 15 mmol/L 11/27/19 09:18 BUN 10 mg/dL (9-20) 11/27/19 09:18 Creatinine 0.6 mg/dL (0.8-1.3) L 11/27/19 09:18 Estimated GFR > 60 ml/min 11/27/19 09:18 BUN/Creatinine Ratio 17 % 11/27/19 09:18 Glucose 165 mg/dL (75-100) H 11/27/19 09:18 Lactic Acid 0.80 mmol/L (0.7-2.0) 11/21/19 15:53 Calcium 9.8 mg/dL (8.4-10.2) 11/27/19 09:18 Phosphorus 3.50 mg/dL (2.5-4.5) 11/21/19 15:53 Magnesium 1.70 mg/dL (1.7-2.3) 11/21/19 15:53 Total Bilirubin 0.20 mg/dL (0.1-1.2) 11/21/19 15:53 AST 26 units/L (5-40) 11/21/19 15:53 ALT 39 units/L (7-56) 11/21/19 15:53 Alkaline Phosphatase 236 units/L (35-129) H 11/21/19 15:53 Lactate Dehydrogenase 207 units/L (91-180) H 11/21/19 15:53 C-Reactive Protein 8.30 mg/dL (0.00-1.30) H 11/23/19 15:11 Total Protein 8.1 g/dL (6.3-8.2) 11/21/19 15:53 Albumin 3.6 g/dL (3.9-5) L 11/21/19 15:53 Albumin/Globulin Ratio 0.8 % 11/21/19 15:53 Vancomycin Trough 14.8 ug/mL (5.0-20.0) 11/25/19 23:10 Microbiology: Microbiology 11/23/19 15:11 Peripheral/Venous Blood Culture - Preliminary NO GROWTH AFTER 4 DAYS 11/23/19 15:11 Peripheral/Venous Blood Culture - Preliminary NO GROWTH AFTER 4 DAYS 11/22/19 16:50 Knee - Right Surgical Biopsy Culture - Preliminary Methicillin Resist S. Aureus Enterococcus Faecalis Turner/IV: Voiding Method Bedside Commode IV Catheter Type [Left Upper PICC Line arm] IV Catheter Type [Left Forearm INT / Saline Lock ] IV Catheter Type [Right INT / Saline Lock Forearm] IV Catheter Type [Left Peripheral IV Antecubital] Active Medications - Current Medications Current Medications: Generic Name Dose Route Start Last Admin Trade Name Freq PRN Reason Stop Dose Admin Acetaminophen 650 mg 11/21/19 22:33 Tylenol PO Q12H PRN Pain, Moderate (4-6) Albuterol/Ipratropium 1 ampul 11/23/19 08:00 11/28/19 07:16 Duoneb *Not For Prn Use* IH 1 ampul TIDRT CASIMIRO Administration Amlodipine Besylate 5 mg 11/22/19 10:00 11/27/19 09:27 Amlodipine PO 5 mg DAILY CASIMIRO Administration Atorvastatin Calcium 40 mg 11/22/19 22:00 11/27/19 21:20 Lipitor PO 40 mg QHS CASIMIRO Administration Calcium Carbonate/Glycine 1,000 mg 11/23/19 16:13 11/25/19 15:27 Tums PO 1,000 mg Q4H PRN Administration Indigestion Finasteride 5 mg 11/22/19 10:00 11/27/19 09:26 Proscar PO 5 mg QDAY CASIMIRO Administration Gabapentin 100 mg 11/21/19 23:00 11/27/19 21:21 Gabapentin PO 100 mg BID CASIMIRO Administration Hydromorphone HCl 2 mg 11/22/19 08:57 11/28/19 08:24 Dilaudid IV 2 mg Q3H PRN Administration Pain , Severe (7-10) Hydroxyzine Pamoate 50 mg 11/22/19 22:00 11/27/19 21:20 Vistaril PO 50 mg HS CASIMIRO Administration Vancomycin HCl 1,250 mg/ 275 mls @ 166.667 mls/hr 11/25/19 00:00 11/28/19 09:50 Sodium Chloride IV 01/03/20 17:38 166.667 mls/hr Q8H CASIMIRO Administration Isosorbide Mononitrate 60 mg 11/22/19 10:00 11/27/19 09:27 Imdur PO 60 mg QDAY CASIMIRO Administration Latanoprost 1 drops 11/22/19 22:00 11/27/19 21:21 Latanoprost 0.005% OU 1 drops QHS CASIMIRO Administration Losartan Potassium 50 mg 11/22/19 10:00 11/27/19 09:27 Cozaar PO 50 mg QDAY CASIMIRO Administration Metoprolol Tartrate 12.5 mg 11/21/19 23:00 11/27/19 21:22 Metoprolol PO 12.5 mg BID CASIMIRO Administration Polyethylene Glycol 17 gm 11/28/19 11:30 Miralax 3350 PO QDAY PRN Constipation Rifampin 300 mg 11/27/19 22:00 11/28/19 00:36 Rifadin PO 300 mg BID CASIMIRO Administration Sertraline HCl 50 mg 11/22/19 10:00 11/27/19 09:27 Zoloft PO 50 mg QDAY CASIMIRO Administration Tamsulosin HCl 0.4 mg 11/22/19 10:00 11/27/19 09:27 Flomax PO 0.4 mg QDAY CASIMIRO Administration
[2019-11-28] MEDS: GABAPENTIN 100 MG CAP PO SCH ×2 (12:23→21:15)
[2019-11-28] MEDS: amLODIPine 5 MG TAB PO SCH (12:23)
[2019-11-28] MEDS: METOPROLOL TARTRATE 25 MG TAB PO SCH ×2 (12:24→21:15)
[2019-11-28] MEDS: FINASTERIDE 5 MG TAB PO SCH (12:26)
[2019-11-28] MEDS: TAMSULOSIN 0.4 MG CAP PO SCH (12:26)
[2019-11-28] MEDS: SERTRALINE 50 MG TAB PO SCH (12:27)
[2019-11-28] MEDS: LOSARTAN 50 MG TAB PO SCH (12:29)
[2019-11-28] MEDS: POLYETHYLENE GLYCOL 3350 17 GM POWDER PO PRN (12:51)
--- NOTE | 2019-11-28 15:33 | Progress Note ---
Assessment and Plan Cultures: OR culture with MRSA Assessment: 59 years old male with history of with history of right total knee replacement on 08/26/2019 readmitted on due to surgical wound drainage associated with edema and tenderness: #Leukocytosis: Secondary to right total knee replacement infection. 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 X-ray shows prominent swelling of the anterior prepatellar soft tissue with gas in the joint space. Status post debridement and irrigation of the knee on 11/22/2019, OR findings no loosening of either femoral or tibial component, debrided with pulse lavage with gentamicin solution copiously with 4 L. #Thrombocytosis: Likely due to infection. Recommendations: -Continue vancomycin with PK consult, goal trough 10-20 -In light of debridement and retained prosthesis, patient will require 6 weeks of IV antibiotics followed by 6 months of oral antibiotics including rifampin -BCx negative, will start rifampin 300mg q12h. Need to monitor for drug in teractions. No absolute contraindications noted amongst current medications. -Ordered PICC line -Case management consulted for vancomycin 1.25g q8h until 01/03/2020 We will follow Ayla Taylor MD [facility] M: [phone] O: [phone] F: [phone] Subjective Date of service: 11/28/19 Principal diagnosis: Right knee cellulitis status post irrigation and debridement. Interval history: Afebrile, improving white count. No other change. Objective - Exam Narrative Exam: General appearance: Alert in NAD Eyes: anicteric sclerae, moist conjunctivae; no lid-lag; PERRLA HENT: Atraumatic; oropharynx clear with moist mucous membranes and no oral thrush; normal hard and soft palate. Lungs: CTA, with normal respiratory effort and no intercostal retractions CV: RRR no murmur Abdomen: Soft, non-tender; no masses or hepatosplenomegaly Extremities: Right knee covered with surgical dressing Skin: No rash. Psych: Appropriate affect, alert and oriented to person, place and time. Neuro: alert and oriented x 3. Moving all extremities - Constitutional Vitals: Vital Signs Temp Pulse Resp BP Pulse Ox 98.5 F 72 14 145/58 99 11/28/19 11:46 11/28/19 12:24 11/28/19 11:46 11/28/19 12:23 11/28/19 11:46 Temperature -Last 24 Hours Temperature 98.5 F Temperature 98 F Temperature 98.0 F Temperature 97.9 F Temperature 97.6 F - Labs CBC & Chem 7: 11/27/19 09:18 11/27/19 09:18
[2019-11-28] MEDS: LATANOPROST 0.005% OPHTH SOLN 2.5 ML OU SCH (21:15)
[2019-11-29] MEDS: VANCOMYCIN 1,250 MG in SODIUM CHLORIDE 0.9% 250ML 250 ML IV SCH ×3 (00:35→16:17)
[2019-11-29] MEDS: HYDROmorphone 1 MG/1 ML INJ IV PRN ×4 (05:52→20:00)
[2019-11-29] MEDS: IPRATROPIUM/ALBUTEROL SULFATE 3 ML AMPUL.NEB IH SCH ×4 (08:08→19:10)
--- NOTE | 2019-11-29 09:08 | Progress Note ---
Assessment and Plan Assessment and plan: Right knee prosthetic joint infection. Wound culture growing Staph aureus. Plain films reveal swelling of the prepatellar soft tissue with gas in the joint space. Patient is status post debridement and irrigation of the knee on 11/22/2019. Sepsis. Etiology secondary to above. Continue IV antibiotics. ID following. Patient will require 6 weeks of IV antibiotics per ID. Leukocytosis. Secondary to above. Thrombocytosis. Etiology secondary to infection. Hyponatremia. IV fluids of normal saline as needed. Disposition. Patient will need PICC line placement and long-term IV antibiotics. We will discuss with case management. 11/26/2019. Continue vancomycin per ID recommendations. Follow-up trough level and switch to daptomycin if leukocytosis persists. PICC line placement ordered. ID following. 11/27/2019. Continue antibiotics per ID recommendations. PICC line placement today. Patient will require 6 weeks of IV antibiotics followed by 6 months of oral antibiotics including rifampin. 11/28/19. PICC line placed. Await for wound vac and IV abx arrangements for discharge. D/W CM. Anticipate d/c next 1-2 days 11/29/2019. Continue vancomycin per ID recommendations. Blood cultures are negative. ID started rifampin 300 mg every 12 hours. Anticipate discharge 1 to 2 days. History Interval history: No new issues overnight. Hospitalist Physical - Constitutional Vitals: Temp Pulse Resp BP Pulse Ox 98.2 F 66 18 139/65 96 11/29/19 07:38 11/29/19 08:09 11/29/19 08:09 11/29/19 07:38 11/29/19 08:09 General appearance: Present: no acute distress - EENT Eyes: Present: PERRL, EOM intact ENT: hearing intact, clear oral mucosa, dentition normal - Neck Neck: Present: supple, normal ROM - Respiratory Respiratory effort: normal Respiratory: bilateral: CTA - Cardiovascular Rhythm: regular Heart Sounds: Present: S1 & S2. Absent: gallop, rub - Extremities Extremities: no ischemia, No edema, Full ROM - Abdominal General gastrointestinal: soft, non-tender, non-distended, normal bowel sounds - Integumentary Integumentary: Present: clear, warm, dry - Neurologic Neurologic: CNII-XII intact, moves all extremities Results - Labs CBC & Chem 7: 11/27/19 09:18 11/27/19 09:18 Labs: Laboratory Last Values WBC 13.5 K/mm3 (4.5-11.0) H 11/27/19 09:18 RBC 3.38 M/mm3 (3.65-5.03) L 11/27/19 09:18 Hgb 10.1 gm/dl (11.8-15.2) L 11/27/19 09:18 Hct 29.8 % (35.5-45.6) L 11/27/19 09:18 MCV 88 fl (84-94) 11/27/19 09:18 MCH 30 pg (28-32) 11/27/19 09:18 MCHC 34 % (32-34) 11/27/19 09:18 RDW 15.2 % (13.2-15.2) 11/27/19 09:18 Plt Count 1031 K/mm3 (140-440) H* 11/27/19 09:18 Lymph % (Auto) 16.3 % (13.4-35.0) 11/22/19 09:20 [place] % (Auto) 8.8 % (0.0-7.3) H 11/22/19 09:20 Eos % (Auto) 0.6 % (0.0-4.3) 11/22/19 09:20 Baso % (Auto) 1.0 % (0.0-1.8) 11/22/19 09:20 Lymph # (Auto) 2.6 K/mm3 (1.2-5.4) 11/22/19 09:20 [place] # (Auto) 1.4 K/mm3 (0.0-0.8) H 11/22/19 09:20 Eos # (Auto) 0.1 K/mm3 (0.0-0.4) 11/22/19 09:20 Baso # (Auto) 0.2 K/mm3 (0.0-0.1) H 11/22/19 09:20 Add Manual Diff Complete 11/27/19 09:18 Total Counted 100 11/27/19 09:18 Seg Neutrophils % 73.3 % (40.0-70.0) H 11/22/19 09:20 Seg Neuts % (Manual) 74.0 % (40.0-70.0) H 11/27/19 09:18 Band Neutrophils % 1.0 % 11/27/19 09:18 Lymphocytes % (Manual) 15.0 % (13.4-35.0) 11/27/19 09:18 Reactive Lymphs % (Man) 0 % 11/27/19 09:18 Monocytes % (Manual) 10.0 % (0.0-7.3) H 11/27/19 09:18 Eosinophils % (Manual) 0 % (0.0-4.3) 11/27/19 09:18 Basophils % (Manual) 0 % (0.0-1.8) 11/27/19 09:18 Metamyelocytes % 0 % 11/27/19 09:18 Myelocytes % 0 % 11/27/19 09:18 Promyelocytes % 0 % 11/27/19 09:18 Blast Cells % 0 % 11/27/19 09:18 Nucleated RBC % Not Reportable 11/27/19 09:18 Seg Neutrophils # 11.8 K/mm3 (1.8-7.7) H 11/22/19 09:20 Seg Neutrophils # Man 10.0 K/mm3 (1.8-7.7) H 11/27/19 09:18 Band Neutrophils # 0.1 K/mm3 11/27/19 09:18 Lymphocytes # (Manual) 2.0 K/mm3 (1.2-5.4) 11/27/19 09:18 Abs React Lymphs (Man) 0.0 K/mm3 11/27/19 09:18 Monocytes # (Manual) 1.4 K/mm3 (0.0-0.8) H 11/27/19 09:18 Eosinophils # (Manual) 0.0 K/mm3 (0.0-0.4) 11/27/19 09:18 Basophils # (Manual) 0.0 K/mm3 (0.0-0.1) 11/27/19 09:18 Metamyelocytes # 0.0 K/mm3 11/27/19 09:18 Myelocytes # 0.0 K/mm3 11/27/19 09:18 Promyelocytes # 0.0 K/mm3 11/27/19 09:18 Blast Cells # 0.0 K/mm3 11/27/19 09:18 WBC Morphology Not Reportable 11/27/19 09:18 Hypersegmented Neuts Not Reportable 11/27/19 09:18 Hyposegmented Neuts Not Reportable 11/27/19 09:18 Hypogranular Neuts Not Reportable 11/27/19 09:18 Smudge Cells Not Reportable 11/27/19 09:18 Toxic Granulation Not Reportable 11/27/19 09:18 Toxic Vacuolation Not Reportable 11/27/19 09:18 Dohle Bodies Not Reportable 11/27/19 09:18 Pelger-[place]uet Anomaly Not Reportable 11/27/19 09:18 Gregorio Rods Not Reportable 11/27/19 09:18 Platelet Estimate Appears increased 11/27/19 09:18 Clumped Platelets Not Reportable 11/27/19 09:18 Plt Clumps, EDTA Not Reportable 11/27/19 09:18 Large Platelets Not Reportable 11/27/19 09:18 Giant Platelets Not Reportable 11/27/19 09:18 Platelet Satelliting Not Reportable 11/27/19 09:18 Plt Morphology Comment Not Reportable 11/27/19 09:18 RBC Morphology Not Reportable 11/27/19 09:18 Dimorphic RBCs Not Reportable 11/27/19 09:18 Polychromasia Not Reportable 11/27/19 09:18 Hypochromasia Not Reportable 11/27/19 09:18 Poikilocytosis 1+ 11/27/19 09:18 Anisocytosis 1+ 11/27/19 09:18 Microcytosis Not Reportable 11/27/19 09:18 Macrocytosis Not Reportable 11/27/19 09:18 Spherocytes Not Reportable 11/27/19 09:18 Pappenheimer Bodies Not Reportable 11/27/19 09:18 Sickle Cells Not Reportable 11/27/19 09:18 Target Cells 1+ 11/27/19 09:18 Tear Drop Cells Not Reportable 11/27/19 09:18 Ovalocytes Not Reportable 11/27/19 09:18 Helmet Cells Not Reportable 11/27/19 09:18 [place] Bodies Not Reportable 11/27/19 09:18 [place] Rings Not Reportable 11/27/19 09:18 [place] Cells Not Reportable 11/27/19 09:18 Bite Cells Not Reportable 11/27/19 09:18 Crenated Cell Not Reportable 11/27/19 09:18 Elliptocytes Not Reportable 11/27/19 09:18 Acanthocytes (Spur) Not Reportable 11/27/19 09:18 Rouleaux Not Reportable 11/27/19 09:18 Hemoglobin C Crystals Not Reportable 11/27/19 09:18 Schistocytes Not Reportable 11/27/19 09:18 Malaria parasites Not Reportable 11/27/19 09:18 Yoel Bodies Not Reportable 11/27/19 09:18 Hem Pathologist Commnt No 11/27/19 09:18 Sodium 135 mmol/L (137-145) L 11/27/19 09:18 Potassium 4.0 mmol/L (3.6-5.0) 11/27/19 09:18 Chloride 96.5 mmol/L (98-107) L 11/27/19 09:18 Carbon Dioxide 28 mmol/L (22-30) 11/27/19 09:18 Anion Gap 15 mmol/L 11/27/19 09:18 BUN 10 mg/dL (9-20) 11/27/19 09:18 Creatinine 0.6 mg/dL (0.8-1.3) L 11/27/19 09:18 Estimated GFR > 60 ml/min 11/27/19 09:18 BUN/Creatinine Ratio 17 % 11/27/19 09:18 Glucose 165 mg/dL (75-100) H 11/27/19 09:18 Lactic Acid 0.80 mmol/L (0.7-2.0) 11/21/19 15:53 Calcium 9.8 mg/dL (8.4-10.2) 11/27/19 09:18 Phosphorus 3.50 mg/dL (2.5-4.5) 11/21/19 15:53 Magnesium 1.70 mg/dL (1.7-2.3) 11/21/19 15:53 Total Bilirubin 0.20 mg/dL (0.1-1.2) 11/21/19 15:53 AST 26 units/L (5-40) 11/21/19 15:53 ALT 39 units/L (7-56) 11/21/19 15:53 Alkaline Phosphatase 236 units/L (35-129) H 11/21/19 15:53 Lactate Dehydrogenase 207 units/L (91-180) H 11/21/19 15:53 C-Reactive Protein 8.30 mg/dL (0.00-1.30) H 11/23/19 15:11 Total Protein 8.1 g/dL (6.3-8.2) 11/21/19 15:53 Albumin 3.6 g/dL (3.9-5) L 11/21/19 15:53 Albumin/Globulin Ratio 0.8 % 11/21/19 15:53 Vancomycin Trough 14.8 ug/mL (5.0-20.0) 11/25/19 23:10 Microbiology: Microbiology 11/23/19 15:11 Peripheral/Venous Blood Culture - Final NO GROWTH AFTER 5 DAYS 11/23/19 15:11 Peripheral/Venous Blood Culture - Final NO GROWTH AFTER 5 DAYS 11/22/19 16:50 Knee - Right Surgical Biopsy Culture - Final Methicillin Resist S. Aureus Enterococcus Faecalis Turner/IV: Voiding Method Bedside Commode IV Catheter Type [Left Upper PICC Line arm] IV Catheter Type [Left Forearm INT / Saline Lock ] IV Catheter Type [Right INT / Saline Lock Forearm] IV Catheter Type [Left Peripheral IV Antecubital] Active Medications - Current Medications Current Medications: Generic Name Dose Route Start Last Admin Trade Name Freq PRN Reason Stop Dose Admin Acetaminophen 650 mg 11/21/19 22:33 11/28/19 17:48 Tylenol PO 650 mg Q12H PRN Administration Pain, Moderate (4-6) Albuterol/Ipratropium 1 ampul 11/23/19 08:00 11/29/19 08:09 Duoneb *Not For Prn Use* IH 1 ampul TIDRT CASIMIRO Administration Amlodipine Besylate 5 mg 11/22/19 10:00 11/28/19 12:23 Amlodipine PO 5 mg DAILY CASIMIRO Administration Atorvastatin Calcium 40 mg 11/22/19 22:00 11/28/19 21:15 Lipitor PO 40 mg QHS CASIMIRO Administration Calcium Carbonate/Glycine 1,000 mg 11/23/19 16:13 11/25/19 15:27 Tums PO 1,000 mg Q4H PRN Administration Indigestion Finasteride 5 mg 11/22/19 10:00 11/28/19 12:26 Proscar PO 5 mg QDAY CASIMIRO Administration Gabapentin 100 mg 11/21/19 23:00 11/28/19 21:15 Gabapentin PO 100 mg BID CASIMIRO Administration Hydromorphone HCl 2 mg 11/22/19 08:57 11/29/19 05:52 Dilaudid IV 2 mg Q3H PRN Administration Pain , Severe (7-10) Hydroxyzine Pamoate 50 mg 11/22/19 22:00 11/28/19 21:15 Vistaril PO 50 mg HS CASIMIRO Administration Vancomycin HCl 1,250 mg/ 275 mls @ 166.667 mls/hr 11/25/19 00:00 11/29/19 00:35 Sodium Chloride IV 01/03/20 17:38 166.667 mls/hr Q8H CASIMIRO Administration Isosorbide Mononitrate 60 mg 11/22/19 10:00 11/28/19 12:27 Imdur PO 60 mg QDAY CASIMIRO Administration Latanoprost 1 drops 11/22/19 22:00 11/28/19 21:15 Latanoprost 0.005% OU 1 drops QHS CASIMIRO Administration Losartan Potassium 50 mg 11/22/19 10:00 11/28/19 12:29 Cozaar PO 50 mg QDAY CASIMIRO Administration Metoprolol Tartrate 12.5 mg 11/21/19 23:00 11/28/19 21:15 Metoprolol PO 12.5 mg BID CASIMIRO Administration Polyethylene Glycol 17 gm 11/28/19 11:30 11/28/19 12:51 Miralax 3350 PO 17 gm QDAY PRN Administration Constipation Rifampin 300 mg 11/27/19 22:00 11/28/19 21:15 Rifadin PO 300 mg BID CASIMIRO Administration Sertraline HCl 50 mg 11/22/19 10:00 11/28/19 12:27 Zoloft PO 50 mg QDAY CASIMIRO Administration Tamsulosin HCl 0.4 mg 11/22/19 10:00 11/28/19 12:26 Flomax PO 0.4 mg QDAY CASIMIRO Administration Nutrition/Malnutrition Assess - Dietary Evaluation Nutrition/Malnutrition Findings: Nutrition Notes Start: 11/28/19 13:46 Freq: Status: Active Protocol: Document 11/28/19 13:46 LP (Rec: 11/28/19 13:46 LP [id number]) Nutrition Notes Need for Assessment generated from: LOS Initial or Follow up Brief Note Subjective/Other Information Screen for LOS. Pt consuming 100% of meals. Nutrition Intervention Revisit per MD consult or patient Sign Off request:
[2019-11-29] MEDS: LOSARTAN 50 MG TAB PO SCH (09:20)
[2019-11-29] MEDS: rifAMPin 300 MG CAP PO SCH ×2 (09:21→22:48)
[2019-11-29] MEDS: GABAPENTIN 100 MG CAP PO SCH ×2 (09:21→22:48)
[2019-11-29] MEDS: METOPROLOL TARTRATE 25 MG TAB PO SCH ×2 (09:21→22:48)
[2019-11-29] MEDS: TAMSULOSIN 0.4 MG CAP PO SCH (09:21)
[2019-11-29] MEDS: SERTRALINE 50 MG TAB PO SCH (09:21)
[2019-11-29] MEDS: amLODIPine 5 MG TAB PO SCH (09:23)
[2019-11-29] MEDS: FINASTERIDE 5 MG TAB PO SCH (09:24)
[2019-11-29] MEDS: POLYETHYLENE GLYCOL 3350 17 GM POWDER PO PRN (09:50)
[2019-11-29] MEDS: CALCIUM CARBONATE 500 MG TAB CHEW PO PRN (14:34)
[2019-11-29 15:36] LABS: BUN/Creatinine Ratio 20; Blood Urea Nitrogen 16 mg/dL (9-20); Calcium 9.3 mg/dL (8.4-10.2); Hemolysis Index 0
[2019-11-29] MEDS: LATANOPROST 0.005% OPHTH SOLN 2.5 ML OU SCH (22:00)
[2019-11-30] MEDS: VANCOMYCIN 1,250 MG in SODIUM CHLORIDE 0.9% 250ML 250 ML IV SCH ×3 (00:31→16:00)
[2019-11-30] MEDS: HYDROmorphone 1 MG/1 ML INJ IV PRN ×5 (00:31→20:22)
[2019-11-30] MEDS: IPRATROPIUM/ALBUTEROL SULFATE 3 ML AMPUL.NEB IH SCH ×3 (08:36→19:43)
[2019-11-30] MEDS: GABAPENTIN 100 MG CAP PO SCH ×3 (08:54→21:57)
--- NOTE | 2019-11-30 09:21 | Progress Note ---
Assessment and Plan Assessment and plan: Right knee prosthetic joint infection. Wound culture growing Staph aureus. Plain films reveal swelling of the prepatellar soft tissue with gas in the joint space. Patient is status post debridement and irrigation of the knee on 11/22/2019. Sepsis. Etiology secondary to above. Continue IV antibiotics. ID following. Patient will require 6 weeks of IV antibiotics per ID. Leukocytosis. Secondary to above. Thrombocytosis. Etiology secondary to infection. Hyponatremia. IV fluids of normal saline as needed. Disposition. Patient will need PICC line placement and long-term IV antibiotics. We will discuss with case management. 11/26/2019. Continue vancomycin per ID recommendations. Follow-up trough level and switch to daptomycin if leukocytosis persists. PICC line placement ordered. ID following. 11/27/2019. Continue antibiotics per ID recommendations. PICC line placement today. Patient will require 6 weeks of IV antibiotics followed by 6 months of oral antibiotics including rifampin. 11/28/19. PICC line placed. Await for wound vac and IV abx arrangements for discharge. D/W CM. Anticipate d/c next 1-2 days 11/29/2019. Continue vancomycin per ID recommendations. Blood cultures are negative. ID started rifampin 300 mg every 12 hours. Anticipate discharge 1 to 2 days. 11/30/2019. Continue antibiotics per ID recommendations. Blood cultures remain negative. Await arrangements for wound VAC IV antibiotics per case management. Anticipate discharge in a.m. History Interval history: No new issues overnight. Hospitalist Physical - Constitutional Vitals: Temp Pulse Resp BP Pulse Ox 98.9 F 75 18 143/76 99 11/30/19 07:52 11/30/19 08:36 11/30/19 08:36 11/30/19 07:52 11/30/19 08:36 General appearance: Present: no acute distress - EENT Eyes: Present: PERRL, EOM intact ENT: hearing intact, clear oral mucosa, dentition normal - Neck Neck: Present: supple, normal ROM - Respiratory Respiratory effort: normal Respiratory: bilateral: CTA - Cardiovascular Rhythm: regular Heart Sounds: Present: S1 & S2. Absent: gallop, rub - Extremities Extremities: no ischemia, No edema, Full ROM - Abdominal General gastrointestinal: soft, non-tender, non-distended, normal bowel sounds - Integumentary Integumentary: Present: clear, warm, dry - Neurologic Neurologic: CNII-XII intact, moves all extremities Results - Labs CBC & Chem 7: 11/27/19 09:18 11/29/19 14:53 Labs: Laboratory Last Values WBC 13.5 K/mm3 (4.5-11.0) H 11/27/19 09:18 RBC 3.38 M/mm3 (3.65-5.03) L 11/27/19 09:18 Hgb 10.1 gm/dl (11.8-15.2) L 11/27/19 09:18 Hct 29.8 % (35.5-45.6) L 11/27/19 09:18 MCV 88 fl (84-94) 11/27/19 09:18 MCH 30 pg (28-32) 11/27/19 09:18 MCHC 34 % (32-34) 11/27/19 09:18 RDW 15.2 % (13.2-15.2) 11/27/19 09:18 Plt Count 1031 K/mm3 (140-440) H* 11/27/19 09:18 Lymph % (Auto) 16.3 % (13.4-35.0) 11/22/19 09:20 [place] % (Auto) 8.8 % (0.0-7.3) H 11/22/19 09:20 Eos % (Auto) 0.6 % (0.0-4.3) 11/22/19 09:20 Baso % (Auto) 1.0 % (0.0-1.8) 11/22/19 09:20 Lymph # (Auto) 2.6 K/mm3 (1.2-5.4) 11/22/19 09:20 [place] # (Auto) 1.4 K/mm3 (0.0-0.8) H 11/22/19 09:20 Eos # (Auto) 0.1 K/mm3 (0.0-0.4) 11/22/19 09:20 Baso # (Auto) 0.2 K/mm3 (0.0-0.1) H 11/22/19 09:20 Add Manual Diff Complete 11/27/19 09:18 Total Counted 100 11/27/19 09:18 Seg Neutrophils % 73.3 % (40.0-70.0) H 11/22/19 09:20 Seg Neuts % (Manual) 74.0 % (40.0-70.0) H 11/27/19 09:18 Band Neutrophils % 1.0 % 11/27/19 09:18 Lymphocytes % (Manual) 15.0 % (13.4-35.0) 11/27/19 09:18 Reactive Lymphs % (Man) 0 % 11/27/19 09:18 Monocytes % (Manual) 10.0 % (0.0-7.3) H 11/27/19 09:18 Eosinophils % (Manual) 0 % (0.0-4.3) 11/27/19 09:18 Basophils % (Manual) 0 % (0.0-1.8) 11/27/19 09:18 Metamyelocytes % 0 % 11/27/19 09:18 Myelocytes % 0 % 11/27/19 09:18 Promyelocytes % 0 % 11/27/19 09:18 Blast Cells % 0 % 11/27/19 09:18 Nucleated RBC % Not Reportable 11/27/19 09:18 Seg Neutrophils # 11.8 K/mm3 (1.8-7.7) H 11/22/19 09:20 Seg Neutrophils # Man 10.0 K/mm3 (1.8-7.7) H 11/27/19 09:18 Band Neutrophils # 0.1 K/mm3 11/27/19 09:18 Lymphocytes # (Manual) 2.0 K/mm3 (1.2-5.4) 11/27/19 09:18 Abs React Lymphs (Man) 0.0 K/mm3 11/27/19 09:18 Monocytes # (Manual) 1.4 K/mm3 (0.0-0.8) H 11/27/19 09:18 Eosinophils # (Manual) 0.0 K/mm3 (0.0-0.4) 11/27/19 09:18 Basophils # (Manual) 0.0 K/mm3 (0.0-0.1) 11/27/19 09:18 Metamyelocytes # 0.0 K/mm3 11/27/19 09:18 Myelocytes # 0.0 K/mm3 11/27/19 09:18 Promyelocytes # 0.0 K/mm3 11/27/19 09:18 Blast Cells # 0.0 K/mm3 11/27/19 09:18 WBC Morphology Not Reportable 11/27/19 09:18 Hypersegmented Neuts Not Reportable 11/27/19 09:18 Hyposegmented Neuts Not Reportable 11/27/19 09:18 Hypogranular Neuts Not Reportable 11/27/19 09:18 Smudge Cells Not Reportable 11/27/19 09:18 Toxic Granulation Not Reportable 11/27/19 09:18 Toxic Vacuolation Not Reportable 11/27/19 09:18 Dohle Bodies Not Reportable 11/27/19 09:18 Pelger-Huet Anomaly Not Reportable 11/27/19 09:18 Gregorio Rods Not Reportable 11/27/19 09:18 Platelet Estimate Appears increased 11/27/19 09:18 Clumped Platelets Not Reportable 11/27/19 09:18 Plt Clumps, EDTA Not Reportable 11/27/19 09:18 Large Platelets Not Reportable 11/27/19 09:18 Giant Platelets Not Reportable 11/27/19 09:18 Platelet Satelliting Not Reportable 11/27/19 09:18 Plt Morphology Comment Not Reportable 11/27/19 09:18 RBC Morphology Not Reportable 11/27/19 09:18 Dimorphic RBCs Not Reportable 11/27/19 09:18 Polychromasia Not Reportable 11/27/19 09:18 Hypochromasia Not Reportable 11/27/19 09:18 Poikilocytosis 1+ 11/27/19 09:18 Anisocytosis 1+ 11/27/19 09:18 Microcytosis Not Reportable 11/27/19 09:18 Macrocytosis Not Reportable 11/27/19 09:18 Spherocytes Not Reportable 11/27/19 09:18 Pappenheimer Bodies Not Reportable 11/27/19 09:18 Sickle Cells Not Reportable 11/27/19 09:18 Target Cells 1+ 11/27/19 09:18 Tear Drop Cells Not Reportable 11/27/19 09:18 Ovalocytes Not Reportable 11/27/19 09:18 Helmet Cells Not Reportable 11/27/19 09:18 [place] Bodies Not Reportable 11/27/19 09:18 [place] Rings Not Reportable 11/27/19 09:18 [place] Cells Not Reportable 11/27/19 09:18 Bite Cells Not Reportable 11/27/19 09:18 Crenated Cell Not Reportable 11/27/19 09:18 Elliptocytes Not Reportable 11/27/19 09:18 Acanthocytes (Spur) Not Reportable 11/27/19 09:18 Rouleaux Not Reportable 11/27/19 09:18 Hemoglobin C Crystals Not Reportable 11/27/19 09:18 Schistocytes Not Reportable 11/27/19 09:18 Malaria parasites Not Reportable 11/27/19 09:18 Yoel Bodies Not Reportable 11/27/19 09:18 Hem Pathologist Commnt No 11/27/19 09:18 Sodium 136 mmol/L (137-145) L 11/29/19 14:53 Potassium 4.0 mmol/L (3.6-5.0) 11/29/19 14:53 Chloride 97.7 mmol/L (98-107) L 11/29/19 14:53 Carbon Dioxide 27 mmol/L (22-30) 11/29/19 14:53 Anion Gap 15 mmol/L 11/29/19 14:53 BUN 16 mg/dL (9-20) 11/29/19 14:53 Creatinine 0.8 mg/dL (0.8-1.3) 11/29/19 14:53 Estimated GFR > 60 ml/min 11/29/19 14:53 BUN/Creatinine Ratio 20 % 11/29/19 14:53 Glucose 104 mg/dL (75-100) H 11/29/19 14:53 Lactic Acid 0.80 mmol/L (0.7-2.0) 11/21/19 15:53 Calcium 9.3 mg/dL (8.4-10.2) 11/29/19 14:53 Phosphorus 3.50 mg/dL (2.5-4.5) 11/21/19 15:53 Magnesium 1.70 mg/dL (1.7-2.3) 11/21/19 15:53 Total Bilirubin 0.20 mg/dL (0.1-1.2) 11/21/19 15:53 AST 26 units/L (5-40) 11/21/19 15:53 ALT 39 units/L (7-56) 11/21/19 15:53 Alkaline Phosphatase 236 units/L (35-129) H 11/21/19 15:53 Lactate Dehydrogenase 207 units/L (91-180) H 11/21/19 15:53 C-Reactive Protein 8.30 mg/dL (0.00-1.30) H 11/23/19 15:11 Total Protein 8.1 g/dL (6.3-8.2) 11/21/19 15:53 Albumin 3.6 g/dL (3.9-5) L 11/21/19 15:53 Albumin/Globulin Ratio 0.8 % 11/21/19 15:53 Vancomycin Trough 14.8 ug/mL (5.0-20.0) 11/25/19 23:10 Turner/IV: Voiding Method Urinal IV Catheter Type [Left Upper PICC Line arm] IV Catheter Type [Left Forearm INT / Saline Lock ] IV Catheter Type [Right INT / Saline Lock Forearm] IV Catheter Type [Left Peripheral IV Antecubital] Active Medications - Current Medications Current Medications: Generic Name Dose Route Start Last Admin Trade Name Freq PRN Reason Stop Dose Admin Acetaminophen 650 mg 11/21/19 22:33 11/28/19 17:48 Tylenol PO 650 mg Q12H PRN Administration Pain, Moderate (4-6) Albuterol/Ipratropium 1 ampul 11/23/19 08:00 11/30/19 08:36 Duoneb *Not For Prn Use* IH 1 ampul TIDRT CASIMIRO Administration Amlodipine Besylate 5 mg 11/22/19 10:00 11/29/19 09:23 Amlodipine PO 5 mg DAILY CASIMIRO Administration Atorvastatin Calcium 40 mg 11/22/19 22:00 11/29/19 22:48 Lipitor PO 40 mg QHS CASIMIRO Administration Calcium Carbonate/Glycine 1,000 mg 11/23/19 16:13 11/29/19 14:34 Tums PO 1,000 mg Q4H PRN Administration Indigestion Finasteride 5 mg 11/22/19 10:00 11/29/19 09:24 Proscar PO 5 mg QDAY CASIMIRO Administration Gabapentin 100 mg 11/21/19 23:00 11/30/19 08:54 Gabapentin PO 100 mg BID CASIMIRO Administration Hydromorphone HCl 2 mg 11/22/19 08:57 11/30/19 06:46 Dilaudid IV 2 mg Q3H PRN Administration Pain , Severe (7-10) Hydroxyzine Pamoate 50 mg 11/22/19 22:00 11/29/19 22:48 Vistaril PO 50 mg HS CASIMIRO Administration Vancomycin HCl 1,250 mg/ 275 mls @ 166.667 mls/hr 11/25/19 00:00 11/30/19 08:54 Sodium Chloride IV 01/03/20 17:38 166.667 mls/hr Q8H CASIMIRO Administration Isosorbide Mononitrate 60 mg 11/22/19 10:00 11/29/19 09:20 Imdur PO 60 mg QDAY CASIMIRO Administration Latanoprost 1 drops 11/22/19 22:00 11/29/19 22:00 Latanoprost 0.005% OU 1 drops QHS CASIMIRO Administration Losartan Potassium 50 mg 11/22/19 10:00 11/29/19 09:20 Cozaar PO 50 mg QDAY CASIMIRO Administration Metoprolol Tartrate 12.5 mg 11/21/19 23:00 11/29/19 22:48 Metoprolol PO 12.5 mg BID CASIMIRO Administration Polyethylene Glycol 17 gm 11/28/19 11:30 11/29/19 09:50 Miralax 3350 PO 17 gm QDAY PRN Administration Constipation Rifampin 300 mg 11/27/19 22:00 11/29/19 22:48 Rifadin PO 300 mg BID CASIMIRO Administration Sertraline HCl 50 mg 11/22/19 10:00 11/29/19 09:21 Zoloft PO 50 mg QDAY CASIMIRO Administration Tamsulosin HCl 0.4 mg 11/22/19 10:00 11/29/19 09:21 Flomax PO 0.4 mg QDAY CASIMIRO Administration Nutrition/Malnutrition Assess - Dietary Evaluation Nutrition/Malnutrition Findings: Nutrition Notes Start: 11/28/19 13:46 Freq: Status: Active Protocol: Document 11/28/19 13:46 LP (Rec: 11/28/19 13:46 LP [id number]) Nutrition Notes Need for Assessment generated from: LOS Initial or Follow up Brief Note Subjective/Other Information Screen for LOS. Pt consuming 100% of meals. Nutrition Intervention Revisit per MD consult or patient Sign Off request:
[2019-11-30] MEDS: METOPROLOL TARTRATE 25 MG TAB PO SCH ×2 (10:36→21:57)
[2019-11-30] MEDS: rifAMPin 300 MG CAP PO SCH ×2 (10:37→21:56)
[2019-11-30] MEDS: FINASTERIDE 5 MG TAB PO SCH (10:37)
[2019-11-30] MEDS: amLODIPine 5 MG TAB PO SCH (10:37)
[2019-11-30] MEDS: TAMSULOSIN 0.4 MG CAP PO SCH (10:37)
[2019-11-30] MEDS: SERTRALINE 50 MG TAB PO SCH (10:37)
[2019-11-30] MEDS: LOSARTAN 50 MG TAB PO SCH (10:56)
[2019-11-30] MEDS: LATANOPROST 0.005% OPHTH SOLN 2.5 ML OU SCH (21:58)
[2019-12-01] MEDS: VANCOMYCIN 1,250 MG in SODIUM CHLORIDE 0.9% 250ML 250 ML IV SCH ×2 (00:04→09:37)
[2019-12-01] MEDS: HYDROmorphone 1 MG/1 ML INJ IV PRN ×3 (01:38→09:38)
[2019-12-01] MEDS: SERTRALINE 50 MG TAB PO SCH (09:37)
[2019-12-01] MEDS: amLODIPine 5 MG TAB PO SCH (09:37)
[2019-12-01] MEDS: METOPROLOL TARTRATE 25 MG TAB PO SCH (09:37)
[2019-12-01] MEDS: TAMSULOSIN 0.4 MG CAP PO SCH (09:37)
[2019-12-01] MEDS: LOSARTAN 50 MG TAB PO SCH (09:37)
[2019-12-01] MEDS: FINASTERIDE 5 MG TAB PO SCH (09:38)
[2019-12-01] MEDS: GABAPENTIN 100 MG CAP PO SCH (09:38)
[2019-12-01] MEDS: rifAMPin 300 MG CAP PO SCH (09:38)
[2019-12-01] MEDS: POLYETHYLENE GLYCOL 3350 17 GM POWDER PO PRN (11:10)
[2019-12-01 12:17] VITALS: BP 122/70
[2019-12-01] MEDS ORDERED: oxyCODONE /ACETAMINOPHEN 5-325MG TAB PO PRN (12:58)
--- NOTE | 2019-12-01 13:14 | Discharge Summary ---
Providers - Providers Date of Admission: 11/21/19 19:52 Date of discharge: 12/01/19 Attending physician: LINDA ORTIZ 11/21/19 19:21 Consult to Physician [CONS] Urgent Comment: Consulting Provider: ERASTO SMITH Physician Instructions: Reason For Exam: Septic joint 11/24/19 01:13 Consult to Wound/ET Nurse [CONS] Routine Reason For Exam: wound eval, R knee 11/25/19 11:39 PICC Line Placement [Consult to PICC Line RN] [CONS] Routine Reason For Exam: IV abx Type Line:: PICC 11/25/19 12:31 Physical Therapy Evaluation and Treat [CONS] Routine Comment: Reason For Exam: Eval and treatment 11/26/19 10:44 Occupational Therapy Evaluate and Treat [CONS] Routine Comment: Reason For Exam: ADL's 11/27/19 15:09 Consult to Case Management [CONS] Routine Services Needed at Discharge: Home Health Services Notified:: cm notified Additional Physician Instructions: Ayla Taylor MD [facility] ([facility]) M: [phone] O: [phone] F: [phone] Outpatient parenteral antibiotic therapy orders Diagnosis: MRSA knee PJI Antibiotic administration: Vancomycin 1.25 g every 8 hours until 01/03/2020 Line: PICC Lab monitoring: CBC with differential, BUN, creatinine, LFTs, vancomycin trough, CRP once per week preferably on Sunday or Sunday Vancomycin: Check creatinine and vancomycin trough every Sunday and , fax results to [phone] For critical labs, call office: [phone] Ayla Taylor Primary care physician: [employer] [facility] Hospitalization Condition: Stable Hospital course: Very pleasant 59-year-old male patient with significant history of right total knee replacement done in August 26, 2019 with surgical wound drainage and edema was readmitted, being managed symptomatically and with IV antibiotics, surgical wound cultures grew MRSA, evaluated by ID, started on appropriate antibiotics Patient had debridement and irrigation of the knee joint 11/22/2019. Surgical cultures are positive for MRSA ID recommend long-term antibiotics for total 6 weeks IV and 6 months oral. Case management has set up long-term IV antibiotics, client was placed case management set up outpatient antibiotics And today patient is comfortable no new complaints vital signs stable Physical examination is unremarkable, patient is hemodynamically stable at the time of discharge with very guarded prognosis. Disposition: [id number] HOME UNDER HOME [facility] Time spent for discharge: 35 min Core Measure Documentation - Palliative Care Palliative Care/ Comfort Measures: Not Applicable - Core Measures Any of the following diagnoses?: none Exam - Constitutional Vitals: Temp Pulse Resp BP Pulse Ox 98.8 F 82 16 122/70 98 12/01/19 11:18 12/01/19 11:18 12/01/19 11:18 12/01/19 11:18 12/01/19 11:18 Plan Activity: advance as tolerated Diet: other (Cardiac diet) Additional Instructions: Long-term antibiotics per ID/case management. Outpatient parenteral antibiotic therapy orders. Diagnosis: MRSA knee PJI. Antibiotic administration: Vancomycin 1.25 g every 8 hours until 01/03/2020. Line: PICC. Lab monitoring: CBC with differential, BUN, creatinine, LFTs, vancomycin. trough, CRP once per week preferably on Sunday or Sunday. Vancomycin: Check creatinine and vancomycin trough every Sunday and. , fax results to [phone]. For critical labs, call office: [phone]. Ayla Taylor Follow up with: PRIMARY CARE, [Primary Care Provider] - 7 Days Prescriptions: Losartan [Cozaar] 50 mg PO QDAY #30 tablet oxyCODONE /ACETAMINOPHEN [Percocet 5/325 mg] 1 tab PO Q8H PRN #30 tablet PRN Reason: Pain, Moderate (4-6)
--- NOTE | 2019-12-01 15:42 | Progress Note ---
Assessment and Plan Cultures: OR culture with MRSA Assessment: 59 years old male with history of with history of right total knee replacement on 08/26/2019 readmitted on due to surgical wound drainage associated with edema and tenderness: #Leukocytosis: Secondary to right total knee replacement infection. 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 X-ray shows prominent swelling of the anterior prepatellar soft tissue with gas in the joint space. Status post debridement and irrigation of the knee on 11/22/2019, OR findings no loosening of either femoral or tibial component, debrided with pulse lavage with gentamicin solution copiously with 4 L. #Thrombocytosis: Likely due to infection. Recommendations: -Continue vancomycin with PK consult, goal trough 10-20 -In light of debridement and retained prosthesis, patient will require 6 weeks of IV antibiotics followed by 6 months of oral antibiotics including rifampin -BCx negative, will start rifampin 300mg q12h. Need to monitor for drug in teractions. No absolute contraindications noted amongst current medications. -Case management consulted for vancomycin 1.25g q8h until 01/03/2020. Continue oral rifampin on discharge. -Follow-up with me in the clinic in 3 to 4 weeks. We will follow Ayla Taylor MD [facility] ([facility]) M: [phone] O: [phone] F: [phone] Subjective Date of service: 12/01/19 Principal diagnosis: Right knee cellulitis status post irrigation and debridement. Interval history: Afebrile, no acute changes. For discharge today. Objective - Exam Narrative Exam: General appearance: Alert in NAD Eyes: anicteric sclerae, moist conjunctivae; no lid-lag; PERRLA HENT: Atraumatic; oropharynx clear with moist mucous membranes and no oral thrush; normal hard and soft palate. Lungs: CTA, with normal respiratory effort and no intercostal retractions CV: RRR no murmur Abdomen: Soft, non-tender; no masses or hepatosplenomegaly Extremities: Right knee covered with surgical dressing Skin: No rash. Psych: Appropriate affect, alert and oriented to person, place and time. Neuro: alert and oriented x 3. Moving all extremities - Constitutional Vitals: Vital Signs Temp Pulse Resp BP Pulse Ox 98.8 F 82 16 122/70 98 10/19/20 11:18 12/01/19 11:18 12/01/19 11:18 12/01/19 11:18 12/01/19 11:18 Temperature -Last 24 Hours Temperature 98.8 F Temperature 98.8 F Temperature 97.9 F Temperature 99.0 F Temperature 98.4 F Temperature 98.1 F - Labs CBC & Chem 7: 11/27/19 09:18 11/29/19 14:53 Labs: Abnormal lab results 11/30/19 Range/Units 23:14 Vancomycin Trough 24.4 H (5.0-20.0) ug/mL
[2019-12-01] MEDS: IPRATROPIUM/ALBUTEROL SULFATE 3 ML AMPUL.NEB IH SCH (17:33)
[2019-12-02] MEDS ORDERED: VANCOMYCIN 1,250 MG in SODIUM CHLORIDE 0.9% 250ML 250 ML IV SCH (06:00)
== END 2019-12-01 17:20 | disposition home health service (06) | DRG 500 ==
LOC: ED 11:04 → 3B-SURG 19:52
PROVIDERS: ADMIT Internal Medicine; ATTEND Internal Medicine
PROC: 0QDD0ZZ Extraction of Right Patella, Open Approach (ICD-10-PCS; principal; 2019-11-22)
PROC: 02HV33Z Insertion of Infusion Device into Superior Vena Cava, Percutaneous Approach (ICD-10-PCS; 2019-11-27)
DX: T84.53XA Infection and inflammatory reaction due to internal right knee prosthesis, initial encounter (principal); A41.9 Sepsis, unspecified organism; M00.9 Pyogenic arthritis, unspecified; L03.115 Cellulitis of right lower limb; E87.1 Hypo-osmolality and hyponatremia; Z96.651 Presence of right artificial knee joint; D47.3 Essential (hemorrhagic) thrombocythemia; I11.0 Hypertensive heart disease with heart failure; I50.9 Heart failure, unspecified; J44.9 Chronic obstructive pulmonary disease, unspecified; F17.200 Nicotine dependence, unspecified, uncomplicated; H40.9 Unspecified glaucoma; N40.0 Benign prostatic hyperplasia without lower urinary tract symptoms; Y83.8 Other surgical procedures as the cause of abnormal reaction of the patient, or of later complication, without mention of misadventure at the time of the procedure; E78.5 Hyperlipidemia, unspecified; Z79.899 Other long term (current) drug therapy; Z79.82 Long term (current) use of aspirin; I25.2 Old myocardial infarction; Z95.5 Presence of coronary angioplasty implant and graft; Y92.89 Other specified places as the place of occurrence of the external cause
CPT/HCPCS: 36415; 80048; 80053; 80202; 82140; 83615; 83735; 84100; 85007; 85025; 86140; 87040; 87075; 87076; 87116; 87186; 94640; 94760; 96361; 96365; 96375; 96376; 99214; G0378; A4217; A9270-GY; G0463; J0690; J1100; J1170; J1580; J1885; J2270; J2405; J2543; J2704; J3370; J7040; J7050; J7120; Q0177; Q9967

== ENCOUNTER 2019-12-03 08:15 | Outpatient (CLI) | payer MEDICAID ==
[2019-12-03] MEDS ORDERED: LIDOCAINE (4%) 40 MG/ML TOPICAL SOLN 50 ML BOTTLE TP ONE (08:26)
== END 2019-12-03 08:16 | disposition home or self-care (01) ==
LOC: WOUND 08:15
PROVIDERS: ATTEND Surgery
DX: T81.31XD Disruption of external operation (surgical) wound, not elsewhere classified, subsequent encounter (principal); L97.215 Non-pressure chronic ulcer of right calf with muscle involvement without evidence of necrosis; I10 Essential (primary) hypertension; I25.2 Old myocardial infarction; H54.7 Unspecified visual loss; F17.210 Nicotine dependence, cigarettes, uncomplicated; F41.9 Anxiety disorder, unspecified; Z96.651 Presence of right artificial knee joint; Z95.5 Presence of coronary angioplasty implant and graft; Y83.8 Other surgical procedures as the cause of abnormal reaction of the patient, or of later complication, without mention of misadventure at the time of the procedure

== ENCOUNTER 2019-12-11 08:29 | Outpatient (CLI) | payer MEDICAID ==
[2019-12-11] MEDS ORDERED: LIDOCAINE (4%) 40 MG/ML TOPICAL SOLN 50 ML BOTTLE TP ONE (09:00)
== END 2019-12-11 08:30 | disposition home or self-care (01) ==
LOC: WOUND 08:29
PROVIDERS: ATTEND Surgery
DX: T81.31XD Disruption of external operation (surgical) wound, not elsewhere classified, subsequent encounter (principal); L97.215 Non-pressure chronic ulcer of right calf with muscle involvement without evidence of necrosis; I10 Essential (primary) hypertension; I25.2 Old myocardial infarction; H54.7 Unspecified visual loss; F17.210 Nicotine dependence, cigarettes, uncomplicated; F41.9 Anxiety disorder, unspecified; Z96.651 Presence of right artificial knee joint; Z95.5 Presence of coronary angioplasty implant and graft; Y83.8 Other surgical procedures as the cause of abnormal reaction of the patient, or of later complication, without mention of misadventure at the time of the procedure
CPT/HCPCS: 97605

== ENCOUNTER 2019-12-11 10:13 | Emergency (ER) | payer MEDICAID ==
[2019-12-11] MEDS ORDERED: oxyCODONE /ACETAMINOPHEN 5-325MG TAB PO ONE ×2 (11:41→16:42)
[2019-12-11] MEDS ORDERED: oxyCODONE /ACETAMINOPHEN 5-325MG TAB ONE (12:19)
--- NOTE | 2019-12-11 14:58 | Emergency Department Report ---
ED General Adult HPI - General Chief complaint: Medical Clearance Stated complaint: PICK LINE CLOGGED Time Seen by Provider: 12/11/19 14:08 Source: patient Mode of arrival: Ambulatory Limitations: No Limitations - History of Present Illness Initial comments: This chart was created during downtime procedures when [employer] was not available and previous medical record was not initially available for review 59-year-old male presents to the hospital complaining of malfunctioning PICC line. Patient was discharged from the hospital approximately 10 days ago with PICC line in place for right knee infection. Patient presents to the hospital with right knee wound VAC. He states that he has been prescribed IV antibiotics 3 times a day. He missed all 3 doses today and his dose this morning due to not being able to flush PICC line. Patient denies fever. He complains of moderate persistent right knee pain and needs to fill his recently prescribed pain medication. PMD: Dr. Shaver Chart created in [employer] once it was online - Related Data Home Medications Medication Instructions Recorded Confirmed Last Taken Acetaminophen [Acetaminophen ER 650 mg PO Q12H PRN 09/18/17 11/23/19 08/12/19 TAB] Bimatoprost [Lumigan 0.01%] 1 drop OP HS 09/18/17 11/23/19 09/10/19 Previous Rx's Medication Instructions Recorded Last Taken Type Aspirin EC [Ecotrin] 325 mg PO QDAY #30 11/30/18 08/12/19 09:00 Rx AtorvaSTATin [Lipitor] 40 mg PO QHS #30 tablet 11/30/18 09/10/19 Rx Finasteride [Proscar] 5 mg PO QDAY #30 11/30/18 09/11/19 08:30 Rx Gabapentin 100 mg PO BID #60 capsule 11/30/18 09/11/19 08:30 Rx ISOSORBIDE MONOnitrate [Imdur ER] 60 mg PO QDAY #60 tablet 11/30/18 09/11/19 08:30 Rx Ipratropium/Albuterol Sulfate 1 puff IH QID 30 Days 11/30/18 08/31/19 Rx [Combivent Respimat] Latanoprost 0.005% 1 drops OU QHS 30 Days bottle 11/30/18 09/10/19 Rx Metoprolol [Lopressor TAB] 12.5 mg PO BID #60 tablet 11/30/18 09/11/19 08:30 Rx Sertraline [Zoloft] 50 mg PO QDAY tablet 11/30/18 09/11/19 08:30 Rx Tamsulosin [Flomax] 0.4 mg PO QDAY #30 cap 11/30/18 09/11/19 08:30 Rx amLODIPine 5 mg PO DAILY #30 tab 11/30/18 09/11/19 08:30 Rx hydrOXYzine PAMOATE [Vistaril] 50 mg PO HS #30 cap 11/30/18 09/10/19 Rx Apixaban [Eliquis] 5 mg PO DAILY #30 tablet 09/12/19 Unknown Rx Losartan [Cozaar] 50 mg PO QDAY #30 tablet 12/01/19 Unknown Rx oxyCODONE /ACETAMINOPHEN [Percocet 1 tab PO Q8H PRN #30 tablet 12/01/19 Unknown Rx 5/325 mg] Allergies Allergy/AdvReac Type Severity Reaction Status Date / Time ibuprofen [From Motrin] Allergy Unknown Anaphylaxis Verified 12/11/19 10:32 tramadol Allergy Hives Verified 12/11/19 10:32 ED Review of Systems ROS: Stated complaint: PICK LINE CLOGGED Other details as noted in HPI Comment: All other systems reviewed and negative ED Past Medical Hx - Past Medical History Hx Hypertension: Yes Hx Heart Attack/AMI: Yes (2015; neg stress test and normal EF 11/2018) Hx Congestive Heart Failure: Yes Hx Diabetes: No Hx Deep Vein Thrombosis: No Hx Pulmonary Embolism: No Hx Liver Disease: No Hx Renal Disease: No Hx Sickle Cell Disease: No Hx Arthritis: No Hx Seizures: No Hx Kidney Stones: No Hx Psychiatric Treatment: Yes (bipolar) Hx Asthma: No Hx COPD: Yes Hx Tuberculosis: No Hx Dementia: No Hx HIV: No Additional medical history: glaucoma. legally blind - Surgical History Hx Coronary Stent: Yes Hx Open Heart Surgery: No Hx Pacemaker: No Hx Internal Defibrillator: No Hx Cholecystectomy: No Hx Appendectomy: No Additional Surgical History: hernia repair. R leg sx 12/2016 - Social History Smoking Status: Never Smoker - Medications Home Medications: Home Medications Medication Instructions Recorded Confirmed Last Taken Type Acetaminophen [Acetaminophen ER 650 mg PO Q12H PRN 09/18/17 11/23/19 08/12/19 H istory TAB] Bimatoprost [Lumigan 0.01%] 1 drop OP HS 09/18/17 11/23/19 09/10/19 History Aspirin EC [Ecotrin] 325 mg PO QDAY #30 11/30/18 11/23/19 08/12/19 09:00 Rx AtorvaSTATin [Lipitor] 40 mg PO QHS #30 tablet 11/30/18 11/23/19 09/10/19 Rx Finasteride [Proscar] 5 mg PO QDAY #30 11/30/18 11/23/19 09/11/19 08:30 Rx Gabapentin 100 mg PO BID #60 capsule 11/30/18 11/23/19 09/11/19 08:30 Rx ISOSORBIDE MONOnitrate [Imdur ER] 60 mg PO QDAY #60 tablet 11/30/18 11/23/19 09/11/19 08:30 Rx Ipratropium/Albuterol Sulfate 1 puff IH QID 30 Days 11/30/18 11/23/19 08/31/19 Rx [Combivent Respimat] Latanoprost 0.005% 1 drops OU QHS 30 Days bottle 11/30/18 11/23/19 09/10/19 Rx Metoprolol [Lopressor TAB] 12.5 mg PO BID #60 tablet 11/30/18 11/23/19 09/11/19 08:30 Rx Sertraline [Zoloft] 50 mg PO QDAY tablet 11/30/18 11/23/19 09/11/19 08:30 Rx Tamsulosin [Flomax] 0.4 mg PO QDAY #30 cap 11/30/18 11/23/19 09/11/19 08:30 Rx amLODIPine 5 mg PO DAILY #30 tab 11/30/18 11/23/19 09/11/19 08:30 Rx hydrOXYzine PAMOATE [Vistaril] 50 mg PO HS #30 cap 11/30/18 11/23/19 09/10/19 Rx Apixaban [Eliquis] 5 mg PO DAILY #30 tablet 09/12/19 11/23/19 Unknown Rx Losartan [Cozaar] 50 mg PO QDAY #30 tablet 12/01/19 Unknown Rx oxyCODONE /ACETAMINOPHEN [Percocet 1 tab PO Q8H PRN #30 tablet 12/01/19 Unknown Rx 5/325 mg] ED Physical Exam - General Limitations: No Limitations - Other Other exam information: General: No acute distress Head: Atraumatic Eyes: normal appearance ENT: Moist mucous membranes Neck: Normal appearance, no midline tenderness Chest: Clear to auscultation bilaterally CV: Regular rate and rhythm Abdomen: Soft, normal bowel sounds, nontender, nondistended, no rebound or guarding Back: Normal inspection Extremity: Right knee swollen with wound VAC in place pain with movement. Left arm with 1 port PICC line without arm swelling or warm Neuro: Alert O x 3, no facial asymmetry, speech clear, no gross motor sensory deficit Psych: Appropriate behavior Skin: No rash ED Course Vital Signs 12/11/19 10:28 Temperature 98.4 F Pulse Rate 85 Respiratory 18 Rate Blood Pressure 149/83 O2 Sat by Pulse 99 Oximetry ED Medical Decision Making - Medical Decision Making PICC line with flushed by nurse followed by administration of heparin. At time of discharge PICC line is flushing without obstruction. Patient did receive p.o. Percocet for pain and has a prescription at home for pain medication. He will be discharged home Critical Care Time: No Critical care attestation.: If time is entered above; I have spent that time in minutes in the direct care of this critically ill patient, excluding procedure time. ED Disposition Clinical Impression: Occluded PICC line, PIC line (peripherally inserted central catheter) flush, Septic joint of right knee joint Disposition: - TO HOME OR SELFCARE Is pt being admited?: No Does the pt Need Aspirin: No Condition: Stable Instructions: Peripherally Inserted Central Catheters and Midline Catheters (ED) Additional Instructions: Continue current medication as prescribed. Follow-up with your doctor or doctor/clinic provided. Return if symptoms worsen as indicated by your discharge instructions. Referrals: your, doctor [Other] - 3-5 Days Time of Disposition: 15:00
[2019-12-11 17:38] VITALS: BP 133/80
== END 2019-12-11 17:25 | disposition home or self-care (01) ==
LOC: ED 10:13
DX: T84.092A Other mechanical complication of internal right knee prosthesis, initial encounter (principal); I11.0 Hypertensive heart disease with heart failure; I50.9 Heart failure, unspecified; I25.2 Old myocardial infarction; F31.9 Bipolar disorder, unspecified; Z95.818 Presence of other cardiac implants and grafts; Z88.6 Allergy status to analgesic agent; Z98.890 Other specified postprocedural states; X58.XXXA Exposure to other specified factors, initial encounter
CPT/HCPCS: 99282; J1642; 97605

== ENCOUNTER 2019-12-18 08:19 | Outpatient (CLI) | payer MEDICAID ==
[2019-12-18] MEDS ORDERED: LIDOCAINE (4%) 40 MG/ML TOPICAL SOLN 50 ML BOTTLE TP SCH (08:30)
== END 2019-12-18 08:20 | disposition home or self-care (01) ==
LOC: WOUND 08:19
PROVIDERS: ATTEND Surgery
DX: T81.31XD Disruption of external operation (surgical) wound, not elsewhere classified, subsequent encounter (principal); L97.215 Non-pressure chronic ulcer of right calf with muscle involvement without evidence of necrosis; I10 Essential (primary) hypertension; I25.2 Old myocardial infarction; H54.7 Unspecified visual loss; F17.210 Nicotine dependence, cigarettes, uncomplicated; F41.9 Anxiety disorder, unspecified; Z96.651 Presence of right artificial knee joint; Z95.5 Presence of coronary angioplasty implant and graft; Y83.8 Other surgical procedures as the cause of abnormal reaction of the patient, or of later complication, without mention of misadventure at the time of the procedure
CPT/HCPCS: 97605

== ENCOUNTER 2019-12-25 08:06 | Outpatient (CLI) | payer MEDICAID ==
[2019-12-25] MEDS ORDERED: LIDOCAINE (4%) 40 MG/ML TOPICAL SOLN 50 ML BOTTLE TP SCH (08:10)
== END 2019-12-25 08:07 | disposition home or self-care (01) ==
LOC: WOUND 08:06
PROVIDERS: ATTEND Surgery
DX: T81.31XD Disruption of external operation (surgical) wound, not elsewhere classified, subsequent encounter (principal); L97.215 Non-pressure chronic ulcer of right calf with muscle involvement without evidence of necrosis; I10 Essential (primary) hypertension; I25.2 Old myocardial infarction; H54.7 Unspecified visual loss; F17.210 Nicotine dependence, cigarettes, uncomplicated; F41.9 Anxiety disorder, unspecified; Z96.651 Presence of right artificial knee joint; Z95.5 Presence of coronary angioplasty implant and graft; Y83.8 Other surgical procedures as the cause of abnormal reaction of the patient, or of later complication, without mention of misadventure at the time of the procedure
CPT/HCPCS: 97605

== ENCOUNTER 2019-12-29 09:21 | Outpatient (CLI) | payer MEDICAID | END 2019-12-29 09:22 | disposition home or self-care (01) | LOC: WOUND 09:21 | PROVIDERS: ATTEND Surgery | DX: T81.31XD Disruption of external operation (surgical) wound, not elsewhere classified, subsequent encounter (principal); L97.212 Non-pressure chronic ulcer of right calf with fat layer exposed; I10 Essential (primary) hypertension; I25.2 Old myocardial infarction; H54.7 Unspecified visual loss; F17.210 Nicotine dependence, cigarettes, uncomplicated; F41.9 Anxiety disorder, unspecified; Z96.651 Presence of right artificial knee joint; Z95.5 Presence of coronary angioplasty implant and graft; Y83.8 Other surgical procedures as the cause of abnormal reaction of the patient, or of later complication, without mention of misadventure at the time of the procedure | CPT/HCPCS: 97605 ==

== ENCOUNTER 2019-12-31 09:54 | Emergency (ER) | payer MEDICAID ==
[2019-12-31 13:57] VITALS: BP 145/76
[2019-12-31] MEDS ORDERED: MORPHINE 4 MG/1 ML INJ IM ONE (15:12)
--- NOTE | 2019-12-31 15:39 | Emergency Department Report ---
HPI - General Chief Complaint: Medical Clearance Time Seen by Provider: 12/31/19 15:05 - HPI HPI: This is a 59-year-old male who presents to the emergency department with a complaint of his PICC line not working for the past 2 days, and a 1 day history of his wound VAC not working. The patient has a history of a right knee replacement done in November by Dr. Batres and then the patient had a subsequent joint infection. He is on IV antibiotics 3 times a day but has not received these meds over the past 2 days secondary to the malfunctioning PICC line. He is supposed to continue taking the medication through Sunday, January 02, 3 days from now. The patient followed up with his infectious disease doctor in [place] but was told to come to the emergency department. Patient says that the wound VAC was placed and is maintained by the wound care clinic here at [facility]. He also has a past medical history of CHF, COPD, coronary artery disease, hypertension, glaucoma, bipolar disorder. ED Past Medical Hx - Past Medical History Hx Hypertension: Yes Hx Heart Attack/AMI: Yes (2015; neg stress test and normal EF 11/2018) Hx Congestive Heart Failure: Yes Hx Diabetes: No Hx Deep Vein Thrombosis: No Hx Pulmonary Embolism: No Hx Liver Disease: No Hx Renal Disease: No Hx Sickle Cell Disease: No Hx Arthritis: No Hx Seizures: No Hx Kidney Stones: No Hx Psychiatric Treatment: Yes (bipolar) Hx Asthma: No Hx COPD: Yes Hx Tuberculosis: No Hx Dementia: No Hx HIV: No Additional medical history: glaucoma. legally blind - Surgical History Hx Coronary Stent: Yes Hx Open Heart Surgery: No Hx Pacemaker: No Hx Internal Defibrillator: No Hx Cholecystectomy: No Hx Appendectomy: No Additional Surgical History: hernia repair. R leg sx 12/2016 - Social History Smoking Status: Never Smoker - Medications Home Medications: Home Medications Medication Instructions Recorded Confirmed Last Taken Type Acetaminophen [Acetaminophen ER 650 mg PO Q12H PRN 09/18/17 11/23/19 08/12/19 History TAB] Bimatoprost [Lumigan 0.01%] 1 drop OP HS 09/18/17 11/23/19 09/10/19 History Aspirin EC [Ecotrin] 325 mg PO QDAY #30 11/30/18 11/23/19 08/12/19 09:00 Rx AtorvaSTATin [Lipitor] 40 mg PO QHS #30 tablet 11/30/18 11/23/19 09/10/19 Rx Finasteride [Proscar] 5 mg PO QDAY #30 11/30/18 11/23/19 09/11/19 08:30 Rx Gabapentin 100 mg PO BID #60 capsule 11/30/18 11/23/19 09/11/19 08:30 Rx ISOSORBIDE MONOnitrate [Imdur ER] 60 mg PO QDAY #60 tablet 11/30/18 11/23/19 09/11/19 08:30 Rx Ipratropium/Albuterol Sulfate 1 puff IH QID 30 Days 11/30/18 11/23/19 08/31/19 Rx [Combivent Respimat] Latanoprost 0.005% 1 drops OU QHS 30 Days bottle 11/30/18 11/23/19 09/10/19 Rx Metoprolol [Lopressor TAB] 12.5 mg PO BID #60 tablet 11/30/18 11/23/19 09/11/19 08:30 Rx Sertraline [Zoloft] 50 mg PO QDAY tablet 11/30/18 11/23/19 09/11/19 08:30 Rx Tamsulosin [Flomax] 0.4 mg PO QDAY #30 cap 11/30/18 11/23/19 09/11/19 08:30 Rx amLODIPine 5 mg PO DAILY #30 tab 11/30/18 11/23/19 09/11/19 08:30 Rx hydrOXYzine PAMOATE [Vistaril] 50 mg PO HS #30 cap 11/30/18 11/23/19 09/10/19 Rx Apixaban [Eliquis] 5 mg PO DAILY #30 tablet 09/12/19 11/23/19 Unknown Rx Losartan [Cozaar] 50 mg PO QDAY #30 tablet 12/01/19 Unknown Rx oxyCODONE /ACETAMINOPHEN [Percocet 1 tab PO Q8H PRN #30 tablet 12/01/19 Unknown Rx 5/325 mg] ED Review of Systems ROS: Stated complaint: WOUND VAC AND PICC LINE IS CLOGGED Other details as noted in HPI Comment: All other systems reviewed and negative Constitutional: denies: chills, fever ENT: denies: ear pain, throat pain Respiratory: denies: cough, shortness of breath Cardiovascular: denies: chest pain, palpitations Gastrointestinal: denies: abdominal pain Musculoskeletal: arthralgia. denies: back pain Skin: lesions. denies: pruritus Neurological: denies: numbness, paresthesias Physical Exam - Physical Exam Vital Signs: Vital Signs 12/31/19 12/31/19 10:29 13:51 Temperature 98.1 F 98.1 F Pulse Rate 75 72 Respiratory 18 18 Rate Blood Pressure 148/77 145/76 O2 Sat by Pulse 97 98 Oximetry Physical Exam: GENERAL: The patient is well-developed well-nourished. HENT: Normocephalic. Atraumatic. Patient has moist mucous membranes. EYES: Extraocular motions are intact. NECK: Supple. Trachea is midline. CHEST/LUNGS: Clear to auscultation. There is no respiratory distress noted. HEART/CARDIOVASCULAR: Regular. There is no tachycardia. ABDOMEN: Abdomen is soft, nontender. Patient has normal bowel sounds. SKIN: Skin is warm and dry. Limited examination of the anterior right knee with wound VAC in place. NEURO: The patient is awake, alert, and oriented. The patient is cooperative. The patient has no focal neurologic deficits. Normal speech. MUSCULOSKELETAL: There is some tenderness to palpation to the right knee. There is no limitation range of motion. ED Course Vital Signs 12/31/19 12/31/19 10:29 13:51 Temperature 98.1 F 98.1 F Pulse Rate 75 72 Respiratory 18 18 Rate Blood Pressure 148/77 145/76 O2 Sat by Pulse 97 98 Oximetry - Consultations Consultation #1: 12/31/19 17:53 I spoke with the patient's orthopedist, Dr. Batres, regarding the patient's presentation for PICC line malfunction and wound VAC malfunction. He says that the patient can follow-up with him early next week. I spoke with the patient's wound care physician and general surgeon, Dr. Cruz. He is aware that the wound VAC has not been working since this morning. Since the patient has an appointment tomorrow with the wound care clinic, the patient can just follow-up tomorrow regarding the wound VAC. ED Medical Decision Making - Medical Decision Making This patient presents with a PICC line malfunction for the past 2 days and a wound VAC malfunction since this morning. He has a history of septic right knee. There is some tenderness to palpation to the knee but otherwise no surrounding erythema seen, purulent discharge. There is limited examination available to the anterior right knee secondary to the wound VAC being in place. The PICC line was flushed with 2 mg of alteplase and then began flowing well. We were able to infuse about 250 cc of IV fluid without difficulty. There appears to be functioning well enough to continue and/or restart his antibiotics. The wound VAC does not appear to be functioning appropriately. There is some serous fluid seen within the tubing. I spoke with Dr. Cruz who sees the patient at the wound care clinic, and Dr. Cruz says that the patient can follow-up tomorrow at his scheduled appointment and they will take care of the wound VAC at that time. Patient's vital signs have been reassuring including being afebrile. He will return to the emergency department with any worsening of his symptoms or with any acute distress. Critical Care Time: No Critical care attestation.: If time is entered above; I have spent that time in minutes in the direct care of this critically ill patient, excluding procedure time. ED Disposition Clinical Impression: Encounter for management of wound VAC, History of septic arthritis Occluded PICC line Qualifiers: Encounter type: initial encounter Qualified Code(s): T82.898A - Other specified complication of vascular prosthetic devices, implants and grafts, initial encounter Disposition: TO HOME OR SELFCARE Is pt being admited?: No Condition: Stable Additional Instructions: Please follow-up with the wound care clinic tomorrow as previously scheduled. Please follow-up with Dr. Batres, your orthopedist, early next week. Continue with your antibiotics as previously prescribed. Return to the emergency department with any worsening of your symptoms, new or concerning symptoms not addressed during this current emergency department visit, or with any acute distress. Referrals: PRIMARY CAREMD [Primary Care Provider] - 3-5 Days ERASTO BATRES MD [Staff Physician] - 3-5 Days [facility] [Outside] - 01/01/20 Time of Disposition: 18:03
[2019-12-31] MEDS ORDERED: ALTEPLASE 2 MG INJ IV ONE (16:16)
[2019-12-31] MEDS ORDERED: SODIUM CHLORIDE 0.9% 250ML 250 ML IV ONE (17:37)
== END 2019-12-31 18:53 | disposition home or self-care (01) ==
LOC: ED 09:54
DX: M00.9 Pyogenic arthritis, unspecified (principal); I11.0 Hypertensive heart disease with heart failure; I50.9 Heart failure, unspecified; I25.2 Old myocardial infarction; F31.9 Bipolar disorder, unspecified; J44.9 Chronic obstructive pulmonary disease, unspecified; Z98.890 Other specified postprocedural states; Z79.899 Other long term (current) drug therapy; Z88.8 Allergy status to other drugs, medicaments and biological substances; T82.898A Other specified complication of vascular prosthetic devices, implants and grafts, initial encounter; Z48.00 Encounter for change or removal of nonsurgical wound dressing
CPT/HCPCS: 96361; 96372; 96374; 99282; J2270; J2997; J7050

== ENCOUNTER 2020-01-01 08:11 | Outpatient (CLI) | payer MEDICAID ==
[2020-01-01] MEDS ORDERED: LIDOCAINE (4%) 40 MG/ML TOPICAL SOLN 50 ML BOTTLE TP ONE (08:13)
== END 2020-01-01 08:12 | disposition home or self-care (01) ==
LOC: WOUND 08:11
PROVIDERS: ATTEND Surgery
DX: T81.31XD Disruption of external operation (surgical) wound, not elsewhere classified, subsequent encounter (principal); L97.212 Non-pressure chronic ulcer of right calf with fat layer exposed; I10 Essential (primary) hypertension; I25.2 Old myocardial infarction; H54.7 Unspecified visual loss; F17.210 Nicotine dependence, cigarettes, uncomplicated; F41.9 Anxiety disorder, unspecified; Z96.651 Presence of right artificial knee joint; Z95.5 Presence of coronary angioplasty implant and graft; Y83.8 Other surgical procedures as the cause of abnormal reaction of the patient, or of later complication, without mention of misadventure at the time of the procedure

== ENCOUNTER 2020-01-02 10:32 | Outpatient (CLI) | payer MEDICAID | END 2020-01-02 10:33 | disposition home or self-care (01) | LOC: WOUND 10:32 | PROVIDERS: ATTEND Surgery | DX: T81.31XD Disruption of external operation (surgical) wound, not elsewhere classified, subsequent encounter (principal); L97.212 Non-pressure chronic ulcer of right calf with fat layer exposed; I10 Essential (primary) hypertension; I25.2 Old myocardial infarction; H54.7 Unspecified visual loss; F17.210 Nicotine dependence, cigarettes, uncomplicated; F41.9 Anxiety disorder, unspecified; Z96.651 Presence of right artificial knee joint; Z95.5 Presence of coronary angioplasty implant and graft; Y83.8 Other surgical procedures as the cause of abnormal reaction of the patient, or of later complication, without mention of misadventure at the time of the procedure | CPT/HCPCS: 97605 ==

== ENCOUNTER 2020-01-05 09:20 | Outpatient (CLI) | payer MEDICAID | END 2020-01-05 09:21 | disposition home or self-care (01) | LOC: WOUND 09:20 | PROVIDERS: ATTEND Surgery | DX: T81.31XD Disruption of external operation (surgical) wound, not elsewhere classified, subsequent encounter (principal); L97.212 Non-pressure chronic ulcer of right calf with fat layer exposed; I10 Essential (primary) hypertension; I25.2 Old myocardial infarction; H54.7 Unspecified visual loss; F41.9 Anxiety disorder, unspecified; F17.210 Nicotine dependence, cigarettes, uncomplicated; Z96.651 Presence of right artificial knee joint; Z95.5 Presence of coronary angioplasty implant and graft; Y83.8 Other surgical procedures as the cause of abnormal reaction of the patient, or of later complication, without mention of misadventure at the time of the procedure | CPT/HCPCS: 97605 ==

== ENCOUNTER 2020-01-07 08:01 | Outpatient (CLI) | payer MEDICAID ==
[2020-01-07] MEDS ORDERED: LIDOCAINE (4%) 40 MG/ML TOPICAL SOLN 50 ML BOTTLE TP ONE (08:30)
== END 2020-01-07 08:02 | disposition home or self-care (01) ==
LOC: WOUND 08:01
PROVIDERS: ATTEND Surgery
DX: T81.31XD Disruption of external operation (surgical) wound, not elsewhere classified, subsequent encounter (principal); L97.212 Non-pressure chronic ulcer of right calf with fat layer exposed; L97.813 Non-pressure chronic ulcer of other part of right lower leg with necrosis of muscle; I10 Essential (primary) hypertension; I25.2 Old myocardial infarction; H54.7 Unspecified visual loss; F41.9 Anxiety disorder, unspecified; F17.210 Nicotine dependence, cigarettes, uncomplicated; Z96.651 Presence of right artificial knee joint; Z95.5 Presence of coronary angioplasty implant and graft; Y83.8 Other surgical procedures as the cause of abnormal reaction of the patient, or of later complication, without mention of misadventure at the time of the procedure
CPT/HCPCS: 97605

== ENCOUNTER 2020-01-12 13:25 | Outpatient (CLI) | payer MEDICAID | END 2020-01-12 13:26 | disposition home or self-care (01) | LOC: WOUND 13:25 | PROVIDERS: ATTEND Surgery | DX: T81.31XD Disruption of external operation (surgical) wound, not elsewhere classified, subsequent encounter (principal); L97.212 Non-pressure chronic ulcer of right calf with fat layer exposed; I10 Essential (primary) hypertension; I25.2 Old myocardial infarction; H54.7 Unspecified visual loss; F41.9 Anxiety disorder, unspecified; F17.210 Nicotine dependence, cigarettes, uncomplicated; Z96.651 Presence of right artificial knee joint; Z95.5 Presence of coronary angioplasty implant and graft; Y83.8 Other surgical procedures as the cause of abnormal reaction of the patient, or of later complication, without mention of misadventure at the time of the procedure | CPT/HCPCS: 97605 ==

== ENCOUNTER 2020-01-15 08:20 | Outpatient (CLI) | payer MEDICAID ==
[2020-01-15] MEDS ORDERED: LIDOCAINE (4%) 40 MG/ML TOPICAL SOLN 50 ML BOTTLE TP SCH (09:00)
== END 2020-01-15 08:21 | disposition home or self-care (01) ==
LOC: WOUND 08:20
PROVIDERS: ATTEND Surgery
DX: T81.31XD Disruption of external operation (surgical) wound, not elsewhere classified, subsequent encounter (principal); L97.212 Non-pressure chronic ulcer of right calf with fat layer exposed; L97.813 Non-pressure chronic ulcer of other part of right lower leg with necrosis of muscle; I10 Essential (primary) hypertension; I25.2 Old myocardial infarction; H54.7 Unspecified visual loss; F41.9 Anxiety disorder, unspecified; F17.210 Nicotine dependence, cigarettes, uncomplicated; Z96.651 Presence of right artificial knee joint; Z95.5 Presence of coronary angioplasty implant and graft; Y83.8 Other surgical procedures as the cause of abnormal reaction of the patient, or of later complication, without mention of misadventure at the time of the procedure
CPT/HCPCS: 97605

== ENCOUNTER 2020-01-19 10:26 | Outpatient (CLI) | payer MEDICAID ==
[2020-01-20] MEDS ORDERED: VANCOMYCIN 1000 MG INJ ONE (15:59)
== END 2020-01-19 10:27 | disposition home or self-care (01) ==
LOC: WOUND 10:26
PROVIDERS: ATTEND Surgery
DX: T81.31XD Disruption of external operation (surgical) wound, not elsewhere classified, subsequent encounter (principal); L97.212 Non-pressure chronic ulcer of right calf with fat layer exposed; I10 Essential (primary) hypertension; I25.2 Old myocardial infarction; H54.7 Unspecified visual loss; F41.9 Anxiety disorder, unspecified; F17.210 Nicotine dependence, cigarettes, uncomplicated; Z96.651 Presence of right artificial knee joint; Z95.5 Presence of coronary angioplasty implant and graft; Y83.8 Other surgical procedures as the cause of abnormal reaction of the patient, or of later complication, without mention of misadventure at the time of the procedure
CPT/HCPCS: 99213; G0463; J3370

== ENCOUNTER 2020-02-12 09:06 | Outpatient (CLI) | payer MEDICAID ==
[2020-02-12] MEDS ORDERED: LIDOCAINE (4%) 40 MG/ML TOPICAL SOLN 50 ML BOTTLE TP ONE (09:10)
== END 2020-02-12 09:07 | disposition home or self-care (01) ==
LOC: WOUND 09:06
PROVIDERS: ATTEND Surgery
DX: T81.31XD Disruption of external operation (surgical) wound, not elsewhere classified, subsequent encounter (principal); L97.212 Non-pressure chronic ulcer of right calf with fat layer exposed; I10 Essential (primary) hypertension; I25.2 Old myocardial infarction; H54.7 Unspecified visual loss; F41.9 Anxiety disorder, unspecified; F17.210 Nicotine dependence, cigarettes, uncomplicated; Z96.651 Presence of right artificial knee joint; Z95.5 Presence of coronary angioplasty implant and graft; Y83.8 Other surgical procedures as the cause of abnormal reaction of the patient, or of later complication, without mention of misadventure at the time of the procedure
CPT/HCPCS: 82962

== ENCOUNTER 2020-02-25 13:15 | Outpatient (CLI) | payer MEDICAID ==
[2020-02-25] MEDS ORDERED: LIDOCAINE (4%) 40 MG/ML TOPICAL SOLN 50 ML BOTTLE TP ONE (14:49)
== END 2020-02-25 13:16 | disposition home or self-care (01) ==
LOC: WOUND 13:15
PROVIDERS: ATTEND Surgery
DX: T81.31XD Disruption of external operation (surgical) wound, not elsewhere classified, subsequent encounter (principal); L97.212 Non-pressure chronic ulcer of right calf with fat layer exposed; I10 Essential (primary) hypertension; I25.2 Old myocardial infarction; H54.7 Unspecified visual loss; F41.9 Anxiety disorder, unspecified; F17.210 Nicotine dependence, cigarettes, uncomplicated; Z96.651 Presence of right artificial knee joint; Z95.5 Presence of coronary angioplasty implant and graft; Y83.8 Other surgical procedures as the cause of abnormal reaction of the patient, or of later complication, without mention of misadventure at the time of the procedure

== ENCOUNTER 2020-03-31 11:15 | Outpatient (CLI) | payer MEDICAID ==
[2020-03-31 12:04] LABS: Basophils # (Auto) 0.1 K/mm3 (0.0-0.1); Basophils % (Auto) 0.6 % (0.0-1.8); Eosinophils # (Auto) 0.1 K/mm3 (0.0-0.4); Eosinophils % (Auto) 0.9 % (0.0-4.3); Hematocrit 38.3 % (35.5-45.6); Hemoglobin 12.8 gm/dl (11.8-15.2); Lymphocytes # (Auto) 2.7 K/mm3 (1.2-5.4); Lymphocytes % (Auto) 30.6 % (13.4-35.0); Mean Corpuscular HGB Conc 33 % (32-34); Mean Corpuscular Volume 86 fl (84-94); Monocytes # (Auto) 0.7 K/mm3 (0.0-0.8); Monocytes % (Auto) 8.5 % (0.0-7.3); Platelet Count 687 K/mm3 (140-440); Red Blood Count 4.45 M/mm3 (3.65-5.03); Red Cell Distribution Width 18.3 % (13.2-15.2)
[2020-03-31 12:15] LABS: Alanine Aminotransferase 25 units/L (7-56); Albumin 4.3 g/dL (3.9-5); Blood Urea Nitrogen 9 mg/dL (9-20); Calcium 9.6 mg/dL (8.4-10.2); Hemolysis Index 1
[2020-03-31 12:31] LABS: BUN/Creatinine Ratio 15
[2020-03-31 12:38] LABS: Erythrocyte Sedimentation Rate 55 mm/Hr (0-20)
== END 2020-03-31 11:16 | disposition home or self-care (01) ==
LOC: LAB 11:15
PROVIDERS: ATTEND Orthopaedic Surgery
DX: B95.62 Methicillin resistant Staphylococcus aureus infection as the cause of diseases classified elsewhere (principal)
CPT/HCPCS: 36415; 80053; 85025; 85652; 86140

== ENCOUNTER 2020-04-07 10:38 | Outpatient (CLI) | payer MEDICAID ==
[2020-04-07] MEDS ORDERED: LIDOCAINE (4%) 40 MG/ML TOPICAL SOLN 50 ML BOTTLE TP ONE (10:40)
== END 2020-04-07 10:39 | disposition home or self-care (01) ==
LOC: WOUND 10:38
PROVIDERS: ATTEND Surgery
DX: T81.31XD Disruption of external operation (surgical) wound, not elsewhere classified, subsequent encounter (principal); L97.212 Non-pressure chronic ulcer of right calf with fat layer exposed; I10 Essential (primary) hypertension; I25.2 Old myocardial infarction; H54.7 Unspecified visual loss; F41.9 Anxiety disorder, unspecified; F17.210 Nicotine dependence, cigarettes, uncomplicated; Z96.651 Presence of right artificial knee joint; Z95.5 Presence of coronary angioplasty implant and graft; Y83.8 Other surgical procedures as the cause of abnormal reaction of the patient, or of later complication, without mention of misadventure at the time of the procedure

== ENCOUNTER 2020-04-14 11:08 | Outpatient (CLI) | payer MEDICAID ==
[2020-04-14] MEDS ORDERED: LIDOCAINE (4%) 40 MG/ML TOPICAL SOLN 50 ML BOTTLE TP ONE (11:19)
== END 2020-04-14 11:09 | disposition home or self-care (01) ==
LOC: WOUND 11:08
PROVIDERS: ATTEND Surgery
DX: T81.31XD Disruption of external operation (surgical) wound, not elsewhere classified, subsequent encounter (principal); L97.212 Non-pressure chronic ulcer of right calf with fat layer exposed; I10 Essential (primary) hypertension; I25.2 Old myocardial infarction; H54.7 Unspecified visual loss; F41.9 Anxiety disorder, unspecified; F17.210 Nicotine dependence, cigarettes, uncomplicated; Z96.651 Presence of right artificial knee joint; Z95.5 Presence of coronary angioplasty implant and graft; Y83.8 Other surgical procedures as the cause of abnormal reaction of the patient, or of later complication, without mention of misadventure at the time of the procedure

== ENCOUNTER 2020-04-21 13:17 | Outpatient (CLI) | payer MEDICAID ==
[2020-04-21] MEDS ORDERED: LIDOCAINE (4%) 40 MG/ML TOPICAL SOLN 50 ML BOTTLE TP SCH (14:00)
== END 2020-04-21 13:18 | disposition home or self-care (01) ==
LOC: WOUND 13:17
PROVIDERS: ATTEND Surgery
DX: T81.89XD Other complications of procedures, not elsewhere classified, subsequent encounter (principal); L97.212 Non-pressure chronic ulcer of right calf with fat layer exposed; I10 Essential (primary) hypertension; I25.2 Old myocardial infarction; H54.7 Unspecified visual loss; F41.9 Anxiety disorder, unspecified; F17.210 Nicotine dependence, cigarettes, uncomplicated; Z96.651 Presence of right artificial knee joint; Z95.5 Presence of coronary angioplasty implant and graft; Y83.8 Other surgical procedures as the cause of abnormal reaction of the patient, or of later complication, without mention of misadventure at the time of the procedure

== ENCOUNTER 2020-04-28 08:26 | Outpatient (CLI) | payer MEDICAID ==
[2020-04-28] MEDS ORDERED: LIDOCAINE (4%) 40 MG/ML TOPICAL SOLN 50 ML BOTTLE TP ONE (08:27)
== END 2020-04-28 08:27 | disposition home or self-care (01) ==
LOC: WOUND 08:26
PROVIDERS: ATTEND Surgery
DX: T81.31XD Disruption of external operation (surgical) wound, not elsewhere classified, subsequent encounter (principal); L97.212 Non-pressure chronic ulcer of right calf with fat layer exposed; I10 Essential (primary) hypertension; I25.2 Old myocardial infarction; H54.7 Unspecified visual loss; F41.9 Anxiety disorder, unspecified; F17.210 Nicotine dependence, cigarettes, uncomplicated; Z96.651 Presence of right artificial knee joint; Z95.5 Presence of coronary angioplasty implant and graft; Y83.8 Other surgical procedures as the cause of abnormal reaction of the patient, or of later complication, without mention of misadventure at the time of the procedure

== ENCOUNTER 2020-05-19 08:13 | Outpatient (CLI) | payer MEDICAID ==
[2020-05-19] MEDS ORDERED: LIDOCAINE (4%) 40 MG/ML TOPICAL SOLN 50 ML BOTTLE TP SCH (09:00)
== END 2020-05-19 08:14 | disposition home or self-care (01) ==
LOC: WOUND 08:13
PROVIDERS: ATTEND Surgery
DX: T81.31XD Disruption of external operation (surgical) wound, not elsewhere classified, subsequent encounter (principal); L97.212 Non-pressure chronic ulcer of right calf with fat layer exposed; I10 Essential (primary) hypertension; I25.2 Old myocardial infarction; H54.7 Unspecified visual loss; F41.9 Anxiety disorder, unspecified; F17.210 Nicotine dependence, cigarettes, uncomplicated; Z96.651 Presence of right artificial knee joint; Z95.5 Presence of coronary angioplasty implant and graft; Y83.8 Other surgical procedures as the cause of abnormal reaction of the patient, or of later complication, without mention of misadventure at the time of the procedure

== ENCOUNTER 2020-06-09 14:04 | Outpatient (CLI) | payer MEDICAID ==
[2020-06-09] MEDS ORDERED: LIDOCAINE (4%) 40 MG/ML TOPICAL SOLN 50 ML BOTTLE TP SCH (15:00)
== END 2020-06-09 14:05 | disposition home or self-care (01) ==
LOC: WOUND 14:04
PROVIDERS: ATTEND Surgery
DX: T81.31XD Disruption of external operation (surgical) wound, not elsewhere classified, subsequent encounter (principal); L97.212 Non-pressure chronic ulcer of right calf with fat layer exposed; I10 Essential (primary) hypertension; I25.2 Old myocardial infarction; H54.7 Unspecified visual loss; F41.9 Anxiety disorder, unspecified; F17.210 Nicotine dependence, cigarettes, uncomplicated; Z96.651 Presence of right artificial knee joint; Z95.5 Presence of coronary angioplasty implant and graft; Y83.8 Other surgical procedures as the cause of abnormal reaction of the patient, or of later complication, without mention of misadventure at the time of the procedure
CPT/HCPCS: 87076; 87116; 87186

== ENCOUNTER 2020-06-23 09:37 | Outpatient (CLI) | payer MEDICAID ==
--- NOTE | 2020-06-23 10:47 | XRay Report ---
RIGHT KNEE 2 VIEWS INDICATION: PAIN IN RIGHT KNEE. COMPARISON: 01/24/2020 IMPRESSION: Right knee arthroplasty with cement spacers appear unchanged in position and alignment. There appears to be increased lucency surrounding the femoral and tibial components of the prosthesis which may indicate loosening or infection. Correlate with the patient's clinical presentation. No a cute fracture or malalignment at the joint space is appreciated. Large joint effusion extends to the suprapatellar bursa. There is diffuse soft tissue edema/swelling. Signer Name: Dylan Mauricio Jr, MD Signed: 06/23/2020 10:43 AM Workstation Name: [id number]
== END 2020-06-23 09:38 | disposition home or self-care (01) ==
LOC: XRAY 09:37
PROVIDERS: ATTEND Orthopaedic Surgery
DX: T81.31XD Disruption of external operation (surgical) wound, not elsewhere classified, subsequent encounter (principal); L97.212 Non-pressure chronic ulcer of right calf with fat layer exposed; I10 Essential (primary) hypertension; I25.2 Old myocardial infarction; M25.461 Effusion, right knee; H54.7 Unspecified visual loss; F41.9 Anxiety disorder, unspecified; F17.210 Nicotine dependence, cigarettes, uncomplicated; Z96.651 Presence of right artificial knee joint; Z95.5 Presence of coronary angioplasty implant and graft; Y83.8 Other surgical procedures as the cause of abnormal reaction of the patient, or of later complication, without mention of misadventure at the time of the procedure

== ENCOUNTER 2020-06-30 08:24 | Outpatient (CLI) | payer MEDICAID ==
[2020-06-30] MEDS ORDERED: LIDOCAINE (4%) 40 MG/ML TOPICAL SOLN 50 ML BOTTLE TP ONE (08:47)
== END 2020-06-30 08:25 | disposition home or self-care (01) ==
LOC: WOUND 08:24
PROVIDERS: ATTEND Surgery
DX: T81.31XD Disruption of external operation (surgical) wound, not elsewhere classified, subsequent encounter (principal); L97.212 Non-pressure chronic ulcer of right calf with fat layer exposed; I10 Essential (primary) hypertension; I25.2 Old myocardial infarction; H54.7 Unspecified visual loss; F41.9 Anxiety disorder, unspecified; F17.210 Nicotine dependence, cigarettes, uncomplicated; Z96.651 Presence of right artificial knee joint; Z95.5 Presence of coronary angioplasty implant and graft; Y83.8 Other surgical procedures as the cause of abnormal reaction of the patient, or of later complication, without mention of misadventure at the time of the procedure

== ENCOUNTER 2020-07-06 09:05 | Inpatient (IN) | payer MEDICAID ==
--- NOTE | 2020-07-06 13:18 | Event Note ---
ED Screening Note Date of service: 07/06/20 Time: 13:16 ED Screening Note: 59 year old male presents to ED sent by Dr. Batres to get admitted for surgery on his right knee. This initial assessment/diagnostic orders/clinical plan/treatment(s) is/are subject to change based on patients health status, clinical progression and re- assessment by fellow clinical providers in the ED. Further treatment and workup at subsequent clinical providers discretion. Patient/guardian urged not to elope from the ED as their condition may be serious if not clinically assessed and managed. Initial orders include: labs Page Dr Batres
[2020-07-06] MEDS ORDERED: ACETAMINOPHEN 325 MG TAB PO ONE (13:21)
[2020-07-06 14:28] LABS: Basophils % (Auto) 0.6 % (0.0-1.8); Eosinophils # (Auto) 0.1 K/mm3 (0.0-0.4); Eosinophils % (Auto) 1.8 % (0.0-4.3); Hematocrit 37.6 % (35.5-45.6); Hemoglobin 12.8 gm/dl (11.8-15.2); Lymphocytes # (Auto) 2.6 K/mm3 (1.2-5.4); Lymphocytes % (Auto) 33.7 % (13.4-35.0); Mean Corpuscular HGB Conc 34 % (32-34); Mean Corpuscular Volume 88 fl (84-94); Monocytes # (Auto) 0.7 K/mm3 (0.0-0.8); Monocytes % (Auto) 9.6 % (0.0-7.3); Platelet Count 403 K/mm3 (140-440); Red Blood Count 4.29 M/mm3 (3.65-5.03); Red Cell Distribution Width 18.1 % (13.2-15.2)
[2020-07-06 15:00] LABS: Alanine Aminotransferase 9 units/L (7-56); Albumin 4.2 g/dL (3.9-5); Blood Urea Nitrogen 9 mg/dL (9-20); Calcium 9.5 mg/dL (8.4-10.2); Hemolysis Index 0
[2020-07-06 15:50] LABS: BUN/Creatinine Ratio 15
[2020-07-06] MEDS ORDERED: oxyCODONE /ACETAMINOPHEN 5-325MG TAB PO ONE ×2 (19:28→20:00)
--- NOTE | 2020-07-06 19:58 | Emergency Department Report ---
ED General Adult HPI - General Chief complaint: Extremity Problem,Nontraumatic Stated complaint: FLUID ON KNEE Time Seen by Provider: 07/06/20 17:01 Source: patient Mode of arrival: Ambulatory Limitations: No Limitations - History of Present Illness Initial comments: 59-year-old -[place] male with past medical history of diabetes sent emerge department complaining of a recurrent right knee infection/pain. Ports having a knee replacement surgery and August 2019 which required corrective measures in January 2020 since that time been having some inflammatory and infectious facies off and on. States this particular flareup has been occurred over the last 1 month and resulted in right knee swelling pain and vein redness. He did did discuss the case with Dr. Batres staff and advised him to come to the emergency department to be admitted for possible surgical intervention. So far he has been taking oral antibiotics and then seen in wound wound management but despite the efforts his condition has worsened. Reports no fever, chills, sweats no hemoptysis no hematemesis no trauma. Severity scale (0 -10): 7 Consistency: constant Improves with: none Worsens with: none - Related Data Home Medications Medication Instructions Recorded Confirmed Last Taken Acetaminophen [Acetaminophen ER 650 mg PO Q12H PRN 09/18/17 01/20/20 08/12/19 TAB] Bimatoprost [Lumigan 0.01%] 1 drop OP HS 09/18/17 01/20/20 09/10/19 Previous Rx's Medication Instructions Recorded Last Taken Type Aspirin EC [Ecotrin] 325 mg PO QDAY #30 11/30/18 01/13/20 08:00 Rx AtorvaSTATin [Lipitor] 40 mg PO QHS #30 tablet 11/30/18 09/10/19 Rx Finasteride [Proscar] 5 mg PO QDAY #30 11/30/18 01/19/20 08:00 Rx Gabapentin 100 mg PO BID #60 capsule 11/30/18 01/19/20 08:00 Rx ISOSORBIDE MONOnitrate [Imdur ER] 60 mg PO QDAY #60 tablet 11/30/18 09/11/19 08:30 Rx Ipratropium/Albuterol Sulfate 1 puff IH QID 30 Days 11/30/18 08/31/19 Rx [Combivent Respimat] Latanoprost 0.005% 1 drops OU QHS 30 Days bottle 11/30/18 09/10/19 Rx Metoprolol [Lopressor TAB] 12.5 mg PO BID #60 tablet 11/30/18 01/20/20 08:00 Rx Sertraline [Zoloft] 50 mg PO QDAY tablet 11/30/18 09/11/19 08:30 Rx Tamsulosin [Flomax] 0.4 mg PO QDAY #30 cap 11/30/18 09/11/19 08:30 Rx amLODIPine 5 mg PO DAILY #30 tab 11/30/18 01/19/20 08:00 Rx hydrOXYzine PAMOATE [Vistaril] 50 mg PO HS #30 cap 11/30/18 09/10/19 Rx Apixaban [Eliquis] 5 mg PO DAILY #30 tablet 09/12/19 01/18/20 08:00 Rx Losartan [Cozaar] 50 mg PO QDAY #30 tablet 12/01/19 01/19/20 08:00 Rx oxyCODONE /ACETAMINOPHEN [Percocet 1 tab PO Q8H PRN #30 tablet 12/01/19 01/15/20 08:00 Rx 5/325 mg] Apixaban [Eliquis] 5 mg PO DAILY #30 tablet 01/22/20 Unknown Rx HYDROmorphone [Dilaudid] 2 mg PO Q6HR #36 tablet 01/22/20 Unknown Rx Allergies Allergy/AdvReac Type Severity Reaction Status Date / Time ibuprofen [From Motrin] Allergy Unknown Anaphylaxis Verified 07/06/20 17:26 tramadol Allergy Hives Verified 07/06/20 17:26 ED Review of Systems ROS: Stated complaint: FLUID ON KNEE Other details as noted in HPI Comment: All other systems reviewed and negative ED Past Medical Hx - Past Medical History Previous Medical History?: Yes Hx Hypertension: Yes Hx Heart Attack/AMI: Yes Hx Congestive Heart Failure: Yes Hx Diabetes: No Hx Deep Vein Thrombosis: (UNKNOWN) Hx Pulmonary Embolism: No Hx Liver Disease: No Hx Renal Disease: No Hx Sickle Cell Disease: No Hx Arthritis: No Hx Seizures: No Hx Kidney Stones: No Hx Psychiatric Treatment: Yes (bipolar) Hx Asthma: No Hx COPD: Yes Hx Tuberculosis: No Hx Dementia: No Hx HIV: No Additional medical history: glaucoma. legally blind - Surgical History Past Surgical History?: Yes Hx Coronary Stent: Yes Hx Open Heart Surgery: No Hx Pacemaker: No Hx Internal Defibrillator: No Hx Cholecystectomy: No Hx Appendectomy: No Additional Surgical History: hernia repair. R leg sx 12/2016 - Social History Smoking Status: Never Smoker - Medications Home Medications: Home Medications Medication Instructions Recorded Confirmed Last Taken Type Acetaminophen [Acetaminophen ER 650 mg PO Q12H PRN 09/18/17 01/20/20 08/12/19 History TAB] Bimatoprost [Lumigan 0.01%] 1 drop OP HS 09/18/17 01/20/20 09/10/19 History Aspirin EC [Ecotrin] 325 mg PO QDAY #30 11/30/18 01/20/20 01/13/20 08:00 Rx AtorvaSTATin [Lipitor] 40 mg PO QHS #30 tablet 11/30/18 01/20/20 09/10/19 Rx Finasteride [Proscar] 5 mg PO QDAY #30 11/30/18 01/20/20 01/19/20 08:00 Rx Gabapentin 100 mg PO BID #60 capsule 11/30/18 01/20/20 01/19/20 08:00 Rx ISOSORBIDE MONOnitrate [Imdur ER] 60 mg PO QDAY #60 tablet 11/30/18 01/20/20 09/11/19 08:30 Rx Ipratropium/Albuterol Sulfate 1 puff IH QID 30 Days 11/30/18 01/20/20 08/31/19 Rx [Combivent Respimat] Latanoprost 0.005% 1 drops OU QHS 30 Days bottle 11/30/18 01/20/20 09/10/19 Rx Metoprolol [Lopressor TAB] 12.5 mg PO BID #60 tablet 11/30/18 01/20/20 01/20/20 08:00 Rx Sertraline [Zoloft] 50 mg PO QDAY tablet 11/30/18 01/20/20 09/11/19 08:30 Rx Tamsulosin [Flomax] 0.4 mg PO QDAY #30 cap 11/30/18 01/20/20 09/11/19 08:30 Rx amLODIPine 5 mg PO DAILY #30 tab 11/30/18 01/20/20 01/19/20 08:00 Rx hydrOXYzine PAMOATE [Vistaril] 50 mg PO HS #30 cap 11/30/18 01/20/20 09/10/19 Rx Apixaban [Eliquis] 5 mg PO DAILY #30 tablet 09/12/19 01/20/20 01/18/20 08:00 Rx Losartan [Cozaar] 50 mg PO QDAY #30 tablet 12/01/19 01/20/20 01/19/20 08:00 Rx oxyCODONE /ACETAMINOPHEN [Percocet 1 tab PO Q8H PRN #30 tablet 12/01/19 01/20/20 01/15/20 08:00 Rx 5/325 mg] Apixaban [Eliquis] 5 mg PO DAILY #30 tablet 01/22/20 Unknown Rx HYDROmorphone [Dilaudid] 2 mg PO Q6HR #36 tablet 01/22/20 Unknown Rx ED Physical Exam - General Limitations: No Limitations General appearance: alert, in no apparent distress - Head Head exam: Present: atraumatic, normocephalic - Eye Eye exam: Present: normal appearance, PERRL, EOMI - ENT ENT exam: Present: mucous membranes moist, TM's normal bilaterally - Neck Neck exam: Present: normal inspection, full ROM. Absent: lymphadenopathy - Respiratory Respiratory exam: Present: normal lung sounds bilaterally. Absent: respiratory distress - Cardiovascular Cardiovascular Exam: Present: regular rate, normal rhythm. Absent: systolic murmur, diastolic murmur, rubs, gallop - GI/Abdominal GI/Abdominal exam: Present: soft, normal bowel sounds - Rectal Rectal exam: Present: deferred - Extremities Exam Extremities exam: Present: normal inspection, tenderness (To the right knee) - Expanded Lower Extremity Exam Right Knee exam: Present: tenderness, swelling, erythema, effusion Ankle exam: Present: normal inspection 1 - Wound to this area of the knee with somnolence purulent drainage and older. Tenderness with palpation. Swelling is noted. Popliteal pulses present - Back Exam Back exam: Present: normal inspection - Neurological Exam Neurological exam: Present: alert, oriented X3, CN II-XII intact - Psychiatric Psychiatric exam: Present: normal affect, normal mood - Skin Skin exam: Present: warm, dry, erythema, other. Absent: rash ED Course Vital Signs 07/06/20 07/06/20 07/06/20 09:41 15:35 16:25 Temperature 98.5 F Pulse Rate 71 88 Respiratory 16 18 Rate Blood Pressure 151/100 162/89 [Right] O2 Sat by Pulse 97 100 Oximetry ED Medical Decision Making - Lab Data Result diagrams: 07/06/20 13:21 07/06/20 13:21 - Medical Decision Making 59-year-old F [place] male diabetic with a chronic recurrent right gluteal wound plan to be admitted here today by Dr. Batres for suture facet july for surgical correction/treatment. We will manage analgesic control Critical care attestation.: If time is entered above; I have spent that time in minutes in the direct care of this critically ill patient, excluding procedure time. ED Disposition Clinical Impression: Septic joint of right knee joint, Cellulitis of knee, right Disposition: [id number] OP ADMIT IP TO THIS HOSP Is pt being admited?: Yes Does the pt Need Aspirin: No Condition: Stable
[2020-07-06] MEDS: ALUM-MAG HYDROXIDE-SIMETHICONE 200-200-20MG/5ML ORAL LIQD 30 ML PO PRN (20:01)
[2020-07-07] MEDS: oxyCODONE /ACETAMINOPHEN 5-325MG TAB PO PRN ×4 (01:21→20:55)
--- NOTE | 2020-07-07 07:49 | XRay Report ---
RIGHT KNEE 2 VIEWS 0729 INDICATION: infected right total knee COMPARISON: 01/24/2020 FINDINGS: Prosthesis is again seen which appears to be in satisfactory position. Irregular margins of the distal femur and proximal tibia with areas of sclerosis in the proximal tibia are again seen wit h pattern similar to the prior study. Surgical changes are seen in the upper tibial shaft. Lucency al yeimy the margins of the prosthesis in the femur and tibia are similar to prior study. Soft tissue defe ct is seen anterior to the proximal tibia thought to be an area of ulceration. Bandaging is seen over lying the knee. Though I do not see a significant change radiographically, MR may be useful. Signer Name: Bhanu Mccoy MD Signed: 07/07/2020 7:44 AM Workstation Name: [id number]
[2020-07-07] MEDS ORDERED: NEOMY 40 MG/POLYMYXIN B 200,000 UNITS/ML (GU) AMPULE IR ONE ×2 (12:41→14:15)
--- NOTE | 2020-07-07 12:47 | Consultation ---
History of Present Illness - Reason for Consult Consult date: 07/07/20 Requesting physician: ERASTO BATRES - History of Present Illness 59 YO Male with DM complicated by Peripheral Neuropathy, HLD, HTN, [place], BPH,COPD, CAD S/P Stent placement, Bipolar Disorder, CHF, Chronic Pain Syndrome, DVT currently on therapeutic anticoagulation admitted for surgical intervention by the Ortho Surgery team. Consult placed by Dr. Batres for medical management. Patient seen and evaluated in his room. Patient resting comfortably. Patient knowledges right knee pain overnight. Patient denies fever, chills, chest pain, palpitation, shortness of breath, skin rash, recent ill contacts, or known exposure to COVID-19. No reported nursing events. Past History Past Medical History: acute ND, COPD, heart failure, hypertension, hyperli pidemia, other (See HPI) Past Surgical History: hernia repair, Other (Cardiac stent placement) Social history: single. denies: smoking, alcohol abuse, prescription drug abuse Family history: diabetes, hypertension Medications and Allergies Allergies Allergy/AdvReac Type Severity Reaction Status Date / Time ibuprofen [From Motrin] Allergy Unknown Anaphylaxis Verified 07/06/20 17:26 tramadol Allergy Hives Verified 07/06/20 17:26 Home Medications Medication Instructions Recorded Confirmed Last Taken Type Acetaminophen [Acetaminophen ER 650 mg PO Q12H PRN 09/18/17 07/07/20 07/05/20 History TAB] Bimatoprost [Lumigan 0.01%] 1 drop OP HS 09/18/17 07/07/20 07/05/20 23:00 History Aspirin EC [Ecotrin] 325 mg PO QDAY #30 11/30/18 07/07/20 07/05/20 10:00 Rx AtorvaSTATin [Lipitor] 40 mg PO QHS #30 tablet 11/30/18 07/07/20 07/05/20 22:00 Rx Finasteride [Proscar] 5 mg PO QDAY #30 11/30/18 07/07/20 07/05/20 09:00 Rx Gabapentin 100 mg PO BID #60 capsule 11/30/18 07/07/20 01/19/20 08:00 Rx ISOSORBIDE MONOnitrate [Imdur ER] 60 mg PO QDAY #60 tablet 11/30/18 07/07/20 07/05/20 09:00 Rx Ipratropium/Albuterol Sulfate 1 puff IH QID 30 Days 11/30/18 07/07/20 07/05/20 Rx [Combivent Respimat] Latanoprost 0.005% 1 drops OU QHS 30 Days bottle 11/30/18 07/07/20 07/05/20 23:00 Rx Metoprolol [Lopressor TAB] 12.5 mg PO BID #60 tablet 11/30/18 07/07/20 07/05/20 22:00 Rx Sertraline [Zoloft] 50 mg PO QDAY tablet 11/30/18 07/07/20 07/05/20 Rx Tamsulosin [Flomax] 0.4 mg PO QDAY #30 cap 11/30/18 07/07/20 07/05/20 10:00 Rx amLODIPine 5 mg PO DAILY #30 tab 11/30/18 07/07/20 07/05/20 10:00 Rx hydrOXYzine PAMOATE [Vistaril] 50 mg PO HS #30 cap 11/30/18 07/07/20 07/05/20 22:00 Rx Losartan [Cozaar] 50 mg PO QDAY #30 tablet 12/01/19 07/07/20 07/05/20 11:00 Rx oxyCODONE /ACETAMINOPHEN [Percocet 1 tab PO Q8H PRN #30 tablet 12/01/19 07/07/20 07/05/20 Rx 5/325 mg] HYDROmorphone [Dilaudid] 2 mg PO Q6HR #36 tablet 01/22/20 07/07/20 07/05/20 Rx Apixaban [Eliquis] 5 mg PO BID 07/07/20 07/07/20 07/05/20 23:00 History Apixaban [Eliquis] 5 mg PO BID 07/07/20 07/07/20 07/05/20 23:00 History Active Meds: Active Medications Al Hydrox/Mg Hydrox/Simethicone (Alum-Mag Hydroxide-Simethicone 617-094-34lv/5ml Oral Liqd 30 Ml) 30 ml PO Q4H PRN PRN Reason: Indigestion Last Admin: 07/06/20 20:01 Dose: 30 ml Documented by: Oxycodone/Acetaminophen (Oxycodone /Acetaminophen 5-325mg Tab) 1 tab PO Q4H PRN PRN Reason: Pain, Moderate (4-6) Last Admin: 07/07/20 09:22 Dose: 1 tab Documented by: Review of Systems Constitutional: no weight loss, no weight gain, no fever, no chills Ears, nose, mouth and throat: no ear pain, no ear discharge, no tinnitis, no decreased hearing, no nose pain, no nasal congestion, no nasal discharge, no sinus pressure Cardiovascular: no chest pain, no orthopnea, no rapid/irregular heart beat Respiratory: no cough, no excessive sputum, no hemoptysis, no dyspnea on exertion Gastrointestinal: no abdominal pain, no nausea, no vomiting, no change in bowel habits Genitourinary Male: no hematuria, no flank pain, no discharge, no urinary frequency, no urinary hesitancy, no nocturia Rectal: no pain, no incontinence, no bleeding Musculoskeletal: other (Right knee pain), no neck stiffness, no neck pain Integumentary: no rash, no pruritis, no redness, no sores, no wounds Neurological: no head injury, no paralysis, no weakness, no numbness, no tremors Psychiatric: no anxiety, no change in sleep habits, no hypersomnia, no disorientation Endocrine: no cold intolerance, no heat intolerance, no polyphagia, no polydipsia, no polyuria, no nocturia, no excessive sweating Hematologic/Lymphatic: no easy bruising, no easy bleeding, no lymphadenopathy, no lymphedema Allergic/Immunologic: no urticaria, no allergic rhinitis, no persistent infections, no anaphylaxis Exam - Constitutional Vitals: Temp Pulse Resp BP Pulse Ox 97.9 F 76 18 147/87 100 07/07/20 05:52 07/07/20 05:52 07/07/20 05:52 07/07/20 05:52 07/07/20 05:52 General appearance: Present: mild distress, obese - EENT Eyes: Present: PERRL ENT: hearing intact, clear oral mucosa - Neck Neck: Present: supple, normal ROM - Respiratory Respiratory effort: normal Respiratory: bilateral: CTA - Cardiovascular Heart Sounds: Present: S1 & S2. Absent: rub, click - Extremities Extremities: pulses symmetrical, No edema Extremity abnormal: edema, erythema, other (Right knee) Peripheral Pulses: within normal limits - Abdominal General gastrointestinal: Present: soft, non-tender, non-distended, normal bowel sounds Male genitourinary: Present: normal - Integumentary Integumentary: Present: clear, warm, dry - Musculoskeletal Musculoskeletal: gait normal, strength equal bilaterally - Psychiatric Psychiatric: appropriate mood/affect, intact judgment & insight - Neurologic Neurologic: CNII-XII intact, moves all extremities Results - Labs CBC & Chem 7: 07/06/20 13:21 07/06/20 13:21 Labs: Abnormal lab results 07/06/20 07/06/20 Range/Units 13:21 13:21 RDW 18.1 H (13.2-15.2) % [place] % (Auto) 9.6 H (0.0-7.3) % Creatinine 0.6 L (0.8-1.3) mg/dL Total Protein 8.5 H (6.3-8.2) g/dL Assessment and Plan - Patient Problems (1) Septic joint of right knee joint Current Visit: Yes Status: Acute Plan to address problem: Care as per primary team, knee x-ray, patient pending surgical intervention, (2) Hypertension Current Visit: Yes Status: Acute Qualifiers: Hypertension type: essential hypertension Qualified Code(s): I10 - Essential (primary) hypertension Plan to address problem: Monitor blood pressure every shift, continue medical management. (3) Diabetes Current Visit: Yes Status: Acute Plan to address problem: Consistent carbohydrate diet, Accu-Chek, insulin protocol, hypoglycemia protocol. (4) CHF (congestive heart failure) Current Visit: Yes Status: Acute Qualifiers: Heart failure type: diastolic Heart failure chronicity: chronic Qualified Code(s): I50.32 - Chronic diastolic (congestive) heart failure Plan to address problem: Strict I's/O, monitor urine output every shift, daily weight, afterload reduction, blood pressure control, supportive care. (5) BPH (benign prostatic hyperplasia) Current Visit: No Status: Chronic Qualifiers: Lower urinary tract symptom presence: symptoms present Plan to address problem: Supportive care, continue Flomax. (6) CAD (coronary artery disease) Current Visit: No Status: Chronic Qualifiers: Coronary Disease-Associated Artery/Lesion type: [place] artery [place] vs. transplanted heart: [place] heart Associated angina: without angina Qualified Code(s): I25.10 - Atherosclerotic heart disease of [place] coronary artery without angina pectoris Plan to address problem: Continue antiplatelet therapy, risk factor reduction, statin therapy, supportive care. (7) Chronic pain syndrome Current Visit: Yes Status: Acute Plan to address problem: Continue medical management. Pain assessment as per nursing care protocol. (8) DVT prophylaxis Current Visit: No Status: Acute Plan to address problem: SCD to bilateral lower extremities while in bed, continue therapeutic anticoagulation postoperatively.
[2020-07-07] MEDS ORDERED: oxyCODONE /ACETAMINOPHEN 5-325MG TAB PO PRN (12:50)
[2020-07-07] MEDS ORDERED: ACETAMINOPHEN 650 MG PO PRN (12:50)
[2020-07-07] MEDS ORDERED: ONDANSETRON 4 MG/2 ML INJ IV PRN (13:15)
[2020-07-07] MEDS: LACTATED RINGERS 1,000 ML IV SCH (13:15)
--- NOTE | 2020-07-07 13:15 | Anesthesia Consultation ---
Anesthesia Consult and Med Hx Date of service: 07/07/20 - Airway Anesthetic Teeth Evaluation: Good ROM Head & Neck: Adequate Mental/Hyoid Distance: Adequate Mallampati Class: Class III Intubation Access Assessment: Possibly Difficult (previous LMA 4) - Pre-Operative Health Status ASA Pre-Surgery Classification: ASA3 Proposed Anesthetic Plan: General - Pulmonary Hx Smoking: Yes (5-6cigs/day) Hx Respiratory Symptoms: No COPD: No (noted in chart review, patient denies) - Cardiovascular System Hx Hypertension: Yes Hx Coronary Artery Disease: Yes Hx Heart Attack/AMI: Yes (2015) Hx Angina: No Hx Percutaneous Transluminal Coronary Angioplasty (PTCA): Yes (stent x2 2015; last dose ASA 07/05/20) - Central Nervous System CVA: No - Endocrine Hx Renal Disease: No Hx Liver Disease: No Hx Insulin Dependent Diabetes: No Hx Non-Insulin Dependent Diabetes: Yes (patient states no PO meds or insulin at home) Hx Thyroid Disease: No - Other Systems Hx Obesity: Yes (BMI 32) - Additional Comments Anesthesia Medical History Comments: No hx anesthetic complications. Patient reports only taking ASA however eliquis is noted in home med rec and was documented as last dose 07/05/20 PM.
--- NOTE | 2020-07-07 13:15 | Anesthesia Day of Surgery ---
Anesthesia Day of Surgery - Day of Surgery Patient Examined: Yes Patient H&P Reviewed: Yes Patient is NPO: Yes
[2020-07-07] MEDS ORDERED: ACETAMINOPHEN 325 MG TAB PO PRN (13:16)
[2020-07-07] MEDS ORDERED: MIDAZOLAM 2 MG/2 ML INJ IV NR (14:00)
[2020-07-07] MEDS ORDERED: SODIUM CHLORIDE 0.9% 100 ML IVPB IV ONE (14:40)
[2020-07-07] MEDS ORDERED: MORPHINE 10 MG/1 ML INJ IM ONE (14:40)
[2020-07-07] MEDS ORDERED: KETOROLAC 30 MG/1 ML INJ IV ONE (14:40)
[2020-07-07] MEDS ORDERED: BUPIVACAINE/PF (0.5%) 5 MG/1 ML 10 ML VIAL INFILTRATI ONE (14:40)
[2020-07-07] MEDS ORDERED: MORPHINE 10 MG/1 ML INJ ONE (14:42)
[2020-07-07] MEDS ORDERED: ESMOLOL 100 MG/10 ML INJ IV ONE (15:00)
[2020-07-07] MEDS ORDERED: dexAMETHasone 20 MG/5 ML VIAL ONE (15:00)
[2020-07-07] MEDS ORDERED: PHENYLEPHRINE/NS 1,000 MCG/10 ML SYRINGE (OR USE) IV ONE (15:00)
[2020-07-07] MEDS ORDERED: fentaNYL 100 MCG/2 ML INJ ONE (15:00)
[2020-07-07] MEDS ORDERED: HYDROmorphone 1 MG/1 ML INJ ONE (15:00)
[2020-07-07] MEDS ORDERED: LIDOCAINE PF 100 MG/5 ML (CARDIAC SYRINGE) IV ONE (15:00)
[2020-07-07] MEDS ORDERED: propofoL 200 MG/20 ML VIAL IV ONE (15:00)
[2020-07-07] MEDS ORDERED: hydrALAZINE 20 MG/1 ML INJ ONE (15:00)
[2020-07-07] MEDS ORDERED: LACTATED RINGERS 1000 ML IV SOLN ONE (15:00)
[2020-07-07] MEDS ORDERED: ONDANSETRON 4 MG/2 ML INJ ONE (15:00)
[2020-07-07] MEDS: HYDROmorphone 1 MG/1 ML INJ IV PRN ×2 (15:27→15:39)
[2020-07-07] MEDS ORDERED: hydrALAZINE 20 MG/1 ML INJ IV ONE ×2 (15:49→17:00)
--- NOTE | 2020-07-07 16:00 | Post Anesthesia Evaluation ---
- Post Anesthesia Evaluation Patient Participated: Yes Airway Patent: Yes Stable Respiratory Function: Yes Nausea/Vomiting: No Temp > 96.8F: Yes Pain Manageable: Yes Adequeate Hydration: Yes Anesthesia Complications: No
[2020-07-07] MEDS: FINASTERIDE 5 MG TAB PO SCH (17:21)
[2020-07-07] MEDS: SERTRALINE 50 MG TAB PO SCH (17:21)
[2020-07-07] MEDS: TAMSULOSIN 0.4 MG CAP PO SCH (17:21)
[2020-07-07] MEDS: amLODIPine 5 MG TAB PO SCH (17:21)
[2020-07-07] MEDS: LOSARTAN 50 MG TAB PO SCH (17:21)
--- NOTE | 2020-07-07 17:33 | Procedure Note ---
Date of procedure: 07/07/20 Pre-op diagnosis: infected right total knee replacement, s/p removal implants Post-op diagnosis: same Procedure: Incision and drainage right knee procedure the patient was brought to the OR and placed on the OR table supine following induction by anesthesia, the patient's right LE prepped and draped in usual sterile fashion. A time-out procedure done to identify the patient and correct operative site. The tourniquet inflated to 300mm Hg, utilizing previous incision the knee joint entered, the cement spacer appeared intact not much purulent material seen either, sample of tissue given to scrub nurse of microbiology. Next using pulse lavage the joint throughly irrigated with antibiotic solution, next the soft tissues repaired and oscar applied to the skin as well as post op dressings. He tolerated the procedure and there were no complications noted, taken to PACU in stable condition... Anesthesia: MAC Surgeon: ERASTO SMITH Estimated blood loss: minimal Pathology: list (tissue sent to microbiology for C/S studies) Specimen disposition: to lab Condition: stable Disposition: PACU
[2020-07-07] MEDS: METOPROLOL TARTRATE 25 MG TAB PO SCH ×2 (20:55→21:09)
[2020-07-07] MEDS: APIXABAN 5 MG TAB PO SCH ×2 (20:56→21:09)
[2020-07-07] MEDS: LATANOPROST 0.005% OPHTH SOLN 2.5 ML OU SCH ×2 (20:56→21:09)
[2020-07-07] MEDS: GABAPENTIN 100 MG CAP PO SCH ×2 (20:56→21:09)
[2020-07-07] MEDS ORDERED: NON-FORMULARY EACH (Bimatoprost [Lumigan 0.01%] 5 ML Drops) OP SCH (22:00)
[2020-07-07] MEDS ORDERED: NON-FORMULARY EACH (Apixaban 5 MG Tablet) PO SCH (22:00)
[2020-07-08] MEDS: oxyCODONE /ACETAMINOPHEN 5-325MG TAB PO PRN ×2 (02:41→06:35)
[2020-07-08] MEDS: LACTATED RINGERS 1,000 ML IV SCH ×2 (02:50→13:18)
[2020-07-08] MEDS: amLODIPine 5 MG TAB PO SCH (09:26)
[2020-07-08] MEDS: ASPIRIN EC 325 MG TAB PO SCH (09:26)
[2020-07-08] MEDS: LOSARTAN 50 MG TAB PO SCH (09:26)
[2020-07-08] MEDS: TAMSULOSIN 0.4 MG CAP PO SCH (09:26)
[2020-07-08] MEDS: APIXABAN 5 MG TAB PO SCH ×2 (09:26→21:18)
[2020-07-08] MEDS: FINASTERIDE 5 MG TAB PO SCH (09:26)
[2020-07-08] MEDS: SERTRALINE 50 MG TAB PO SCH (09:26)
[2020-07-08] MEDS: GABAPENTIN 100 MG CAP PO SCH ×2 (09:26→21:18)
[2020-07-08] MEDS: METOPROLOL TARTRATE 25 MG TAB PO SCH ×2 (09:26→21:18)
--- NOTE | 2020-07-08 11:21 | Progress Note ---
Assessment and Plan Assessment and plan: 59 YO Male with DM complicated by Peripheral Neuropathy, HLD, HTN, [place], BPH, COPD, CAD S/P Stent placement, Bipolar Disorder, CHF, Chronic Pain Syndrome, DVT currently on therapeutic anticoagulation admitted for surgical intervention by the Ortho Surgery team. Consult placed by Dr. Batres for medical management. Patient seen and evaluated in his room. Patient resting comfortably. Patient knowledges right knee pain overnight. Patient denies fever, chills, chest pain, palpitation, shortness of breath, skin rash, recent ill contacts, or known exposure to COVID-19. No reported nursing events. 07/08/20: S/P Incision and drainage right knee and wash out with spacer. Per procedure note Procedure The patient was brought to the OR and placed on the OR table supine following induction by anesthesia, the patient's right LE prepped and draped in usual sterile fashion. A time-out procedure done to identify the patient and correct operative site. The tourniquet inflated to 300mm Hg, utilizing previous incision the knee joint entered, the cement spacer appeared intact not much purulent material seen either, sample of tissue given to scrub nurse of microbiology. Next using pulse lavage the joint throughly irrigated with antibiotic solution, next the soft tissues repaired and oscar applied to the skin as well as post op dressings. He tolerated the procedure and there were no complications noted, taken to PACU in stable condition. Follow with [facility]. Consult placed for ID to assist with antibiotics. Pain control. PT/OT. Patient is legally blind, will need all precautions in place. (1) Septic joint of right knee joint Current Visit: Yes Status: Acute Plan to address problem: Care as per primary team, knee x-ray, patient pending surgical intervention, (2) Hypertension Current Visit: Yes Status: Acute Qualifiers: Hypertension type: essential hypertension Qualified Code(s): I10 - Essential (primary) hypertension Plan to address problem: Monitor blood pressure every shift, continue medical management. (3) Diabetes Current Visit: Yes Status: Acute Plan to address problem: Consistent carbohydrate diet, Accu-Chek, insulin protocol, hypoglycemia protocol. (4) CHF (congestive heart failure) Current Visit: Yes Status: Acute Qualifiers: Heart failure type: diastolic Heart failure chronicity: chronic Qualified Code(s): I50.32 - Chronic diastolic (congestive) heart failure Plan to address problem: Strict I's/O, monitor urine output every shift, daily weight, afterload reduction, blood pressure control, supportive care. (5) BPH (benign prostatic hyperplasia) Current Visit: No Status: Chronic Qualifiers: Lower urinary tract symptom presence: symptoms present Plan to address problem: Supportive care, continue Flomax. (6) CAD (coronary artery disease) Current Visit: No Status: Chronic Qualifiers: Coronary Disease-Associated Artery/Lesion type: [place] artery [place] vs. transplanted heart: [place] heart Associated angina: without angina Qualified Code(s): I25.10 - Atherosclerotic heart disease of [place] coronary artery without angina pectoris Plan to address problem: Continue anti-platelet therapy, risk factor reduction, statin therapy, supportive care. (7) Chronic pain syndrome Current Visit: Yes Status: Acute Plan to address problem: Continue medical management. Pain assessment as per nursing care protocol. (8) Legally Blind (9) DVT prophylaxis Current Visit: No Status: Acute Plan to address problem: SCD to bilateral lower extremities while in bed, continue therapeutic anticoa gulation postoperatively. History Interval history: Patient seen and examined resting but complaints of pain in the knee following wash out and spacer placement. Hospitalist Physical - Physical exam Narrative exam: General appearance: Present: No distress, legally blind, obese - EENT Eyes: Present: PERRL ENT: hearing intact, clear oral mucosa - Neck Neck: Present: supple, normal ROM - Respiratory Respiratory effort: normal Respiratory: bilateral: CTA - Cardiovascular Heart Sounds: Present: S1 & S2. Absent: rub, click - Extremities Extremities: pulses symmetrical, No edema Extremity abnormal: dressing and support apparatus in place. notable swollen, erythema, other (Right knee) Peripheral Pulses: within normal limits - Abdominal General gastrointestinal: Present: soft, non-tender, non-distended, normal bowel sounds Male genitourinary: Present: normal - Integumentary Integumentary: Present: clear, warm, dry - Musculoskeletal Musculoskeletal: gait normal, strength equal bilaterally - Psychiatric Psychiatric: appropriate mood/affect, intact judgment & insight - Neurologic Neurologic: CNII-XII intact, moves all extremities - Constitutional Vitals: Temp Pulse Resp BP Pulse Ox 98.3 F 73 16 121/58 95 07/08/20 06:04 07/08/20 06:04 07/08/20 06:04 07/08/20 06:04 07/08/20 06:04 General appearance: Present: mild distress, obese Results - Labs CBC & Chem 7: 07/06/20 13:21 07/06/20 13:21 Labs: Laboratory Last Values WBC 7.6 K/mm3 (4.5-11.0) 07/06/20 13:21 RBC 4.29 M/mm3 (3.65-5.03) 07/06/20 13:21 Hgb 12.8 gm/dl (11.8-15.2) 07/06/20 13:21 Hct 37.6 % (35.5-45.6) 07/06/20 13:21 MCV 88 fl (84-94) 07/06/20 13:21 MCH 30 pg (28-32) 07/06/20 13:21 MCHC 34 % (32-34) 07/06/20 13:21 RDW 18.1 % (13.2-15.2) H 07/06/20 13:21 Plt Count 403 K/mm3 (140-440) 07/06/20 13:21 Lymph % (Auto) 33.7 % (13.4-35.0) 07/06/20 13:21 [place] % (Auto) 9.6 % (0.0-7.3) H 07/06/20 13:21 Eos % (Auto) 1.8 % (0.0-4.3) 07/06/20 13:21 Baso % (Auto) 0.6 % (0.0-1.8) 07/06/20 13:21 Lymph # (Auto) 2.6 K/mm3 (1.2-5.4) 07/06/20 13:21 [place] # (Auto) 0.7 K/mm3 (0.0-0.8) 07/06/20 13:21 Eos # (Auto) 0.1 K/mm3 (0.0-0.4) 07/06/20 13:21 Baso # (Auto) 0.0 K/mm3 (0.0-0.1) 07/06/20 13:21 Seg Neutrophils % 54.3 % (40.0-70.0) 07/06/20 13:21 Seg Neutrophils # 4.2 K/mm3 (1.8-7.7) 07/06/20 13:21 Sodium 138 mmol/L (137-145) 07/06/20 13:21 Potassium 4.2 mmol/L (3.6-5.0) 07/06/20 13:21 Chloride 101.6 mmol/L (98-107) 07/06/20 13:21 Carbon Dioxide 23 mmol/L (22-30) 07/06/20 13:21 Anion Gap 18 mmol/L 07/06/20 13:21 BUN 9 mg/dL (9-20) 07/06/20 13:21 Creatinine 0.6 mg/dL (0.8-1.3) L 07/06/20 13:21 Estimated GFR > 60 ml/min 07/06/20 13:21 BUN/Creatinine Ratio 15 % 07/06/20 13:21 Glucose 95 mg/dL (75-100) 07/06/20 13:21 POC Glucose 107 mg/dL (70-105) H 07/08/20 07:52 Lactic Acid 0.80 mmol/L (0.7-2.0) 07/06/20 13:21 Calcium 9.5 mg/dL (8.4-10.2) 07/06/20 13:21 Total Bilirubin 0.50 mg/dL (0.1-1.2) 07/06/20 13:21 AST 15 units/L (5-40) 07/06/20 13:21 ALT 9 units/L (7-56) 07/06/20 13:21 Alkaline Phosphatase 115 units/L (35-129) 07/06/20 13:21 Total Protein 8.5 g/dL (6.3-8.2) H 07/06/20 13:21 Albumin 4.2 g/dL (3.9-5) 07/06/20 13:21 Albumin/Globulin Ratio 1.0 % 07/06/20 13:21 Microbiology: Microbiology 07/07/20 Unknown Knee - Right Surgical Biopsy Culture - Preliminary Turner/IV: Voiding Method Urinal Active Medications - Current Medications Current Medications: Generic Name Dose Route Start Last Admin Trade Name Freq PRN Reason Stop Dose Admin Acetaminophen 650 mg 07/07/20 13:16 Acetaminophen 325 Mg Tab PO Q12H PRN Pain, Mild (1-3) Al Hydrox/Mg Hydrox/Simethicone 30 ml 07/06/20 19:28 07/06/20 20:01 Alum-Mag Hydroxide-Simethicone 036-223-25ma/5ml Oral Liqd 30 Ml PO 30 ml Q4H PRN Administration Indigestion Amlodipine Besylate 5 mg 07/07/20 14:00 07/08/20 09:26 Amlodipine 5 Mg Tab PO 5 mg DAILY CASIMIRO Administration Apixaban 5 mg 07/07/20 22:00 07/08/20 09:26 Apixaban 5 Mg Tab PO 5 mg Q12HR CASIMIRO Administration Aspirin 325 mg 07/08/20 10:00 07/08/20 09:26 Aspirin Ec 325 Mg Tab PO 325 mg QDAY CASIMIRO Administration Atorvastatin Calcium 40 mg 07/07/20 22:00 07/07/20 21:09 Atorvastatin 40 Mg Tab PO Not Given QHS CASIMIRO Finasteride 5 mg 07/07/20 14:00 07/08/20 09:26 Finasteride 5 Mg Tab PO 5 mg QDAY CASIMIRO Administration Gabapentin 100 mg 07/07/20 22:00 07/08/20 09:26 Gabapentin 100 Mg Cap PO 100 mg BID CASIMIRO Administration Hydromorphone HCl 0.25 mg 07/08/20 11:02 Hydromorphone 1 Mg/1 Ml Inj IV Q4H PRN Pain , Severe (7-10) Hydroxyzine Pamoate 50 mg 07/07/20 22:00 07/07/20 21:10 Hydroxyzine Pamoate 50 Mg Cap PO Not Given HS CASIMIRO Lactated Ringer's 1,000 mls @ 100 mls/hr 07/07/20 13:15 07/08/20 02:50 Lactated Ringers IV 100 mls/hr DIRECT CASIMIRO Administration Isosorbide Mononitrate 60 mg 07/07/20 14:00 07/08/20 09:26 Isosorbide Mononitrate Er 60 Mg Tab PO 60 mg QDAY CASIMIRO Administration Latanoprost 1 drops 07/07/20 22:00 07/07/20 21:09 Latanoprost 0.005% Ophth Soln 2.5 Ml OU Not Given QHS CASIMIRO Losartan Potassium 50 mg 07/07/20 14:00 07/08/20 09:26 Losartan 50 Mg Tab PO 50 mg QDAY CASIMIRO Administration Metoprolol Tartrate 12.5 mg 07/07/20 22:00 07/08/20 09:26 Metoprolol Tartrate 25 Mg Tab PO 12.5 mg BID CASIMIRO Administration Oxycodone/Acetaminophen 1 tab 07/07/20 01:10 07/08/20 06:35 Oxycodone /Acetaminophen 5-325mg Tab PO 1 tab Q4H PRN Administration Pain, Moderate (4-6) Sertraline HCl 50 mg 07/07/20 14:00 07/08/20 09:26 Sertraline 50 Mg Tab PO 50 mg QDAY CASIMIRO Administration Tamsulosin HCl 0.4 mg 07/07/20 14:00 07/08/20 09:26 Tamsulosin 0.4 Mg Cap PO 0.4 mg QDAY CASIMIRO Administration
[2020-07-08] MEDS: HYDROmorphone 1 MG/1 ML INJ IV PRN ×4 (11:29→23:50)
[2020-07-08] MEDS ORDERED: VANCOMYCIN 1,250 MG in SODIUM CHLORIDE 0.9% 500 ML 500 ML IV ONE (12:51)
--- NOTE | 2020-07-08 12:51 | Consultation ---
History of Present Illness - Reason for Consult Consult date: 07/08/20 septic arthritis Requesting physician: KINA FELDMAN - History of Present Illness The patient is a 59 years old male with DM, HTN, CAD, legally blind, right total knee replacement on 08/26/2019 complicated by prosthetic joint infection, was admitted in 11/21/2019 found to have MRSA s/p OR for debridement and irrigation of the knee on (1-stage procedure) treated with vancomycin IV and rifampin for 6 weeks until 01/03/2020, readmitted in January 2020 due to failure of 1-stage/IV/PO antibiotics, underwent removal of implants, spacer placement on 1cultures again grew MRSA, treated with IV Daptomycin 500 mg daily x 6 weeks ending 02/2020. Per review of clinic notes from Dr. Taylor, it seems patient had noncompliance with IV antibiotics. Most recently, patient was seen in ID clinic on 07/01/2020, recent cultures from the knee wound had grown E. coli and Proteus and patient had received about 30 days of p.o. Bactrim. Due to concern for poor compliance, and based on the cultures, he was given another round of p.o. ciprofloxacin for 6 weeks. His CRP was 75.8 mg/L. Now admitted from orthopedic clinic with drainage from the knee concerning for infection. Went to OR, underwent I&D, not much purulence seen. Review of Systems: General: no fevers,chills or rigors HEENT: no new visual disturbance Respiratory: No cough, sputum, hemoptysis or shortness of breath Cardiovascular: No chest pain, syncope Gastrointestinal: No nausea, vomiting or diarrhea Genitourinary: No dysuria or hematuria Musculoskeletal: No new or worsening neck pain or back pain Neurologic: No headaches, seizures Hematologic: No easy bruising or bleeding Endocrine: No night sweats or acute weight loss Skin: negative for rash, jaundice Psychiatric: No suicidal or homicidal ideation Past History Past Medical History: acute HI, COPD, heart failure, hypertension, hyperlipidemia, other (See HPI) Past Surgical History: hernia repair, Other (Cardiac stent placement) Social history: single. denies: smoking, alcohol abuse, prescription drug abuse Family history: diabetes, hypertension Medications and Allergies Allergies Allergy/AdvReac Type Severity Reaction Status Date / Time ibuprofen [From Motrin] Allergy Unknown Anaphylaxis Verified 07/06/20 17:26 tramadol Allergy Hives Verified 07/06/20 17:26 Home Medications Medication Instructions Recorded Confirmed Last Taken Type Acetaminophen [Acetaminophen ER 650 mg PO Q12H PRN 09/18/17 07/07/20 07/05/20 History TAB] Bimatoprost [Lumigan 0.01%] 1 drop OP HS 09/18/17 07/07/20 07/05/20 23:00 History Aspirin EC [Ecotrin] 325 mg PO QDAY #30 11/30/18 07/07/20 07/05/20 10:00 Rx AtorvaSTATin [Lipitor] 40 mg PO QHS #30 tablet 11/30/18 07/07/20 07/05/20 22:00 Rx Finasteride [Proscar] 5 mg PO QDAY #30 11/30/18 07/07/20 07/05/20 09:00 Rx Gabapentin 100 mg PO BID #60 capsule 11/30/18 07/07/20 01/19/20 08:00 Rx ISOSORBIDE MONOnitrate [Imdur ER] 60 mg PO QDAY #60 tablet 11/30/18 07/07/20 07/05/20 09:00 Rx Ipratropium/Albuterol Sulfate 1 puff IH QID 30 Days 11/30/18 07/07/20 07/05/20 Rx [Combivent Respimat] Latanoprost 0.005% 1 drops OU QHS 30 Days bottle 11/30/18 07/07/20 07/05/20 23:00 Rx Metoprolol [Lopressor TAB] 12.5 mg PO BID #60 tablet 11/30/18 07/07/20 07/05/20 22:00 Rx Sertraline [Zoloft] 50 mg PO QDAY tablet 11/30/18 07/07/20 07/05/20 Rx Tamsulosin [Flomax] 0.4 mg PO QDAY #30 cap 11/30/18 07/07/20 07/05/20 10:00 Rx amLODIPine 5 mg PO DAILY #30 tab 11/30/18 07/07/20 07/05/20 10:00 Rx hydrOXYzine PAMOATE [Vistaril] 50 mg PO HS #30 cap 11/30/18 07/07/20 07/05/20 22:00 Rx Losartan [Cozaar] 50 mg PO QDAY #30 tablet 12/01/19 07/07/20 07/05/20 11:00 Rx oxyCODONE /ACETAMINOPHEN [Percocet 1 tab PO Q8H PRN #30 tablet 12/01/19 07/07/20 07/05/20 Rx 5/325 mg] HYDROmorphone [Dilaudid] 2 mg PO Q6HR #36 tablet 01/22/20 07/07/20 07/05/20 Rx Apixaban [Eliquis] 5 mg PO BID 07/07/20 07/07/20 07/05/20 23:00 History Apixaban [Eliquis] 5 mg PO BID 07/07/20 07/07/20 07/05/20 23:00 History Active Meds: Active Medications Acetaminophen (Acetaminophen 325 Mg Tab) 650 mg PO Q12H PRN PRN Reason: Pain, Mild (1-3) Al Hydrox/Mg Hydrox/Simethicone (Alum-Mag Hydroxide-Simethicone [id number]/5ml Oral Liqd 30 Ml) 30 ml PO Q4H PRN PRN Reason: Indigestion Last Admin: 07/06/20 20:01 Dose: 30 ml Documented by: Amlodipine Besylate (Amlodipine 5 Mg Tab) 5 mg PO DAILY [facility] Last Admin: 07/08/20 09:26 Dose: 5 mg Documented by: Apixaban (Apixaban 5 Mg Tab) 5 mg PO Q12HR [facility] Last Admin: 07/08/20 09:26 Dose: 5 mg Documented by: Aspirin (Aspirin Ec 325 Mg Tab) 325 mg PO QDAY [facility] Last Admin: 07/08/20 09:26 Dose: 325 mg Documented by: Atorvastatin Calcium (Atorvastatin 40 Mg Tab) 40 mg PO QHS [facility] Last Admin: 07/07/20 21:09 Dose: Not Given Documented by: Finasteride (Finasteride 5 Mg Tab) 5 mg PO QDAY [facility] Last Admin: 07/08/20 09:26 Dose: 5 mg Documented by: Gabapentin (Gabapentin 100 Mg Cap) 100 mg PO BID [facility] Last Admin: 07/08/20 09:26 Dose: 100 mg Documented by: Hydromorphone HCl (Hydromorphone 1 Mg/1 Ml Inj) 0.25 mg IV Q4H PRN PRN Reason: Pain , Severe (7-10) Last Admin: 07/08/20 11:29 Dose: 0.25 mg Documented by: Hydroxyzine Pamoate (Hydroxyzine Pamoate 50 Mg Cap) 50 mg PO HS [facility] Last Admin: 07/07/20 21:10 Dose: Not Given Documented by: Lactated Ringer's (Lactated Ringers) 1,000 mls @ 100 mls/hr IV DIRECT [facility] Last Admin: 07/08/20 02:50 Dose: 100 mls/hr Documented by: Isosorbide Mononitrate (Isosorbide Mononitrate Er 60 Mg Tab) 60 mg PO QDAY [facility] Last Admin: 07/08/20 09:26 Dose: 60 mg Documented by: Latanoprost (Latanoprost 0.005% Ophth Soln 2.5 Ml) 1 drops OU QHS [facility] Last Admin: 07/07/20 21:09 Dose: Not Given Documented by: Losartan Potassium (Losartan 50 Mg Tab) 50 mg PO QDAY [facility] Last Admin: 07/08/20 09:26 Dose: 50 mg Documented by: Metoprolol Tartrate (Metoprolol Tartrate 25 Mg Tab) 12.5 mg PO BID [facility] Last Admin: 07/08/20 09:26 Dose: 12.5 mg Documented by: Oxycodone/Acetaminophen (Oxycodone /Acetaminophen 5-325mg Tab) 1 tab PO Q4H PRN PRN Reason: Pain, Moderate (4-6) Last Admin: 07/08/20 06:35 Dose: 1 tab Documented by: Sertraline HCl (Sertraline 50 Mg Tab) 50 mg PO QDAY [facility] Last Admin: 07/08/20 09:26 Dose: 50 mg Documented by: Tamsulosin HCl (Tamsulosin 0.4 Mg Cap) 0.4 mg PO QDAY [facility] Last Admin: 07/08/20 09:26 Dose: 0.4 mg Documented by: Physical Examination - Physical Exam Narrative exam: Physical Exam: Constitutional: Alert, cooperative. No acute distress Head, Ears, Nose: Normocephalic, atraumatic. External ears, nose normal Eyes: Conjunctivae/corneas clear. No icterus. No ptosis. Neck: Supple, no meningeal signs Cardiovascular: S1, S2 normal. Respiratory: Good air entry, clear to auscultation bilaterally GI: Soft, non-tender; bowel sounds normal. No peritoneal signs Musculoskeletal: Right knee dressing present Skin: No rash or abscess Hem/Lymphatic: No palpable cervical or supraclavicular nodes. No lymphangitis Psych: Mood ok. Affect normal Neurological: Awake, alert, oriented. No gross abnormality - Constitutional Vitals: Vital Signs Temp Pulse Resp BP Pulse Ox 99.6 F 86 16 143/74 96 07/08/20 11:00 07/08/20 11:00 07/08/20 11:00 07/08/20 11:00 07/08/20 11:00 Temperature -Last 24 Hours Temperature 99.6 F Temperature 98.3 F Temperature 98.3 F Temperature 98.6 F Temperature 98.0 F Temperature 97.6 F Temperature 98.6 F Results - Labs CBC & Chem 7: 07/06/20 13:21 07/06/20 13:21 Labs: Abnormal lab results 07/07/20 07/07/20 07/08/20 Range/Units 15:22 21:30 07:52 POC Glucose 117 H 112 H 107 H (70-105) mg/dL Assessment and Plan Cultures: Previous chart and cultures reviewed 07/07/2020 right knee OR culture: In process A/P: 59 years old male with DM, HTN, CAD, legally blind, right total knee replacement on 08/26/2019 complicated by prosthetic joint infection, was admitted in 11/21/2019 found to have MRSA s/p OR for debridement and irrigation of the knee on (1-stage procedure) treated with vancomycin IV and rifampin for 6 weeks until 01/03/2020, readmitted in January 2020 due to failure of 1- stage/IV/PO antibiotics, underwent removal of implants, spacer placement on 01/19/2021ultures again grew MRSA, treated with IV Daptomycin 500 mg daily x 6 weeks ending 02/2020. Per review of clinic notes from Dr. Taylor, it seems patient had noncompliance with IV antibiotics. Most recently, patient was seen in ID clinic on 07/01/2020, recent cultures from the knee wound had grown E. coli and Proteus and patient had received about 30 days of p.o. Bactrim. Due to concern for poor compliance, and based on the cultures, he was given another round of p.o. ciprofloxacin for 6 weeks. His CRP was 75.8 mg/L. Now with: #Right knee prosthetic joint infection: Prolonged and refractory course as discussed above. Status post I&D on 07/07/2020, not much purulence seen in the OR. #DM type II #Hypertension Recs: -Empiric IV ceftriaxone 2 g daily plus IV vancomycin for now -Follow-up OR cultures -CRP and ESR ordered -Considering his prolonged and complicated course, if patient has to do IV antibiotics, probably plan to set him up at her [facility] to ensure ap propriate compliance Abeba Willingham MD, FACP [facility] ([facility] O: [phone] F: [phone]
[2020-07-08] MEDS ORDERED: VANCOMYCIN PHARMACY TO DOSE IV SCH (13:00)
[2020-07-08] MEDS: cefTRIAXone/NS 2 GM/100 ML 2 GM/100 ML BAG IV SCH (13:15)
[2020-07-08] MEDS ORDERED: VANCOMYCIN 1,500 MG in SODIUM CHLORIDE 0.9% 500 ML 500 ML IV ONE (15:00)
--- NOTE | 2020-07-08 16:13 | Progress Note ---
Assessment and Plan s/p I&D right knee awaiting C/S from OR continue IVAB and observation Subjective Date of service: 07/08/20 Interval history: c/o incisional pain otherwise ok Objective Vital signs: Vital Signs - 12hr 07/08/20 07/08/20 06:04 11:00 Temperature 98.3 F 99.6 F Pulse Rate 73 86 Respiratory 16 16 Rate Blood Pressure 121/58 Blood Pressure 143/74 [Right] O2 Sat by Pulse 95 96 Oximetry Incision: healing, clean and dry Weight bearing status: as tolerated - Labs CBC & BMP: 07/06/20 13:21 07/06/20 13:21 Labs: Abnormal lab results 07/07/20 07/07/20 07/08/20 Range/Units 15:22 21:30 07:52 POC Glucose 117 H 112 H 107 H (70-105) mg/dL C-Reactive Protein (0.00-1.30) mg/dL 07/08/20 07/08/20 Range/Units 10:19 13:57 POC Glucose 133 H (70-105) mg/dL C-Reactive Protein 2.80 H (0.00-1.30) mg/dL
[2020-07-08] MEDS: LATANOPROST 0.005% OPHTH SOLN 2.5 ML OU SCH (21:18)
[2020-07-09] MEDS: ALUM-MAG HYDROXIDE-SIMETHICONE 200-200-20MG/5ML ORAL LIQD 30 ML PO PRN ×2 (00:03→03:56)
[2020-07-09] MEDS: VANCOMYCIN/NS 1 GM/250 ML 1 GM/250 ML BAG IV SCH ×2 (02:07→16:13)
[2020-07-09] MEDS: LACTATED RINGERS 1,000 ML IV SCH ×2 (02:07→19:56)
[2020-07-09] MEDS: HYDROmorphone 1 MG/1 ML INJ IV PRN ×4 (03:56→16:12)
[2020-07-09] MEDS: cefTRIAXone/NS 2 GM/100 ML 2 GM/100 ML BAG IV SCH (11:37)
[2020-07-09] MEDS: TAMSULOSIN 0.4 MG CAP PO SCH (11:38)
[2020-07-09] MEDS: ASPIRIN EC 325 MG TAB PO SCH (11:38)
[2020-07-09] MEDS: GABAPENTIN 100 MG CAP PO SCH ×2 (11:39→22:01)
[2020-07-09] MEDS: SERTRALINE 50 MG TAB PO SCH (11:39)
[2020-07-09] MEDS: APIXABAN 5 MG TAB PO SCH ×2 (11:39→22:01)
[2020-07-09] MEDS: FINASTERIDE 5 MG TAB PO SCH (11:40)
[2020-07-09] MEDS: LOSARTAN 50 MG TAB PO SCH (12:10)
[2020-07-09] MEDS: amLODIPine 5 MG TAB PO SCH (12:11)
[2020-07-09] MEDS: METOPROLOL TARTRATE 25 MG TAB PO SCH ×2 (12:12→23:10)
--- NOTE | 2020-07-09 12:49 | Progress Note ---
Assessment and Plan Assessment and plan: 59 YO Male with DM complicated by Peripheral Neuropathy, HLD, HTN, ND, BPH, COPD, CAD S/P Stent placement, Bipolar Disorder, CHF, Chronic Pain Syndrome, DVT currently on therapeutic anticoagulation admitted for surgical intervention by the Ortho Surgery team. Consult placed by Dr. Batres for medical management. Patient seen and evaluated in his room. Patient resting comfortably. Patient knowledges right knee pain overnight. Patient denies fever, chills, chest pain, palpitation, shortness of breath, skin rash, recent ill contacts, or known exposure to COVID-19. No reported nursing events. 07/08/20: S/P Incision and drainage right knee and wash out with spacer. Per procedure note Procedure The patient was brought to the OR and placed on the OR table supine following induction by anesthesia, the patient's right LE prepped and draped in usual sterile fashion. A time-out procedure done to identify the patient and correct operative site. The tourniquet inflated to 300mm Hg, utilizing previous incision the knee joint entered, the cement spacer appeared intact not much purulent material seen either, sample of tissue given to scrub nurse of microbiology. Next using pulse lavage the joint throughly irrigated with antibiotic solution, next the soft tissues repaired and oscar applied to the skin as well as post op dressings. He tolerated the procedure and there were no complications noted, taken to PACU in stable condition. Follow with [facility] data. Consult placed for ID to assist with antibiotics. Pain control. PT/OT. Patient is legally blind, will need all precautions in place. 07/09: Cultures growing staph areus, not finalized yet, continue pain control, start stool softner. FALL PRECAUTIONS (1) Septic joint of right knee joint Current Visit: Yes Status: Acute Plan to address problem: Care as per primary team, knee x-ray, patient pending surgical intervention, (2) Hypertension Current Visit: Yes Status: Acute Qualifiers: Hypertension type: essential hypertension Qualified Code(s): I10 - Essential (primary) hypertension Plan to address problem: Monitor blood pressure every shift, continue medical management. (3) Diabetes Current Visit: Yes Status: Acute Plan to address problem: Consistent carbohydrate diet, Accu-Chek, insulin protocol, hypoglycemia protocol. (4) CHF (congestive heart failure) Current Visit: Yes Status: Acute Qualifiers: Heart failure type: diastolic Heart failure chronicity: chronic Qualified Code(s): I50.32 - Chronic diastolic (congestive) heart failure Plan to address problem: Strict I's/O, monitor urine output every shift, daily weight, afterload reduction, blood pressure control, supportive care. (5) BPH (benign prostatic hyperplasia) Current Visit: No Status: Chronic Qualifiers: Lower urinary tract symptom presence: symptoms present Plan to address problem: Supportive care, continue Flomax. (6) CAD (coronary artery disease) Current Visit: No Status: Chronic Qualifiers: Coronary Disease-Associated Artery/Lesion type: [place] artery [place] vs. transplanted heart: [place] heart Associated angina: without angina Qualified Code(s): I25.10 - Atherosclerotic heart disease of [place] coronary artery without angina pectoris Plan to address problem: Continue anti-platelet therapy, risk factor reduction, statin therapy, supportive care. (7) Chronic pain syndrome Current Visit: Yes Status: Acute Plan to address problem: Continue medical management. Pain assessment as per nursing care protocol. (8) Legally Blind (9) DVT prophylaxis Current Visit: No Status: Acute Plan to address problem: SCD to bilateral lower extremities while in bed, continue therapeutic anticoagulation postoperatively. History Interval history: Patient seen and examined resting, Still with some knee pain Hospitalist Physical - Physical exam Narrative exam: General appearance: Present: No distress, legally blind, obese - EENT Eyes: Present: PERRL ENT: hearing intact, clear oral mucosa - Neck Neck: Present: supple, normal ROM - Respiratory Respiratory effort: normal Respiratory: bilateral: CTA - Cardiovascular Heart Sounds: Present: S1 & S2. Absent: rub, click - Extremities Extremities: pulses symmetrical, No edema Extremity abnormal: dressing and support apparatus in place. notable swollen, erythema, other (Right knee) Peripheral Pulses: within normal limits - Abdominal General gastrointestinal: Present: soft, non-tender, non-distended, normal bowel sounds Male genitourinary: Present: normal - Integumentary Integumentary: Present: clear, warm, dry - Musculoskeletal Musculoskeletal: gait normal, strength equal bilaterally - Psychiatric Psychiatric: appropriate mood/affect, intact judgment & insight - Neurologic Neurologic: CNII-XII intact, moves all extremities - Constitutional Vitals: Temp Pulse Resp BP Pulse Ox 98.6 F 70 20 150/76 96 07/09/20 05:20 07/09/20 05:20 07/09/20 05:20 07/09/20 05:20 07/09/20 05:20 General appearance: Present: mild distress, obese Results - Labs CBC & Chem 7: 07/06/20 13:21 07/09/20 12:03 Labs: Laboratory Last Values WBC 7.6 K/mm3 (4.5-11.0) 07/06/20 13:21 RBC 4.29 M/mm3 (3.65-5.03) 07/06/20 13:21 Hgb 12.8 gm/dl (11.8-15.2) 07/06/20 13:21 Hct 37.6 % (35.5-45.6) 07/06/20 13:21 MCV 88 fl (84-94) 07/06/20 13:21 MCH 30 pg (28-32) 07/06/20 13:21 MCHC 34 % (32-34) 07/06/20 13:21 RDW 18.1 % (13.2-15.2) H 07/06/20 13:21 Plt Count 403 K/mm3 (140-440) 07/06/20 13:21 Lymph % (Auto) 33.7 % (13.4-35.0) 07/06/20 13:21 Anderson % (Auto) 9.6 % (0.0-7.3) H 07/06/20 13:21 Eos % (Auto) 1.8 % (0.0-4.3) 07/06/20 13:21 Baso % (Auto) 0.6 % (0.0-1.8) 07/06/20 13:21 Lymph # (Auto) 2.6 K/mm3 (1.2-5.4) 07/06/20 13:21 Anderson # (Auto) 0.7 K/mm3 (0.0-0.8) 07/06/20 13:21 Eos # (Auto) 0.1 K/mm3 (0.0-0.4) 07/06/20 13:21 Baso # (Auto) 0.0 K/mm3 (0.0-0.1) 07/06/20 13:21 Seg Neutrophils % 54.3 % (40.0-70.0) 07/06/20 13:21 Seg Neutrophils # 4.2 K/mm3 (1.8-7.7) 07/06/20 13:21 ESR 48 mm/Hr (0-20) 07/08/20 13:57 Sodium 138 mmol/L (137-145) 07/06/20 13:21 Potassium 4.2 mmol/L (3.6-5.0) 07/06/20 13:21 Chloride 101.6 mmol/L (98-107) 07/06/20 13:21 Carbon Dioxide 23 mmol/L (22-30) 07/06/20 13:21 Anion Gap 18 mmol/L 07/06/20 13:21 BUN 9 mg/dL (9-20) 07/06/20 13:21 Creatinine 0.6 mg/dL (0.8-1.3) L 07/06/20 13:21 Estimated GFR > 60 ml/min 07/06/20 13:21 BUN/Creatinine Ratio 15 % 07/06/20 13:21 Glucose 95 mg/dL (75-100) 07/06/20 13:21 POC Glucose 119 mg/dL (70-105) H 07/09/20 10:50 Lactic Acid 0.80 mmol/L (0.7-2.0) 07/06/20 13:21 Calcium 9.5 mg/dL (8.4-10.2) 07/06/20 13:21 Total Bilirubin 0.50 mg/dL (0.1-1.2) 07/06/20 13:21 AST 15 units/L (5-40) 07/06/20 13:21 ALT 9 units/L (7-56) 07/06/20 13:21 Alkaline Phosphatase 115 units/L (35-129) 07/06/20 13:21 C-Reactive Protein 2.80 mg/dL (0.00-1.30) H 07/08/20 13:57 Total Protein 8.5 g/dL (6.3-8.2) H 07/06/20 13:21 Albumin 4.2 g/dL (3.9-5) 07/06/20 13:21 Albumin/Globulin Ratio 1.0 % 07/06/20 13:21 Turner/IV: Voiding Method Urinal Active Medications - Current Medications Current Medications: Generic Name Dose Route Start Last Admin Trade Name Freq PRN Reason Stop Dose Admin Acetaminophen 650 mg 07/07/20 13:16 Acetaminophen 325 Mg Tab PO Q12H PRN Pain, Mild (1-3) Al Hydrox/Mg Hydrox/Simethicone 30 ml 07/06/20 19:28 07/09/20 03:56 Alum-Mag Hydroxide-Simethicone [phone]/5ml Oral Liqd 30 Ml PO 30 ml Q4H PRN Administration Indigestion Amlodipine Besylate 5 mg 07/07/20 14:00 07/09/20 12:11 Amlodipine 5 Mg Tab PO 5 mg DAILY [facility] Administration Apixaban 5 mg 07/07/20 22:00 07/09/20 11:39 Apixaban 5 Mg Tab PO 5 mg Q12HR [facility] Administration Aspirin 325 mg 07/08/20 10:00 07/09/20 11:38 Aspirin Ec 325 Mg Tab PO 325 mg QDAY [facility] Administration Atorvastatin Calcium 40 mg 07/07/20 22:00 07/08/20 21:18 Atorvastatin 40 Mg Tab PO 40 mg QHS [facility] Administration Finasteride 5 mg 07/07/20 14:00 07/09/20 11:40 Finasteride 5 Mg Tab PO 5 mg QDAY [facility] Administration Gabapentin 100 mg 07/07/20 22:00 07/09/20 11:39 Gabapentin 100 Mg Cap PO 100 mg BID [facility] Administration Hydromorphone HCl 0.25 mg 07/08/20 11:02 07/09/20 12:09 Hydromorphone 1 Mg/1 Ml Inj IV 0.25 mg Q4H PRN Administration Pain , Severe (7-10) Hydroxyzine Pamoate 50 mg 07/07/20 22:00 07/08/20 21:18 Hydroxyzine Pamoate 50 Mg Cap PO 50 mg HS [facility] Administration Lactated Ringer's 1,000 mls @ 100 mls/hr 07/07/20 13:15 07/09/20 02:07 Lactated Ringers IV 100 mls/hr DIRECT [facility] Administration Ceftriaxone Sodium 2 gm in 100 mls @ 200 mls/hr 07/08/20 13:00 07/09/20 11:37 Rocephin/Ns 2 Gm/100 Ml IV 200 mls/hr Q24HR [facility] Administration Protocol Vancomycin HCl 1 gm in 250 mls @ 166.667 mls/hr 07/09/20 03:00 07/09/20 02:07 Vancomycin/Ns 1 Gm/250 Ml IV 166.667 mls/hr Q12H [facility] Administration Isosorbide Mononitrate 60 mg 07/07/20 14:00 07/09/20 12:28 Isosorbide Mononitrate Er 60 Mg Tab PO 60 mg QDAY [facility] Administration Latanoprost 1 drops 07/07/20 22:00 07/08/20 21:18 Latanoprost 0.005% Ophth Soln 2.5 Ml OU 1 drops QHS [facility] Administration Losartan Potassium 50 mg 07/07/20 14:00 07/09/20 12:10 Losartan 50 Mg Tab PO 50 mg QDAY [facility] Administration Metoprolol Tartrate 12.5 mg 07/07/20 22:00 07/09/20 12:12 Metoprolol Tartrate 25 Mg Tab PO 12.5 mg BID [facility] Administration Oxycodone/Acetaminophen 1 tab 07/07/20 01:10 07/08/20 06:35 Oxycodone /Acetaminophen 5-325mg Tab PO 1 tab Q4H PRN Administration Pain, Moderate (4-6) Sertraline HCl 50 mg 07/07/20 14:00 07/09/20 11:39 Sertraline 50 Mg Tab PO 50 mg QDAY [facility] Administration Tamsulosin HCl 0.4 mg 07/07/20 14:00 07/09/20 11:38 Tamsulosin 0.4 Mg Cap PO 0.4 mg QDAY [facility] Administration
[2020-07-09 12:58] LABS: Blood Urea Nitrogen 8 mg/dL (9-20); Calcium 9.4 mg/dL (8.4-10.2); Hemolysis Index 6
[2020-07-09 13:30] LABS: BUN/Creatinine Ratio 16
--- NOTE | 2020-07-09 16:18 | Progress Note ---
Assessment and Plan Cultures: Previous chart and cultures reviewed 07/07/2020 right knee OR culture: Staph aureus A/P: 59 years old male with DM, HTN, CAD, legally blind, right total knee replacement on 08/26/2019 complicated by prosthetic joint infection, was admitted in 11/21/2019 found to have MRSA s/p OR for debridement and irrigation of the knee on (1-stage procedure) treated with vancomycin IV and rifampin for 6 weeks until 01/03/2020, readmitted in January 2020 due to failure of 1- stage/IV/PO antibiotics, underwent removal of implants, spacer placement on 01/19/2021ultures again grew MRSA, treated with IV Daptomycin 500 mg daily x 6 weeks ending 02/2020. Per review of clinic notes from Dr. Taylor, it seems patient had noncompliance with IV antibiotics. Most recently, patient was seen in ID clinic on 07/01/2020, recent cultures from the knee wound had grown E. coli and Proteus and patient had received about 30 days of p.o. Bactrim. Due to concern for poor compliance, and based on the cultures, he was given another round of p.o. ciprofloxacin for 6 weeks. His CRP was 75.8 mg/L. Now with: #Right knee prosthetic joint infection: Prolonged and refractory course as discussed above. Status post I&D on 07/07/2020, not much purulence seen in the OR but cultures positive again for Staph aureus #DM type II #Hypertension Recs: -continue IV ceftriaxone 2 g daily plus IV vancomycin for now -Given culture growth again of Staph aureus, if patient is to eventually get a new joint, may need to consider removal of current spacer, washout and placement of a new spacer along with 6 weeks of IV antibiotics probably at a care home to ensure good compliance since this has been a recurrent issue for the last several months and patient has failed multiple rounds of antibiotics Abeba Willingham MD, FACP [facility] O: [phone] F: [phone] Subjective Date of service: 07/09/20 Interval history: No fever. Complains of pain in the knee. Objective - Exam Narrative Exam: Physical Exam: Constitutional: Alert, cooperative. No acute distress Head, Ears, Nose: Normocephalic, atraumatic. External ears, nose normal Eyes: Conjunctivae/corneas clear. No icterus. No ptosis. Neck: Supple, no meningeal signs Cardiovascular: S1, S2 normal. Respiratory: Good air entry, clear to auscultation bilaterally GI: Soft, non-tender; bowel sounds normal. No peritoneal signs Musculoskeletal: Right knee dressing present Skin: No rash or abscess Hem/Lymphatic: No palpable cervical or supraclavicular nodes. No lymphangitis Psych: Mood ok. Affect normal Neurological: Awake, alert, oriented. No gross abnormality - Constitutional Vitals: Vital Signs Temp Pulse Resp BP Pulse Ox 98.6 F 70 20 150/76 96 07/09/20 05:20 07/09/20 05:20 07/09/20 05:20 07/09/20 05:20 07/09/20 05:20 Temperature -Last 24 Hours Temperature 98.6 F Temperature 98.7 F Temperature 98.4 F - Labs CBC & Chem 7: 07/06/20 13:21 07/09/20 12:03 Labs: Abnormal lab results 07/08/20 07/09/20 07/09/20 Range/Units 21:44 08:03 10:50 Sodium (137-145) mmol/L BUN (9-20) mg/dL Creatinine (0.8-1.3) mg/dL POC Glucose 164 H 121 H 119 H (70-105) mg/dL 07/09/20 Range/Units 12:03 Sodium 136 L (137-145) mmol/L BUN 8 L (9-20) mg/dL Creatinine 0.5 L (0.8-1.3) mg/dL POC Glucose (70-105) mg/dL
[2020-07-09] MEDS: oxyCODONE /ACETAMINOPHEN 5-325MG TAB PO PRN (20:55)
[2020-07-09] MEDS: LATANOPROST 0.005% OPHTH SOLN 2.5 ML OU SCH (22:03)
[2020-07-10] MEDS: HYDROmorphone 1 MG/1 ML INJ IV PRN ×4 (01:43→20:04)
[2020-07-10] MEDS: VANCOMYCIN/NS 1 GM/250 ML 1 GM/250 ML BAG IV SCH ×2 (03:20→15:35)
[2020-07-10] MEDS: oxyCODONE /ACETAMINOPHEN 5-325MG TAB PO PRN ×4 (04:53→22:45)
[2020-07-10] MEDS: LACTATED RINGERS 1,000 ML IV SCH ×2 (07:41→20:03)
--- NOTE | 2020-07-10 10:57 | Progress Note ---
Assessment and Plan Assessment and plan: 59 YO Male with DM complicated by Peripheral Neuropathy, HLD, HTN, ID, BPH, COPD, CAD S/P Stent placement, Bipolar Disorder, CHF, Chronic Pain Syndrome, DVT currently on therapeutic anticoagulation admitted for surgical intervention by the Ortho Surgery team. Consult placed by Dr. Batres for medical management. Patient seen and evaluated in his room. Patient resting comfortably. Patient knowledges right knee pain overnight. Patient denies fever, chills, chest pain, palpitation, shortness of breath, skin rash, recent ill contacts, or known exposure to COVID-19. No reported nursing events. 07/08/20: S/P Incision and drainage right knee and wash out with spacer. Per procedure note Procedure The patient was brought to the OR and placed on the OR table supine following induction by anesthesia, the patient's right LE prepped and draped in usual sterile fashion. A time-out procedure done to identify the patient and correct operative site. The tourniquet inflated to 300mm Hg, utilizing previous incision the knee joint entered, the cement spacer appeared intact not much purulent material seen either, sample of tissue given to scrub nurse of microbiology. Next using pulse lavage the joint throughly irrigated with antibiotic solution, next the soft tissues repaired and osacr applied to the skin as well as post op dressings. He tolerated the procedure and there were no complications noted, taken to PACU in stable condition. Follow with [facility] data. Consult placed for ID to assist with antibiotics. Pain control. PT/OT. Patient is legally blind, will need all precautions in place. 07/09: Cultures growing staph areus, not finalized yet, continue pain control, start stool softner. FALL PRECAUTIONS 07/10: Continue supportive care, Per ID Patient has had prolonged and refractory course as discussed above. Status post I&D on 07/07/2020, not much purulence seen in the OR but cultures positive again for Staph aureus- Recommendation is -continue IV ceftriaxone 2 g daily plus IV vancomycin for now -Given culture growth again of Staph aureus, if patient is to eventually get a new joint, may need to consider removal of current spacer, washout and placement of a new spacer along with 6 weeks of IV antibiotics probably at a skilled nursing to ensure good compliance since this has been a recurrent issue for the last several months and patient has failed multiple rounds of antibiotics Culture indeed is growing staph aureus although we are waiting for finalization. Will await surgical reevaluation and intervention. Nursing staff to apply ice pack awaiting for PT evaluation (1) Septic joint of right knee joint-#Right knee prosthetic joint infection Current Visit: Yes Status: Acute Plan to address problem: Care as per primary team, knee x-ray, patient pending surgical intervention, (2) Hypertension Current Visit: Yes Status: Acute Qualifiers: Hypertension type: essential hypertension Qualified Code(s): I10 - Essential (primary) hypertension Plan to address problem: Monitor blood pressure every shift, continue medical management. (3) Diabetes Current Visit: Yes Status: Acute Plan to address problem: Consistent carbohydrate diet, Accu-Chek, insulin protocol, hypoglycemia protocol. (4) CHF (congestive heart failure) Current Visit: Yes Status: Acute Qualifiers: Heart failure type: diastolic Heart failure chronicity: chronic Qualified Code(s): I50.32 - Chronic diastolic (congestive) heart failure Plan to address problem: Strict I's/O, monitor urine output every shift, daily weight, afterload reduction, blood pressure control, supportive care. (5) BPH (benign prostatic hyperplasia) Current Visit: No Status: Chronic Qualifiers: Lower urinary tract symptom presence: symptoms present Plan to address problem: Supportive care, continue Flomax. (6) CAD (coronary artery disease) Current Visit: No Status: Chronic Qualifiers: Coronary Disease-Associated Artery/Lesion type: [place] artery [place] vs. transplanted heart: [place] heart Associated angina: without angina Qualified Code(s): I25.10 - Atherosclerotic heart disease of [place] coronary artery without angina pectoris Plan to address problem: Continue anti-platelet therapy, risk factor reduction, statin therapy, supportive care. (7) Chronic pain syndrome Current Visit: Yes Status: Acute Plan to address problem: Continue medical management. Pain assessment as per nursing care protocol. (8) Legally Blind (9) DVT prophylaxis Current Visit: No Status: Acute Plan to address problem: SCD to bilateral lower extremities while in bed, continue therapeutic anticoagulation postoperatively. History Interval history: Patient seen and examined resting, Still with some knee pain asking for ice pack Hospitalist Physical - Physical exam Narrative exam: General appearance: Present: No distress, legally blind, obese - EENT Eyes: Present: PERRL ENT: hearing intact, clear oral mucosa - Neck Neck: Present: supple, normal ROM - Respiratory Respiratory effort: normal Respiratory: bilateral: CTA - Cardiovascular Heart Sounds: Present: S1 & S2. Absent: rub, click - Extremities Extremities: pulses symmetrical, No edema Extremity abnormal: dressing and support apparatus in place. notable swollen, e rythema, other (Right knee) Peripheral Pulses: within normal limits - Abdominal General gastrointestinal: Present: soft, non-tender, non-distended, normal bowel sounds Male genitourinary: Present: normal - Integumentary Integumentary: Present: clear, warm, dry - Musculoskeletal Musculoskeletal: gait normal, strength equal bilaterally - Psychiatric Psychiatric: appropriate mood/affect, intact judgment & insight - Neurologic Neurologic: CNII-XII intact, moves all extremities - Constitutional Vitals: Temp Pulse Resp BP Pulse Ox 98.0 F 75 18 131/69 97 07/10/20 03:41 07/10/20 03:41 07/10/20 03:41 07/10/20 03:41 07/10/20 03:41 General appearance: Present: mild distress, obese Results - Labs CBC & Chem 7: 07/06/20 13:21 07/09/20 12:03 Labs: Laboratory Last Values WBC 7.6 K/mm3 (4.5-11.0) 07/06/20 13:21 RBC 4.29 M/mm3 (3.65-5.03) 07/06/20 13:21 Hgb 12.8 gm/dl (11.8-15.2) 07/06/20 13:21 Hct 37.6 % (35.5-45.6) 07/06/20 13:21 MCV 88 fl (84-94) 07/06/20 13:21 MCH 30 pg (28-32) 07/06/20 13:21 MCHC 34 % (32-34) 07/06/20 13:21 RDW 18.1 % (13.2-15.2) H 07/06/20 13:21 Plt Count 403 K/mm3 (140-440) 07/06/20 13:21 Lymph % (Auto) 33.7 % (13.4-35.0) 07/06/20 13:21 [place] % (Auto) 9.6 % (0.0-7.3) H 07/06/20 13:21 Eos % (Auto) 1.8 % (0.0-4.3) 07/06/20 13:21 Baso % (Auto) 0.6 % (0.0-1.8) 07/06/20 13:21 Lymph # (Auto) 2.6 K/mm3 (1.2-5.4) 07/06/20 13:21 [place] # (Auto) 0.7 K/mm3 (0.0-0.8) 07/06/20 13:21 Eos # (Auto) 0.1 K/mm3 (0.0-0.4) 07/06/20 13:21 Baso # (Auto) 0.0 K/mm3 (0.0-0.1) 07/06/20 13:21 Seg Neutrophils % 54.3 % (40.0-70.0) 07/06/20 13:21 Seg Neutrophils # 4.2 K/mm3 (1.8-7.7) 07/06/20 13:21 ESR 48 mm/Hr (0-20) 07/08/20 13:57 Sodium 136 mmol/L (137-145) L 07/09/20 12:03 Potassium 4.1 mmol/L (3.6-5.0) 07/09/20 12:03 Chloride 103.0 mmol/L (98-107) 07/09/20 12:03 Carbon Dioxide 25 mmol/L (22-30) 07/09/20 12:03 Anion Gap 12 mmol/L 07/09/20 12:03 BUN 8 mg/dL (9-20) L 07/09/20 12:03 Creatinine 0.5 mg/dL (0.8-1.3) L 07/09/20 12:03 Estimated GFR > 60 ml/min 07/09/20 12:03 BUN/Creatinine Ratio 16 % 07/09/20 12:03 Glucose 100 mg/dL (75-100) 07/09/20 12:03 POC Glucose 115 mg/dL (70-105) H 07/09/20 21:47 Lactic Acid 0.80 mmol/L (0.7-2.0) 07/06/20 13:21 Calcium 9.4 mg/dL (8.4-10.2) 07/09/20 12:03 Total Bilirubin 0.50 mg/dL (0.1-1.2) 07/06/20 13:21 AST 15 units/L (5-40) 07/06/20 13:21 ALT 9 units/L (7-56) 07/06/20 13:21 Alkaline Phosphatase 115 units/L (35-129) 07/06/20 13:21 C-Reactive Protein 2.80 mg/dL (0.00-1.30) H 07/08/20 13:57 Total Protein 8.5 g/dL (6.3-8.2) H 07/06/20 13:21 Albumin 4.2 g/dL (3.9-5) 07/06/20 13:21 Albumin/Globulin Ratio 1.0 % 07/06/20 13:21 Microbiology: Microbiology 07/07/20 Unknown Knee - Right Anaerobic Culture - Preliminary 07/07/20 Unknown Knee - Right Surgical Biopsy Culture - Preliminary Staphylococcus Aureus 07/07/20 Unknown Knee - Right Surgical Culture - Preliminary Staphylococcus Aureus Turner/IV: Voiding Method Urinal Active Medications - Current Medications Current Medications: Generic Name Dose Route Start Last Admin Trade Name Freq PRN Reason Stop Dose Admin Acetaminophen 650 mg 07/07/20 13:16 Acetaminophen 325 Mg Tab PO Q12H PRN Pain, Mild (1-3) Al Hydrox/Mg Hydrox/Simethicone 30 ml 07/06/20 19:28 07/09/20 03:56 Alum-Mag Hydroxide-Simethicone [phone]/5ml Oral Liqd 30 Ml PO 30 ml Q4H PRN Administration Indigestion Amlodipine Besylate 5 mg 07/07/20 14:00 07/09/20 12:11 Amlodipine 5 Mg Tab PO 5 mg DAILY CASIMIRO Administration Apixaban 5 mg 07/07/20 22:00 07/09/20 22:01 Apixaban 5 Mg Tab PO 5 mg Q12HR CASIMIRO Administration Aspirin 325 mg 07/08/20 10:00 07/09/20 11:38 Aspirin Ec 325 Mg Tab PO 325 mg QDAY CASIMIRO Administration Atorvastatin Calcium 40 mg 07/07/20 22:00 07/09/20 22:00 Atorvastatin 40 Mg Tab PO 40 mg QHS CASIMIRO Administration Finasteride 5 mg 07/07/20 14:00 07/09/20 11:40 Finasteride 5 Mg Tab PO 5 mg QDAY CASIMIRO Administration Gabapentin 100 mg 07/07/20 22:00 07/09/20 22:01 Gabapentin 100 Mg Cap PO 100 mg BID CASIMIRO Administration Hydromorphone HCl 0.25 mg 07/08/20 11:02 07/10/20 08:06 Hydromorphone 1 Mg/1 Ml Inj IV 0.25 mg Q4H PRN Administration Pain , Severe (7-10) Hydroxyzine Pamoate 50 mg 07/07/20 22:00 07/09/20 22:00 Hydroxyzine Pamoate 50 Mg Cap PO 50 mg HS CASIMIRO Administration Lactated Ringer's 1,000 mls @ 100 mls/hr 07/07/20 13:15 07/10/20 07:41 Lactated Ringers IV 100 mls/hr DIRECT CASIMIRO Administration Ceftriaxone Sodium 2 gm in 100 mls @ 200 mls/hr 07/08/20 13:00 07/09/20 11:37 Rocephin/Ns 2 Gm/100 Ml IV 200 mls/hr Q24HR CASIMIRO Administration Protocol Vancomycin HCl 1 gm in 250 mls @ 166.667 mls/hr 07/09/20 03:00 07/10/20 03:20 Vancomycin/Ns 1 Gm/250 Ml IV 166.667 mls/hr Q12H CASIMIRO Administration Isosorbide Mononitrate 60 mg 07/07/20 14:00 07/09/20 12:28 Isosorbide Mononitrate Er 60 Mg Tab PO 60 mg QDAY CASIMIRO Administration Latanoprost 1 drops 07/07/20 22:00 07/09/20 22:03 Latanoprost 0.005% Ophth Soln 2.5 Ml OU 1 drops QHS CASIMIRO Administration Losartan Potassium 50 mg 07/07/20 14:00 07/09/20 12:10 Losartan 50 Mg Tab PO 50 mg QDAY CASIMIRO Administration Metoprolol Tartrate 12.5 mg 07/07/20 22:00 07/09/20 23:10 Metoprolol Tartrate 25 Mg Tab PO 12.5 mg BID CASIMIRO Administration Oxycodone/Acetaminophen 1 tab 07/07/20 01:10 07/10/20 04:53 Oxycodone /Acetaminophen 5-325mg Tab PO 1 tab Q4H PRN Administration Pain, Moderate (4-6) Sertraline HCl 50 mg 07/07/20 14:00 07/09/20 11:39 Sertraline 50 Mg Tab PO 50 mg QDAY CASIMIRO Administration Tamsulosin HCl 0.4 mg 07/07/20 14:00 07/09/20 11:38 Tamsulosin 0.4 Mg Cap PO 0.4 mg QDAY CASIMIRO Administration
--- NOTE | 2020-07-10 11:09 | Progress Note ---
Assessment and Plan Cultures: Previous chart and cultures reviewed 07/07/2020 right knee OR culture: MRSA A/P: 59 years old male with DM, HTN, CAD, legally blind, right total knee replacement on 08/26/2019 complicated by prosthetic joint infection, was admitted in 11/21/2019 found to have MRSA s/p OR for debridement and irrigation of the knee on (1-stage procedure) treated with vancomycin IV and rifampin for 6 weeks until 01/03/2020, readmitted in January 2020 due to failure of 1- stage/IV/PO antibiotics, underwent removal of implants, spacer placement on 1cultures again grew MRSA, treated with IV Daptomycin 500 mg daily x 6 weeks ending 02/2020. Per review of clinic notes from Dr. Taylor, it seems patient had noncompliance with IV antibiotics. Most recently, patient was seen in ID clinic on 07/01/2020, recent cultures from the knee wound had grown E. coli and Proteus and patient had received about 30 days of p.o. Bactrim. Due to concern for poor compliance, and based on the cultures, he was given another round of p.o. ciprofloxacin for 6 weeks. His CRP was 75.8 mg/L. Now with: #Right knee prosthetic joint infection: Prolonged and refractory course as discussed above. Status post I&D on 07/07/2020, not much purulence seen in the OR but cultures positive again for Staph aureus #DM type II #Hypertension Recs: -ceftriaxone discontinued -continue with IV vancomycin for now (vancomycin BENY is 2.0, so will likely plan for IV daptomycin upon discharge) -Given culture growth again of MRSA, if patient is to eventually get a new joint, may need to consider removal of current spacer, washout and placement of a new spacer along with 6 weeks of IV antibiotics probably at a assisted to ensure good compliance since this has been a recurrent issue for the last several months and patient has failed multiple rounds of antibiotics. If he is not a candidate for more surgery, chronic suppression with PO abx can be considered. Abeba Willingham MD, FACP [facility] O: [phone] F: [phone] Subjective Date of service: 07/10/20 Interval history: No fever. Complains of pain in the knee. Objective - Exam Narrative Exam: Physical Exam: Constitutional: Alert, cooperative. No acute distress Head, Ears, Nose: Normocephalic, atraumatic. External ears, nose normal Eyes: Conjunctivae/corneas clear. No icterus. No ptosis. Neck: Supple, no meningeal signs Cardiovascular: S1, S2 normal. Respiratory: Good air entry, clear to auscultation bilaterally GI: Soft, non-tender; bowel sounds normal. No peritoneal signs Musculoskeletal: Right knee dressing present Skin: No rash or abscess Hem/Lymphatic: No palpable cervical or supraclavicular nodes. No lymphangitis Psych: Mood ok. Affect normal Neurological: Awake, alert, oriented. No gross abnormality - Constitutional Vitals: Vital Signs Temp Pulse Resp BP Pulse Ox 98.0 F 75 18 131/69 97 07/10/20 03:41 07/10/20 03:41 07/10/20 03:41 07/10/20 03:41 07/10/20 03:41 Temperature -Last 24 Hours Temperature 98.0 F Temperature 98.3 F - Labs CBC & Chem 7: 07/06/20 13:21 07/09/20 12:03 Labs: Abnormal lab results 07/09/20 07/09/20 07/09/20 Range/Units 10:50 12:03 21:47 Sodium 136 L (137-145) mmol/L BUN 8 L (9-20) mg/dL Creatinine 0.5 L (0.8-1.3) mg/dL POC Glucose 119 H 115 H (70-105) mg/dL
[2020-07-10] MEDS: FINASTERIDE 5 MG TAB PO SCH (11:39)
[2020-07-10] MEDS: amLODIPine 5 MG TAB PO SCH (11:39)
[2020-07-10] MEDS: ASPIRIN EC 325 MG TAB PO SCH (11:39)
[2020-07-10] MEDS: TAMSULOSIN 0.4 MG CAP PO SCH (11:40)
[2020-07-10] MEDS: GABAPENTIN 100 MG CAP PO SCH ×2 (11:40→22:36)
[2020-07-10] MEDS: SERTRALINE 50 MG TAB PO SCH (11:40)
[2020-07-10] MEDS: APIXABAN 5 MG TAB PO SCH ×2 (11:40→22:35)
[2020-07-10] MEDS: METOPROLOL TARTRATE 25 MG TAB PO SCH ×2 (11:41→22:35)
[2020-07-10] MEDS: LOSARTAN 50 MG TAB PO SCH (11:41)
[2020-07-10] MEDS: cefTRIAXone/NS 2 GM/100 ML 2 GM/100 ML BAG IV SCH (11:44)
[2020-07-10] MEDS: ALUM-MAG HYDROXIDE-SIMETHICONE 200-200-20MG/5ML ORAL LIQD 30 ML PO PRN (18:25)
[2020-07-10] MEDS: LATANOPROST 0.005% OPHTH SOLN 2.5 ML OU SCH (22:39)
[2020-07-11] MEDS: HYDROmorphone 1 MG/1 ML INJ IV PRN ×5 (01:31→20:30)
[2020-07-11] MEDS: VANCOMYCIN/NS 1 GM/250 ML 1 GM/250 ML BAG IV SCH (02:43)
[2020-07-11] MEDS: oxyCODONE /ACETAMINOPHEN 5-325MG TAB PO PRN ×2 (05:33→14:26)
[2020-07-11] MEDS: cefTRIAXone/NS 2 GM/100 ML 2 GM/100 ML BAG IV SCH (09:00)
[2020-07-11] MEDS: ASPIRIN EC 325 MG TAB PO SCH (09:01)
[2020-07-11] MEDS: APIXABAN 5 MG TAB PO SCH ×2 (09:01→22:35)
[2020-07-11] MEDS: GABAPENTIN 100 MG CAP PO SCH ×2 (09:01→22:35)
[2020-07-11] MEDS: TAMSULOSIN 0.4 MG CAP PO SCH (09:01)
[2020-07-11] MEDS: LOSARTAN 50 MG TAB PO SCH (09:01)
[2020-07-11] MEDS: METOPROLOL TARTRATE 25 MG TAB PO SCH ×2 (09:02→22:34)
[2020-07-11] MEDS: amLODIPine 5 MG TAB PO SCH (09:02)
[2020-07-11] MEDS: SERTRALINE 50 MG TAB PO SCH (09:02)
[2020-07-11] MEDS: FINASTERIDE 5 MG TAB PO SCH (09:02)
--- NOTE | 2020-07-11 10:53 | Progress Note ---
Assessment and Plan Assessment and plan: 59 YO Male with DM complicated by Peripheral Neuropathy, HLD, HTN, [place], BPH, COPD, CAD S/P Stent placement, Bipolar Disorder, CHF, Chronic Pain Syndrome, DVT currently on therapeutic anticoagulation admitted for surgical intervention by the Ortho Surgery team. Consult placed by Dr. Batres for medical management. Patient seen and evaluated in his room. Patient resting comfortably. Patient knowledges right knee pain overnight. Patient denies fever, chills, chest pain, palpitation, shortness of breath, skin rash, recent ill contacts, or known exposure to COVID-19. No reported nursing events. 07/08/20: S/P Incision and drainage right knee and wash out with spacer. Per procedure note Procedure The patient was brought to the OR and placed on the OR table supine following induction by anesthesia, the patient's right LE prepped and draped in usual sterile fashion. A time-out procedure done to identify the patient and correct operative site. The tourniquet inflated to 300mm Hg, utilizing previous incision the knee joint entered, the cement spacer appeared intact not much purulent material seen either, sample of tissue given to scrub nurse of microbiology. Next using pulse lavage the joint throughly irrigated with antibiotic solution, next the soft tissues repaired and oscar applied to the skin as well as post op dressings. He tolerated the procedure and there were no complications noted, taken to PACU in stable condition. Follow with MICRO FOR Micro data. Consult placed for ID to assist with antibiotics. Pain control. PT/OT. Patient is legally blind, will need all precautions in place. 07/09: Cultures growing staph areus, not finalized yet, continue pain control, start stool softner. FALL PRECAUTIONS 07/10: Continue supportive care, Per ID Patient has had prolonged and refractory course as discussed above. Status post I&D on 07/07/2020, not much purulence seen in the OR but cultures positive again for Staph aureus- Recommendation is -continue IV ceftriaxone 2 g daily plus IV vancomycin for now -Given culture growth again of Staph aureus, if patient is to eventually get a new joint, may need to consider removal of current spacer, washout and placement of a new spacer along with 6 weeks of IV antibiotics probably at a shelter to ensure good compliance since this has been a recurrent issue for the last several months and patient has failed multiple rounds of antibiotics Culture indeed is growing staph aureus although we are waiting for finalization. Will await surgical reevaluation and intervention. Nursing staff to apply ice pack awaiting for PT evaluation 07/11: PT input noted, will also adjust pain medication. Culture showing MRSA. ID input noted Below. will await Ortho input. -ceftriaxone discontinued -continue with IV vancomycin for now (vancomycin BENY is 2.0, so will likely plan for IV daptomycin upon discharge) -Given culture growth again of MRSA, if patient is to eventually get a new joint, may need to consider removal of current spacer, washout and placement of a new spacer along with 6 weeks of IV antibiotics probably at a shelter to ensure good compliance since this has been a recurrent issue for the last several months and patient has failed multiple rounds of antibiotics. If he is not a candidate for more surgery, chronic suppression with PO abx can be considered. (1) Septic joint of right knee joint-#Right knee prosthetic joint infection Current Visit: Yes Status: Acute Plan to address problem: Care as per primary team, knee x-ray, patient pending surgical intervention, (2) Hypertension Current Visit: Yes Status: Acute Qualifiers: Hypertension type: essential hypertension Qualified Code(s): I10 - Es sential (primary) hypertension Plan to address problem: Monitor blood pressure every shift, continue medical management. (3) Diabetes Current Visit: Yes Status: Acute Plan to address problem: Consistent carbohydrate diet, Accu-Chek, insulin protocol, hypoglycemia protocol. (4) CHF (congestive heart failure) Current Visit: Yes Status: Acute Qualifiers: Heart failure type: diastolic Heart failure chronicity: chronic Qualified Code(s): I50.32 - Chronic diastolic (congestive) heart failure Plan to address problem: Strict I's/O, monitor urine output every shift, daily weight, afterload reducti on, blood pressure control, supportive care. (5) BPH (benign prostatic hyperplasia) Current Visit: No Status: Chronic Qualifiers: Lower urinary tract symptom presence: symptoms present Plan to address problem: Supportive care, continue Flomax. (6) CAD (coronary artery disease) Current Visit: No Status: Chronic Qualifiers: Coronary Disease-Associated Artery/Lesion type: [place] artery [place] vs. transplanted heart: [place] heart Associated angina: without angina Qualified Code(s): I25.10 - Atherosclerotic heart disease of [place] coronary artery without angina pectoris Plan to address problem: Continue anti-platelet therapy, risk factor reduction, statin therapy, supportive care. (7) Chronic pain syndrome Current Visit: Yes Status: Acute Plan to address problem: Continue medical management. Pain assessment as per nursing care protocol. (8) Legally Blind (9) DVT prophylaxis Current Visit: No Status: Acute Plan to address problem: SCD to bilateral lower extremities while in bed, continue therapeutic anticoagulation postoperatively. History Interval history: Patient seen and examined resting, Still with some knee pain recieved ICE Pack but was not helpful Hospitalist Physical - Physical exam Narrative exam: General appearance: Present: No distress, legally blind, obese - EENT Eyes: Present: PERRL ENT: hearing intact, clear oral mucosa - Neck Neck: Present: supple, normal ROM - Respiratory Respiratory effort: normal Respiratory: bilateral: CTA - Cardiovascular Heart Sounds: Present: S1 & S2. Absent: rub, click - Extremities Extremities: pulses symmetrical, No edema Extremity abnormal: dressing and support apparatus in place. notable swollen, erythema, other (Right knee) Peripheral Pulses: within normal limits - Abdominal General gastrointestinal: Present: soft, non-tender, non-distended, normal bowel sounds Male genitourinary: Present: normal - Integumentary Integumentary: Present: clear, warm, dry - Musculoskeletal Musculoskeletal: gait normal, strength equal bilaterally - Psychiatric Psychiatric: appropriate mood/affect, intact judgment & insight - Neurologic Neurologic: CNII-XII intact, moves all extremities - Constitutional Vitals: Temp Pulse Resp BP Pulse Ox 98.6 F 78 20 145/70 100 07/11/20 09:13 07/11/20 09:13 07/11/20 09:13 07/11/20 09:13 07/11/20 09:13 General appearance: Present: mild distress, obese Results - Labs CBC & Chem 7: 07/06/20 13:21 07/09/20 12:03 Labs: Laboratory Last Values WBC 7.6 K/mm3 (4.5-11.0) 07/06/20 13:21 RBC 4.29 M/mm3 (3.65-5.03) 07/06/20 13:21 Hgb 12.8 gm/dl (11.8-15.2) 07/06/20 13:21 Hct 37.6 % (35.5-45.6) 07/06/20 13:21 MCV 88 fl (84-94) 07/06/20 13:21 MCH 30 pg (28-32) 07/06/20 13:21 MCHC 34 % (32-34) 07/06/20 13:21 RDW 18.1 % (13.2-15.2) H 07/06/20 13:21 Plt Count 403 K/mm3 (140-440) 07/06/20 13:21 Lymph % (Auto) 33.7 % (13.4-35.0) 07/06/20 13:21 [place] % (Auto) 9.6 % (0.0-7.3) H 07/06/20 13:21 Eos % (Auto) 1.8 % (0.0-4.3) 07/06/20 13:21 Baso % (Auto) 0.6 % (0.0-1.8) 07/06/20 13:21 Lymph # (Auto) 2.6 K/mm3 (1.2-5.4) 07/06/20 13:21 [place] # (Auto) 0.7 K/mm3 (0.0-0.8) 07/06/20 13:21 Eos # (Auto) 0.1 K/mm3 (0.0-0.4) 07/06/20 13:21 Baso # (Auto) 0.0 K/mm3 (0.0-0.1) 07/06/20 13:21 Seg Neutrophils % 54.3 % (40.0-70.0) 07/06/20 13:21 Seg Neutrophils # 4.2 K/mm3 (1.8-7.7) 07/06/20 13:21 ESR 48 mm/Hr (0-20) 07/08/20 13:57 Sodium 136 mmol/L (137-145) L 07/09/20 12:03 Potassium 4.1 mmol/L (3.6-5.0) 07/09/20 12:03 Chloride 103.0 mmol/L (98-107) 07/09/20 12:03 Carbon Dioxide 25 mmol/L (22-30) 07/09/20 12:03 Anion Gap 12 mmol/L 07/09/20 12:03 BUN 8 mg/dL (9-20) L 07/09/20 12:03 Creatinine 0.5 mg/dL (0.8-1.3) L 07/09/20 12:03 Estimated GFR > 60 ml/min 07/09/20 12:03 BUN/Creatinine Ratio 16 % 07/09/20 12:03 Glucose 100 mg/dL (75-100) 07/09/20 12:03 POC Glucose 113 mg/dL (70-105) H 07/10/20 11:11 Lactic Acid 0.80 mmol/L (0.7-2.0) 07/06/20 13:21 Calcium 9.4 mg/dL (8.4-10.2) 07/09/20 12:03 Total Bilirubin 0.50 mg/dL (0.1-1.2) 07/06/20 13:21 AST 15 units/L (5-40) 07/06/20 13:21 ALT 9 units/L (7-56) 07/06/20 13:21 Alkaline Phosphatase 115 units/L (35-129) 07/06/20 13:21 C-Reactive Protein 2.80 mg/dL (0.00-1.30) H 07/08/20 13:57 Total Protein 8.5 g/dL (6.3-8.2) H 07/06/20 13:21 Albumin 4.2 g/dL (3.9-5) 07/06/20 13:21 Albumin/Globulin Ratio 1.0 % 07/06/20 13:21 Microbiology: Microbiology 07/07/20 Unknown Knee - Right Anaerobic Culture - Final 07/07/20 Unknown Knee - Right Surgical Biopsy Culture - Preliminary Methicillin Resist S. Aureus 07/07/20 Unknown Knee - Right Surgical Culture - Final Methicillin Resist S. Aureus Turner/IV: Voiding Method Urinal Active Medications - Current Medications Current Medications: Generic Name Dose Route Start Last Admin Trade Name Freq PRN Reason Stop Dose Admin Acetaminophen 650 mg 07/07/20 13:16 Acetaminophen 325 Mg Tab PO Q12H PRN Pain, Mild (1-3) Al Hydrox/Mg Hydrox/Simethicone 30 ml 07/06/20 19:28 07/10/20 18:25 Alum-Mag Hydroxide-Simethicone [id number]/5ml Oral Liqd 30 Ml PO 30 ml Q4H PRN Administration Indigestion Amlodipine Besylate 5 mg 07/07/20 14:00 07/11/20 09:02 Amlodipine 5 Mg Tab PO 5 mg DAILY CASIMIRO Administration Apixaban 5 mg 07/07/20 22:00 07/11/20 09:01 Apixaban 5 Mg Tab PO 5 mg Q12HR CASIMIRO Administration Aspirin 325 mg 07/08/20 10:00 07/11/20 09:01 Aspirin Ec 325 Mg Tab PO 325 mg QDAY CASIMIRO Administration Atorvastatin Calcium 40 mg 07/07/20 22:00 07/10/20 22:35 Atorvastatin 40 Mg Tab PO 40 mg QHS CASIMIRO Administration Finasteride 5 mg 07/07/20 14:00 07/11/20 09:02 Finasteride 5 Mg Tab PO 5 mg QDAY CASIMIRO Administration Gabapentin 100 mg 07/07/20 22:00 07/11/20 09:01 Gabapentin 100 Mg Cap PO 100 mg BID CASIMIRO Administration Hydromorphone HCl 0.25 mg 07/08/20 11:02 07/11/20 07:17 Hydromorphone 1 Mg/1 Ml Inj IV 0.25 mg Q4H PRN Administration Pain , Severe (7-10) Hydroxyzine Pamoate 50 mg 07/07/20 22:00 07/10/20 22:36 Hydroxyzine Pamoate 50 Mg Cap PO 50 mg HS CASIMIRO Administration Lactated Ringer's 1,000 mls @ 100 mls/hr 07/07/20 13:15 07/10/20 20:03 Lactated Ringers IV 100 mls/hr DIRECT CASIMIRO Administration Ceftriaxone Sodium 2 gm in 100 mls @ 200 mls/hr 07/08/20 13:00 07/11/20 09:00 Rocephin/Ns 2 Gm/100 Ml IV 200 mls/hr Q24HR CASIMIRO Administration Protocol Vancomycin HCl 1 gm in 250 mls @ 166.667 mls/hr 07/09/20 03:00 07/11/20 02:43 Vancomycin/Ns 1 Gm/250 Ml IV 166.667 mls/hr Q12H CASIMIRO Administration Isosorbide Mononitrate 60 mg 07/07/20 14:00 07/11/20 09:01 Isosorbide Mononitrate Er 60 Mg Tab PO 60 mg QDAY CASIMIRO Administration Latanoprost 1 drops 07/07/20 22:00 07/10/20 22:39 Latanoprost 0.005% Ophth Soln 2.5 Ml OU 1 drops QHS CASIMIRO Administration Losartan Potassium 50 mg 07/07/20 14:00 07/11/20 09:01 Losartan 50 Mg Tab PO 50 mg QDAY CASIMIRO Administration Metoprolol Tartrate 12.5 mg 07/07/20 22:00 07/11/20 09:02 Metoprolol Tartrate 25 Mg Tab PO 12.5 mg BID CASIMIRO Administration Oxycodone/Acetaminophen 1 tab 07/07/20 01:10 07/11/20 05:33 Oxycodone /Acetaminophen 5-325mg Tab PO 1 tab Q4H PRN Administration Pain, Moderate (4-6) Sertraline HCl 50 mg 07/07/20 14:00 07/11/20 09:02 Sertraline 50 Mg Tab PO 50 mg QDAY CASIMIRO Administration Tamsulosin HCl 0.4 mg 07/07/20 14:00 07/11/20 09:01 Tamsulosin 0.4 Mg Cap PO 0.4 mg QDAY CASIMIRO Administration
[2020-07-11] MEDS: LACTATED RINGERS 1,000 ML IV SCH ×2 (10:55→22:37)
[2020-07-11] MEDS: DOCUSATE SODIUM 100 MG CAP PO SCH ×2 (14:26→22:35)
[2020-07-11] MEDS: VANCOMYCIN 1,250 MG in SODIUM CHLORIDE 0.9% 250ML 250 ML IV SCH (16:42)
[2020-07-11] MEDS: LATANOPROST 0.005% OPHTH SOLN 2.5 ML OU SCH (22:36)
[2020-07-12] MEDS: HYDROmorphone 1 MG/1 ML INJ IV PRN ×4 (00:49→17:13)
[2020-07-12] MEDS: oxyCODONE /ACETAMINOPHEN 5-325MG TAB PO PRN ×3 (03:45→14:27)
[2020-07-12] MEDS: VANCOMYCIN 1,250 MG in SODIUM CHLORIDE 0.9% 250ML 250 ML IV SCH ×2 (03:45→16:21)
[2020-07-12] MEDS: DOCUSATE SODIUM 100 MG CAP PO SCH ×2 (09:00→22:29)
[2020-07-12] MEDS: APIXABAN 5 MG TAB PO SCH ×2 (09:00→22:28)
[2020-07-12] MEDS: SERTRALINE 50 MG TAB PO SCH (09:03)
[2020-07-12] MEDS: METOPROLOL TARTRATE 25 MG TAB PO SCH ×2 (09:03→21:42)
[2020-07-12] MEDS: FINASTERIDE 5 MG TAB PO SCH (09:04)
[2020-07-12] MEDS: amLODIPine 5 MG TAB PO SCH (09:04)
[2020-07-12] MEDS: GABAPENTIN 100 MG CAP PO SCH ×2 (09:04→22:29)
[2020-07-12] MEDS: ASPIRIN EC 325 MG TAB PO SCH (09:04)
[2020-07-12] MEDS: TAMSULOSIN 0.4 MG CAP PO SCH (09:04)
[2020-07-12] MEDS: LOSARTAN 50 MG TAB PO SCH (09:04)
--- NOTE | 2020-07-12 10:31 | Progress Note ---
Assessment and Plan Assessment and plan: 59 YO Male with DM complicated by Peripheral Neuropathy, HLD, HTN, [place], BPH, COPD, CAD S/P Stent placement, Bipolar Disorder, CHF, Chronic Pain Syndrome, DVT currently on therapeutic anticoagulation admitted for surgical intervention by the Ortho Surgery team. Consult placed by Dr. Batres for medical management. Patient seen and evaluated in his room. Patient resting comfortably. Patient knowledges right knee pain overnight. Patient denies fever, chills, chest pain, palpitation, shortness of breath, skin rash, recent ill contacts, or known exposure to COVID-19. No reported nursing events. 07/08/20: S/P Incision and drainage right knee and wash out with spacer. Per procedure note Procedure The patient was brought to the OR and placed on the OR table supine following induction by anesthesia, the patient's right LE prepped and draped in usual sterile fashion. A time-out procedure done to identify the patient and correct operative site. The tourniquet inflated to 300mm Hg, utilizing previous incision the knee joint entered, the cement spacer appeared intact not much purulent material seen either, sample of tissue given to scrub nurse of microbiology. Next using pulse lavage the joint throughly irrigated with antibiotic solution, next the soft tissues repaired and oscar applied to the skin as well as post op dressings. He tolerated the procedure and there were no complications noted, taken to PACU in stable condition. Follow with MI[facility] FOR Micro data. Consult placed for ID to assist with antibiotics. Pain control. PT/OT. Patient is legally blind, will need all precautions in place. 07/09: Cultures growing staph areus, not finalized yet, continue pain control, start stool softner. FALL PRECAUTIONS 07/10: Continue supportive care, Per ID Patient has had prolonged and refractory course as discussed above. Status post I&D on 07/07/2020, not much purulence seen in the OR but cultures positive again for Staph aureus- Recommendation is -continue IV ceftriaxone 2 g daily plus IV vancomycin for now -Given culture growth again of Staph aureus, if patient is to eventually get a new joint, may need to consider removal of current spacer, washout and placement of a new spacer along with 6 weeks of IV antibiotics probably at a [facility] to ensure good compliance since this has been a recurrent issue for the last several months and patient has failed multiple rounds of antibiotics Culture indeed is growing staph aureus although we are waiting for finalization. Will await surgical reevaluation and intervention. Nursing staff to apply ice pack awaiting for PT evaluation 07/11: PT input noted, will also adjust pain medication. Culture showing MRSA. ID input noted Below. will await Ortho input. -ceftriaxone discontinued -continue with IV vancomycin for now (vancomycin BENY is 2.0, so will likely plan for IV daptomycin upon discharge) -Given culture growth again of MRSA, if patient is to eventually get a new joint, may need to consider removal of current spacer, washout and placement of a new spacer along with 6 weeks of IV antibiotics probably at a [facility] to ensure good compliance since this has been a recurrent issue for the last several months and patient has failed multiple rounds of antibiotics. If he is not a candidate for more surgery, chronic suppression with PO abx can be considered. 07/12: Continue plan as outlined above. Awaiting Surgery input. Continue isolation precautions for MRSA (1) Septic joint of right knee joint-#Right knee prosthetic joint infection Current Visit: Yes Status: Acute Plan to address problem: Care as per primary team, knee x-ray, patient pending surgical intervention, (2) Hypertension Current Visit: Yes Status: Acute Qualifiers: Hypertension type: essential hypertension Qualified Code(s): I10 - Essential (primary) hypertension Plan to address problem: Monitor blood pressure every shift, continue medical management. (3) Diabetes Current Visit: Yes Status: Acute Plan to address problem: Consistent carbohydrate diet, Accu-Chek, insulin protocol, hypoglycemia protocol . (4) CHF (congestive heart failure) Current Visit: Yes Status: Acute Qualifiers: Heart failure type: diastolic Heart failure chronicity: chronic Qualified Code(s): I50.32 - Chronic diastolic (congestive) heart failure Plan to address problem: Strict I's/O, monitor urine output every shift, daily weight, afterload red uction, blood pressure control, supportive care. (5) BPH (benign prostatic hyperplasia) Current Visit: No Status: Chronic Qualifiers: Lower urinary tract symptom presence: symptoms present Plan to address problem: Supportive care, continue Flomax. (6) CAD (coronary artery disease) Current Visit: No Status: Chronic Qualifiers: Coronary Disease-Associated Artery/Lesion type: [place] artery [place] vs. transplanted heart: [place] heart Associated angina: without angina Qualified Code(s): I25.10 - Atherosclerotic heart disease of [place] coronary artery without angina pectoris Plan to address problem: Continue anti-platelet therapy, risk factor reduction, statin therapy, supportive care. (7) Chronic pain syndrome Current Visit: Yes Status: Acute Plan to address problem: Continue medical management. Pain assessment as per nursing care protocol. (8) Legally Blind (9) DVT prophylaxis Current Visit: No Status: Acute Plan to address problem: SCD to bilateral lower extremities while in bed, continue therapeutic anticoagulation postoperatively. History Interval history: Patient seen and examined resting, NO NEW COMPLAINTS Hospitalist Physical - Physical exam Narrative exam: General appearance: Present: No distress, legally blind, obese - EENT Eyes: Present: PERRL ENT: hearing intact, clear oral mucosa - Neck Neck: Present: supple, normal ROM - Respiratory Respiratory effort: normal Respiratory: bilateral: CTA - Cardiovascular Heart Sounds: Present: S1 & S2. Absent: rub, click - Extremities Extremities: pulses symmetrical, No edema Extremity abnormal: dressing and support apparatus in place. notable swollen, erythema, other (Right knee) Peripheral Pulses: within normal limits - Abdominal General gastrointestinal: Present: soft, non-tender, non-distended, normal bowel sounds Male genitourinary: Present: normal - Integumentary Integumentary: Present: clear, warm, dry - Musculoskeletal Musculoskeletal: gait normal, strength equal bilaterally - Psychiatric Psychiatric: appropriate mood/affect, intact judgment & insight - Neurologic Neurologic: CNII-XII intact, moves all extremities - Constitutional Vitals: Temp Pulse Resp BP Pulse Ox 98.3 F 82 18 139/62 94 07/12/20 04:56 07/12/20 04:56 07/12/20 04:56 07/12/20 04:56 07/12/20 04:56 General appearance: Present: mild distress, obese Results - Labs CBC & Chem 7: 07/06/20 13:21 07/09/20 12:03 Labs: Laboratory Last Values WBC 7.6 K/mm3 (4.5-11.0) 07/06/20 13:21 RBC 4.29 M/mm3 (3.65-5.03) 07/06/20 13:21 Hgb 12.8 gm/dl (11.8-15.2) 07/06/20 13:21 Hct 37.6 % (35.5-45.6) 07/06/20 13:21 MCV 88 fl (84-94) 07/06/20 13:21 MCH 30 pg (28-32) 07/06/20 13:21 MCHC 34 % (32-34) 07/06/20 13:21 RDW 18.1 % (13.2-15.2) H 07/06/20 13:21 Plt Count 403 K/mm3 (140-440) 07/06/20 13:21 Lymph % (Auto) 33.7 % (13.4-35.0) 07/06/20 13:21 [place] % (Auto) 9.6 % (0.0-7.3) H 07/06/20 13:21 Eos % (Auto) 1.8 % (0.0-4.3) 07/06/20 13:21 Baso % (Auto) 0.6 % (0.0-1.8) 07/06/20 13:21 Lymph # (Auto) 2.6 K/mm3 (1.2-5.4) 07/06/20 13:21 [place] # (Auto) 0.7 K/mm3 (0.0-0.8) 07/06/20 13:21 Eos # (Auto) 0.1 K/mm3 (0.0-0.4) 07/06/20 13:21 Baso # (Auto) 0.0 K/mm3 (0.0-0.1) 07/06/20 13:21 Seg Neutrophils % 54.3 % (40.0-70.0) 07/06/20 13:21 Seg Neutrophils # 4.2 K/mm3 (1.8-7.7) 07/06/20 13:21 ESR 48 mm/Hr (0-20) 07/08/20 13:57 Sodium 136 mmol/L (137-145) L 07/09/20 12:03 Potassium 4.1 mmol/L (3.6-5.0) 07/09/20 12:03 Chloride 103.0 mmol/L (98-107) 07/09/20 12:03 Carbon Dioxide 25 mmol/L (22-30) 07/09/20 12:03 Anion Gap 12 mmol/L 07/09/20 12:03 BUN 8 mg/dL (9-20) L 07/09/20 12:03 Creatinine 0.5 mg/dL (0.8-1.3) L 07/09/20 12:03 Estimated GFR > 60 ml/min 07/09/20 12:03 BUN/Creatinine Ratio 16 % 07/09/20 12:03 Glucose 100 mg/dL (75-100) 07/09/20 12:03 POC Glucose 113 mg/dL (70-105) H 07/10/20 11:11 Lactic Acid 0.80 mmol/L (0.7-2.0) 07/06/20 13:21 Calcium 9.4 mg/dL (8.4-10.2) 07/09/20 12:03 Total Bilirubin 0.50 mg/dL (0.1-1.2) 07/06/20 13:21 AST 15 units/L (5-40) 07/06/20 13:21 ALT 9 units/L (7-56) 07/06/20 13:21 Alkaline Phosphatase 115 units/L (35-129) 07/06/20 13:21 C-Reactive Protein 2.80 mg/dL (0.00-1.30) H 07/08/20 13:57 Total Protein 8.5 g/dL (6.3-8.2) H 07/06/20 13:21 Albumin 4.2 g/dL (3.9-5) 07/06/20 13:21 Albumin/Globulin Ratio 1.0 % 07/06/20 13:21 Vancomycin Trough 8.3 ug/mL (5.0-20.0) 07/11/20 14:07 Microbiology: Microbiology 07/07/20 Unknown Knee - Right Surgical Biopsy Culture - Final Methicillin Resist S. Aureus Turner/IV: Voiding Method Urinal Active Medications - Current Medications Current Medications: Generic Name Dose Route Start Last Admin Trade Name Freq PRN Reason Stop Dose Admin Acetaminophen 650 mg 07/07/20 13:16 Acetaminophen 325 Mg Tab PO Q12H PRN Pain, Mild (1-3) Al Hydrox/Mg Hydrox/Simethicone 30 ml 07/06/20 19:28 07/10/20 18:25 Alum-Mag Hydroxide-Simethicone [id number]/5ml Oral Liqd 30 Ml PO 30 ml Q4H PRN Administration Indigestion Amlodipine Besylate 5 mg 07/07/20 14:00 07/12/20 09:04 Amlodipine 5 Mg Tab PO 5 mg DAILY CASIMIRO Administration Apixaban 5 mg 07/07/20 22:00 07/12/20 09:00 Apixaban 5 Mg Tab PO 5 mg Q12HR CASIMIRO Administration Aspirin 325 mg 07/08/20 10:00 07/12/20 09:04 Aspirin Ec 325 Mg Tab PO 325 mg QDAY CASIMIRO Administration Atorvastatin Calcium 40 mg 07/07/20 22:00 07/11/20 22:35 Atorvastatin 40 Mg Tab PO 40 mg QHS CASIMIRO Administration Docusate Sodium 100 mg 07/11/20 14:00 07/12/20 09:00 Docusate Sodium 100 Mg Cap PO 100 mg BID CASIMIRO Administration Finasteride 5 mg 07/07/20 14:00 07/12/20 09:04 Finasteride 5 Mg Tab PO 5 mg QDAY CASIMIRO Administration Gabapentin 100 mg 07/07/20 22:00 07/12/20 09:04 Gabapentin 100 Mg Cap PO 100 mg BID CASIMIRO Administration Hydromorphone HCl 0.5 mg 07/11/20 10:54 07/12/20 05:47 Hydromorphone 1 Mg/1 Ml Inj IV 0.5 mg Q4H PRN Administration Pain , Severe (7-10) Hydroxyzine Pamoate 50 mg 07/07/20 22:00 07/11/20 22:35 Hydroxyzine Pamoate 50 Mg Cap PO 50 mg HS CASIMIRO Administration Vancomycin HCl 1,250 mg/ 275 mls @ 166.667 mls/hr 07/11/20 16:00 07/12/20 03:45 Sodium Chloride IV 166.667 mls/hr Q12H CASIMIRO Administration Isosorbide Mononitrate 60 mg 07/07/20 14:00 07/12/20 09:04 Isosorbide Mononitrate Er 60 Mg Tab PO 60 mg QDAY CASIMIRO Administration Latanoprost 1 drops 07/07/20 22:00 07/11/20 22:36 Latanoprost 0.005% Ophth Soln 2.5 Ml OU 1 drops QHS CASIMIRO Administration Losartan Potassium 50 mg 07/07/20 14:00 07/12/20 09:04 Losartan 50 Mg Tab PO 50 mg QDAY CASIMIRO Administration Metoprolol Tartrate 12.5 mg 07/07/20 22:00 07/12/20 09:03 Metoprolol Tartrate 25 Mg Tab PO 12.5 mg BID CASIMIRO Administration Oxycodone/Acetaminophen 2 tab 07/11/20 10:54 07/12/20 09:04 Oxycodone /Acetaminophen 5-325mg Tab PO 2 tab Q4H PRN Administration Pain, Moderate (4-6) Sertraline HCl 50 mg 07/07/20 14:00 07/12/20 09:03 Sertraline 50 Mg Tab PO 50 mg QDAY CASIMIRO Administration Tamsulosin HCl 0.4 mg 07/07/20 14:00 07/12/20 09:04 Tamsulosin 0.4 Mg Cap PO 0.4 mg QDAY CASIMIRO Administration
--- NOTE | 2020-07-12 11:47 | Progress Note ---
Assessment and Plan Cultures: Previous chart and cultures reviewed 07/07/2020 right knee OR culture: MRSA A/P: 59 years old male with DM, HTN, CAD, legally blind, right total knee replacement on 08/26/2019 complicated by prosthetic joint infection, was admitted in 11/21/2019 found to have MRSA s/p OR for debridement and irrigation of the knee on (1-stage procedure) treated with vancomycin IV and rifampin for 6 weeks until 01/03/2020, readmitted in January 2020 due to failure of 1- stage/IV/PO antibiotics, underwent removal of implants, spacer placement on 1cultures again grew MRSA, treated with IV Daptomycin 500 mg daily x 6 weeks ending 02/2020. Per review of clinic notes from Dr. Taylor, it seems patient had noncompliance with IV antibiotics. Most recently, patient was seen in ID clinic on 07/01/2020, recent cultures from the knee wound had grown E. coli and Proteus and patient had received about 30 days of p.o. Bactrim. Due to concern for poor compliance, and based on the cultures, he was given another round of p.o. ciprofloxacin for 6 weeks. His CRP was 75.8 mg/L. Now with: #Right knee prosthetic joint infection: Prolonged and refractory course as discussed above. Status post I&D on 07/07/2020, not much purulence seen in the OR but cultures positive again for Staph aureus #DM type II #Hypertension Recs: -continue with IV vancomycin for now (vancomycin BENY is 2.0, so will likely plan for IV daptomycin upon discharge) -Given culture growth again of MRSA, if patient is to eventually get a new j oint, may need to consider removal of current spacer, washout and placement of a new spacer along with 6 weeks of IV antibiotics probably at a halfway to ensure good compliance since this has been a recurrent issue for the last several months and patient has failed multiple rounds of antibiotics. If he is not a candidate for more surgery, chronic suppression with PO abx can be considered. Abeba Willingham MD, FACP [facility] O: [phone] F: [phone] Subjective Date of service: 07/12/20 Interval history: No fever. R knee pain +. tolerating abx, no nausea, vomiting. Objective - Exam Narrative Exam: Physical Exam: Constitutional: Alert, cooperative. No acute distress Head, Ears, Nose: Normocephalic, atraumatic. External ears, nose normal Eyes: Conjunctivae/corneas clear. No icterus. No ptosis. Neck: Supple, no meningeal signs Cardiovascular: S1, S2 normal. Respiratory: Good air entry, clear to auscultation bilaterally GI: Soft, non-tender; bowel sounds normal. No peritoneal signs Musculoskeletal: Right knee dressing present Skin: No rash or abscess Hem/Lymphatic: No palpable cervical or supraclavicular nodes. No lymphangitis Psych: Mood ok. Affect normal Neurological: Awake, alert, oriented. No gross abnormality - Constitutional Vitals: Vital Signs Temp Pulse Resp BP Pulse Ox 98.3 F 82 18 139/62 94 07/12/20 04:56 07/12/20 04:56 07/12/20 04:56 07/12/20 04:56 07/12/20 04:56 Temperature -Last 24 Hours Temperature 98.3 F Temperature 98.4 F Temperature 98.7 F - Labs CBC & Chem 7: 07/06/20 13:21 07/09/20 12:03
[2020-07-12] MEDS ORDERED: MORPHINE 2 MG/1 ML INJ IV ONE (21:55)
[2020-07-12] MEDS: LATANOPROST 0.005% OPHTH SOLN 2.5 ML OU SCH (22:44)
[2020-07-13] MEDS: VANCOMYCIN 1,250 MG in SODIUM CHLORIDE 0.9% 250ML 250 ML IV SCH ×2 (03:46→16:07)
[2020-07-13] MEDS: HYDROmorphone 1 MG/1 ML INJ IV PRN ×4 (03:57→19:24)
[2020-07-13] MEDS: LOSARTAN 50 MG TAB PO SCH (09:03)
[2020-07-13] MEDS: amLODIPine 5 MG TAB PO SCH (09:03)
[2020-07-13] MEDS: FINASTERIDE 5 MG TAB PO SCH (09:04)
[2020-07-13] MEDS: METOPROLOL TARTRATE 25 MG TAB PO SCH ×2 (09:04→22:39)
[2020-07-13] MEDS: TAMSULOSIN 0.4 MG CAP PO SCH (09:04)
[2020-07-13] MEDS: DOCUSATE SODIUM 100 MG CAP PO SCH ×2 (09:05→22:36)
[2020-07-13] MEDS: SERTRALINE 50 MG TAB PO SCH (09:05)
[2020-07-13] MEDS: GABAPENTIN 100 MG CAP PO SCH ×2 (09:05→22:38)
[2020-07-13] MEDS: APIXABAN 5 MG TAB PO SCH ×2 (09:05→22:36)
[2020-07-13] MEDS: ASPIRIN EC 325 MG TAB PO SCH (09:05)
--- NOTE | 2020-07-13 10:59 | Progress Note ---
Assessment and Plan Assessment and plan: 59 YO Male with DM complicated by Peripheral Neuropathy, HLD, HTN, PA, BPH, COPD, CAD S/P Stent placement, Bipolar Disorder, CHF, Chronic Pain Syndrome, DVT currently on therapeutic anticoagulation admitted for surgical intervention by the Ortho Surgery team. Consult placed by Dr. Batres for medical management. Patient seen and evaluated in his room. Patient resting comfortably. Patient knowledges right knee pain overnight. Patient denies fever, chills, chest pain, palpitation, shortness of breath, skin rash, recent ill contacts, or known exposure to COVID-19. No reported nursing events. 07/08/20: S/P Incision and drainage right knee and wash out with spacer. Per procedure note Procedure The patient was brought to the OR and placed on the OR table supine following induction by anesthesia, the patient's right LE prepped and draped in usual sterile fashion. A time-out procedure done to identify the patient and correct operative site. The tourniquet inflated to 300mm Hg, utilizing previous incision the knee joint entered, the cement spacer appeared intact not much purulent material seen either, sample of tissue given to scrub nurse of microbiology. Next using pulse lavage the joint throughly irrigated with antibiotic solution, next the soft tissues repaired and oscar applied to the skin as well as post op dressings. He tolerated the procedure and there were no complications noted, taken to PACU in stable condition. Follow with [facility] data. Consult placed for ID to assist with antibiotics. Pain control. PT/OT. Patient is legally blind, will need all precautions in place. 07/09: Cultures growing staph areus, not finalized yet, continue pain control, start stool softner. FALL PRECAUTIONS 07/10: Continue supportive care, Per ID Patient has had prolonged and refractory course as discussed above. Status post I&D on 07/07/2020, not much purulence seen in the OR but cultures positive again for Staph aureus- Recommendation is -continue IV ceftriaxone 2 g daily plus IV vancomycin for now -Given culture growth again of Staph aureus, if patient is to eventually get a new joint, may need to consider removal of current spacer, washout and placement of a new spacer along with 6 weeks of IV antibiotics probably at a snf to ensure good compliance since this has been a recurrent issue for the last several months and patient has failed multiple rounds of antibiotics Culture indeed is growing staph aureus although we are waiting for finalization. Will await surgical reevaluation and intervention. Nursing staff to apply ice pack awaiting for PT evaluation 07/11: PT input noted, will also adjust pain medication. Culture showing MRSA. ID input noted Below. will await Ortho input. -ceftriaxone discontinued -continue with IV vancomycin for now (vancomycin BENY is 2.0, so will likely plan for IV daptomycin upon discharge) -Given culture growth again of MRSA, if patient is to eventually get a new joint, may need to consider removal of current spacer, washout and placement of a new spacer along with 6 weeks of IV antibiotics probably at a snf to ensure good compliance since this has been a recurrent issue for the last several months and patient has failed multiple rounds of antibiotics. If he is not a candidate for more surgery, chronic suppression with PO abx can be considered. 07/12: Continue plan as outlined above. Awaiting Surgery input. Continue isolation precautions for MRSA 07/13: Continue with abx, PT/OT await Ortho input and this will determine discharge based on ID recommendation (1) Septic joint of right knee joint-#Right knee prosthetic joint infection Current Visit: Yes Status: Acute Plan to address problem: Care as per primary team, knee x-ray, patient pending surgical intervention, (2) Hypertension Current Visit: Yes Status: Acute Qualifiers: Hypertension type: essential hypertension Qualified Code(s): I10 - Essential (primary) hypertension Plan to address problem: Monitor blood pressure every shift, continue medical management. (3) Diabetes Current Visit: Yes Status: Acute Plan to address problem: Consistent carbohydrate diet, Accu-Chek, insulin protocol, hypoglycemia protocol. (4) CHF (congestive heart failure) Current Visit: Yes Status: Acute Qualifiers: Heart failure type: diastolic Heart failure chronicity: chronic Qualified Code(s): I50.32 - Chronic diastolic (congestive) heart failure Plan to address problem: Strict I's/O, monitor urine output every shift, daily weight, afterload reduction, blood pressure control, supportive care. (5) BPH (benign prostatic hyperplasia) Current Visit: No Status: Chronic Qualifiers: Lower urinary tract symptom presence: symptoms present Plan to address problem: Supportive care, continue Flomax. (6) CAD (coronary artery disease) Current Visit: No Status: Chronic Qualifiers: Coronary Disease-Associated Artery/Lesion type: [place] artery Andreafski vs. transplanted heart: [place] heart Associated angina: without angina Qualified Code(s): I25.10 - Atherosclerotic heart disease of [place] coronary artery without angina pectoris Plan to address problem: Continue anti-platelet therapy, risk factor reduction, statin therapy, supportive care. (7) Chronic pain syndrome Current Visit: Yes Status: Acute Plan to address problem: Continue medical management. Pain assessment as per nursing care protocol. (8) Legally Blind (9) DVT prophylaxis Current Visit: No Status: Acute Plan to address problem: SCD to bilateral lower extremities while in bed, continue therapeutic anticoagulation postoperatively. History Interval history: Patient seen and examined resting, No new complaints. Hospitalist Physical - Physical exam Narrative exam: General appearance: Present: No distress, legally blind, obese - EENT Eyes: Present: PERRL ENT: hearing intact, clear oral mucosa - Neck Neck: Present: supple, normal ROM - Respiratory Respiratory effort: normal Respiratory: bilateral: CTA - Cardiovascular Heart Sounds: Present: S1 & S2. Absent: rub, click - Extremities Extremities: pulses symmetrical, No edema Extremity abnormal: dressing and support apparatus in place. notable swollen, erythema, other (Right knee) Peripheral Pulses: within normal limits - Abdominal General gastrointestinal: Present: soft, non-tender, non-distended, normal bowel sounds Male genitourinary: Present: normal - Integumentary Integumentary: Present: clear, warm, dry - Musculoskeletal Musculoskeletal: gait normal, strength equal bilaterally - Psychiatric Psychiatric: appropriate mood/affect, intact judgment & insight - Neurologic Neurologic: CNII-XII intact, moves all extremities - Constitutional Vitals: Temp Pulse Resp BP Pulse Ox 98.7 F 68 18 122/52 95 07/13/20 04:34 07/13/20 04:34 07/13/20 04:34 07/13/20 04:34 07/13/20 04:34 General appearance: Present: mild distress, obese Results - Labs CBC & Chem 7: 07/06/20 13:21 07/09/20 12:03 Labs: Laboratory Last Values WBC 7.6 K/mm3 (4.5-11.0) 07/06/20 13:21 RBC 4.29 M/mm3 (3.65-5.03) 07/06/20 13:21 Hgb 12.8 gm/dl (11.8-15.2) 07/06/20 13:21 Hct 37.6 % (35.5-45.6) 07/06/20 13:21 MCV 88 fl (84-94) 07/06/20 13:21 MCH 30 pg (28-32) 07/06/20 13:21 MCHC 34 % (32-34) 07/06/20 13:21 RDW 18.1 % (13.2-15.2) H 07/06/20 13:21 Plt Count 403 K/mm3 (140-440) 07/06/20 13:21 Lymph % (Auto) 33.7 % (13.4-35.0) 07/06/20 13:21 [place] % (Auto) 9.6 % (0.0-7.3) H 07/06/20 13:21 Eos % (Auto) 1.8 % (0.0-4.3) 07/06/20 13:21 Baso % (Auto) 0.6 % (0.0-1.8) 07/06/20 13:21 Lymph # (Auto) 2.6 K/mm3 (1.2-5.4) 07/06/20 13:21 [place] # (Auto) 0.7 K/mm3 (0.0-0.8) 07/06/20 13:21 Eos # (Auto) 0.1 K/mm3 (0.0-0.4) 07/06/20 13:21 Baso # (Auto) 0.0 K/mm3 (0.0-0.1) 07/06/20 13:21 Seg Neutrophils % 54.3 % (40.0-70.0) 07/06/20 13:21 Seg Neutrophils # 4.2 K/mm3 (1.8-7.7) 07/06/20 13:21 ESR 48 mm/Hr (0-20) 07/08/20 13:57 Sodium 136 mmol/L (137-145) L 07/09/20 12:03 Potassium 4.1 mmol/L (3.6-5.0) 07/09/20 12:03 Chloride 103.0 mmol/L (98-107) 07/09/20 12:03 Carbon Dioxide 25 mmol/L (22-30) 07/09/20 12:03 Anion Gap 12 mmol/L 07/09/20 12:03 BUN 8 mg/dL (9-20) L 07/09/20 12:03 Creatinine 0.5 mg/dL (0.8-1.3) L 07/09/20 12:03 Estimated GFR > 60 ml/min 07/09/20 12:03 BUN/Creatinine Ratio 16 % 07/09/20 12:03 Glucose 100 mg/dL (75-100) 07/09/20 12:03 POC Glucose 95 mg/dL (70-105) 07/13/20 07:46 Lactic Acid 0.80 mmol/L (0.7-2.0) 07/06/20 13:21 Calcium 9.4 mg/dL (8.4-10.2) 07/09/20 12:03 Total Bilirubin 0.50 mg/dL (0.1-1.2) 07/06/20 13:21 AST 15 units/L (5-40) 07/06/20 13:21 ALT 9 units/L (7-56) 07/06/20 13:21 Alkaline Phosphatase 115 units/L (35-129) 07/06/20 13:21 C-Reactive Protein 2.80 mg/dL (0.00-1.30) H 07/08/20 13:57 Total Protein 8.5 g/dL (6.3-8.2) H 07/06/20 13:21 Albumin 4.2 g/dL (3.9-5) 07/06/20 13:21 Albumin/Globulin Ratio 1.0 % 07/06/20 13:21 Vancomycin Trough 25.3 ug/mL (5.0-20.0) H 07/13/20 04:07 Turner/IV: Voiding Method Toilet Active Medications - Current Medications Current Medications: Generic Name Dose Route Start Last Admin Trade Name Freq PRN Reason Stop Dose Admin Acetaminophen 650 mg 07/07/20 13:16 Acetaminophen 325 Mg Tab PO Q12H PRN Pain, Mild (1-3) Al Hydrox/Mg Hydrox/Simethicone 30 ml 07/06/20 19:28 07/10/20 18:25 Alum-Mag Hydroxide-Simethicone 420-730-48oz/5ml Oral Liqd 30 Ml PO 30 ml Q4H PRN Administration Indigestion Amlodipine Besylate 5 mg 07/07/20 14:00 07/13/20 09:03 Amlodipine 5 Mg Tab PO 5 mg DAILY CASIMIRO Administration Apixaban 5 mg 07/07/20 22:00 07/13/20 09:05 Apixaban 5 Mg Tab PO 5 mg Q12HR CASIMIRO Administration Aspirin 325 mg 07/08/20 10:00 07/13/20 09:05 Aspirin Ec 325 Mg Tab PO 325 mg QDAY CASIMIRO Administration Atorvastatin Calcium 40 mg 07/07/20 22:00 07/12/20 22:28 Atorvastatin 40 Mg Tab PO 40 mg QHS CASIMIRO Administration Docusate Sodium 100 mg 07/11/20 14:00 07/13/20 09:05 Docusate Sodium 100 Mg Cap PO 100 mg BID CASIMIRO Administration Finasteride 5 mg 07/07/20 14:00 07/13/20 09:04 Finasteride 5 Mg Tab PO 5 mg QDAY CASIMIRO Administration Gabapentin 100 mg 07/07/20 22:00 07/13/20 09:05 Gabapentin 100 Mg Cap PO 100 mg BID CASIMIRO Administration Hydromorphone HCl 0.5 mg 07/11/20 10:54 07/13/20 08:32 Hydromorphone 1 Mg/1 Ml Inj IV 0.5 mg Q4H PRN Administration Pain , Severe (7-10) Hydroxyzine Pamoate 50 mg 07/07/20 22:00 07/12/20 22:27 Hydroxyzine Pamoate 50 Mg Cap PO 50 mg HS CASIMIRO Administration Vancomycin HCl 1,250 mg/ 275 mls @ 166.667 mls/hr 07/11/20 16:00 07/13/20 05:53 Sodium Chloride IV Infused Q12H CASIMIRO Infusion Isosorbide Mononitrate 60 mg 07/07/20 14:00 07/13/20 09:04 Isosorbide Mononitrate Er 60 Mg Tab PO 60 mg QDAY CASIMIRO Administration Latanoprost 1 drops 07/07/20 22:00 07/12/20 22:44 Latanoprost 0.005% Ophth Soln 2.5 Ml OU Not Given QHS CASIMIRO Losartan Potassium 50 mg 07/07/20 14:00 07/13/20 09:03 Losartan 50 Mg Tab PO 50 mg QDAY CASIMIRO Administration Metoprolol Tartrate 12.5 mg 07/07/20 22:00 07/13/20 09:04 Metoprolol Tartrate 25 Mg Tab PO 12.5 mg BID CASIMIRO Administration Oxycodone/Acetaminophen 2 tab 07/11/20 10:54 07/12/20 14:27 Oxycodone /Acetaminophen 5-325mg Tab PO 2 tab Q4H PRN Administration Pain, Moderate (4-6) Sertraline HCl 50 mg 07/07/20 14:00 07/13/20 09:05 Sertraline 50 Mg Tab PO 50 mg QDAY CASIMIRO Administration Tamsulosin HCl 0.4 mg 07/07/20 14:00 07/13/20 09:04 Tamsulosin 0.4 Mg Cap PO 0.4 mg QDAY CASIMIRO Administration Nutrition/Malnutrition Assess - Dietary Evaluation Nutrition/Malnutrition Findings: Nutrition Notes Start: 07/13/20 08:17 Freq: Status: Active Protocol: Document 07/13/20 08:17 LP (Rec: 07/13/20 08:17 LP [id number]) Nutrition Notes Need for Assessment generated from: LOS Initial or Follow up Brief Note Subjective/Other Information Screen for LOS. Pt consuming 100% of meals. Nutrition Intervention Revisit per MD consult or patient Sign Off request:
--- NOTE | 2020-07-13 13:19 | Progress Note ---
Assessment and Plan Cultures: Previous chart and cultures reviewed 07/07/2020 right knee OR culture: MRSA A/P: 59 years old male with DM, HTN, CAD, legally blind, right total knee replacement on 08/26/2019 complicated by prosthetic joint infection, was admitted in 11/21/2019 found to have MRSA s/p OR for debridement and irrigation of the knee on (1-stage procedure) treated with vancomycin IV and rifampin for 6 weeks until 01/03/2020, readmitted in January 2020 due to failure of 1- stage/IV/PO antibiotics, underwent removal of implants, spacer placement on 1cultures again grew MRSA, treated with IV Daptomycin 500 mg daily x 6 weeks ending 02/2020. Per review of clinic notes from Dr. Taylor, it seems patient had noncompliance with IV antibiotics. Most recently, patient was seen in ID clinic on 07/01/2020, recent cultures from the knee wound had grown E. coli and Proteus and patient had received about 30 days of p.o. Bactrim. Due to concern for poor compliance, and based on the cultures, he was given another round of p.o. ciprofloxacin for 6 weeks. His CRP was 75.8 mg/L. Now with: #Right knee prosthetic joint infection: Prolonged and refractory course as discussed above. Status post I&D on 07/07/2020, not much purulence seen in the OR but cultures positive again for Staph aureus #DM type II #Hypertension Recs: -continue with IV vancomycin for now (vancomycin BENY is 2.0, so will likely plan for IV daptomycin upon discharge) -Given culture growth again of MRSA, if patient is to eventually get a new joint, need to consider removal of current spacer, washout and placement of a new spacer along with 6 weeks of IV antibiotics probably at a prison to ensure good compliance since this has been a recurrent issue for almost a year now and patient has failed multiple rounds of antibiotics. If he is not a aryan date for more surgery, chronic suppression with PO abx can be considered. -Patient agreeable to go to rehab for IV abx Abeba Willingham MD, FACP [facility] O: [phone] F: [phone] Subjective Date of service: 07/13/20 Interval history: No fever. R knee pain +. Tolerating abx, no nausea, vomiting. Objective - Exam Narrative Exam: Physical Exam: Constitutional: Alert, cooperative. No acute distress Head, Ears, Nose: Normocephalic, atraumatic. External ears, nose normal Eyes: Conjunctivae/corneas clear. No icterus. No ptosis. Neck: Supple, no meningeal signs Cardiovascular: S1, S2 normal. Respiratory: Good air entry, clear to auscultation bilaterally GI: Soft, non-tender; bowel sounds normal. No peritoneal signs Musculoskeletal: Right knee dressing present Skin: No rash or abscess Hem/Lymphatic: No palpable cervical or supraclavicular nodes. No lymphangitis Psych: Mood ok. Affect normal Neurological: Awake, alert, oriented. No gross abnormality - Constitutional Vitals: Vital Signs Temp Pulse Resp BP Pulse Ox 97.5 F L 68 18 125/73 94 07/13/20 11:33 07/13/20 11:33 07/13/20 11:33 07/13/20 11:33 07/13/20 11:33 Temperature -Last 24 Hours Temperature 97.5 F Temperature 98.7 F Temperature 98.0 F - Labs CBC & Chem 7: 07/06/20 13:21 07/09/20 12:03 Labs: Abnormal lab results 07/12/20 07/12/20 07/13/20 Range/Units 16:44 21:05 04:07 POC Glucose 133 H 128 H (70-105) mg/dL Vancomycin Trough 25.3 H (5.0-20.0) ug/mL
[2020-07-13 14:07] LABS: Blood Urea Nitrogen 8 mg/dL (9-20); Calcium 7.8 mg/dL (8.4-10.2); Hemolysis Index 3
[2020-07-13 14:54] LABS: BUN/Creatinine Ratio 13
[2020-07-13] MEDS: oxyCODONE /ACETAMINOPHEN 5-325MG TAB PO PRN ×2 (16:14→22:36)
--- NOTE | 2020-07-13 21:56 | Progress Note ---
Assessment and Plan infected right knee, s/p removal implants placement antibiotic cement spacers. will remove current cement spacer and thoroughly debride bony surfaces and apply another cement spacer.... Subjective Date of service: 07/13/20 Interval history: c/o right pain otherwise ok, discussed final cultures from wash-out procedure and ID's recommendations... Objective Vital signs: Vital Signs - 12hr 07/13/20 07/13/20 07/13/20 11:33 15:57 21:27 Temperature 97.5 F L 97.6 F 98.1 F Pulse Rate 68 77 84 Respiratory 18 18 18 Rate Blood Pressure 125/73 117/55 Blood Pressure 147/75 [Right] O2 Sat by Pulse 94 96 99 Oximetry - Labs CBC & BMP: 07/06/20 13:21 07/13/20 14:22 Labs: Abnormal lab results 07/13/20 07/13/20 07/13/20 Range/Units 04:07 14:22 14:22 Sodium 134 L (137-145) mmol/L Chloride 97.3 L (98-107) mmol/L Carbon Dioxide 18 L D (22-30) mmol/L BUN 8 L (9-20) mg/dL Creatinine 0.6 L (0.8-1.3) mg/dL Glucose 117 H (75-100) mg/dL Calcium 7.8 L D (8.4-10.2) mg/dL Vancomycin Trough 25.3 H 4.0 L (5.0-20.0) ug/mL
[2020-07-13] MEDS: LATANOPROST 0.005% OPHTH SOLN 2.5 ML OU SCH (22:40)
[2020-07-14] MEDS: HYDROmorphone 1 MG/1 ML INJ IV PRN ×5 (02:00→22:09)
[2020-07-14] MEDS: oxyCODONE /ACETAMINOPHEN 5-325MG TAB PO PRN (05:04)
[2020-07-14] MEDS: VANCOMYCIN 1,250 MG in SODIUM CHLORIDE 0.9% 250ML 250 ML IV SCH (05:06)
[2020-07-14] MEDS: FINASTERIDE 5 MG TAB PO SCH (09:25)
[2020-07-14] MEDS: METOPROLOL TARTRATE 25 MG TAB PO SCH ×2 (09:26→22:08)
[2020-07-14] MEDS: TAMSULOSIN 0.4 MG CAP PO SCH (09:26)
[2020-07-14] MEDS: DOCUSATE SODIUM 100 MG CAP PO SCH ×2 (09:26→22:09)
[2020-07-14] MEDS: SERTRALINE 50 MG TAB PO SCH (09:26)
[2020-07-14] MEDS: amLODIPine 5 MG TAB PO SCH (09:26)
[2020-07-14] MEDS: GABAPENTIN 100 MG CAP PO SCH ×2 (09:26→22:08)
[2020-07-14] MEDS: ASPIRIN EC 325 MG TAB PO SCH (09:27)
[2020-07-14] MEDS: APIXABAN 5 MG TAB PO SCH (10:45)
--- NOTE | 2020-07-14 11:12 | Progress Note ---
Assessment and Plan Assessment and plan: 59 YO Male with DM complicated by Peripheral Neuropathy, HLD, HTN, NE, BPH, COPD, CAD S/P Stent placement, Bipolar Disorder, CHF, Chronic Pain Syndrome, DVT currently on therapeutic anticoagulation admitted for surgical intervention by the Ortho Surgery team. Consult placed by Dr. Batres for medical management. Patient seen and evaluated in his room. Patient resting comfortably. Patient knowledges right knee pain overnight. Patient denies fever, chills, chest pain, palpitation, shortness of breath, skin rash, recent ill contacts, or known exposure to COVID-19. No reported nursing events. 07/08/20: S/P Incision and drainage right knee and wash out with spacer. Per procedure note Procedure The patient was brought to the OR and placed on the OR table supine following induction by anesthesia, the patient's right LE prepped and draped in usual sterile fashion. A time-out procedure done to identify the patient and correct operative site. The tourniquet inflated to 300mm Hg, utilizing previous incision the knee joint entered, the cement spacer appeared intact not much purulent material seen either, sample of tissue given to scrub nurse of microbiology. Next using pulse lavage the joint throughly irrigated with antibiotic solution, next the soft tissues repaired and oscar applied to the skin as well as post op dressings. He tolerated the procedure and there were no complications noted, taken to PACU in stable condition. Follow with [facility] data. Consult placed for ID to assist with antibiotics. Pain control. PT/OT. Patient is legally blind, will need all precautions in place. 07/09: Cultures growing staph areus, not finalized yet, continue pain control, start stool softner. FALL PRECAUTIONS 07/10: Continue supportive care, Per ID Patient has had prolonged and refractory course as discussed above. Status post I&D on 07/07/2020, not much purulence seen in the OR but cultures positive again for Staph aureus- Recommendation is -continue IV ceftriaxone 2 g daily plus IV vancomycin for now -Given culture growth again of Staph aureus, if patient is to eventually get a new joint, may need to consider removal of current spacer, washout and placement of a new spacer along with 6 weeks of IV antibiotics probably at a mcc to ensure good compliance since this has been a recurrent issue for the last several months and patient has failed multiple rounds of antibiotics Culture indeed is growing staph aureus although we are waiting for finalization. Will await surgical reevaluation and intervention. Nursing staff to apply ice pack awaiting for PT evaluation 07/11: PT input noted, will also adjust pain medication. Culture showing MRSA. ID input noted Below. will await Ortho input. -ceftriaxone discontinued -continue with IV vancomycin for now (vancomycin BENY is 2.0, so will likely plan for IV daptomycin upon discharge) -Given culture growth again of MRSA, if patient is to eventually get a new joint, may need to consider removal of current spacer, washout and placement of a new spacer along with 6 weeks of IV antibiotics probably at a mcc to ensure good compliance since this has been a recurrent issue for the last several months and patient has failed multiple rounds of antibiotics. If he is not a candidate for more surgery, chronic suppression with PO abx can be considered. 07/12: Continue plan as outlined above. Awaiting Surgery input. Continue isolation precautions for MRSA 07/13: Continue with abx, PT/OT await Ortho input and this will determine discharge based on ID recommendation 07/14: Patient is a 59-year-old male with multiple medical problems and recently the last 1year knee surgery which has continued to become problematic requiring a spacer to be placed he presented to the hospital and underwent an incision and drainage washout and spacer placement. Cultures from the site grew MRSA and recommended by ID that if there is a plan for patient to have more surgery he needed the washer to be replaced. He continues on antibiotics with vancomycin and was subsequently will need daptomycin IV on discharge. He is going for surgery today for further extensive washout and spacer replacement. Due to compliance issues in the past this recommendation for patient to be in a personal prison or mcc to ensure compliance as he will need 6 weeks of antibiotics. Otherwise no new complaints except for pain management. (1) Septic joint of right knee joint-#Right knee prosthetic joint infection Current Visit: Yes Status: Acute Plan to address problem: Care as per primary team, knee x-ray, patient pending surgical intervention, (2) Hypertension Current Visit: Yes Status: Acute Qualifiers: Hypertension type: essential hypertension Qualified Code(s): I10 - Essential (primary) hypertension Plan to address problem: Monitor blood pressure every shift, continue medical management. (3) Diabetes Current Visit: Yes Status: Acute Plan to address problem: Consistent carbohydrate diet, Accu-Chek, insulin protocol, hypoglycemia protocol. (4) CHF (congestive heart failure) Current Visit: Yes Status: Acute Qualifiers: Heart failure type: diastolic Heart failure chronicity: chronic Qualified Code(s): I50.32 - Chronic diastolic (congestive) heart failure Plan to address problem: Strict I's/O, monitor urine output every shift, daily weight, afterload reduction, blood pressure control, supportive care. (5) BPH (benign prostatic hyperplasia) Current Visit: No Status: Chronic Qualifiers: Lower urinary tract symptom presence: symptoms present Plan to address problem: Supportive care, continue Flomax. (6) CAD (coronary artery disease) Current Visit: No Status: Chronic Qualifiers: Coronary Disease-Associated Artery/Lesion type: [place] artery [place] vs. tr ansplanted heart: [place] heart Associated angina: without angina Qualified Code(s): I25.10 - Atherosclerotic heart disease of [place] coronary artery without angina pectoris Plan to address problem: Continue anti-platelet therapy, risk factor reduction, statin therapy, supportive care. (7) Chronic pain syndrome Current Visit: Yes Status: Acute Plan to address problem: Continue medical management. Pain assessment as per nursing care protocol. (8) Legally Blind (9) DVT prophylaxis Current Visit: No Status: Acute Plan to address problem: SCD to bilateral lower extremities while in bed, continue therapeutic ant icoagulation postoperatively. History Interval history: Patient seen and examined resting, No new complaints. Except wants to know about her discharge plans. Hospitalist Physical - Physical exam Narrative exam: General appearance: Present: No distress, legally blind, obese - EENT Eyes: Present: PERRL ENT: hearing intact, clear oral mucosa - Neck Neck: Present: supple, normal ROM - Respiratory Respiratory effort: normal Respiratory: bilateral: CTA - Cardiovascular Heart Sounds: Present: S1 & S2. Absent: rub, click - Extremities Extremities: pulses symmetrical, No edema Extremity abnormal: dressing and immobilizer in place. notable swollen, erythema, other (Right knee) Peripheral Pulses: within normal limits - Abdominal General gastrointestinal: Present: soft, non-tender, non-distended, normal bowel sounds Male genitourinary: Present: normal - Integumentary Integumentary: Present: clear, warm, dry - Musculoskeletal Musculoskeletal: gait normal, strength equal bilaterally - Psychiatric Psychiatric: appropriate mood/affect, intact judgment & insight - Neurologic Neurologic: CNII-XII intact, moves all extremities - Constitutional Vitals: Temp Pulse Resp BP Pulse Ox 97.9 F 67 18 151/82 98 07/14/20 05:07 07/14/20 05:07 07/14/20 10:00 07/14/20 05:07 07/14/20 05:07 General appearance: Present: mild distress, obese Results - Labs CBC & Chem 7: 07/06/20 13:21 07/13/20 14:22 Labs: Laboratory Last Values WBC 7.6 K/mm3 (4.5-11.0) 07/06/20 13:21 RBC 4.29 M/mm3 (3.65-5.03) 07/06/20 13:21 Hgb 12.8 gm/dl (11.8-15.2) 07/06/20 13:21 Hct 37.6 % (35.5-45.6) 07/06/20 13:21 MCV 88 fl (84-94) 07/06/20 13:21 MCH 30 pg (28-32) 07/06/20 13:21 MCHC 34 % (32-34) 07/06/20 13:21 RDW 18.1 % (13.2-15.2) H 07/06/20 13:21 Plt Count 403 K/mm3 (140-440) 07/06/20 13:21 Lymph % (Auto) 33.7 % (13.4-35.0) 07/06/20 13:21 Snyder % (Auto) 9.6 % (0.0-7.3) H 07/06/20 13:21 Eos % (Auto) 1.8 % (0.0-4.3) 07/06/20 13:21 Baso % (Auto) 0.6 % (0.0-1.8) 07/06/20 13:21 Lymph # (Auto) 2.6 K/mm3 (1.2-5.4) 07/06/20 13:21 Snyder # (Auto) 0.7 K/mm3 (0.0-0.8) 07/06/20 13:21 Eos # (Auto) 0.1 K/mm3 (0.0-0.4) 07/06/20 13:21 Baso # (Auto) 0.0 K/mm3 (0.0-0.1) 07/06/20 13:21 Seg Neutrophils % 54.3 % (40.0-70.0) 07/06/20 13:21 Seg Neutrophils # 4.2 K/mm3 (1.8-7.7) 07/06/20 13:21 ESR 48 mm/Hr (0-20) 07/08/20 13:57 Sodium 134 mmol/L (137-145) L 07/13/20 14:22 Potassium 4.0 mmol/L (3.6-5.0) 07/13/20 14:22 Chloride 97.3 mmol/L (98-107) L 07/13/20 14:22 Carbon Dioxide 18 mmol/L (22-30) L D 07/13/20 14:22 Anion Gap 23 mmol/L 07/13/20 14:22 BUN 8 mg/dL (9-20) L 07/13/20 14:22 Creatinine 0.6 mg/dL (0.8-1.3) L 07/13/20 14:22 Estimated GFR > 60 ml/min 07/13/20 14:22 BUN/Creatinine Ratio 13 % 07/13/20 14:22 Glucose 117 mg/dL (75-100) H 07/13/20 14:22 POC Glucose 103 mg/dL (70-105) 07/14/20 07:45 Lactic Acid 0.80 mmol/L (0.7-2.0) 07/06/20 13:21 Calcium 7.8 mg/dL (8.4-10.2) L D 07/13/20 14:22 Total Bilirubin 0.50 mg/dL (0.1-1.2) 07/06/20 13:21 AST 15 units/L (5-40) 07/06/20 13:21 ALT 9 units/L (7-56) 07/06/20 13:21 Alkaline Phosphatase 115 units/L (35-129) 07/06/20 13:21 C-Reactive Protein 2.80 mg/dL (0.00-1.30) H 07/08/20 13:57 Total Protein 8.5 g/dL (6.3-8.2) H 07/06/20 13:21 Albumin 4.2 g/dL (3.9-5) 07/06/20 13:21 Albumin/Globulin Ratio 1.0 % 07/06/20 13:21 Vancomycin Trough 4.0 ug/mL (5.0-20.0) L 07/13/20 14:22 Turner/IV: Voiding Method Urinal Active Medications - Current Medications Current Medications: Generic Name Dose Route Start Last Admin Trade Name Freq PRN Reason Stop Dose Admin Acetaminophen 650 mg 07/07/20 13:16 Acetaminophen 325 Mg Tab PO Q12H PRN Pain, Mild (1-3) Al Hydrox/Mg Hydrox/Simethicone 30 ml 07/06/20 19:28 07/10/20 18:25 Alum-Mag Hydroxide-Simethicone [phone]/5ml Oral Liqd 30 Ml PO 30 ml Q4H PRN Administration Indigestion Amlodipine Besylate 5 mg 07/07/20 14:00 07/14/20 09:26 Amlodipine 5 Mg Tab PO 5 mg DAILY CASIMIRO Administration Apixaban 5 mg 07/07/20 22:00 07/14/20 10:45 Apixaban 5 Mg Tab PO Not Given Q12HR CASIMIRO Aspirin 325 mg 07/08/20 10:00 07/14/20 09:27 Aspirin Ec 325 Mg Tab PO 325 mg QDAY CASIMIRO Administration Atorvastatin Calcium 40 mg 07/07/20 22:00 07/13/20 22:36 Atorvastatin 40 Mg Tab PO 40 mg QHS CASIMIRO Administration Docusate Sodium 100 mg 07/11/20 14:00 07/14/20 09:26 Docusate Sodium 100 Mg Cap PO 100 mg BID CASIMIRO Administration Finasteride 5 mg 07/07/20 14:00 07/14/20 09:25 Finasteride 5 Mg Tab PO 5 mg QDAY CASIMIRO Administration Gabapentin 100 mg 07/07/20 22:00 07/14/20 09:26 Gabapentin 100 Mg Cap PO 100 mg BID CASIMIRO Administration Hydromorphone HCl 0.5 mg 07/11/20 10:54 07/14/20 09:24 Hydromorphone 1 Mg/1 Ml Inj IV 0.5 mg Q4H PRN Administration Pain , Severe (7-10) Hydroxyzine Pamoate 50 mg 07/07/20 22:00 07/13/20 22:36 Hydroxyzine Pamoate 50 Mg Cap PO 50 mg HS CASIMIRO Administration Vancomycin HCl 1,250 mg/ 275 mls @ 166.667 mls/hr 07/14/20 14:00 Sodium Chloride IV Q8HR CASIMIRO Isosorbide Mononitrate 60 mg 07/07/20 14:00 07/14/20 09:26 Isosorbide Mononitrate Er 60 Mg Tab PO 60 mg QDAY CASIMIRO Administration Latanoprost 1 drops 07/07/20 22:00 07/13/20 22:40 Latanoprost 0.005% Ophth Soln 2.5 Ml OU Not Given QHS CASIMIRO Losartan Potassium 50 mg 07/07/20 14:00 07/13/20 09:03 Losartan 50 Mg Tab PO 50 mg QDAY CASIMIRO Administration Metoprolol Tartrate 12.5 mg 07/07/20 22:00 07/14/20 09:26 Metoprolol Tartrate 25 Mg Tab PO 12.5 mg BID CASIMIRO Administration Oxycodone/Acetaminophen 2 tab 07/11/20 10:54 07/14/20 05:04 Oxycodone /Acetaminophen 5-325mg Tab PO 2 tab Q4H PRN Administration Pain, Moderate (4-6) Sertraline HCl 50 mg 07/07/20 14:00 07/14/20 09:26 Sertraline 50 Mg Tab PO 50 mg QDAY CASIMIRO Administration Tamsulosin HCl 0.4 mg 07/07/20 14:00 07/14/20 09:26 Tamsulosin 0.4 Mg Cap PO 0.4 mg QDAY CASIMIRO Administration Nutrition/Malnutrition Assess - Dietary Evaluation Nutrition/Malnutrition Findings: Nutrition Notes Start: 07/13/20 08:17 Freq: Status: Active Protocol: Document 07/13/20 08:17 LP (Rec: 07/13/20 08:17 LP [id number]) Nutrition Notes Need for Assessment generated from: LOS Initial or Follow up Brief Note Subjective/Other Information Screen for LOS. Pt consuming 100% of meals. Nutrition Intervention Revisit per MD consult or patient Sign Off request:
--- NOTE | 2020-07-14 11:15 | Progress Note ---
Assessment and Plan Cultures: Previous chart and cultures reviewed 07/07/2020 right knee OR culture: MRSA A/P: 59 years old male with DM, HTN, CAD, legally blind, right total knee replacement on 08/26/2019 complicated by prosthetic joint infection, was admitted in 11/21/2019 found to have MRSA s/p OR for debridement and irrigation of the knee on (1-stage procedure) treated with vancomycin IV and rifampin for 6 weeks until 01/03/2020, readmitted in January 2020 due to failure of 1- stage/IV/PO antibiotics, underwent removal of implants, spacer placement on 01/19/2021ultures again grew MRSA, treated with IV Daptomycin 500 mg daily x 6 weeks ending 02/2020. Per review of clinic notes from Dr. Taylor, it seems patient had noncompliance with IV antibiotics. Most recently, patient was seen in ID clinic on 07/01/2020, recent cultures from the knee wound had grown E. coli and Proteus and patient had received about 30 days of p.o. Bactrim. Due to concern for poor compliance, and based on the cultures, he was given another round of p.o. ciprofloxacin for 6 weeks. His CRP was 75.8 mg/L. Now with: #Right knee prosthetic joint infection: Prolonged and refractory course as discussed above. Status post I&D on 07/07/2020, not much purulence seen in the OR but cultures positive again for MRSA. #DM type II #Hypertension Recs: -Appreciate orthopedics eval, planned for repeat washout, explant of current spacer and new spacer placement. -IV vancomycin was switched to IV daptomycin due to vancomycin BENY of 2.0 -Monitor CK closely due to patient also being on statin -Patient agreeable to go to rehab for IV abx Abeba Willingham MD, FACP [facility] O: [phone] F: [phone] Subjective Date of service: 07/14/20 Interval history: No fever. R knee pain +. No new complaints. Spoke to Dr. Batres, planned for surgery. Objective - Exam Narrative Exam: Physical Exam: Constitutional: Alert, cooperative. No acute distress Head, Ears, Nose: Normocephalic, atraumatic. External ears, nose normal Eyes: Conjunctivae/corneas clear. No icterus. No ptosis. Neck: Supple, no meningeal signs Cardiovascular: S1, S2 normal. Respiratory: Good air entry, clear to auscultation bilaterally GI: Soft, non-tender; bowel sounds normal. No peritoneal signs Musculoskeletal: Right knee dressing present Skin: No rash or abscess Hem/Lymphatic: No palpable cervical or supraclavicular nodes. No lymphangitis Psych: Mood ok. Affect normal Neurological: Awake, alert, oriented. No gross abnormality - Constitutional Vitals: Vital Signs Temp Pulse Resp BP Pulse Ox 97.9 F 67 18 151/82 98 07/14/20 05:07 07/14/20 05:07 07/14/20 10:00 07/14/20 05:07 07/14/20 05:07 Temperature -Last 24 Hours Temperature 97.9 F Temperature 98.1 F Temperature 97.6 F Temperature 97.5 F - Labs CBC & Chem 7: 07/06/20 13:21 07/13/20 14:22 Labs: Abnormal lab results 07/13/20 07/13/20 07/13/20 Range/Units 14:22 14:22 21:15 Sodium 134 L (137-145) mmol/L Chloride 97.3 L (98-107) mmol/L Carbon Dioxide 18 L D (22-30) mmol/L BUN 8 L (9-20) mg/dL Creatinine 0.6 L (0.8-1.3) mg/dL Glucose 117 H (75-100) mg/dL POC Glucose 112 H (70-105) mg/dL Calcium 7.8 L D (8.4-10.2) mg/dL Vancomycin Trough 4.0 L (5.0-20.0) ug/mL
[2020-07-14] MEDS ORDERED: VANCOMYCIN 1,250 MG in SODIUM CHLORIDE 0.9% 250ML 250 ML IV SCH (14:00)
[2020-07-14] MEDS: LOSARTAN 50 MG TAB PO SCH (17:45)
[2020-07-15] MEDS: APIXABAN 5 MG TAB PO SCH ×3 (01:33→21:44)
[2020-07-15] MEDS: oxyCODONE /ACETAMINOPHEN 5-325MG TAB PO PRN ×4 (01:37→22:46)
[2020-07-15] MEDS: HYDROmorphone 1 MG/1 ML INJ IV PRN ×5 (04:51→20:33)
[2020-07-15 05:38] LABS: Blood Urea Nitrogen 15 mg/dL (9-20); Calcium 8.9 mg/dL (8.4-10.2); Hemolysis Index 3
[2020-07-15 05:39] LABS: BUN/Creatinine Ratio 25
--- NOTE | 2020-07-15 10:36 | Anesthesia Day of Surgery ---
Anesthesia Day of Surgery - Day of Surgery Patient Examined: Yes Patient H&P Reviewed: Yes Patient is NPO: Yes
[2020-07-15] MEDS ORDERED: HYDROmorphone 1 MG/1 ML INJ ONE (11:07)
[2020-07-15] MEDS ORDERED: propofoL 200 MG/20 ML VIAL IV ONE (11:07)
[2020-07-15] MEDS ORDERED: LIDOCAINE MPF (2%) 20 MG/1 ML VIAL 5 ML ONE (11:08)
--- NOTE | 2020-07-15 12:04 | Progress Note ---
Assessment and Plan Cultures: Previous chart and cultures reviewed 07/07/2020 right knee OR culture: MRSA A/P: 59 years old male with DM, HTN, CAD, legally blind, right total knee replacement on 08/26/2019 complicated by prosthetic joint infection, was admitted in 11/21/2019 found to have MRSA s/p OR for debridement and irrigation of the knee on (1-stage procedure) treated with vancomycin IV and rifampin for 6 weeks until 01/03/2020, readmitted in January 2020 due to failure of 1- stage/IV/PO antibiotics, underwent removal of implants, spacer placement on 01/19/2021ultures again grew MRSA, treated with IV Daptomycin 500 mg daily x 6 weeks ending 02/2020. Per review of clinic notes from Dr. Taylor, it seems patient had noncompliance with IV antibiotics. Most recently, patient was seen in ID clinic on 07/01/2020, recent cultures from the knee wound had grown E. coli and Proteus and patient had received about 30 days of p.o. Bactrim. Due to concern for poor compliance, and based on the cultures, he was given another round of p.o. ciprofloxacin for 6 weeks. His CRP was 75.8 mg/L. Now with: #Right knee prosthetic joint infection: Prolonged and refractory course as discussed above. Status post I&D on 07/07/2020, not much purulence seen in the OR but cultures positive again for MRSA. #DM type II #Hypertension Recs: -awaiting repeat washout, explant of current spacer and new spacer placement -continue with IV daptomycin (vancomycin BENY of 2.0), plan for 6 weeks. No other MRSA option available -Monitor CK closely due to patient also being on statin -Patient agreeable to go to rehab for IV abx -CM orders placed for IV Daptomycin x 6 weeks ending 08/26/2020 Discussed with CM on the phone. Abeba Willingham MD, FACP [facility] O: [phone] F: [phone] Subjective Date of service: 07/15/20 Interval history: No fever. R knee pain + and stable. No new complaints. Objective - Exam Narrative Exam: Physical Exam: Constitutional: Alert, cooperative. No acute distress Head, Ears, Nose: Normocephalic, atraumatic. External ears, nose normal Eyes: Conjunctivae/corneas clear. No icterus. No ptosis. Neck: Supple, no meningeal signs Cardiovascular: S1, S2 normal. Respiratory: Good air entry, clear to auscultation bilaterally GI: Soft, non-tender; bowel sounds normal. No peritoneal signs Musculoskeletal: Right knee dressing present Skin: No rash or abscess Hem/Lymphatic: No palpable cervical or supraclavicular nodes. No lymphangitis Psych: Mood ok. Affect normal Neurological: Awake, alert, oriented. No gross abnormality - Constitutional Vitals: Vital Signs Temp Pulse Resp BP Pulse Ox 97.7 F 62 18 143/75 96 07/15/20 05:10 07/15/20 05:10 07/15/20 05:10 07/15/20 05:10 07/15/20 05:10 Temperature -Last 24 Hours Temperature 97.7 F Temperature 98.8 F Temperature 98 F - Labs CBC & Chem 7: 07/06/20 13:21 07/15/20 04:52 Labs: Abnormal lab results 07/14/20 07/14/20 07/15/20 Range/Units 16:07 21:12 04:52 Sodium 133 L (137-145) mmol/L Creatinine 0.6 L (0.8-1.3) mg/dL Glucose 107 H (75-100) mg/dL POC Glucose 163 H 119 H (70-105) mg/dL 07/15/20 Range/Units 07:45 Sodium (137-145) mmol/L Creatinine (0.8-1.3) mg/dL Glucose (75-100) mg/dL POC Glucose 111 H (70-105) mg/dL
[2020-07-15] MEDS ORDERED: BUPIVACAINE/PF (0.5%) 5 MG/1 ML 30 ML VIAL INFILTRATI ONE ×2 (12:57→13:30)
[2020-07-15] MEDS ORDERED: KETOROLAC 30 MG/1 ML INJ ONE (12:57)
[2020-07-15] MEDS ORDERED: SODIUM CHLORIDE 0.9% 50 ML ONE (12:58)
[2020-07-15] MEDS ORDERED: SODIUM CHLORIDE 0.9% 100 ML ONE (12:58)
[2020-07-15] MEDS ORDERED: MORPHINE 10 MG/1 ML INJ ONE (12:58)
[2020-07-15] MEDS ORDERED: SODIUM CHLORIDE 0.9% IRR 1,500 ML BOTTLE IR ONE (13:30)
[2020-07-15] MEDS ORDERED: SODIUM CHLORIDE 0.9% IRRIG SOLN 2000 ML IR ONE (13:30)
[2020-07-15] MEDS ORDERED: SODIUM CHLORIDE 0.9% 50 ML IVPB IV ONE (13:30)
[2020-07-15] MEDS ORDERED: SODIUM CHLORIDE 0.9% 100 ML IVPB IV ONE (13:30)
[2020-07-15] MEDS ORDERED: KETOROLAC 30 MG/1 ML INJ IV ONE (13:30)
[2020-07-15] MEDS ORDERED: MORPHINE 10 MG/1 ML INJ IM ONE (13:30)
--- NOTE | 2020-07-15 14:03 | Procedure Note ---
Date of procedure: 07/15/20 Pre-op diagnosis: Infected right knee, status post total knee replacement Post-op diagnosis: same Procedure: Debridement and irrigation with removal of cement spacers with reimplantation of new spacers The procedure The patient was brought to the OR placed in the OR table in supine position following induction with general anesthesia the patient's right lower extremity was prepped and draped in the usual sterile manner a timeout procedure was done to identify the patient and the correct operative site the leg was then elevated for about and it in and a half this was followed by insufflation of the pneumatic tourniquet to 300 mmHg. Utilizing the previous incision this was then taken down sharply through skin subcu the medial patellar retinacular incision was then enlarged patient was noted to have abundant scar tissue with a very little flexion noted following extensive soft tissue release the knee was brought into about 45 degrees of flexion following this the previous cement spacers were removed he was noted to have reactive synovial tissue which was debrided using combination of rongeurs curettes as well as pulse lavage care was taken to remove as much of the soft tissue and bony material as possible the wound was then thoroughly irrigated again this was then followed by reimplantation of our cement spacers beginning with the tibial spacer and then following with the femoral additional cement was applied to stabilize spacers, next the patellar retinaculum was repaired the skin was closed primarily oscar were applied to the skin as well as routine postop dressings patient tolerated the procedure there were no complications Anesthesia: KEYANAA Surgeon: ERASTO SMITH (Mary Henry, 1st assist) Estimated blood loss: 50-100ml Pathology: list (Tissue and fluid sent to microbiology for culture and sensitivity) Specimen disposition: to lab Condition: stable Disposition: PACU
[2020-07-15] MEDS ORDERED: LACTATED RINGERS 1,000 ML ONE (14:19)
[2020-07-15] MEDS ORDERED: ONDANSETRON 4 MG/2 ML INJ ONE (14:19)
[2020-07-15] MEDS ORDERED: ONDANSETRON 4 MG/2 ML INJ IV PRN (15:03)
[2020-07-15] MEDS: amLODIPine 5 MG TAB PO SCH (15:45)
[2020-07-15] MEDS: METOPROLOL TARTRATE 25 MG TAB PO SCH ×2 (15:47→21:43)
[2020-07-15] MEDS: LOSARTAN 50 MG TAB PO SCH (15:53)
[2020-07-15] MEDS: DOCUSATE SODIUM 100 MG CAP PO SCH ×2 (16:39→21:44)
[2020-07-15] MEDS: ASPIRIN EC 325 MG TAB PO SCH (16:39)
--- NOTE | 2020-07-15 17:05 | Progress Note ---
Assessment and Plan Assessment and plan: 59 YO Male with DM complicated by Peripheral Neuropathy, HLD, HTN, SD, BPH, COPD, CAD S/P Stent placement, Bipolar Disorder, CHF, Chronic Pain Syndrome, DVT currently on therapeutic anticoagulation admitted for surgical intervention by the Ortho Surgery team. Consult placed by Dr. Batres for medical management. Patient seen and evaluated in his room. Patient resting comfortably. Patient knowledges right knee pain overnight. Patient denies fever, chills, chest pain, palpitation, shortness of breath, skin rash, recent ill contacts, or known exposure to COVID-19. No reported nursing events. 07/08/20: S/P Incision and drainage right knee and wash out with spacer. Per procedure note Procedure The patient was brought to the OR and placed on the OR table supine following induction by anesthesia, the patient's right LE prepped and draped in usual sterile fashion. A time-out procedure done to identify the patient and correct operative site. The tourniquet inflated to 300mm Hg, utilizing previous incision the knee joint entered, the cement spacer appeared intact not much purulent material seen either, sample of tissue given to scrub nurse of microbiology. Next using pulse lavage the joint throughly irrigated with antibiotic solution, next the soft tissues repaired and oscar applied to the skin as well as post op dressings. He tolerated the procedure and there were no complications noted, taken to PACU in stable condition. Follow with [facility] data. Consult placed for ID to assist with antibiotics. Pain control. PT/OT. Patient is legally blind, will need all precautions in place. 07/09: Cultures growing staph areus, not finalized yet, continue pain control, start stool softner. FALL PRECAUTIONS 07/10: Continue supportive care, Per ID Patient has had prolonged and refractory course as discussed above. Status post I&D on 07/07/2020, not much purulence seen in the OR but cultures positive again for Staph aureus- Recommendation is -continue IV ceftriaxone 2 g daily plus IV vancomycin for now -Given culture growth again of Staph aureus, if patient is to eventually get a new joint, may need to consider removal of current spacer, washout and placement of a new spacer along with 6 weeks of IV antibiotics probably at a halfway to ensure good compliance since this has been a recurrent issue for the last several months and patient has failed multiple rounds of antibiotics Culture indeed is growing staph aureus although we are waiting for finalization. Will await surgical reevaluation and intervention. Nursing staff to apply ice pack awaiting for PT evaluation 07/11: PT input noted, will also adjust pain medication. Culture showing MRSA. ID input noted Below. will await Ortho input. -ceftriaxone discontinued -continue with IV vancomycin for now (vancomycin BENY is 2.0, so will likely plan for IV daptomycin upon discharge) -Given culture growth again of MRSA, if patient is to eventually get a new joint, may need to consider removal of current spacer, washout and placement of a new spacer along with 6 weeks of IV antibiotics probably at a halfway to ensure good compliance since this has been a recurrent issue for the last several months and patient has failed multiple rounds of antibiotics. If he is not a candidate for more surgery, chronic suppression with PO abx can be considered. 07/12: Continue plan as outlined above. Awaiting Surgery input. Continue isolation precautions for MRSA 07/13: Continue with abx, PT/OT await Ortho input and this will determine discharge based on ID recommendation 07/14: Patient is a 59-year-old male with multiple medical problems and recently the last 1year knee surgery which has continued to become problematic requiring a spacer to be placed he presented to the hospital and underwent an incision and drainage washout and spacer placement. Cultures from the site grew MRSA and recommended by ID that if there is a plan for patient to have more surgery he needed the washer to be replaced. He continues on antibiotics with vancomycin and was subsequently will need daptomycin IV on discharge. He is going for surgery today for further extensive washout and spacer replacement. Due to compliance issues in the past this recommendation for patient to be in a personal senior living or halfway to ensure compliance as he will need 6 weeks of antibiotics. Otherwise no new complaints except for pain management. 07/15 Patient is a 59-year-old male with multiple medical problems and recently the last 1year knee surgery which has continued to become problematic requiring a spacer to be placed he presented to the hospital and underwent an incision and drainage washout and spacer placement. Cultures from the site grew MRSA and recommended by ID that if there is a plan for patient to have more surgery he needed the washer to be replaced. He continues on antibiotics with vancomycin and was subsequently will need daptomycin IV on discharge. He was taken to OR today by Dr. Batres, Orthopedic Surgeon and had debridement and irrigation with removal of cement spacers with reimplantation of new spacers (1) Septic joint of right knee joint-#Right knee prosthetic joint infection Current Visit: Yes Status: Acute Plan to address problem: Care as per primary team, knee x-ray, patient pending surgical intervention, (2) Hypertension Current Visit: Yes Status: Acute Qualifiers: Hypertension type: essential hypertension Qualified Code(s): I10 - Essential (primary) hypertension Plan to address problem: Monitor blood pressure every shift, continue medical management. (3) Diabetes Current Visit: Yes Status: Acute Plan to address problem: Consistent carbohydrate diet, Accu-Chek, insulin protocol, hypoglycemia protocol. (4) CHF (congestive heart failure) Current Visit: Yes Status: Acute Qualifiers: Heart failure type: diastolic Heart failure chronicity: chronic Qualified Code(s): I50.32 - Chronic diastolic (congestive) heart failure Plan to address problem: Strict I's/O, monitor urine output every shift, daily weight, afterload reduction, blood pressure control, supportive care. (5) BPH (benign prostatic hyperplasia) Current Visit: No Status: Chronic Qualifiers: Lower urinary tract symptom presence: symptoms present Plan to address problem: Supportive care, continue Flomax. (6) CAD (coronary artery disease) Current Visit: No Status: Chronic Qualifiers: Coronary Disease-Associated Artery/Lesion type: [place]er artery [place] vs. transplanted heart: teller heart Associated angina: without angina Qualified Code(s): I25.10 - Atherosclerotic heart disease of teller coronary artery without angina pectoris Plan to address problem: Continue anti-platelet therapy, risk factor reduction, statin therapy, supportive care. (7) Chronic pain syndrome Current Visit: Yes Status: Acute Plan to address problem: Continue medical management. Pain assessment as per nursing care protocol. (8) Legally Blind (9) DVT prophylaxis Current Visit: No Status: Acute Plan to address problem: SCD to bilateral lower extremities while in bed, continue therapeutic anticoagulation postoperatively. History Interval history: Pain right knee Patient just had surgery today No fever Hospitalist Physical - Physical exam Narrative exam: - Physical exam Narrative exam: General appearance: Present: No distress, legally blind, obese - EENT Eyes: Present: PERRL ENT: hearing intact, clear oral mucosa - Neck Neck: Present: supple, normal ROM - Respiratory Respiratory effort: normal Respiratory: bilateral: CTA - Cardiovascular Heart Sounds: Present: S1 & S2. Absent: rub, click - Extremities Extremities: pulses symmetrical, No edema Extremity abnormal: dressing and immobilizer in place. notable swollen, erythema, other (Right knee) Peripheral Pulses: within normal limits - Abdominal General gastrointestinal: Present: soft, non-tender, non-distended, normal bowel sounds Male genitourinary: Present: normal - Integumentary Integumentary: Present: clear, warm, dry - Musculoskeletal Musculoskeletal: gait normal, strength equal bilaterally - Psychiatric Psychiatric: appropriate mood/affect, intact judgment & insight - Neurologic Neurologic: CNII-XII intact, moves all extremities - Constitutional Vitals: Temp Pulse Resp BP Pulse Ox 98.5 F 72 15 168/70 97 07/15/20 16:37 07/15/20 16:37 07/15/20 16:37 07/15/20 16:37 07/15/20 16:37 Results - Labs CBC & Chem 7: 07/06/20 13:21 07/15/20 04:52 Labs: Laboratory Last Values WBC 7.6 K/mm3 (4.5-11.0) 07/06/20 13:21 RBC 4.29 M/mm3 (3.65-5.03) 07/06/20 13:21 Hgb 12.8 gm/dl (11.8-15.2) 07/06/20 13:21 Hct 37.6 % (35.5-45.6) 07/06/20 13:21 MCV 88 fl (84-94) 07/06/20 13:21 MCH 30 pg (28-32) 07/06/20 13:21 MCHC 34 % (32-34) 07/06/20 13:21 RDW 18.1 % (13.2-15.2) H 07/06/20 13:21 Plt Count 403 K/mm3 (140-440) 07/06/20 13:21 Lymph % (Auto) 33.7 % (13.4-35.0) 07/06/20 13:21 [place] % (Auto) 9.6 % (0.0-7.3) H 07/06/20 13:21 Eos % (Auto) 1.8 % (0.0-4.3) 07/06/20 13:21 Baso % (Auto) 0.6 % (0.0-1.8) 07/06/20 13:21 Lymph # (Auto) 2.6 K/mm3 (1.2-5.4) 07/06/20 13:21 [place] # (Auto) 0.7 K/mm3 (0.0-0.8) 07/06/20 13:21 Eos # (Auto) 0.1 K/mm3 (0.0-0.4) 07/06/20 13:21 Baso # (Auto) 0.0 K/mm3 (0.0-0.1) 07/06/20 13:21 Seg Neutrophils % 54.3 % (40.0-70.0) 07/06/20 13:21 Seg Neutrophils # 4.2 K/mm3 (1.8-7.7) 07/06/20 13:21 ESR 48 mm/Hr (0-20) 07/08/20 13:57 Sodium 133 mmol/L (137-145) L 07/15/20 04:52 Potassium 4.1 mmol/L (3.6-5.0) 07/15/20 04:52 Chloride 98.7 mmol/L (98-107) 07/15/20 04:52 Carbon Dioxide 25 mmol/L (22-30) D 07/15/20 04:52 Anion Gap 13 mmol/L 07/15/20 04:52 BUN 15 mg/dL (9-20) 07/15/20 04:52 Creatinine 0.6 mg/dL (0.8-1.3) L 07/15/20 04:52 Estimated GFR > 60 ml/min 07/15/20 04:52 BUN/Creatinine Ratio 25 % 07/15/20 04:52 Glucose 107 mg/dL (75-100) H 07/15/20 04:52 POC Glucose 135 mg/dL (70-105) H 07/15/20 14:29 Lactic Acid 0.80 mmol/L (0.7-2.0) 07/06/20 13:21 Calcium 8.9 mg/dL (8.4-10.2) 07/15/20 04:52 Total Bilirubin 0.50 mg/dL (0.1-1.2) 07/06/20 13:21 AST 15 units/L (5-40) 07/06/20 13:21 ALT 9 units/L (7-56) 07/06/20 13:21 Alkaline Phosphatase 115 units/L (35-129) 07/06/20 13:21 Total Creatine Kinase 74 units/L (55-170) 07/15/20 04:52 C-Reactive Protein 2.80 mg/dL (0.00-1.30) H 07/08/20 13:57 Total Protein 8.5 g/dL (6.3-8.2) H 07/06/20 13:21 Albumin 4.2 g/dL (3.9-5) 07/06/20 13:21 Albumin/Globulin Ratio 1.0 % 07/06/20 13:21 Vancomycin Trough 4.0 ug/mL (5.0-20.0) L 07/13/20 14:22 Coronavirus (PCR) Negative (Negative) 07/14/20 Unknown Microbiology: Microbiology 07/15/20 Unknown Knee - Right Surgical Biopsy Culture - Preliminary Turner/IV: Voiding Method Toilet Active Medications - Current Medications Current Medications: Generic Name Dose Route Start Last Admin Trade Name Freq PRN Reason Stop Dose Admin Acetaminophen 650 mg 07/07/20 13:16 Acetaminophen 325 Mg Tab PO Q12H PRN Pain, Mild (1-3) Al Hydrox/Mg Hydrox/Simethicone 30 ml 07/06/20 19:28 07/10/20 18:25 Alum-Mag Hydroxide-Simethicone [id number]/5ml Oral Liqd 30 Ml PO 30 ml Q4H PRN Administration Indigestion Amlodipine Besylate 5 mg 07/07/20 14:00 07/15/20 15:45 Amlodipine 5 Mg Tab PO 5 mg DAILY CASIMIRO Administration Apixaban 5 mg 07/07/20 22:00 07/15/20 16:39 Apixaban 5 Mg Tab PO Not Given Q12HR CASIMIRO Aspirin 325 mg 07/08/20 10:00 07/15/20 16:39 Aspirin Ec 325 Mg Tab PO Not Given QDAY CASIMIRO Atorvastatin Calcium 40 mg 07/07/20 22:00 07/14/20 22:09 Atorvastatin 40 Mg Tab PO 40 mg QHS CASIMIRO Administration Docusate Sodium 100 mg 07/11/20 14:00 07/15/20 16:39 Docusate Sodium 100 Mg Cap PO Not Given BID CASIMIRO Finasteride 5 mg 07/07/20 14:00 07/14/20 09:25 Finasteride 5 Mg Tab PO 5 mg QDAY CASIMIRO Administration Gabapentin 100 mg 07/07/20 22:00 07/14/20 22:08 Gabapentin 100 Mg Cap PO 100 mg BID CASIMIRO Administration Hydromorphone HCl 0.5 mg 07/11/20 10:54 07/15/20 10:16 Hydromorphone 1 Mg/1 Ml Inj IV 0.5 mg Q4H PRN Administration Pain , Severe (7-10) Hydromorphone HCl 0.5 mg 07/15/20 15:03 07/15/20 15:15 Hydromorphone 1 Mg/1 Ml Inj IV 07/16/20 15:02 0.5 mg Q10MIN PRN Administration Pain , Severe (7-10) Hydroxyzine Pamoate 50 mg 07/07/20 22:00 07/14/20 22:08 Hydroxyzine Pamoate 50 Mg Cap PO 50 mg HS CASIMIRO Administration Daptomycin 500 mg/ Sodium 100 mls @ 200 mls/hr 07/14/20 13:00 07/15/20 10:14 Chloride IV 200 mls/hr Q24HR CASIMIRO Administration Protocol Isosorbide Mononitrate 60 mg 07/07/20 14:00 07/15/20 16:40 Isosorbide Mononitrate Er 60 Mg Tab PO Not Given QDAY CASIMIRO Latanoprost 1 drops 07/07/20 22:00 07/13/20 22:40 Latanoprost 0.005% Ophth Soln 2.5 Ml OU Not Given QHS CASIMIRO Losartan Potassium 50 mg 07/07/20 14:00 07/15/20 15:53 Losartan 50 Mg Tab PO 50 mg QDAY CASIMIRO Administration Metoprolol Tartrate 12.5 mg 07/07/20 22:00 07/15/20 15:47 Metoprolol Tartrate 25 Mg Tab PO 12.5 mg BID CASIMIRO Administration Ondansetron HCl 4 mg 07/15/20 15:03 Ondansetron 4 Mg/2 Ml Inj IV ONCE PRN Nausea And Vomiting Oxycodone/Acetaminophen 2 tab 07/11/20 10:54 07/15/20 15:54 Oxycodone /Acetaminophen 5-325mg Tab PO 2 tab Q4H PRN Administration Pain, Moderate (4-6) Sertraline HCl 50 mg 07/07/20 14:00 07/14/20 09:26 Sertraline 50 Mg Tab PO 50 mg QDAY CASIMIRO Administration Tamsulosin HCl 0.4 mg 07/07/20 14:00 07/14/20 09:26 Tamsulosin 0.4 Mg Cap PO 0.4 mg QDAY CASIMIRO Administration Nutrition/Malnutrition Assess - Dietary Evaluation Nutrition/Malnutrition Findings: Nutrition Notes Start: 07/13/20 08:17 Freq: Status: Active Protocol: Document 07/13/20 08:17 LP (Rec: 07/13/20 08:17 LP [id number]) Nutrition Notes Need for Assessment generated from: LOS Initial or Follow up Brief Note Subjective/Other Information Screen for LOS. Pt consuming 100% of meals. Nutrition Intervention Revisit per MD consult or patient Sign Off request:
[2020-07-15] MEDS: GABAPENTIN 100 MG CAP PO SCH (21:43)
[2020-07-15] MEDS: LATANOPROST 0.005% OPHTH SOLN 2.5 ML OU SCH (21:43)
[2020-07-16] MEDS: HYDROmorphone 1 MG/1 ML INJ IV PRN ×4 (06:38→19:25)
[2020-07-16 07:58] LABS: Basophils # (Auto) 0.1 K/mm3 (0.0-0.1); Basophils % (Auto) 0.6 % (0.0-1.8); Eosinophils # (Auto) 0.1 K/mm3 (0.0-0.4); Eosinophils % (Auto) 0.7 % (0.0-4.3); Hematocrit 34.2 % (35.5-45.6); Hemoglobin 11.7 gm/dl (11.8-15.2); Lymphocytes # (Auto) 1.6 K/mm3 (1.2-5.4); Mean Corpuscular HGB Conc 34 % (32-34); Mean Corpuscular Volume 88 fl (84-94); Monocytes # (Auto) 1.2 K/mm3 (0.0-0.8); Monocytes % (Auto) 10.5 % (0.0-7.3); Platelet Count 502 K/mm3 (140-440); Red Cell Distribution Width 17.1 % (13.2-15.2)
[2020-07-16] MEDS: DOCUSATE SODIUM 100 MG CAP PO SCH ×2 (09:08→22:00)
[2020-07-16] MEDS: TAMSULOSIN 0.4 MG CAP PO SCH ×2 (09:08→17:06)
[2020-07-16] MEDS: LOSARTAN 50 MG TAB PO SCH (09:08)
[2020-07-16] MEDS: FINASTERIDE 5 MG TAB PO SCH ×2 (09:08→17:06)
[2020-07-16] MEDS: amLODIPine 5 MG TAB PO SCH (09:09)
[2020-07-16] MEDS: GABAPENTIN 100 MG CAP PO SCH ×3 (09:09→22:00)
[2020-07-16] MEDS: ASPIRIN EC 325 MG TAB PO SCH (09:09)
[2020-07-16] MEDS: METOPROLOL TARTRATE 25 MG TAB PO SCH ×2 (09:09→22:00)
[2020-07-16] MEDS: SERTRALINE 50 MG TAB PO SCH ×2 (09:09→17:07)
[2020-07-16] MEDS: APIXABAN 5 MG TAB PO SCH ×2 (10:42→22:00)
--- NOTE | 2020-07-16 12:19 | Progress Note ---
Assessment and Plan Assessment and plan: 59 YO Male with DM complicated by Peripheral Neuropathy, HLD, HTN, MT, BPH, COPD, CAD S/P Stent placement, Bipolar Disorder, CHF, Chronic Pain Syndrome, DVT currently on therapeutic anticoagulation admitted for surgical intervention by the Ortho Surgery team. Consult placed by Dr. Batres for medical management. Patient seen and evaluated in his room. Patient resting comfortably. Patient knowledges right knee pain overnight. Patient denies fever, chills, chest pain, palpitation, shortness of breath, skin rash, recent ill contacts, or known exposure to COVID-19. No reported nursing events. 07/08/20: S/P Incision and drainage right knee and wash out with spacer. Per procedure note Procedure The patient was brought to the OR and placed on the OR table supine following induction by anesthesia, the patient's right LE prepped and draped in usual sterile fashion. A time-out procedure done to identify the patient and correct operative site. The tourniquet inflated to 300mm Hg, utilizing previous incision the knee joint entered, the cement spacer appeared intact not much purulent material seen either, sample of tissue given to scrub nurse of microbiology. Next using pulse lavage the joint throughly irrigated with antibiotic solution, next the soft tissues repaired and oscar applied to the skin as well as post op dressings. He tolerated the procedure and there were no complications noted, taken to PACU in stable condition. Follow with MICRO FOR Micro data. Consult placed for ID to assist with antibiotics. Pain control. PT/OT. Patient is legally blind, will need all precautions in place. 07/09: Cultures growing staph areus, not finalized yet, continue pain control, start stool softner. FALL PRECAUTIONS 07/10: Continue supportive care, Per ID Patient has had prolonged and refractory course as discussed above. Status post I&D on 07/07/2020, not much purulence seen in the OR but cultures positive again for Staph aureus- Recommendation is -continue IV ceftriaxone 2 g daily plus IV vancomycin for now -Given culture growth again of Staph aureus, if patient is to eventually get a new joint, may need to consider removal of current spacer, washout and placement of a new spacer along with 6 weeks of IV antibiotics probably at a snf to ensure good compliance since this has been a recurrent issue for the last several months and patient has failed multiple rounds of antibiotics Culture indeed is growing staph aureus although we are waiting for finalization. Will await surgical reevaluation and intervention. Nursing staff to apply ice pack awaiting for PT evaluation 07/11: PT input noted, will also adjust pain medication. Culture showing MRSA. ID input noted Below. will await Ortho input. -ceftriaxone discontinued -continue with IV vancomycin for now (vancomycin BENY is 2.0, so will likely plan for IV daptomycin upon discharge) -Given culture growth again of MRSA, if patient is to eventually get a new joint, may need to consider removal of current spacer, washout and placement of a new spacer along with 6 weeks of IV antibiotics probably at a snf to ensure good compliance since this has been a recurrent issue for the last several months and patient has failed multiple rounds of antibiotics. If he is not a candidate for more surgery, chronic suppression with PO abx can be considered. 07/12: Continue plan as outlined above. Awaiting Surgery input. Continue isolation precautions for MRSA 07/13: Continue with abx, PT/OT await Ortho input and this will determine discharge based on ID recommendation 07/14: Patient is a 59-year-old male with multiple medical problems and recently the last 1year knee surgery which has continued to become problematic requiring a spacer to be placed he presented to the hospital and underwent an incision and drainage washout and spacer placement. Cultures from the site grew MRSA and recommended by ID that if there is a plan for patient to have more surgery he needed the washer to be replaced. He continues on antibiotics with vancomycin and was subsequently will need daptomycin IV on discharge. He is going for surgery today for further extensive washout and spacer replacement. Due to compliance issues in the past this recommendation for patient to be in a personal alf or snf to ensure compliance as he will need 6 weeks of antibiotics. Otherwise no new complaints except for pain management. 07/15 Patient is a 59-year-old male with multiple medical problems and recently the last 1year knee surgery which has continued to become problematic requiring a spacer to be placed he presented to the hospital and underwent an incision and drainage washout and spacer placement. Cultures from the site grew MRSA and recommended by ID that if there is a plan for patient to have more surgery he needed the washer to be replaced. He continues on antibiotics with vancomycin and was subsequently will need daptomycin IV on discharge. He was taken to OR today by Dr. Batres, Orthopedic Surgeon and had debridement and irrigation with removal of cement spacers with reimplantation of new spacers 07/16/ Patient is a 59-year-old male with multiple medical problems and recently the last 1year knee surgery which has continued to become problematic requiring a spacer to be placed he presented to the hospital and underwent an incision and drainage washout and spacer placement. Cultures from the site grew MRSA and rec ommended by ID that if there is a plan for patient to have more surgery he needed the washer to be replaced. He continues on antibiotics with vancomycin and was subsequently will need daptomycin IV on discharge. He was taken to OR yesterday 07/[address] Batres, Orthopedic Surgeon and had debridement and irrigation with removal of cement spacers with reimplantation of new spacers. Nurse tells me Overnight he had bleeding from surgical site. Orthopedic Surgeon informed. Will hold Eliquis until bleeding subsides. Repeat H/H (1) Septic joint of right knee joint-#Right knee prosthetic joint infection Current Visit: Yes Status: Acute Plan to address problem: Care as per primary team, knee x-ray, patient pending surgical intervention, (2) Hypertension Current Visit: Yes Status: Acute Qualifiers: Hypertension type: essential hypertension Qualified Code(s): I10 - E ssential (primary) hypertension Plan to address problem: Monitor blood pressure every shift, continue medical management. (3) Diabetes Current Visit: Yes Status: Acute Plan to address problem: Consistent carbohydrate diet, Accu-Chek, insulin protocol, hypoglycemia protocol. (4) CHF (congestive heart failure) Current Visit: Yes Status: Acute Qualifiers: Heart failure type: diastolic Heart failure chronicity: chronic Qualified Code(s): I50.32 - Chronic diastolic (congestive) heart failure Plan to address problem: Strict I's/O, monitor urine output every shift, daily weight, afterload reduct ion, blood pressure control, supportive care. (5) BPH (benign prostatic hyperplasia) Current Visit: No Status: Chronic Qualifiers: Lower urinary tract symptom presence: symptoms present Plan to address problem: Supportive care, continue Flomax. (6) CAD (coronary artery disease) Current Visit: No Status: Chronic Qualifiers: Coronary Disease-Associated Artery/Lesion type: [place] artery [place] vs. transplanted heart: [place] heart Associated angina: without angina Qualified Code(s): I25.10 - Atherosclerotic heart disease of [place] coronary artery without angina pectoris Plan to address problem: Continue anti-platelet therapy, risk factor reduction, statin therapy, supportive care. (7) Chronic pain syndrome Current Visit: Yes Status: Acute Plan to address problem: Continue medical management. Pain assessment as per nursing care protocol. (8) Legally Blind (9) DVT prophylaxis Current Visit: No Status: Acute Plan to address problem: SCD to bilateral lower extremities while in bed, continue therapeutic anticoagulation postoperatively. History Interval history: Pain right knee Nurse reports patient had bleeding from right knee surgical site, Orthopedic Surgeon informed Hospitalist Physical - Physical exam Narrative exam: - Physical exam Narrative exam: General appearance: Present: No distress, legally blind, obese - EENT Eyes: Present: PERRL ENT: hearing intact, clear oral mucosa - Neck Neck: Present: supple, normal ROM - Respiratory Respiratory effort: normal Respiratory: bilateral: CTA - Cardiovascular Heart Sounds: Present: S1 & S2. Absent: rub, click - Extremities Extremities: pulses symmetrical, No edema Extremity abnormal: dressing and immobilizer in place on right knee Peripheral Pulses: within normal limits - Abdominal General gastrointestinal: Present: soft, non-tender, non-distended, normal bowel sounds Male genitourinary: Present: normal - Integumentary Integumentary: Present: clear, warm, dry - Musculoskeletal Musculoskeletal: gait normal, strength equal bilaterally - Psychiatric Psychiatric: appropriate mood/affect, intact judgment & insight - Neurologic Neurologic: CNII-XII intact, moves all extremities - Constitutional Vitals: Temp Pulse Resp BP Pulse Ox 98.6 F 76 20 139/73 96 07/16/20 05:56 07/16/20 05:56 07/16/20 05:56 07/16/20 05:56 07/16/20 05:56 Results - Labs CBC & Chem 7: 07/16/20 07:12 07/15/20 04:52 Labs: Laboratory Last Values WBC 11.8 K/mm3 (4.5-11.0) H 07/16/20 07:12 RBC 3.90 M/mm3 (3.65-5.03) 07/16/20 07:12 Hgb 11.7 gm/dl (11.8-15.2) L 07/16/20 07:12 Hct 34.2 % (35.5-45.6) L 07/16/20 07:12 MCV 88 fl (84-94) 07/16/20 07:12 MCH 30 pg (28-32) 07/16/20 07:12 MCHC 34 % (32-34) 07/16/20 07:12 RDW 17.1 % (13.2-15.2) H 07/16/20 07:12 Plt Count 502 K/mm3 (140-440) H 07/16/20 07:12 Lymph % (Auto) 14.0 % (13.4-35.0) 07/16/20 07:12 [place] % (Auto) 10.5 % (0.0-7.3) H 07/16/20 07:12 Eos % (Auto) 0.7 % (0.0-4.3) 07/16/20 07:12 Baso % (Auto) 0.6 % (0.0-1.8) 07/16/20 07:12 Lymph # (Auto) 1.6 K/mm3 (1.2-5.4) 07/16/20 07:12 [place] # (Auto) 1.2 K/mm3 (0.0-0.8) H 07/16/20 07:12 Eos # (Auto) 0.1 K/mm3 (0.0-0.4) 07/16/20 07:12 Baso # (Auto) 0.1 K/mm3 (0.0-0.1) 07/16/20 07:12 Seg Neutrophils % 74.2 % (40.0-70.0) H 07/16/20 07:12 Seg Neutrophils # 8.7 K/mm3 (1.8-7.7) H 07/16/20 07:12 ESR 48 mm/Hr (0-20) 07/08/20 13:57 Sodium 133 mmol/L (137-145) L 07/15/20 04:52 Potassium 4.1 mmol/L (3.6-5.0) 07/15/20 04:52 Chloride 98.7 mmol/L (98-107) 07/15/20 04:52 Carbon Dioxide 25 mmol/L (22-30) D 07/15/20 04:52 Anion Gap 13 mmol/L 07/15/20 04:52 BUN 15 mg/dL (9-20) 07/15/20 04:52 Creatinine 0.6 mg/dL (0.8-1.3) L 07/15/20 04:52 Estimated GFR > 60 ml/min 07/15/20 04:52 BUN/Creatinine Ratio 25 % 07/15/20 04:52 Glucose 107 mg/dL (75-100) H 07/15/20 04:52 POC Glucose 135 mg/dL (70-105) H 07/15/20 14:29 Lactic Acid 0.80 mmol/L (0.7-2.0) 07/06/20 13:21 Calcium 8.9 mg/dL (8.4-10.2) 07/15/20 04:52 Total Bilirubin 0.50 mg/dL (0.1-1.2) 07/06/20 13:21 AST 15 units/L (5-40) 07/06/20 13:21 ALT 9 units/L (7-56) 07/06/20 13:21 Alkaline Phosphatase 115 units/L (35-129) 07/06/20 13:21 Total Creatine Kinase 74 units/L (55-170) 07/15/20 04:52 C-Reactive Protein 2.80 mg/dL (0.00-1.30) H 07/08/20 13:57 Total Protein 8.5 g/dL (6.3-8.2) H 07/06/20 13:21 Albumin 4.2 g/dL (3.9-5) 07/06/20 13:21 Albumin/Globulin Ratio 1.0 % 07/06/20 13:21 Vancomycin Trough 4.0 ug/mL (5.0-20.0) L 07/13/20 14:22 Coronavirus (PCR) Negative (Negative) 07/14/20 Unknown Microbiology: Microbiology 07/15/20 Unknown Knee - Right Surgical Biopsy Culture - Preliminary Turner/IV: Voiding Method Urinal Active Medications - Current Medications Current Medications: Generic Name Dose Route Start Last Admin Trade Name Freq PRN Reason Stop Dose Admin Acetaminophen 650 mg 07/07/20 13:16 Acetaminophen 325 Mg Tab PO Q12H PRN Pain, Mild (1-3) Al Hydrox/Mg Hydrox/Simethicone 30 ml 07/06/20 19:28 07/10/20 18:25 Alum-Mag Hydroxide-Simethicone [phone] Oral Liqd 30 Ml PO 30 ml Q4H PRN Administration Indigestion Amlodipine Besylate 5 mg 07/07/20 14:00 07/16/20 09:09 Amlodipine 5 Mg Tab PO 5 mg DAILY CASIMIRO Administration Apixaban 5 mg 07/07/20 22:00 07/16/20 10:42 Apixaban 5 Mg Tab PO Not Given Q12HR CASIMIRO Aspirin 325 mg 07/08/20 10:00 07/16/20 09:09 Aspirin Ec 325 Mg Tab PO 325 mg QDAY CASIMIRO Administration Atorvastatin Calcium 40 mg 07/07/20 22:00 07/15/20 21:43 Atorvastatin 40 Mg Tab PO 40 mg QHS CASIMIRO Administration Docusate Sodium 100 mg 07/11/20 14:00 07/16/20 09:08 Docusate Sodium 100 Mg Cap PO 100 mg BID CASIMIRO Administration Finasteride 5 mg 07/07/20 14:00 07/16/20 09:08 Finasteride 5 Mg Tab PO 5 mg QDAY CASIMIRO Administration Gabapentin 100 mg 07/07/20 22:00 07/16/20 09:09 Gabapentin 100 Mg Cap PO 100 mg BID CASIMIRO Administration Hydromorphone HCl 0.5 mg 07/11/20 10:54 07/16/20 10:38 Hydromorphone 1 Mg/1 Ml Inj IV 0.5 mg Q4H PRN Administration Pain , Severe (7-10) Hydromorphone HCl 0.5 mg 07/15/20 15:03 07/15/20 15:15 Hydromorphone 1 Mg/1 Ml Inj IV 07/16/20 15:02 0.5 mg Q10MIN PRN Administration Pain , Severe (7-10) Hydroxyzine Pamoate 50 mg 07/07/20 22:00 07/15/20 21:46 Hydroxyzine Pamoate 50 Mg Cap PO 50 mg HS CASIMIRO Administration Daptomycin 500 mg/ Sodium 100 mls @ 200 mls/hr 07/14/20 13:00 07/16/20 09:09 Chloride IV 08/26/20 10:29 200 mls/hr Q24HR CASIMIRO Administration Protocol Isosorbide Mononitrate 60 mg 07/07/20 14:00 07/16/20 09:09 Isosorbide Mononitrate Er 60 Mg Tab PO 60 mg QDAY CASIMIRO Administration Latanoprost 1 drops 07/07/20 22:00 07/15/20 21:43 Latanoprost 0.005% Ophth Soln 2.5 Ml OU Not Given QHS CASIMIRO Losartan Potassium 50 mg 07/07/20 14:00 07/16/20 09:08 Losartan 50 Mg Tab PO 50 mg QDAY CASIMIRO Administration Metoprolol Tartrate 12.5 mg 07/07/20 22:00 07/16/20 09:09 Metoprolol Tartrate 25 Mg Tab PO 12.5 mg BID CASIMIRO Administration Ondansetron HCl 4 mg 07/15/20 15:03 Ondansetron 4 Mg/2 Ml Inj IV ONCE PRN Nausea And Vomiting Oxycodone/Acetaminophen 2 tab 07/11/20 10:54 07/15/20 22:46 Oxycodone /Acetaminophen 5-325mg Tab PO 2 tab Q4H PRN Administration Pain, Moderate (4-6) Sertraline HCl 50 mg 07/07/20 14:00 07/16/20 09:09 Sertraline 50 Mg Tab PO 50 mg QDAY CASIMIRO Administration Tamsulosin HCl 0.4 mg 07/07/20 14:00 07/16/20 09:08 Tamsulosin 0.4 Mg Cap PO 0.4 mg QDAY CASIMIRO Administration Nutrition/Malnutrition Assess - Dietary Evaluation Nutrition/Malnutrition Findings: Nutrition Notes Start: 07/13/20 0 8:17 Freq: Status: Active Protocol: Document 07/13/20 08:17 LP (Rec: 07/13/20 08:17 LP [id number]) Nutrition Notes Need for Assessment generated from: LOS Initial or Follow up Brief Note Subjective/Other Information Screen for LOS. Pt consuming 100% of meals. Nutrition Intervention Revisit per MD consult or patient Sign Off request:
--- NOTE | 2020-07-16 13:12 | Progress Note ---
Assessment and Plan Cultures: Previous chart and cultures reviewed 07/07/2020 right knee OR culture: MRSA 07/15/2020 R knee cultures: in process A/P: 59 years old male with DM, HTN, CAD, legally blind, right total knee replacement on 08/26/2019 complicated by prosthetic joint infection, was admitted in 11/21/2019 found to have MRSA s/p OR for debridement and irrigation of the knee on (1-stage procedure) treated with vancomycin IV and rifampin for 6 weeks until 01/03/2020, readmitted in January 2020 due to failure of 1- stage/IV/PO antibiotics, underwent removal of implants, spacer placement on 01/19/2021ultures again grew MRSA, treated with IV Daptomycin 500 mg daily x 6 weeks ending 02/2020. Per review of clinic notes from Dr. Taylor, it seems patient had noncompliance with IV antibiotics. Most recently, patient was seen in ID clinic on 07/01/2020, recent cultures from the knee wound had grown E. coli and Proteus and patient had received about 30 days of p.o. Bactrim. Due to concern for poor compliance, and based on the cultures, he was given another round of p.o. ciprofloxacin for 6 weeks. His CRP was 75.8 mg/L. Now with: #Right knee prosthetic joint infection: Prolonged and refractory course as discussed above. Status post I&D on 07/07/2020, not much purulence seen in the OR but cultures positive again for MRSA. Given culture growth again of MRSA, since plan is for the patient to eventually get a new joint, we recommended removal of current spacer, washout and placement of a new spacer along with 6 weeks of IV antibiotics probably at a group home to ensure good compliance since this has been a recurrent issue for almost a year now and patient has failed multiple rounds of antibiotics. Underwent debridement and irrigation with removal of cement spacers with reimplantation of new spacers on 07/15/2020. #DM type II #Hypertension Recs: -continue with IV daptomycin (vancomycin BENY of 2.0), plan for 6 weeks -Monitor CK closely due to patient also being on statin -Patient agreeable to go to rehab for IV abx to ensure compliance with abx -CM orders placed for IV Daptomycin x 6 weeks ending 08/26/2020 -f/u new cultures from 07/15/2020 Abeba Willingham MD, FACP [facility] ([facility]) O: [phone] F: [phone] Subjective Date of service: 07/16/20 Interval history: No fever. Underwent surgery yesterday. Pain in R knee, asking for pain meds. Objective - Exam Narrative Exam: Physical Exam: Constitutional: Alert, cooperative. No acute distress Head, Ears, Nose: Normocephalic, atraumatic. External ears, nose normal Eyes: Conjunctivae/corneas clear. No icterus. No ptosis. Neck: Supple, no meningeal signs Cardiovascular: S1, S2 normal. Respiratory: Good air entry, clear to auscultation bilaterally GI: Soft, non-tender; bowel sounds normal. No peritoneal signs Musculoskeletal: Right knee dressing + Skin: No rash or abscess Hem/Lymphatic: No palpable cervical or supraclavicular nodes. No lymphangitis Psych: Mood ok. Affect normal Neurological: Awake, alert, oriented. No gross abnormality - Constitutional Vitals: Vital Signs Temp Pulse Resp BP Pulse Ox 98.4 F 84 18 138/77 97 07/16/20 11:49 07/16/20 11:49 07/16/20 11:49 07/16/20 11:49 07/16/20 11:49 Temperature -Last 24 Hours Temperature 98.4 F Temperature 98.6 F Temperature 98.4 F Temperature 98.1 F Temperature 98.5 F Temperature 98.5 F Temperature 98.0 F Temperature 97.5 F - Labs CBC & Chem 7: 07/16/20 07:12 07/15/20 04:52 Labs: Abnormal lab results 07/15/20 07/16/20 Range/Units 14:29 07:12 WBC 11.8 H (4.5-11.0) K/mm3 Hgb 11.7 L (11.8-15.2) gm/dl Hct 34.2 L (35.5-45.6) % RDW 17.1 H (13.2-15.2) % Plt Count 502 H (140-440) K/mm3 [place] % (Auto) 10.5 H (0.0-7.3) % [place] # (Auto) 1.2 H (0.0-0.8) K/mm3 Seg Neutrophils % 74.2 H (40.0-70.0) % Seg Neutrophils # 8.7 H (1.8-7.7) K/mm3 POC Glucose 135 H (70-105) mg/dL
--- NOTE | 2020-07-16 13:21 | Progress Note ---
Assessment and Plan s/p cement spacer exchange and debridement and irrigation right knee continue IVAB and observation... Subjective Date of service: 07/16/20 Interval history: c/o incisional pain, otherwise ok, resting comfortably in bed prior to our discussion Objective Vital signs: Vital Signs - 12hr 07/16/20 07/16/20 05:56 11:49 Temperature 98.6 F 98.4 F Pulse Rate 76 84 Respiratory 20 18 Rate Blood Pressure 139/73 138/77 O2 Sat by Pulse 96 97 Oximetry Incision: draining, clean and dry Weight bearing status: as tolerated - Labs CBC & BMP: 07/16/20 07:12 07/15/20 04:52 Labs: Abnormal lab results 07/15/20 07/16/20 Range/Units 14:29 07:12 WBC 11.8 H (4.5-11.0) K/mm3 Hgb 11.7 L (11.8-15.2) gm/dl Hct 34.2 L (35.5-45.6) % RDW 17.1 H (13.2-15.2) % Plt Count 502 H (140-440) K/mm3 [place] % (Auto) 10.5 H (0.0-7.3) % [place] # (Auto) 1.2 H (0.0-0.8) K/mm3 Seg Neutrophils % 74.2 H (40.0-70.0) % Seg Neutrophils # 8.7 H (1.8-7.7) K/mm3 POC Glucose 135 H (70-105) mg/dL
--- NOTE | 2020-07-16 14:52 | XRay Report ---
RIGHT KNEE 3 VIEWS INDICATION: Postop evaluation COMPARISON: 08/07/2020 IMPRESSION: Recent surgical changes are noted including cement spacer exchange. The hardware appears well applied. No acute osseous abnormality is appreciated. Diffuse soft tissue swelling is noted. Signer Name: Dylan Mauricio Jr, MD Signed: 07/16/2020 2:48 PM Workstation Name: [id number]
[2020-07-16] MEDS: oxyCODONE /ACETAMINOPHEN 5-325MG TAB PO PRN ×3 (15:14→23:39)
[2020-07-16] MEDS: LATANOPROST 0.005% OPHTH SOLN 2.5 ML OU SCH ×2 (17:08→22:01)
[2020-07-17] MEDS: oxyCODONE /ACETAMINOPHEN 5-325MG TAB PO PRN ×2 (03:37→19:25)
[2020-07-17] MEDS: HYDROmorphone 1 MG/1 ML INJ IV PRN ×4 (05:42→23:36)
[2020-07-17 06:36] LABS: Hematocrit 30.7 % (35.5-45.6); Hemoglobin 10.5 gm/dl (11.8-15.2); Mean Corpuscular HGB Conc 34 % (32-34); Mean Corpuscular Volume 86 fl (84-94); Platelet Count 523 K/mm3 (140-440); Red Blood Count 3.56 M/mm3 (3.65-5.03); Red Cell Distribution Width 17.1 % (13.2-15.2)
[2020-07-17 06:52] LABS: Blood Urea Nitrogen 10 mg/dL (9-20); Calcium 8.9 mg/dL (8.4-10.2); Hemolysis Index 0
[2020-07-17 07:04] LABS: BUN/Creatinine Ratio 20
--- NOTE | 2020-07-17 09:43 | Progress Note ---
Assessment and Plan Assessment and plan: 59 YO Male with DM complicated by Peripheral Neuropathy, HLD, HTN, OR, BPH, COPD, CAD S/P Stent placement, Bipolar Disorder, CHF, Chronic Pain Syndrome, DVT currently on therapeutic anticoagulation admitted for surgical intervention by the Ortho Surgery team. Consult placed by Dr. Batres for medical management. Patient seen and evaluated in his room. Patient resting comfortably. Patient knowledges right knee pain overnight. Patient denies fever, chills, chest pain, palpitation, shortness of breath, skin rash, recent ill contacts, or known exposure to COVID-19. No reported nursing events. 07/08/20: S/P Incision and drainage right knee and wash out with spacer. Per procedure note Procedure The patient was brought to the OR and placed on the OR table supine following induction by anesthesia, the patient's right LE prepped and draped in usual sterile fashion. A time-out procedure done to identify the patient and correct operative site. The tourniquet inflated to 300mm Hg, utilizing previous incision the knee joint entered, the cement spacer appeared intact not much purulent material seen either, sample of tissue given to scrub nurse of microbiology. Next using pulse lavage the joint throughly irrigated with antibiotic solution, next the soft tissues repaired and oscar applied to the skin as well as post op dressings. He tolerated the procedure and there were no complications noted, taken to PACU in stable condition. Follow with MI[facility] FOR [facility] data. Consult placed for ID to assist with antibiotics. Pain control. PT/OT. Patient is legally blind, will need all precautions in place. 07/09: Cultures growing staph areus, not finalized yet, continue pain control, start stool softner. FALL PRECAUTIONS 07/10: Continue supportive care, Per ID Patient has had prolonged and refractory course as discussed above. Status post I&D on 07/07/2020, not much purulence seen in the OR but cultures positive again for Staph aureus- Recommendation is -continue IV ceftriaxone 2 g daily plus IV vancomycin for now -Given culture growth again of Staph aureus, if patient is to eventually get a new joint, may need to consider removal of current spacer, washout and placement of a new spacer along with 6 weeks of IV antibiotics probably at a retirement to ensure good compliance since this has been a recurrent issue for the last several months and patient has failed multiple rounds of antibiotics Culture indeed is growing staph aureus although we are waiting for finalization. Will await surgical reevaluation and intervention. Nursing staff to apply ice pack awaiting for PT evaluation 07/11: PT input noted, will also adjust pain medication. Culture showing MRSA. ID input noted Below. will await Ortho input. -ceftriaxone discontinued -continue with IV vancomycin for now (vancomycin BENY is 2.0, so will likely plan for IV daptomycin upon discharge) -Given culture growth again of MRSA, if patient is to eventually get a new joint, may need to consider removal of current spacer, washout and placement of a new spacer along with 6 weeks of IV antibiotics probably at a retirement to ensure good compliance since this has been a recurrent issue for the last several months and patient has failed multiple rounds of antibiotics. If he is not a candidate for more surgery, chronic suppression with PO abx can be considered. 07/12: Continue plan as outlined above. Awaiting Surgery input. Continue isolation precautions for MRSA 07/13: Continue with abx, PT/OT await Ortho input and this will determine discharge based on ID recommendation 07/14: Patient is a 59-year-old male with multiple medical problems and recently the last 1year knee surgery which has continued to become problematic requiring a spacer to be placed he presented to the hospital and underwent an incision and drainage washout and spacer placement. Cultures from the site grew MRSA and recommended by ID that if there is a plan for patient to have more surgery he needed the washer to be replaced. He continues on antibiotics with vancomycin and was subsequently will need daptomycin IV on discharge. He is going for surgery today for further extensive washout and spacer replacement. Due to compliance issues in the past this recommendation for patient to be in a personal fdc or retirement to ensure compliance as he will need 6 weeks of antibiotics. Otherwise no new complaints except for pain management. 07/15 Patient is a 59-year-old male with multiple medical problems and recently the last 1year knee surgery which has continued to become problematic requiring a spacer to be placed he presented to the hospital and underwent an incision and drainage washout and spacer placement. Cultures from the site grew MRSA and recommended by ID that if there is a plan for patient to have more surgery he needed the washer to be replaced. He continues on antibiotics with vancomycin and was subsequently will need daptomycin IV on discharge. He was taken to OR today by Dr. Batres, Orthopedic Surgeon and had debridement and irrigation with removal of cement spacers with reimplantation of new spacers 07/16/ Patient is a 59-year-old male with multiple medical problems and recently the last 1year knee surgery which has continued to become problematic requiring a spacer to be placed he presented to the hospital and underwent an incision and drainage washout and spacer placement. Cultures from the site grew MRSA and rec ommended by ID that if there is a plan for patient to have more surgery he needed the washer to be replaced. He continues on antibiotics with vancomycin and was subsequently will need daptomycin IV on discharge. He was taken to OR yesterday 07/[address] Batres, Orthopedic Surgeon and had debridement and irrigation with removal of cement spacers with reimplantation of new spacers. Nurse tells me Overnight he had bleeding from surgical site. Orthopedic Surgeon informed. Will hold Eliquis until bleeding subsides. Repeat H/H 07/17 Patient is a 59-year-old male with multiple medical problems and recently the last 1year knee surgery which has continued to become problematic requiring a spacer to be placed he presented to the hospital and underwent an incision and drainage washout and spacer placement. Cultures from the site grew MRSA and recommended by ID that if there is a plan for patient to have more surgery he needed the washer to be replaced. He continues on antibiotics with vancomycin an d was subsequently will need daptomycin IV on discharge. He was taken to OR 07/[address] Batres, Orthopedic Surgeon and had debridement and irrigation with removal of cement spacers with reimplantation of new spacers. Nurse told me he had bleeding from surgical site, nite of surgery but now subsided. Eliquis resumed. Hgb slightly lower. Will repeat in am (1) Septic joint of right knee joint-#Right knee prosthetic joint infection Current Visit: Yes Status: Acute Plan to address problem: Care as per primary team, knee x-ray, patient pending surgical intervention, (2) Hypertension Current Visit: Yes Status: Acute Qualifiers: Hypertension type: essential hypertension Qualified Code(s): I10 - Essential (primary) hypertension Plan to address problem: Monitor blood pressure every shift, continue medical management. (3) Diabetes Current Visit: Yes Status: Acute Plan to address problem: Consistent carbohydrate diet, Accu-Chek, insulin protocol, hypoglycemia protocol. (4) CHF (congestive heart failure) Current Visit: Yes Status: Acute Qualifiers: Heart failure type: diastolic Heart failure chronicity: chronic Qualified Code(s): I50.32 - Chronic diastolic (congestive) heart failure Plan to address problem: Strict I's/O, monitor urine output every shift, daily weight, afterload reduction, blood pressure control, supportive care. (5) BPH (benign prostatic hyperplasia) Current Visit: No Status: Chronic Qualifiers: Lower urinary tract symptom presence: symptoms present Plan to address problem: Supportive care, continue Flomax. (6) CAD (coronary artery disease) Current Visit: No Status: Chronic Qualifiers: Coronary Disease-Associated Artery/Lesion type: [place] artery [place] vs. transplanted heart: [place] heart Associated angina: without angina Qualified Code(s): I25.10 - Atherosclerotic heart disease of [place] coronary artery without angina pectoris Plan to address problem: Continue anti-platelet therapy, risk factor reduction, statin therapy, supportive care. (7) Chronic pain syndrome Current Visit: Yes Status: Acute Plan to address problem: Continue medical management. Pain assessment as per nursing care protocol. (8) Legally Blind (9) DVT prophylaxis Current Visit: No Status: Acute Plan to address problem: SCD to bilateral lower extremities while in bed, continue therapeutic anticoagulation postoperatively. History Interval history: Pain right knee surgical site Nurse reported patient had bleeding from right knee surgical site 2 days ago, now subsided Hospitalist Physical - Physical exam Narrative exam: - Physical exam Narrative exam: General appearance: Present: No distress, legally blind, obese - EENT Eyes: Present: PERRL ENT: hearing intact, clear oral mucosa - Neck Neck: Present: supple, normal ROM - Respiratory Respiratory effort: normal Respiratory: bilateral: CTA - Cardiovascular Heart Sounds: Present: S1 & S2. Absent: rub, click - Extremities Extremities: pulses symmetrical, No edema Extremity abnormal: dressing and immobilizer in place on right knee Peripheral Pulses: within normal limits - Abdominal General gastrointestinal: Present: soft, non-tender, non-distended, normal bowel sounds Male genitourinary: Present: normal - Integumentary Integumentary: Present: clear, warm, dry - Musculoskeletal Musculoskeletal: gait normal, strength equal bilaterally - Psychiatric Psychiatric: appropriate mood/affect, intact judgment & insight - Neurologic Neurologic: CNII-XII intact, moves all extremities - Constitutional Vitals: Temp Pulse Resp BP Pulse Ox 98.4 F 70 18 135/67 96 07/17/20 05:45 07/17/20 05:45 07/17/20 05:45 07/17/20 05:45 07/17/20 05:45 General appearance: Present: obese Results - Labs CBC & Chem 7: 07/17/20 05:25 07/17/20 05:35 Labs: Laboratory Last Values WBC 11.0 K/mm3 (4.5-11.0) 07/17/20 05:25 RBC 3.56 M/mm3 (3.65-5.03) L 07/17/20 05:25 Hgb 10.5 gm/dl (11.8-15.2) L 07/17/20 05:25 Hct 30.7 % (35.5-45.6) L 07/17/20 05:25 MCV 86 fl (84-94) 07/17/20 05:25 MCH 30 pg (28-32) 07/17/20 05:25 MCHC 34 % (32-34) 07/17/20 05:25 RDW 17.1 % (13.2-15.2) H 07/17/20 05:25 Plt Count 523 K/mm3 (140-440) H 07/17/20 05:25 Lymph % (Auto) 14.0 % (13.4-35.0) 07/16/20 07:12 [place] % (Auto) 10.5 % (0.0-7.3) H 07/16/20 07:12 Eos % (Auto) 0.7 % (0.0-4.3) 07/16/20 07:12 Baso % (Auto) 0.6 % (0.0-1.8) 07/16/20 07:12 Lymph # (Auto) 1.6 K/mm3 (1.2-5.4) 07/16/20 07:12 [place] # (Auto) 1.2 K/mm3 (0.0-0.8) H 07/16/20 07:12 Eos # (Auto) 0.1 K/mm3 (0.0-0.4) 07/16/20 07:12 Baso # (Auto) 0.1 K/mm3 (0.0-0.1) 07/16/20 07:12 Seg Neutrophils % 74.2 % (40.0-70.0) H 07/16/20 07:12 Seg Neutrophils # 8.7 K/mm3 (1.8-7.7) H 07/16/20 07:12 ESR 48 mm/Hr (0-20) 07/08/20 13:57 Sodium 134 mmol/L (137-145) L 07/17/20 05:35 Potassium 4.0 mmol/L (3.6-5.0) 07/17/20 05:35 Chloride 97.8 mmol/L (98-107) L 07/17/20 05:35 Carbon Dioxide 27 mmol/L (22-30) 07/17/20 05:35 Anion Gap 13 mmol/L 07/17/20 05:35 BUN 10 mg/dL (9-20) 07/17/20 05:35 Creatinine 0.5 mg/dL (0.8-1.3) L 07/17/20 05:35 Estimated GFR > 60 ml/min 07/17/20 05:35 BUN/Creatinine Ratio 20 % 07/17/20 05:35 Glucose 116 mg/dL (75-100) H 07/17/20 05:35 POC Glucose 135 mg/dL (70-105) H 07/15/20 14:29 Lactic Acid 0.80 mmol/L (0.7-2.0) 07/06/20 13:21 Calcium 8.9 mg/dL (8.4-10.2) 07/17/20 05:35 Total Bilirubin 0.50 mg/dL (0.1-1.2) 07/06/20 13:21 AST 15 units/L (5-40) 07/06/20 13:21 ALT 9 units/L (7-56) 07/06/20 13:21 Alkaline Phosphatase 115 units/L (35-129) 07/06/20 13:21 Total Creatine Kinase 74 units/L (55-170) 07/15/20 04:52 C-Reactive Protein 2.80 mg/dL (0.00-1.30) H 07/08/20 13:57 Total Protein 8.5 g/dL (6.3-8.2) H 07/06/20 13:21 Albumin 4.2 g/dL (3.9-5) 07/06/20 13:21 Albumin/Globulin Ratio 1.0 % 05/25/21 13:21 Vancomycin Trough 4.0 ug/mL (5.0-20.0) L 07/13/20 14:22 Coronavirus (PCR) Negative (Negative) 07/14/20 Unknown Microbiology: Microbiology 07/15/20 Unknown Knee - Right Surgical Biopsy Culture - Preliminary Turner/IV: Voiding Method Urinal Active Medications - Current Medications Current Medications: Generic Name Dose Route Start Last Admin Trade Name Freq PRN Reason Stop Dose Admin Acetaminophen 650 mg 07/07/20 13:16 Acetaminophen 325 Mg Tab PO Q12H PRN Pain, Mild (1-3) Al Hydrox/Mg Hydrox/Simethicone 30 ml 07/06/20 19:28 07/10/20 18:25 Alum-Mag Hydroxide-Simethicone 384-996-05xg/5ml Oral Liqd 30 Ml PO 30 ml Q4H PRN Administration Indigestion Amlodipine Besylate 5 mg 07/07/20 14:00 07/16/20 09:09 Amlodipine 5 Mg Tab PO 5 mg DAILY CASIMIRO Administration Apixaban 5 mg 07/07/20 22:00 07/16/20 22:00 Apixaban 5 Mg Tab PO 5 mg Q12HR CASIMIRO Administration Aspirin 325 mg 07/08/20 10:00 07/16/20 09:09 Aspirin Ec 325 Mg Tab PO 325 mg QDAY CASIMIRO Administration Atorvastatin Calcium 40 mg 07/07/20 22:00 07/16/20 22:01 Atorvastatin 40 Mg Tab PO 40 mg QHS CASIMIRO Administration Docusate Sodium 100 mg 07/11/20 14:00 07/16/20 22:00 Docusate Sodium 100 Mg Cap PO 100 mg BID CASIMIRO Administration Finasteride 5 mg 07/07/20 14:00 07/16/20 17:06 Finasteride 5 Mg Tab PO Not Given QDAY CASIMIRO Gabapentin 100 mg 07/07/20 22:00 07/16/20 22:00 Gabapentin 100 Mg Cap PO 100 mg BID CASIMIRO Administration Hydromorphone HCl 0.5 mg 07/11/20 10:54 07/17/20 05:42 Hydromorphone 1 Mg/1 Ml Inj IV 0.5 mg Q4H PRN Administration Pain , Severe (7-10) Hydroxyzine Pamoate 50 mg 07/07/20 22:00 07/16/20 22:01 Hydroxyzine Pamoate 50 Mg Cap PO 50 mg HS CASIMIRO Administration Daptomycin 500 mg/ Sodium 100 mls @ 200 mls/hr 07/14/20 13:00 07/16/20 09:09 Chloride IV 08/26/20 10:29 200 mls/hr Q24HR CASIMIRO Administration Protocol Isosorbide Mononitrate 60 mg 07/07/20 14:00 07/16/20 09:09 Isosorbide Mononitrate Er 60 Mg Tab PO 60 mg QDAY CASIMIRO Administration Latanoprost 1 drops 07/07/20 22:00 07/16/20 22:01 Latanoprost 0.005% Ophth Soln 2.5 Ml OU 1 drops QHS CASIMIRO Administration Losartan Potassium 50 mg 07/07/20 14:00 07/16/20 09:08 Losartan 50 Mg Tab PO 50 mg QDAY CASIMIRO Administration Metoprolol Tartrate 12.5 mg 07/07/20 22:00 07/16/20 22:00 Metoprolol Tartrate 25 Mg Tab PO 12.5 mg BID CASIMIRO Administration Ondansetron HCl 4 mg 07/15/20 15:03 Ondansetron 4 Mg/2 Ml Inj IV ONCE PRN Nausea And Vomiting Oxycodone/Acetaminophen 2 tab 07/11/20 10:54 07/17/20 03:37 Oxycodone /Acetaminophen 5-325mg Tab PO 2 tab Q4H PRN Administration Pain, Moderate (4-6) Sertraline HCl 50 mg 07/07/20 14:00 07/16/20 17:07 Sertraline 50 Mg Tab PO Not Given QDAY [facility] Tamsulosin HCl 0.4 mg 07/07/20 14:00 07/16/20 17:06 Tamsulosin 0.4 Mg Cap PO Not Given QDAY [facility] Nutrition/Malnutrition Assess - Dietary Evaluation Nutrition/Malnutrition Findings: Nutrition Notes Start: 07/13/20 08:17 Freq: Status: Active Protocol: Document 07/13/20 08:17 LP (Rec: 07/13/20 08:17 LP [id number]) Nutrition Notes Need for Assessment generated from: LOS Initial or Follow up Brief Note Subjective/Other Information Screen for LOS. Pt consuming 100% of meals. Nutrition Intervention Revisit per MD consult or patient Sign Off request:
[2020-07-17] MEDS: LOSARTAN 50 MG TAB PO SCH (10:37)
[2020-07-17] MEDS: TAMSULOSIN 0.4 MG CAP PO SCH (10:38)
[2020-07-17] MEDS: METOPROLOL TARTRATE 25 MG TAB PO SCH ×2 (10:38→21:09)
[2020-07-17] MEDS: ASPIRIN EC 325 MG TAB PO SCH (10:38)
[2020-07-17] MEDS: DOCUSATE SODIUM 100 MG CAP PO SCH ×2 (10:39→21:10)
[2020-07-17] MEDS: APIXABAN 5 MG TAB PO SCH ×2 (10:39→21:09)
[2020-07-17] MEDS: FINASTERIDE 5 MG TAB PO SCH (10:39)
[2020-07-17] MEDS: GABAPENTIN 100 MG CAP PO SCH ×2 (10:39→21:10)
[2020-07-17] MEDS: SERTRALINE 50 MG TAB PO SCH (10:40)
[2020-07-17] MEDS: amLODIPine 5 MG TAB PO SCH (10:40)
[2020-07-17] MEDS: LATANOPROST 0.005% OPHTH SOLN 2.5 ML OU SCH (21:09)
[2020-07-18] MEDS: HYDROmorphone 1 MG/1 ML INJ IV PRN ×5 (03:43→21:55)
[2020-07-18 05:30] LABS: Hematocrit 29.2 % (35.5-45.6); Hemoglobin 10.2 gm/dl (11.8-15.2)
[2020-07-18] MEDS: APIXABAN 5 MG TAB PO SCH ×2 (09:27→21:25)
[2020-07-18] MEDS: DOCUSATE SODIUM 100 MG CAP PO SCH ×2 (09:27→21:24)
[2020-07-18] MEDS: GABAPENTIN 100 MG CAP PO SCH ×2 (09:27→21:26)
[2020-07-18] MEDS: TAMSULOSIN 0.4 MG CAP PO SCH (09:27)
[2020-07-18] MEDS: ASPIRIN EC 325 MG TAB PO SCH (09:28)
[2020-07-18] MEDS: METOPROLOL TARTRATE 25 MG TAB PO SCH ×2 (09:28→21:25)
[2020-07-18] MEDS: LOSARTAN 50 MG TAB PO SCH (09:28)
[2020-07-18] MEDS: SERTRALINE 50 MG TAB PO SCH (09:28)
[2020-07-18] MEDS: FINASTERIDE 5 MG TAB PO SCH (09:29)
[2020-07-18] MEDS: amLODIPine 5 MG TAB PO SCH (09:29)
--- NOTE | 2020-07-18 10:05 | Progress Note ---
Assessment and Plan Assessment and plan: 59 YO Male with DM complicated by Peripheral Neuropathy, HLD, HTN, RI, BPH, COPD, CAD S/P Stent placement, Bipolar Disorder, CHF, Chronic Pain Syndrome, DVT currently on therapeutic anticoagulation admitted for surgical intervention by the Ortho Surgery team. Consult placed by Dr. Batres for medical management. Patient seen and evaluated in his room. Patient resting comfortably. Patient knowledges right knee pain overnight. Patient denies fever, chills, chest pain, palpitation, shortness of breath, skin rash, recent ill contacts, or known exposure to COVID-19. No reported nursing events. 07/08/20: S/P Incision and drainage right knee and wash out with spacer. Per procedure note Procedure The patient was brought to the OR and placed on the OR table supine following induction by anesthesia, the patient's right LE prepped and draped in usual sterile fashion. A time-out procedure done to identify the patient and correct operative site. The tourniquet inflated to 300mm Hg, utilizing previous incision the knee joint entered, the cement spacer appeared intact not much purulent material seen either, sample of tissue given to scrub nurse of microbiology. Next using pulse lavage the joint throughly irrigated with antibiotic solution, next the soft tissues repaired and oscar applied to the skin as well as post op dressings. He tolerated the procedure and there were no complications noted, taken to PACU in stable condition. Follow with MICRO FOR Micro data. Consult placed for ID to assist with antibiotics. Pain control. PT/OT. Patient is legally blind, will need all precautions in place. 07/09: Cultures growing staph areus, not finalized yet, continue pain control, start stool softner. FALL PRECAUTIONS 07/10: Continue supportive care, Per ID Patient has had prolonged and refractory course as discussed above. Status post I&D on 07/07/2020, not much purulence seen in the OR but cultures positive again for Staph aureus- Recommendation is -continue IV ceftriaxone 2 g daily plus IV vancomycin for now -Given culture growth again of Staph aureus, if patient is to eventually get a new joint, may need to consider removal of current spacer, washout and placement of a new spacer along with 6 weeks of IV antibiotics probably at a senior care to ensure good compliance since this has been a recurrent issue for the last several months and patient has failed multiple rounds of antibiotics Culture indeed is growing staph aureus although we are waiting for finalization. Will await surgical reevaluation and intervention. Nursing staff to apply ice pack awaiting for PT evaluation 07/11: PT input noted, will also adjust pain medication. Culture showing MRSA. ID input noted Below. will await Ortho input. -ceftriaxone discontinued -continue with IV vancomycin for now (vancomycin BENY is 2.0, so will likely plan for IV daptomycin upon discharge) -Given culture growth again of MRSA, if patient is to eventually get a new joint, may need to consider removal of current spacer, washout and placement of a new spacer along with 6 weeks of IV antibiotics probably at a senior care to ensure good compliance since this has been a recurrent issue for the last several months and patient has failed multiple rounds of antibiotics. If he is not a candidate for more surgery, chronic suppression with PO abx can be considered. 07/12: Continue plan as outlined above. Awaiting Surgery input. Continue isolation precautions for MRSA 07/13: Continue with abx, PT/OT await Ortho input and this will determine discharge based on ID recommendation 07/14: Patient is a 59-year-old male with multiple medical problems and recently the last 1year knee surgery which has continued to become problematic requiring a spacer to be placed he presented to the hospital and underwent an incision and drainage washout and spacer placement. Cultures from the site grew MRSA and recommended by ID that if there is a plan for patient to have more surgery he needed the washer to be replaced. He continues on antibiotics with vancomycin and was subsequently will need daptomycin IV on discharge. He is going for surgery today for further extensive washout and spacer replacement. Due to compliance issues in the past this recommendation for patient to be in a personal halfway or senior care to ensure compliance as he will need 6 weeks of antibiotics. Otherwise no new complaints except for pain management. 07/15 Patient is a 59-year-old male with multiple medical problems and recently the last 1year knee surgery which has continued to become problematic requiring a spacer to be placed he presented to the hospital and underwent an incision and drainage washout and spacer placement. Cultures from the site grew MRSA and recommended by ID that if there is a plan for patient to have more surgery he needed the washer to be replaced. He continues on antibiotics with vancomycin and was subsequently will need daptomycin IV on discharge. He was taken to OR today by Dr. Batres, Orthopedic Surgeon and had debridement and irrigation with removal of cement spacers with reimplantation of new spacers 07/16/ Patient is a 59-year-old male with multiple medical problems and recently the last 1year knee surgery which has continued to become problematic requiring a spacer to be placed he presented to the hospital and underwent an incision and drainage washout and spacer placement. Cultures from the site grew MRSA and rec ommended by ID that if there is a plan for patient to have more surgery he needed the washer to be replaced. He continues on antibiotics with vancomycin and was subsequently will need daptomycin IV on discharge. He was taken to OR yesterday 07/[address] Batres, Orthopedic Surgeon and had debridement and irrigation with removal of cement spacers with reimplantation of new spacers. Nurse tells me Overnight he had bleeding from surgical site. Orthopedic Surgeon informed. Will hold Eliquis until bleeding subsides. Repeat H/H 07/17 Patient is a 59-year-old male with multiple medical problems and recently the last 1year knee surgery which has continued to become problematic requiring a spacer to be placed he presented to the hospital and underwent an incision and drainage washout and spacer placement. Cultures from the site grew MRSA and recommended by ID that if there is a plan for patient to have more surgery he needed the washer to be replaced. He continues on antibiotics with vancomycin an d was subsequently will need daptomycin IV on discharge. He was taken to OR 07/[address] Batres, Orthopedic Surgeon and had debridement and irrigation with removal of cement spacers with reimplantation of new spacers. Nurse told me he had bleeding from surgical site, nite of surgery but now subsided. Eliquis resumed. Hgb slightly lower. Will repeat in am 07/18 Patient is a 59-year-old male with multiple medical problems and recently the last 1year knee surgery which has continued to become problematic requiring a spacer to be placed he presented to the hospital and underwent an incision and drainage washout and spacer placement. Cultures from the site grew MRSA and recommended by ID that if there is a plan for patient to have more surgery he needed the washer to be replaced. He continues on antibiotics with vancomycin and was subsequently will need daptomycin IV on discharge. He was taken to OR 07/[address] Batres, Orthopedic Surgeon and had debridement and irrigation with removal of cement spacers with reimplantation of new spacers. he complains of pasi at surgical site. On Prn narcotics. H/H stable Hgb 10.2. (1) Septic joint of right knee joint-#Right knee prosthetic joint infection Current Visit: Yes Status: Acute Plan to address problem: Care as per primary team, knee x-ray, patient pending surgical intervention, (2) Hypertension Current Visit: Yes Status: Acute Qualifiers: Hypertension type: essential hypertension Qualified Code(s): I10 - E ssential (primary) hypertension Plan to address problem: Monitor blood pressure every shift, continue medical management. (3) Diabetes Current Visit: Yes Status: Acute Plan to address problem: Consistent carbohydrate diet, Accu-Chek, insulin protocol, hypoglycemia protocol. (4) CHF (congestive heart failure) Current Visit: Yes Status: Acute Qualifiers: Heart failure type: diastolic Heart failure chronicity: chronic Qualified Code(s): I50.32 - Chronic diastolic (congestive) heart failure Plan to address problem: Strict I's/O, monitor urine output every shift, daily weight, afterload reduct ion, blood pressure control, supportive care. (5) BPH (benign prostatic hyperplasia) Current Visit: No Status: Chronic Qualifiers: Lower urinary tract symptom presence: symptoms present Plan to address problem: Supportive care, continue Flomax. (6) CAD (coronary artery disease) Current Visit: No Status: Chronic Qualifiers: Coronary Disease-Associated Artery/Lesion type: [place] artery [place] vs. transplanted heart: [place] heart Associated angina: without angina Qualified Code(s): I25.10 - Atherosclerotic heart disease of [place] coronary artery without angina pectoris Plan to address problem: Continue anti-platelet therapy, risk factor reduction, statin therapy, supportive care. (7) Chronic pain syndrome Current Visit: Yes Status: Acute Plan to address problem: Continue medical management. Pain assessment as per nursing care protocol. (8) Legally Blind (9) DVT prophylaxis Current Visit: No Status: Acute Plan to address problem: SCD to bilateral lower extremities while in bed, continue therapeutic anticoagulation postoperatively. History Interval history: Pain right knee at surgical site Hospitalist Physical - Physical exam Narrative exam: - Physical exam Narrative exam: General appearance: Present: No distress, legally blind, obese - EENT Eyes: Present: PERRL ENT: hearing intact, clear oral mucosa - Neck Neck: Present: supple, normal ROM - Respiratory Respiratory effort: normal Respiratory: bilateral: CTA - Cardiovascular Heart Sounds: Present: S1 & S2. Absent: rub, click - Extremities Extremities: pulses symmetrical, No edema Extremity abnormal: dressing and immobilizer in place on right knee Peripheral Pulses: within normal limits - Abdominal General gastrointestinal: Present: soft, non-tender, non-distended, normal bowel sounds Male genitourinary: Present: normal - Integumentary Integumentary: Present: clear, warm, dry - Musculoskeletal Musculoskeletal: gait normal, strength equal bilaterally - Psychiatric Psychiatric: appropriate mood/affect, intact judgment & insight - Neurologic Neurologic: CNII-XII intact, moves all extremities - Constitutional Vitals: Temp Pulse Resp BP Pulse Ox 98.4 F 92 H 20 148/75 99 07/18/20 05:07 07/18/20 09:29 07/18/20 05:07 07/18/20 09:29 07/17/20 21:55 General appearance: Present: obese Results - Labs CBC & Chem 7: 07/18/20 04:49 07/17/20 05:35 Labs: Laboratory Last Values WBC 11.0 K/mm3 (4.5-11.0) 07/17/20 05:25 RBC 3.56 M/mm3 (3.65-5.03) L 07/17/20 05:25 Hgb 10.2 gm/dl (11.8-15.2) L 07/18/20 04:49 Hct 29.2 % (35.5-45.6) L 07/18/20 04:49 MCV 86 fl (84-94) 07/17/20 05:25 MCH 30 pg (28-32) 07/17/20 05:25 MCHC 34 % (32-34) 07/17/20 05:25 RDW 17.1 % (13.2-15.2) H 07/17/20 05:25 Plt Count 523 K/mm3 (140-440) H 07/17/20 05:25 Lymph % (Auto) 14.0 % (13.4-35.0) 07/16/20 07:12 [place] % (Auto) 10.5 % (0.0-7.3) H 07/16/20 07:12 Eos % (Auto) 0.7 % (0.0-4.3) 07/16/20 07:12 Baso % (Auto) 0.6 % (0.0-1.8) 07/16/20 07:12 Lymph # (Auto) 1.6 K/mm3 (1.2-5.4) 07/16/20 07:12 [place] # (Auto) 1.2 K/mm3 (0.0-0.8) H 07/16/20 07:12 Eos # (Auto) 0.1 K/mm3 (0.0-0.4) 07/16/20 07:12 Baso # (Auto) 0.1 K/mm3 (0.0-0.1) 07/16/20 07:12 Seg Neutrophils % 74.2 % (40.0-70.0) H 07/16/20 07:12 Seg Neutrophils # 8.7 K/mm3 (1.8-7.7) H 07/16/20 07:12 ESR 48 mm/Hr (0-20) 07/08/20 13:57 Sodium 134 mmol/L (137-145) L 07/17/20 05:35 Potassium 4.0 mmol/L (3.6-5.0) 07/17/20 05:35 Chloride 97.8 mmol/L (98-107) L 07/17/20 05:35 Carbon Dioxide 27 mmol/L (22-30) 07/17/20 05:35 Anion Gap 13 mmol/L 07/17/20 05:35 BUN 10 mg/dL (9-20) 07/17/20 05:35 Creatinine 0.5 mg/dL (0.8-1.3) L 07/17/20 05:35 Estimated GFR > 60 ml/min 07/17/20 05:35 BUN/Creatinine Ratio 20 % 07/17/20 05:35 Glucose 116 mg/dL (75-100) H 07/17/20 05:35 POC Glucose 135 mg/dL (70-105) H 07/15/20 14:29 Lactic Acid 0.80 mmol/L (0.7-2.0) 07/06/20 13:21 Calcium 8.9 mg/dL (8.4-10.2) 07/17/20 05:35 Total Bilirubin 0.50 mg/dL (0.1-1.2) 07/06/20 13:21 AST 15 units/L (5-40) 07/06/20 13:21 ALT 9 units/L (7-56) 07/06/20 13:21 Alkaline Phosphatase 115 units/L (35-129) 07/06/20 13:21 Total Creatine Kinase 74 units/L (55-170) 07/15/20 04:52 C-Reactive Protein 2.80 mg/dL (0.00-1.30) H 07/08/20 13:57 Total Protein 8.5 g/dL (6.3-8.2) H 07/06/20 13:21 Albumin 4.2 g/dL (3.9-5) 07/06/20 13:21 Albumin/Globulin Ratio 1.0 % 07/06/20 13:21 Vancomycin Trough 4.0 ug/mL (5.0-20.0) L 07/13/20 14:22 Coronavirus (PCR) Negative (Negative) 07/14/20 Unknown Microbiology: Microbiology 07/15/20 Unknown Knee - Right Surgical Biopsy Culture - Preliminary 07/07/20 Unknown Knee - Right Surgical Culture - Final Methicillin Resist S. Aureus Turner/IV: Voiding Method Urinal Active Medications - Current Medications Current Medications: Generic Name Dose Route Start Last Admin Trade Name Freq PRN Reason Stop Dose Admin Acetaminophen 650 mg 07/07/20 13:16 Acetaminophen 325 Mg Tab PO Q12H PRN Pain, Mild (1-3) Al Hydrox/Mg Hydrox/Simethicone 30 ml 07/06/20 19:28 07/10/20 18:25 Alum-Mag Hydroxide-Simethicone [id number]/5ml Oral Liqd 30 Ml PO 30 ml Q4H PRN Administration Indigestion Amlodipine Besylate 5 mg 07/07/20 14:00 07/18/20 09:29 Amlodipine 5 Mg Tab PO 5 mg DAILY CASIMIRO Administration Apixaban 5 mg 07/07/20 22:00 07/18/20 09:27 Apixaban 5 Mg Tab PO 5 mg Q12HR CASIMIRO Administration Aspirin 325 mg 07/08/20 10:00 07/18/20 09:28 Aspirin Ec 325 Mg Tab PO 325 mg QDAY CASIMIRO Administration Atorvastatin Calcium 40 mg 07/07/20 22:00 07/17/20 21:09 Atorvastatin 40 Mg Tab PO 40 mg QHS CASIMIRO Administration Docusate Sodium 100 mg 07/11/20 14:00 07/18/20 09:27 Docusate Sodium 100 Mg Cap PO 100 mg BID CASIMIRO Administration Finasteride 5 mg 07/07/20 14:00 07/18/20 09:29 Finasteride 5 Mg Tab PO 5 mg QDAY CASIMIRO Administration Gabapentin 100 mg 07/07/20 22:00 07/18/20 09:27 Gabapentin 100 Mg Cap PO 100 mg BID CASIMIRO Administration Hydromorphone HCl 0.5 mg 07/11/20 10:54 07/18/20 07:40 Hydromorphone 1 Mg/1 Ml Inj IV 0.5 mg Q4H PRN Administration Pain , Severe (7-10) Hydroxyzine Pamoate 50 mg 07/07/20 22:00 07/17/20 21:09 Hydroxyzine Pamoate 50 Mg Cap PO 50 mg HS CASIMIRO Administration Daptomycin 500 mg/ Sodium 100 mls @ 200 mls/hr 07/14/20 13:00 07/18/20 09:33 Chloride IV 08/26/20 10:29 200 mls/hr Q24HR CASIMIRO Administration Protocol Isosorbide Mononitrate 60 mg 07/07/20 14:00 07/18/20 09:29 Isosorbide Mononitrate Er 60 Mg Tab PO 60 mg QDAY CASIMIRO Administration Latanoprost 1 drops 07/07/20 22:00 07/17/20 21:09 Latanoprost 0.005% Ophth Soln 2.5 Ml OU 1 drops QHS CASIMIRO Administration Losartan Potassium 50 mg 07/07/20 14:00 07/18/20 09:28 Losartan 50 Mg Tab PO 50 mg QDAY CASIMIRO Administration Metoprolol Tartrate 12.5 mg 07/07/20 22:00 07/18/20 09:28 Metoprolol Tartrate 25 Mg Tab PO 12.5 mg BID CASIMIRO Administration Ondansetron HCl 4 mg 07/15/20 15:03 Ondansetron 4 Mg/2 Ml Inj IV ONCE PRN Nausea And Vomiting Oxycodone/Acetaminophen 2 tab 07/11/20 10:54 07/17/20 19:25 Oxycodone /Acetaminophen 5-325mg Tab PO 2 tab Q4H PRN Administration Pain, Moderate (4-6) Sertraline HCl 50 mg 07/07/20 14:00 07/18/20 09:28 Sertraline 50 Mg Tab PO 50 mg QDAY CASIMIRO Administration Tamsulosin HCl 0.4 mg 07/07/20 14:00 07/18/20 09:27 Tamsulosin 0.4 Mg Cap PO 0.4 mg QDAY CASIMIRO Administration Nutrition/Malnutrition Assess - Dietary Evaluation Nutrition/Malnutrition Findings: Nutrition Notes Start: 07/13/20 08:17 Freq: Status: Active Protocol: Document 07/13/20 08:17 LP (Rec: 07/13/20 08:17 LP [id number]) Nutrition Notes Need for Assessment generated from: LOS Initial or Follow up Brief Note Subjective/Other Information Screen for LOS. Pt consuming 100% of meals. Nutrition Intervention Revisit per MD consult or patient Sign Off request:
[2020-07-18] MEDS: LATANOPROST 0.005% OPHTH SOLN 2.5 ML OU SCH (21:56)
[2020-07-19] MEDS: oxyCODONE /ACETAMINOPHEN 5-325MG TAB PO PRN ×5 (01:17→22:32)
[2020-07-19] MEDS: HYDROmorphone 1 MG/1 ML INJ IV PRN ×5 (05:31→22:31)
[2020-07-19] MEDS: TAMSULOSIN 0.4 MG CAP PO SCH (09:28)
[2020-07-19] MEDS: LOSARTAN 50 MG TAB PO SCH (09:29)
[2020-07-19] MEDS: ASPIRIN EC 325 MG TAB PO SCH (09:29)
[2020-07-19] MEDS: GABAPENTIN 100 MG CAP PO SCH ×2 (09:29→22:31)
[2020-07-19] MEDS: FINASTERIDE 5 MG TAB PO SCH (09:29)
[2020-07-19] MEDS: APIXABAN 5 MG TAB PO SCH ×2 (09:29→22:31)
[2020-07-19] MEDS: DOCUSATE SODIUM 100 MG CAP PO SCH ×2 (09:30→22:34)
[2020-07-19] MEDS: SERTRALINE 50 MG TAB PO SCH (09:30)
[2020-07-19] MEDS: amLODIPine 5 MG TAB PO SCH (09:30)
[2020-07-19] MEDS: METOPROLOL TARTRATE 25 MG TAB PO SCH ×2 (09:36→22:31)
--- NOTE | 2020-07-19 09:53 | Progress Note ---
Assessment and Plan s/p cement spacer exchange and debridement and irrigation right knee continue IVAB and observation... Subjective Date of service: 07/19/20 Objective Vital signs: Vital Signs - 12hr 07/18/20 07/19/20 07/19/20 22:00 04:17 04:18 Temperature Pulse Rate 75 72 Pulse Rate [ 85 Left Radial] Respiratory 18 18 Rate Blood Pressure [Right] O2 Sat by Pulse 96 95 95 Oximetry 07/19/20 04:20 Temperature 98.5 F Pulse Rate Pulse Rate [ Left Radial] Respiratory Rate Blood Pressure 131/75 [Right] O2 Sat by Pulse Oximetry Narrative Exam: Post op dressing removed today, moderate bloody drainage on bandages, no redness/erythema noted - Labs CBC & BMP: 07/18/20 04:49 07/17/20 05:35
--- NOTE | 2020-07-19 13:05 | Progress Note ---
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 Per review of clinic notes from Dr. Tyalor, it seems patient had noncompliance with IV antibiotics. Most recently, patient was seen in ID clinic on 07/01/2020, recent cultures from the knee wound had grown E. coli and Proteus and patient had received about 30 days of p.o. Bactrim. Due to concern for poor compliance, and based on the cultures, he was given another round of p.o. ciprofloxacin for 6 weeks. His CRP was 75.8 mg/L. Now with: #Right knee prosthetic joint infection: Prolonged and refractory course as discussed above. Status post I&D on 07/07/2020, not much purulence seen in the OR but cultures positive again for MRSA. Given culture growth again of MRSA, since plan is for the patient to eventually get a new joint, we recommended r emoval of current spacer, washout and placement of a new spacer along with 6 weeks of IV antibiotics probably at a custodial to ensure good compliance since this has been a recurrent issue for almost a year now and patient has failed multiple rounds of antibiotics. Underwent debridement and irrigation with removal of cement spacers with reimplantation of new spacers on 07/15/2020. #DM type II #Hypertension Recs: -continue with IV daptomycin (vancomycin BENY of 2.0), plan for 6 weeks -Monitor CK closely due to patient also being on statin -Patient agreeable to go to rehab for IV abx to ensure compliance with abx. -CM orders placed for IV Daptomycin x 6 weeks ending 08/26/2020 Ayla Taylor MD [facility] ([facility]) O: [phone] F: [phone] Subjective Date of service: 07/19/20 Interval history: Afebrile, normal white count. No acute change. Objective - Exam Narrative Exam: Constitutional: Alert, cooperative. No acute distress Head, Ears, Nose: Normocephalic, atraumatic. External ears, nose normal Eyes: Conjunctivae/corneas clear. No icterus. No ptosis. Neck: Supple, no meningeal signs Cardiovascular: S1, S2 normal. Respiratory: Good air entry, clear to auscultation bilaterally GI: Soft, non-tender; bowel sounds normal. No peritoneal signs Musculoskeletal: Right knee dressing + Skin: No rash or abscess Hem/Lymphatic: No palpable cervical or supraclavicular nodes. No lymphangitis Psych: Mood ok. Affect normal Neurological: Awake, alert, oriented. No gross abnormality - Constitutional Vitals: Vital Signs Temp Pulse Resp BP Pulse Ox 98.5 F 73 18 131/75 95 07/19/20 04:20 07/19/20 04:18 07/19/20 04:18 07/19/20 04:20 07/19/20 04:18 Temperature -Last 24 Hours Temperature 98.5 F Temperature 98.7 F - Labs CBC & Chem 7: 07/18/20 04:49 07/17/20 05:35
--- NOTE | 2020-07-19 13:53 | Progress Note ---
Assessment and Plan Assessment and plan: 59 YO Male with DM complicated by Peripheral Neuropathy, HLD, HTN, FL, BPH, COPD, CAD S/P Stent placement, Bipolar Disorder, CHF, Chronic Pain Syndrome, DVT currently on therapeutic anticoagulation admitted for surgical intervention by the Ortho Surgery team. Consult placed by Dr. Batres for medical management. Patient seen and evaluated in his room. Patient resting comfortably. Patient knowledges right knee pain overnight. Patient denies fever, chills, chest pain, palpitation, shortness of breath, skin rash, recent ill contacts, or known exposure to COVID-19. No reported nursing events. 07/08/20: S/P Incision and drainage right knee and wash out with spacer. Per procedure note Procedure The patient was brought to the OR and placed on the OR table supine following induction by anesthesia, the patient's right LE prepped and draped in usual sterile fashion. A time-out procedure done to identify the patient and correct operative site. The tourniquet inflated to 300mm Hg, utilizing previous incision the knee joint entered, the cement spacer appeared intact not much purulent material seen either, sample of tissue given to scrub nurse of microbiology. Next using pulse lavage the joint throughly irrigated with antibiotic solution, next the soft tissues repaired and oscar applied to the skin as well as post op dressings. He tolerated the procedure and there were no complications noted, taken to PACU in stable condition. Follow with [facility] data. Consult placed for ID to assist with antibiotics. Pain control. PT/OT. Patient is legally blind, will need all precautions in place. 07/09: Cultures growing staph areus, not finalized yet, continue pain control, start stool softner. FALL PRECAUTIONS 07/10: Continue supportive care, Per ID Patient has had prolonged and refractory course as discussed above. Status post I&D on 07/07/2020, not much purulence seen in the OR but cultures positive again for Staph aureus- Recommendation is -continue IV ceftriaxone 2 g daily plus IV vancomycin for now -Given culture growth again of Staph aureus, if patient is to eventually get a new joint, may need to consider removal of current spacer, washout and placement of a new spacer along with 6 weeks of IV antibiotics probably at a retirement to ensure good compliance since this has been a recurrent issue for the last several months and patient has failed multiple rounds of antibiotics Culture indeed is growing staph aureus although we are waiting for finalization. Will await surgical reevaluation and intervention. Nursing staff to apply ice pack awaiting for PT evaluation 07/11: PT input noted, will also adjust pain medication. Culture showing MRSA. ID input noted Below. will await Ortho input. -ceftriaxone discontinued -continue with IV vancomycin for now (vancomycin BENY is 2.0, so will likely plan for IV daptomycin upon discharge) -Given culture growth again of MRSA, if patient is to eventually get a new joint, may need to consider removal of current spacer, washout and placement of a new spacer along with 6 weeks of IV antibiotics probably at a retirement to ensure good compliance since this has been a recurrent issue for the last several months and patient has failed multiple rounds of antibiotics. If he is not a candidate for more surgery, chronic suppression with PO abx can be considered. 07/12: Continue plan as outlined above. Awaiting Surgery input. Continue isolation precautions for MRSA 07/13: Continue with abx, PT/OT await Ortho input and this will determine discharge based on ID recommendation 07/14: Patient is a 59-year-old male with multiple medical problems and recently the last 1year knee surgery which has continued to become problematic requiring a spacer to be placed he presented to the hospital and underwent an incision and drainage washout and spacer placement. Cultures from the site grew MRSA and recommended by ID that if there is a plan for patient to have more surgery he needed the washer to be replaced. He continues on antibiotics with vancomycin and was subsequently will need daptomycin IV on discharge. He is going for surgery today for further extensive washout and spacer replacement. Due to compliance issues in the past this recommendation for patient to be in a personal retirement or retirement to ensure compliance as he will need 6 weeks of antibiotics. Otherwise no new complaints except for pain management. 07/15 Patient is a 59-year-old male with multiple medical problems and recently the last 1year knee surgery which has continued to become problematic requiring a spacer to be placed he presented to the hospital and underwent an incision and drainage washout and spacer placement. Cultures from the site grew MRSA and recommended by ID that if there is a plan for patient to have more surgery he needed the washer to be replaced. He continues on antibiotics with vancomycin and was subsequently will need daptomycin IV on discharge. He was taken to OR today by Dr. Batres, Orthopedic Surgeon and had debridement and irrigation with removal of cement spacers with reimplantation of new spacers 07/16/ Patient is a 59-year-old male with multiple medical problems and recently the last 1year knee surgery which has continued to become problematic requiring a spacer to be placed he presented to the hospital and underwent an incision and drainage washout and spacer placement. Cultures from the site grew MRSA and rec ommended by ID that if there is a plan for patient to have more surgery he needed the washer to be replaced. He continues on antibiotics with vancomycin and was subsequently will need daptomycin IV on discharge. He was taken to OR yesterday 07/[address] Batres, Orthopedic Surgeon and had debridement and irrigation with removal of cement spacers with reimplantation of new spacers. Nurse tells me Overnight he had bleeding from surgical site. Orthopedic Surgeon informed. Will hold Eliquis until bleeding subsides. Repeat H/H 07/17 Patient is a 59-year-old male with multiple medical problems and recently the last 1year knee surgery which has continued to become problematic requiring a spacer to be placed he presented to the hospital and underwent an incision and drainage washout and spacer placement. Cultures from the site grew MRSA and recommended by ID that if there is a plan for patient to have more surgery he needed the washer to be replaced. He continues on antibiotics with vancomycin an d was subsequently will need daptomycin IV on discharge. He was taken to OR 07/[address] Batres, Orthopedic Surgeon and had debridement and irrigation with removal of cement spacers with reimplantation of new spacers. Nurse told me he had bleeding from surgical site, nite of surgery but now subsided. Eliquis resumed. Hgb slightly lower. Will repeat in am 07/18 Patient is a 59-year-old male with multiple medical problems and recently the last 1year knee surgery which has continued to become problematic requiring a spacer to be placed he presented to the hospital and underwent an incision and drainage washout and spacer placement. Cultures from the site grew MRSA and recommended by ID that if there is a plan for patient to have more surgery he needed the washer to be replaced. He continues on antibiotics with vancomycin and was subsequently will need daptomycin IV on discharge. He was taken to OR 07/[address] Batres, Orthopedic Surgeon and had debridement and irrigation with removal of cement spacers with reimplantation of new spacers. he complains of pain at surgical site. On Prn narcotics. H/H stable Hgb 10.2. 07/19 Patient is a 59-year-old male with multiple medical problems and recently the last 1year knee surgery which has continued to become problematic requiring a spacer to be placed he presented to the hospital and underwent an incision and drainage washout and spacer placement. Cultures from the site grew MRSA and recommended by ID that if there is a plan for patient to have more surgery he needed the washer to be replaced. He continues on antibiotics with vancomycin an d was subsequently will need daptomycin IV on discharge. He was taken to OR 07/[address] Batres, Orthopedic Surgeon and had debridement and irrigation with removal of cement spacers with reimplantation of new spacers. He complains of pain at surgical site. On Prn narcotics. H/H stable Hgb 10.2. Medically stable for dc to SNF. Case management working on SNF placement for iv Antibiotics - Daptomycin. I discussed with Dr. Taylor, ISAIAS (1) Septic joint of right knee joint-#Right knee prosthetic joint infection Current Visit: Yes Status: Acute Plan to address problem: Care as per primary team, knee x-ray, patient pending surgical intervention, (2) Hypertension Current Visit: Yes Status: Acute Qualifiers: Hypertension type: essential hypertension Qualified Code(s): I10 - Essential (primary) hypertension Plan to address problem: Monitor blood pressure every shift, continue medical management. (3) Diabetes Current Visit: Yes Status: Acute Plan to address problem: Consistent carbohydrate diet, Accu-Chek, insulin protocol, hypoglycemia pro tocol. (4) CHF (congestive heart failure) Current Visit: Yes Status: Acute Qualifiers: Heart failure type: diastolic Heart failure chronicity: chronic Qualified Code(s): I50.32 - Chronic diastolic (congestive) heart failure Plan to address problem: Strict I's/O, monitor urine output every shift, daily weight, afterload reduction, blood pressure control, supportive care. (5) BPH (benign prostatic hyperplasia) Current Visit: No Status: Chronic Qualifiers: Lower urinary tract symptom presence: symptoms present Plan to address problem: Supportive care, continue Flomax. (6) CAD (coronary artery disease) Current Visit: No Status: Chronic Qualifiers: Coronary Disease-Associated Artery/Lesion type: [place] artery [place] vs. transplanted heart: [place] heart Associated angina: without angina Qualified Code(s): I25.10 - Atherosclerotic heart disease of [place] coronary artery without angina pectoris Plan to address problem: Continue anti-platelet therapy, risk factor reduction, statin therapy, supportive care. (7) Chronic pain syndrome Current Visit: Yes Status: Acute Plan to address problem: Continue medical management. Pain assessment as per nursing care protocol. (8) Legally Blind (9) DVT prophylaxis Current Visit: No Status: Acute Plan to address problem: SCD to bilateral lower extremities while in bed, continue therapeutic anticoagulation postoperatively. History Interval history: Pain right knee No fever Hospitalist Physical - Physical exam Narrative exam: - Physical exam Narrative exam: General appearance: Present: No distress, legally blind, obese - EENT Eyes: Present: PERRL ENT: hearing intact, clear oral mucosa - Neck Neck: Present: supple, normal ROM - Respiratory Respiratory effort: normal Respiratory: bilateral: CTA - Cardiovascular Heart Sounds: Present: S1 & S2. Absent: rub, click - Extremities Extremities: pulses symmetrical, No edema Extremity abnormal: dressing and immobilizer in place on right knee Peripheral Pulses: within normal limits - Abdominal General gastrointestinal: Present: soft, non-tender, non-distended, normal bowel sounds Male genitourinary: Present: normal - Integumentary Integumentary: Present: clear, warm, dry - Musculoskeletal Musculoskeletal: gait normal, strength equal bilaterally - Psychiatric Psychiatric: appropriate mood/affect, intact judgment & insight - Neurologic Neurologic: CNII-XII intact, moves all extremities - Constitutional Vitals: Temp Pulse Resp BP Pulse Ox 98.6 F 81 20 133/63 97 07/19/20 12:16 07/19/20 12:16 07/19/20 12:16 07/19/20 12:16 07/19/20 12:16 General appearance: Present: obese Results - Labs CBC & Chem 7: 07/18/20 04:49 07/17/20 05:35 Labs: Laboratory Last Values WBC 11.0 K/mm3 (4.5-11.0) 07/17/20 05:25 RBC 3.56 M/mm3 (3.65-5.03) L 07/17/20 05:25 Hgb 10.2 gm/dl (11.8-15.2) L 07/18/20 04:49 Hct 29.2 % (35.5-45.6) L 07/18/20 04:49 MCV 86 fl (84-94) 07/17/20 05:25 MCH 30 pg (28-32) 07/17/20 05:25 MCHC 34 % (32-34) 07/17/20 05:25 RDW 17.1 % (13.2-15.2) H 07/17/20 05:25 Plt Count 523 K/mm3 (140-440) H 07/17/20 05:25 Lymph % (Auto) 14.0 % (13.4-35.0) 07/16/20 07:12 Steele % (Auto) 10.5 % (0.0-7.3) H 07/16/20 07:12 Eos % (Auto) 0.7 % (0.0-4.3) 07/16/20 07:12 Baso % (Auto) 0.6 % (0.0-1.8) 07/16/20 07:12 Lymph # (Auto) 1.6 K/mm3 (1.2-5.4) 07/16/20 07:12 Steele # (Auto) 1.2 K/mm3 (0.0-0.8) H 07/16/20 07:12 Eos # (Auto) 0.1 K/mm3 (0.0-0.4) 07/16/20 07:12 Baso # (Auto) 0.1 K/mm3 (0.0-0.1) 07/16/20 07:12 Seg Neutrophils % 74.2 % (40.0-70.0) H 07/16/20 07:12 Seg Neutrophils # 8.7 K/mm3 (1.8-7.7) H 07/16/20 07:12 ESR 48 mm/Hr (0-20) 07/08/20 13:57 Sodium 134 mmol/L (137-145) L 07/17/20 05:35 Potassium 4.0 mmol/L (3.6-5.0) 07/17/20 05:35 Chloride 97.8 mmol/L (98-107) L 07/17/20 05:35 Carbon Dioxide 27 mmol/L (22-30) 07/17/20 05:35 Anion Gap 13 mmol/L 07/17/20 05:35 BUN 10 mg/dL (9-20) 07/17/20 05:35 Creatinine 0.5 mg/dL (0.8-1.3) L 07/17/20 05:35 Estimated GFR > 60 ml/min 07/17/20 05:35 BUN/Creatinine Ratio 20 % 07/17/20 05:35 Glucose 116 mg/dL (75-100) H 07/17/20 05:35 POC Glucose 135 mg/dL (70-105) H 07/15/20 14:29 Lactic Acid 0.80 mmol/L (0.7-2.0) 07/06/20 13:21 Calcium 8.9 mg/dL (8.4-10.2) 07/17/20 05:35 Total Bilirubin 0.50 mg/dL (0.1-1.2) 07/06/20 13:21 AST 15 units/L (5-40) 07/06/20 13:21 ALT 9 units/L (7-56) 07/06/20 13:21 Alkaline Phosphatase 115 units/L (35-129) 07/06/20 13:21 Total Creatine Kinase 74 units/L (55-170) 07/15/20 04:52 C-Reactive Protein 2.80 mg/dL (0.00-1.30) H 07/08/20 13:57 Total Protein 8.5 g/dL (6.3-8.2) H 07/06/20 13:21 Albumin 4.2 g/dL (3.9-5) 07/06/20 13:21 Albumin/Globulin Ratio 1.0 % 07/06/20 13:21 Vancomycin Trough 4.0 ug/mL (5.0-20.0) L 07/13/20 14:22 Coronavirus (PCR) Negative (Negative) 07/14/20 Unknown Microbiology: Microbiology 07/15/20 Unknown Knee - Right Surgical Biopsy Culture - Final Methicillin Resist S. Aureus Turner/IV: Voiding Method Urinal Active Medications - Current Medications Current Medications: Generic Name Dose Route Start Last Admin Trade Name Freq PRN Reason Stop Dose Admin Acetaminophen 650 mg 07/07/20 13:16 Acetaminophen 325 Mg Tab PO Q12H PRN Pain, Mild (1-3) Al Hydrox/Mg Hydrox/Simethicone 30 ml 07/06/20 19:28 07/10/20 18:25 Alum-Mag Hydroxide-Simethicone [phone]/[phone] Oral Liqd 30 Ml PO 30 ml Q4H PRN Administration Indigestion Amlodipine Besylate 5 mg 07/07/20 14:00 07/19/20 09:30 Amlodipine 5 Mg Tab PO 5 mg DAILY CASIMIRO Administration Apixaban 5 mg 07/07/20 22:00 07/19/20 09:29 Apixaban 5 Mg Tab PO 5 mg Q12HR CASIMIRO Administration Aspirin 325 mg 07/08/20 10:00 07/19/20 09:29 Aspirin Ec 325 Mg Tab PO 325 mg QDAY CASIMIRO Administration Atorvastatin Calcium 40 mg 07/07/20 22:00 07/18/20 21:26 Atorvastatin 40 Mg Tab PO 40 mg QHS CASIMIRO Administration Docusate Sodium 100 mg 07/11/20 14:00 07/19/20 09:30 Docusate Sodium 100 Mg Cap PO 100 mg BID CASIMIRO Administration Finasteride 5 mg 07/07/20 14:00 07/19/20 09:29 Finasteride 5 Mg Tab PO 5 mg QDAY CASIMIRO Administration Gabapentin 100 mg 07/07/20 22:00 07/19/20 09:29 Gabapentin 100 Mg Cap PO 100 mg BID CASIMIRO Administration Hydromorphone HCl 0.5 mg 07/11/20 10:54 07/19/20 13:46 Hydromorphone 1 Mg/1 Ml Inj IV 0.5 mg Q4H PRN Administration Pain , Severe (7-10) Hydroxyzine Pamoate 50 mg 07/07/20 22:00 07/18/20 21:26 Hydroxyzine Pamoate 50 Mg Cap PO 50 mg HS CASIMIRO Administration Daptomycin 500 mg/ Sodium 100 mls @ 200 mls/hr 07/14/20 13:00 07/19/20 09:30 Chloride IV 08/26/20 10:29 200 mls/hr Q24HR CASIMIRO Administration Protocol Isosorbide Mononitrate 60 mg 07/07/20 14:00 07/19/20 09:30 Isosorbide Mononitrate Er 60 Mg Tab PO 60 mg QDAY CASIMIRO Administration Latanoprost 1 drops 07/07/20 22:00 07/18/20 21:56 Latanoprost 0.005% Ophth Soln 2.5 Ml OU 1 drops QHS CASIMIRO Administration Losartan Potassium 50 mg 07/07/20 14:00 07/19/20 09:29 Losartan 50 Mg Tab PO 50 mg QDAY CASIMIRO Administration Metoprolol Tartrate 12.5 mg 07/07/20 22:00 07/19/20 09:36 Metoprolol Tartrate 25 Mg Tab PO 12.5 mg BID CASIMIRO Administration Ondansetron HCl 4 mg 07/15/20 15:03 Ondansetron 4 Mg/2 Ml Inj IV ONCE PRN Nausea And Vomiting Oxycodone/Acetaminophen 2 tab 07/11/20 10:54 07/19/20 13:46 Oxycodone /Acetaminophen 5-325mg Tab PO 2 tab Q4H PRN Administration Pain, Moderate (4-6) Sertraline HCl 50 mg 07/07/20 14:00 07/19/20 09:30 Sertraline 50 Mg Tab PO 50 mg QDAY CASIMIRO Administration Tamsulosin HCl 0.4 mg 07/07/20 14:00 07/19/20 09:28 Tamsulosin 0.4 Mg Cap PO 0.4 mg QDAY CASIMIRO Administration Nutrition/Malnutrition Assess - Dietary Evaluation Nutrition/Malnutrition Findings: Nutrition Notes Start: 07/13/20 08:17 Freq: Status: Active Protocol: Document 07/13/20 08:17 LP (Rec: 07/13/20 08:17 LP [id number]) Nutrition Notes Need for Assessment generated from: LOS Initial or Follow up Brief Note Subjective/Other Information Screen for LOS. Pt consuming 100% of meals. Nutrition Intervention Revisit per MD consult or patient Sign Off request:
[2020-07-19] MEDS: LATANOPROST 0.005% OPHTH SOLN 2.5 ML OU SCH (22:35)
[2020-07-20] MEDS: HYDROmorphone 1 MG/1 ML INJ IV PRN ×5 (03:45→23:49)
[2020-07-20 05:25] LABS: Hematocrit 29.9 % (35.5-45.6); Hemoglobin 9.9 gm/dl (11.8-15.2); Mean Corpuscular HGB Conc 33 % (32-34); Mean Corpuscular Volume 87 fl (84-94); Platelet Count 525 K/mm3 (140-440); Red Blood Count 3.44 M/mm3 (3.65-5.03); Red Cell Distribution Width 16.7 % (13.2-15.2)
[2020-07-20 05:34] LABS: Blood Urea Nitrogen 12 mg/dL (9-20); Calcium 9.7 mg/dL (8.4-10.2); Hemolysis Index 30
[2020-07-20 05:36] LABS: BUN/Creatinine Ratio 24
[2020-07-20] MEDS: oxyCODONE /ACETAMINOPHEN 5-325MG TAB PO PRN ×4 (05:43→18:49)
[2020-07-20] MEDS: METOPROLOL TARTRATE 25 MG TAB PO SCH ×2 (09:16→21:57)
[2020-07-20] MEDS: DOCUSATE SODIUM 100 MG CAP PO SCH ×2 (09:16→21:57)
[2020-07-20] MEDS: TAMSULOSIN 0.4 MG CAP PO SCH (09:16)
[2020-07-20] MEDS: LOSARTAN 50 MG TAB PO SCH (09:16)
[2020-07-20] MEDS: amLODIPine 5 MG TAB PO SCH (09:17)
[2020-07-20] MEDS: APIXABAN 5 MG TAB PO SCH ×2 (09:17→21:57)
[2020-07-20] MEDS: ASPIRIN EC 325 MG TAB PO SCH (09:17)
[2020-07-20] MEDS: SERTRALINE 50 MG TAB PO SCH (09:17)
[2020-07-20] MEDS: FINASTERIDE 5 MG TAB PO SCH (09:17)
[2020-07-20] MEDS: GABAPENTIN 100 MG CAP PO SCH ×2 (09:17→21:57)
--- NOTE | 2020-07-20 12:20 | Progress Note ---
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 Per review of clinic notes from Dr. Taylor, it seems patient had noncompliance with IV antibiotics. Most recently, patient was seen in ID clinic on 07/01/2020, recent cultures from the knee wound had grown E. coli and Proteus and patient had received about 30 days of p.o. Bactrim. Due to concern for poor compliance, and based on the cultures, he was given another round of p.o. ciprofloxacin for 6 weeks. His CRP was 75.8 mg/L. Now with: #Right knee prosthetic joint infection: Prolonged and refractory course as discussed above. Status post I&D on 07/07/2020, not much purulence seen in the OR but cultures positive again for MRSA. Given culture growth again of MRSA, since plan is for the patient to eventually get a new joint, we recommended r emoval of current spacer, washout and placement of a new spacer along with 6 weeks of IV antibiotics probably at a [facility] to ensure good compliance since this has been a recurrent issue for almost a year now and patient has failed multiple rounds of antibiotics. Underwent debridement and irrigation with removal of cement spacers with reimplantation of new spacers on 07/15/2020. #DM type II #Hypertension Recs: -continue with IV daptomycin (vancomycin BENY of 2.0), plan for 6 weeks -Monitor CK closely due to patient also being on statin -Patient agreeable to go to rehab for IV abx to ensure compliance with abx. -CM orders placed for IV Daptomycin x 6 weeks ending 08/26/2020 Ayla Taylor MD [facility] ([facility]) O: [phone] F: [phone] Subjective Date of service: 07/20/20 Interval history: Afebrile, white count slightly elevated today Objective - Exam Narrative Exam: Constitutional: Alert, cooperative. No acute distress Head, Ears, Nose: Normocephalic, atraumatic. Eyes: Conjunctivae/corneas clear. No icterus. No ptosis. Neck: Supple, no meningeal signs Cardiovascular: S1, S2 normal. Respiratory: Good air entry, clear to auscultation bilaterally GI: Soft, non-tender; bowel sounds normal. No peritoneal signs Musculoskeletal: Right knee dressing + Skin: No rash or abscess Hem/Lymphatic: No palpable cervical or supraclavicular nodes. No lymphangitis Psych: Mood ok. Affect normal Neurological: Awake, alert, oriented. No gross abnormality - Constitutional Vitals: Vital Signs Temp Pulse Resp BP Pulse Ox 97.7 F 67 18 122/60 97 07/20/20 05:03 07/20/20 05:03 07/20/20 06:43 07/20/20 05:03 07/20/20 05:03 Temperature -Last 24 Hours Temperature 97.7 F Temperature 98.7 F Temperature 98.6 F - Labs CBC & Chem 7: 07/20/20 04:46 07/20/20 04:46 Labs: Abnormal lab results 07/20/20 07/20/20 Range/Units 04:46 04:46 WBC 13.2 H (4.5-11.0) K/mm3 RBC 3.44 L (3.65-5.03) M/mm3 Hgb 9.9 L (11.8-15.2) gm/dl Hct 29.9 L (35.5-45.6) % RDW 16.7 H (13.2-15.2) % Plt Count 525 H (140-440) K/mm3 Sodium 135 L (137-145) mmol/L Creatinine 0.5 L (0.8-1.3) mg/dL Glucose 113 H (75-100) mg/dL
[2020-07-20] MEDS: LATANOPROST 0.005% OPHTH SOLN 2.5 ML OU SCH (23:49)
[2020-07-21] MEDS: oxyCODONE /ACETAMINOPHEN 5-325MG TAB PO PRN ×2 (03:23→11:42)
[2020-07-21] MEDS: HYDROmorphone 1 MG/1 ML INJ IV PRN ×3 (08:05→21:17)
--- NOTE | 2020-07-21 09:15 | Progress Note ---
Assessment and Plan -- Septic joint of right knee joint-Right knee prosthetic joint infection Care as per primary team, knee x-ray, patient is s/p surgical intervention, Now getting IV antibiotics per ID recommendations Patient will need detention placement for prolonged wound care and IV antibiotics -- Hypertension Monitor blood pressure every shift, continue medical management. -- Diabetes mellitus type II Consistent carbohydrate diet, Accu-Chek, insulin protocol, hypoglycemia protocol. -- CHF (congestive heart failure) compensated, Strict I's/O, monitor urine output every shift, daily weight, afterload reduction, blood pressure control, supportive care. -- BPH (benign prostatic hyperplasia) Supportive care, continue Flomax. -- CAD (coronary artery disease) Continue anti-platelet therapy, risk factor reduction, statin therapy, supporti ve care. -- Chronic pain syndrome Continue medical management. Pain assessment as per nursing care protocol. -- Legally Blind, supportive care -- DVT prophylaxis SCD to bilateral lower extremities while in bed, continue therapeutic anticoagulation postoperatively. 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 Patient was placed on empiric antibiotics, and admitted for further evaluation and management.. Daily clinical course: 07/08/20: S/P Incision and drainage right knee and wash out with spacer. Per procedure note Procedure The patient was brought to the OR and placed on the OR table supine following induction by anesthesia, the patient's right LE prepped and draped in usual sterile fashion. A time-out procedure done to identify the patient and correct operative site. The tourniquet inflated to 300mm Hg, utilizing previous incision the knee joint entered, the cement spacer appeared intact not much purulent material seen either, sample of tissue given to scrub nurse of microbiology. Next using pulse lavage the joint throughly irrigated with antibiotic solution, next the soft tissues repaired and oscar applied to the skin as well as post op dressings. He tolerated the procedure and there were no complications noted, taken to PACU in stable condition. Follow with [facility] data. Consult placed for ID to assist with antibiotics. Pain control. PT/OT. Patient is legally blind, will need all precautions in place. 07/09: Cultures growing staph areus, not finalized yet, continue pain control, start stool softner. FALL PRECAUTIONS 07/10: Continue supportive care, Per ID Patient has had prolonged and refractory course as discussed above. Status post I&D on 07/07/2020, not much purulence seen in the OR but cultures positive again for Staph aureus- Recommendation is -continue IV ceftriaxone 2 g daily plus IV vancomycin for now -Given culture growth again of Staph aureus, if patient is to eventually get a new joint, may need to consider removal of current spacer, washout and placement of a new spacer along with 6 weeks of IV antibiotics probably at a detention to ensure good compliance since this has been a recurrent issue for the last several months and patient has failed multiple rounds of antibiotics Culture indeed is growing staph aureus although we are waiting for finalization. Will await surgical reevaluation and intervention. Nursing staff to apply ice pack awaiting for PT evaluation 07/11: PT input noted, will also adjust pain medication. Culture showing MRSA. ID input noted Below. will await Ortho input. -ceftriaxone discontinued -continue with IV vancomycin for now (vancomycin BENY is 2.0, so will likely plan for IV daptomycin upon discharge) -Given culture growth again of MRSA, if patient is to eventually get a new joint, may need to consider removal of current spacer, washout and placement of a new spacer along with 6 weeks of IV antibiotics probably at a detention to ensure good compliance since this has been a recurrent issue for the last several months and patient has failed multiple rounds of antibiotics. If he is not a candidate for more surgery, chronic suppression with PO abx can be considered. 07/12: Continue plan as outlined above. Awaiting Surgery input. Continue isolation precautions for MRSA 07/13: Continue with abx, PT/OT await Ortho input and this will determine discharge based on ID recommendation 07/14: Cultures from the site grew MRSA and recommended by ID that if there is a plan for patient to have more surgery he needed the washer to be replaced. He continues on antibiotics with vancomycin and was subsequently will need daptomycin IV on discharge. He is going for surgery for further extensive w ashout and spacer replacement. Due to compliance issues in the past this recommendation for patient to be in a personal penitentiary or detention to ensure compliance as he will need 6 weeks of antibiotics. Otherwise no new complaints except for pain management. 6/3 He continues on antibiotics with vancomycin and was subsequently will need daptomycin IV on discharge. He was taken to OR today by Dr. Batres, Orthopedic Surgeon and had debridement and irrigation with removal of cement spacers with reimplantation of new spacers 07/16/ He was taken to OR yesterday 07/[address] Batres, Orthopedic Surgeon and had debridement and irrigation with removal of cement spacers with reimplantation of new spacers. Nurse tells me Overnight he had bleeding from surgical site. Orthopedic Surgeon informed. Will hold Eliquis until bleeding subsides. Repeat H/H 07/17 bleeding from surgical site now subsided. Eliquis resumed. Hgb slightly lower. Will repeat in am 07/18 need placement. he complains of pain at surgical site. On Prn narcotics. H/H stable Hgb 10.2. 07/19 Patient is a 59-year-old male with multiple medical problems and recently the last 1year knee surgery which has continued to become problematic requiring a spacer to be placed he presented to the hospital and underwent an incision and drainage washout and spacer placement. Cultures from the site grew MRSA and recommended by ID that if there is a plan for patient to have more surgery he needed the washer to be replaced. He continues on antibiotics with vancomycin and was subsequently will need daptomycin IV on discharge. He was taken to OR 07/[address] Batres, Orthopedic Surgeon and had debridement and irrigation with removal of cement spacers with reimplantation of new spacers. He complains of pain at surgical site. On Prn narcotics. H/H stable Hgb 10.2. Medically stable for dc to SNF. Case management working on SNF placement for iv Antibiotics - Daptomycin. I discussed with ISAIAS Culver 07/20: Waiting on SNF placement, cont current mx. follow clinically. Subjective Date of service: 07/20/20 Interval history: Patient seen and examined. Medical records and medication list reviewed. No acute event overnight noted by the RN. Patient denies any chest pain or difficulty breathing. Patient is tolerating diet. Complains of right knee joint pain Discussed plan of care at bedside with patient. Objective - Exam Narrative Exam: General appearance: Present: No distress, legally blind, obese - EENT Eyes: Present: PERRL ENT: hearing intact, clear oral mucosa - Neck Neck: Present: supple, normal ROM - Respiratory Respiratory effort: normal Respiratory: bilateral: CTA - Cardiovascular Heart Sounds: Present: S1 & S2. Absent: rub, click - Extremities Extremities: pulses symmetrical, No edema Extremity abnormal: dressing and immobilizer in place on right knee Peripheral Pulses: within normal limits - Abdominal General gastrointestinal: Present: soft, non-tender, non-distended, normal bowel sounds Male genitourinary: Present: normal - Integumentary Integumentary: Present: clear, warm, dry - Musculoskeletal Musculoskeletal: gait normal, right knee joint with surgical dressing with limited movement - Psychiatric Psychiatric: appropriate mood/affect, intact judgment & insight - Neurologic Neurologic: CNII-XII intact, moves all extremities - Constitutional Vitals: Vital Signs - 12hr 07/20/20 07/21/20 21:54 04:49 Temperature 99.2 F 98.8 F Pulse Rate 81 75 Respiratory 18 18 Rate Blood Pressure 132/70 125/68 O2 Sat by Pulse 97 96 Oximetry - Labs CBC & Chem 7: 07/20/20 04:46 07/20/20 04:46
[2020-07-21] MEDS: GABAPENTIN 100 MG CAP PO SCH ×2 (09:16→21:17)
[2020-07-21] MEDS: DOCUSATE SODIUM 100 MG CAP PO SCH ×2 (09:16→21:17)
[2020-07-21] MEDS: FINASTERIDE 5 MG TAB PO SCH (09:16)
[2020-07-21] MEDS: APIXABAN 5 MG TAB PO SCH ×2 (09:16→21:17)
[2020-07-21] MEDS: METOPROLOL TARTRATE 25 MG TAB PO SCH ×2 (09:16→21:17)
[2020-07-21] MEDS: LOSARTAN 50 MG TAB PO SCH (09:16)
[2020-07-21] MEDS: amLODIPine 5 MG TAB PO SCH (09:16)
[2020-07-21] MEDS: TAMSULOSIN 0.4 MG CAP PO SCH (09:16)
[2020-07-21] MEDS: SERTRALINE 50 MG TAB PO SCH (09:16)
[2020-07-21] MEDS: ASPIRIN EC 325 MG TAB PO SCH (09:17)
--- NOTE | 2020-07-21 14:45 | Progress Note ---
Assessment and Plan -- Septic joint of right knee joint-Right knee prosthetic joint infection Care as per primary team, knee x-ray, patient is s/p surgical intervention, Now getting IV antibiotics per ID recommendations Patient will need long term placement for prolonged wound care and IV antibiotics -- Hypertension Monitor blood pressure every shift, continue medical management. -- Diabetes mellitus type II Consistent carbohydrate diet, Accu-Chek, insulin protocol, hypoglycemia protocol. -- CHF (congestive heart failure) compensated, Strict I's/O, monitor urine output every shift, daily weight, afterload reduction, blood pressure control, supportive care. -- BPH (benign prostatic hyperplasia) Supportive care, continue Flomax. -- CAD (coronary artery disease) Continue anti-platelet therapy, risk factor reduction, statin therapy, supporti ve care. -- Chronic pain syndrome Continue medical management. Pain assessment as per nursing care protocol. -- Legally Blind, supportive care -- DVT prophylaxis SCD to bilateral lower extremities while in bed, continue therapeutic anticoagulation postoperatively. 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 Patient was placed on empiric antibiotics, and admitted for further evaluation and management.. Daily clinical course: 07/08/20: S/P Incision and drainage right knee and wash out with spacer. Per procedure note Procedure The patient was brought to the OR and placed on the OR table supine following induction by anesthesia, the patient's right LE prepped and draped in usual sterile fashion. A time-out procedure done to identify the patient and correct operative site. The tourniquet inflated to 300mm Hg, utilizing previous incision the knee joint entered, the cement spacer appeared intact not much purulent material seen either, sample of tissue given to scrub nurse of microbiology. Next using pulse lavage the joint throughly irrigated with antibiotic solution, next the soft tissues repaired and oscar applied to the skin as well as post op dressings. He tolerated the procedure and there were no complications noted, taken to PACU in stable condition. Follow with [facility] data. Consult placed for ID to assist with antibiotics. Pain control. PT/OT. Patient is legally blind, will need all precautions in place. 07/09: Cultures growing staph areus, not finalized yet, continue pain control, start stool softner. FALL PRECAUTIONS 07/10: Continue supportive care, Per ID Patient has had prolonged and refractory course as discussed above. Status post I&D on 07/07/2020, not much purulence seen in the OR but cultures positive again for Staph aureus- Recommendation is -continue IV ceftriaxone 2 g daily plus IV vancomycin for now -Given culture growth again of Staph aureus, if patient is to eventually get a new joint, may need to consider removal of current spacer, washout and placement of a new spacer along with 6 weeks of IV antibiotics probably at a long term to ensure good compliance since this has been a recurrent issue for the last several months and patient has failed multiple rounds of antibiotics Culture indeed is growing staph aureus although we are waiting for finalization. Will await surgical reevaluation and intervention. Nursing staff to apply ice pack awaiting for PT evaluation 07/11: PT input noted, will also adjust pain medication. Culture showing MRSA. ID input noted Below. will await Ortho input. -ceftriaxone discontinued -continue with IV vancomycin for now (vancomycin BENY is 2.0, so will likely plan for IV daptomycin upon discharge) -Given culture growth again of MRSA, if patient is to eventually get a new joint, may need to consider removal of current spacer, washout and placement of a new spacer along with 6 weeks of IV antibiotics probably at a long term to ensure good compliance since this has been a recurrent issue for the last several months and patient has failed multiple rounds of antibiotics. If he is not a candidate for more surgery, chronic suppression with PO abx can be considered. 07/12: Continue plan as outlined above. Awaiting Surgery input. Continue isolation precautions for MRSA 07/13: Continue with abx, PT/OT await Ortho input and this will determine discharge based on ID recommendation 07/14: Cultures from the site grew MRSA and recommended by ID that if there is a plan for patient to have more surgery he needed the washer to be replaced. He continues on antibiotics with vancomycin and was subsequently will need daptomycin IV on discharge. He is going for surgery for further extensive w ashout and spacer replacement. Due to compliance issues in the past this recommendation for patient to be in a personal senior care or long term to ensure compliance as he will need 6 weeks of antibiotics. Otherwise no new complaints except for pain management. 6/3 He continues on antibiotics with vancomycin and was subsequently will need daptomycin IV on discharge. He was taken to OR today by Dr. Batres, Orthopedic Surgeon and had debridement and irrigation with removal of cement spacers with reimplantation of new spacers 07/16/ He was taken to OR yesterday 07/[address] Batres, Orthopedic Surgeon and had debridement and irrigation with removal of cement spacers with reimplantation of new spacers. Nurse tells me Overnight he had bleeding from surgical site. Orthopedic Surgeon informed. Will hold Eliquis until bleeding subsides. Repeat H/H 07/17 bleeding from surgical site now subsided. Eliquis resumed. Hgb slightly lower. Will repeat in am 07/18 need placement. he complains of pain at surgical site. On Prn narcotics. H/H stable Hgb 10.2. 07/19 Patient is a 59-year-old male with multiple medical problems and recently the last 1year knee surgery which has continued to become problematic requiring a spacer to be placed he presented to the hospital and underwent an incision and drainage washout and spacer placement. Cultures from the site grew MRSA and recommended by ID that if there is a plan for patient to have more surgery he needed the washer to be replaced. He continues on antibiotics with vancomycin and was subsequently will need daptomycin IV on discharge. He was taken to OR 07/[address] Batres, Orthopedic Surgeon and had debridement and irrigation with removal of cement spacers with reimplantation of new spacers. He complains of pain at surgical site. On Prn narcotics. H/H stable Hgb 10.2. Medically stable for dc to SNF. Case management working on SNF placement for iv Antibiotics - Daptomycin. I discussed with Dr. Taylor, ISAIAS 07/20- 07/21: Waiting on SNF placement, cont current Mx. follow clinically. Subjective Date of service: 07/21/20 Interval history: Patient seen and examined. Medical records and medication list reviewed. No acute event overnight noted by the RN. Patient denies any chest pain or difficulty breathing. Patient is tolerating diet. Complains of right knee joint pain Discussed plan of care at bedside with patient. Objective - Exam Narrative Exam: General appearance: Present: No distress, legally blind, obese - EENT Eyes: Present: PERRL ENT: hearing intact, clear oral mucosa - Neck Neck: Present: supple, normal ROM - Respiratory Respiratory effort: normal Respiratory: bilateral: CTA - Cardiovascular Heart Sounds: Present: S1 & S2. Absent: rub, click - Extremities Extremities: pulses symmetrical, No edema Extremity abnormal: dressing and immobilizer in place on right knee Peripheral Pulses: within normal limits - Abdominal General gastrointestinal: Present: soft, non-tender, non-distended, normal bowel sounds Male genitourinary: Present: normal - Integumentary Integumentary: Present: clear, warm, dry - Musculoskeletal Musculoskeletal: gait normal, right knee joint with surgical dressing with limited movement - Psychiatric Psychiatric: appropriate mood/affect, intact judgment & insight - Neurologic Neurologic: CNII-XII intact, moves all extremities - Constitutional Vitals: Vital Signs - 12hr 07/21/20 07/21/20 04:49 11:19 Temperature 98.8 F 98.7 F Pulse Rate 75 76 Respiratory 18 18 Rate Blood Pressure 125/68 111/69 O2 Sat by Pulse 96 97 Oximetry - Labs CBC & Chem 7: 07/20/20 04:46 07/20/20 04:46
--- NOTE | 2020-07-21 15:00 | Progress Note ---
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 Per review of clinic notes from Dr. Taylor, it seems patient had noncompliance with IV antibiotics. Most recently, patient was seen in ID clinic on 07/01/2020, recent cultures from the knee wound had grown E. coli and Proteus and patient had received about 30 days of p.o. Bactrim. Due to concern for poor compliance, and based on the cultures, he was given another round of p.o. ciprofloxacin for 6 weeks. His CRP was 75.8 mg/L. Now with: #Right knee prosthetic joint infection: Prolonged and refractory course as discussed above. Status post I&D on 07/07/2020, not much purulence seen in the OR but cultures positive again for MRSA. Given culture growth again of MRSA, since plan is for the patient to eventually get a new joint, we recommended r emoval of current spacer, washout and placement of a new spacer along with 6 weeks of IV antibiotics probably at a prison to ensure good compliance since this has been a recurrent issue for almost a year now and patient has failed multiple rounds of antibiotics. Underwent debridement and irrigation with removal of cement spacers with reimplantation of new spacers on 07/15/2020. #DM type II #Hypertension Recs: -continue with IV daptomycin (vancomycin BENY of 2.0), plan for 6 weeks -Monitor CK closely due to patient also being on statin -Patient agreeable to go to rehab for IV abx to ensure compliance with abx. -CM orders placed for IV Daptomycin x 6 weeks ending 08/26/2020 DC when placement arranged. Ayla Taylor MD [facility] ([facility] ([facility]) O: [phone] F: [phone] Subjective Date of service: 07/21/20 Interval history: Afebrile, white count slightly elevated at 13.2 yesterday. No other acute change. Objective - Exam Narrative Exam: Constitutional: Alert, cooperative. No acute distress Head, Ears, Nose: Normocephalic, atraumatic. Eyes: Conjunctivae/corneas clear. No icterus. No ptosis. Neck: Supple, no meningeal signs Cardiovascular: S1, S2 normal. Respiratory: Good air entry, clear to auscultation bilaterally GI: Soft, non-tender; bowel sounds normal. No peritoneal signs Musculoskeletal: Right knee dressing + Skin: No rash or abscess Hem/Lymphatic: No palpable cervical or supraclavicular nodes. No lymphangitis Psych: Mood ok. Affect normal Neurological: Awake, alert, oriented. No gross abnormality - Constitutional Vitals: Vital Signs Temp Pulse Resp BP Pulse Ox 98.7 F 76 18 111/69 97 07/21/20 11:19 07/21/20 11:19 07/21/20 11:19 07/21/20 11:19 07/21/20 11:19 Temperature -Last 24 Hours Temperature 98.7 F Temperature 98.8 F Temperature 99.2 F Temperature 98.9 F - Labs CBC & Chem 7: 07/20/20 04:46 07/20/20 04:46
[2020-07-21] MEDS: LATANOPROST 0.005% OPHTH SOLN 2.5 ML OU SCH (21:29)
[2020-07-22] MEDS: HYDROmorphone 1 MG/1 ML INJ IV PRN ×4 (04:08→23:29)
[2020-07-22] MEDS: amLODIPine 5 MG TAB PO SCH (09:16)
[2020-07-22] MEDS: LOSARTAN 50 MG TAB PO SCH (09:17)
[2020-07-22] MEDS: ASPIRIN EC 325 MG TAB PO SCH (09:17)
[2020-07-22] MEDS: GABAPENTIN 100 MG CAP PO SCH ×2 (09:17→21:42)
[2020-07-22] MEDS: APIXABAN 5 MG TAB PO SCH ×2 (09:17→21:42)
[2020-07-22] MEDS: TAMSULOSIN 0.4 MG CAP PO SCH (09:17)
[2020-07-22] MEDS: DOCUSATE SODIUM 100 MG CAP PO SCH ×2 (09:18→21:42)
[2020-07-22] MEDS: SERTRALINE 50 MG TAB PO SCH (09:18)
[2020-07-22] MEDS: FINASTERIDE 5 MG TAB PO SCH (09:18)
[2020-07-22] MEDS: METOPROLOL TARTRATE 25 MG TAB PO SCH ×2 (09:22→21:42)
--- NOTE | 2020-07-22 10:23 | Progress Note ---
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 Per review of clinic notes from Dr. Taylor, it seems patient had noncompliance with IV antibiotics. Most recently, patient was seen in ID clinic on 07/01/2020, recent cultures from the knee wound had grown E. coli and Proteus and patient had received about 30 days of p.o. Bactrim. Due to concern for poor compliance, and based on the cultures, he was given another round of p.o. ciprofloxacin for 6 weeks. His CRP was 75.8 mg/L. Now with: #Right knee prosthetic joint infection: Prolonged and refractory course as discussed above. Status post I&D on 07/07/2020, not much purulence seen in the OR but cultures positive again for MRSA. Given culture growth again of MRSA, since plan is for the patient to eventually get a new joint, we recommended r emoval of current spacer, washout and placement of a new spacer along with 6 weeks of IV antibiotics probably at a correction to ensure good compliance since this has been a recurrent issue for almost a year now and patient has failed multiple rounds of antibiotics. Underwent debridement and irrigation with removal of cement spacers with reimplantation of new spacers on 07/15/2020. #DM type II #Hypertension Recs: -continue with IV daptomycin (vancomycin BENY of 2.0), plan for 6 weeks -Monitor CK closely due to patient also being on statin -Patient agreeable to go to rehab for IV abx to ensure compliance with abx. -CM orders placed for IV Daptomycin x 6 weeks ending 08/26/2020 DC when placement arranged. Ayla Taylor MD [facility] [place] ([facility]) O: [phone] F: [phone] Subjective Date of service: 07/22/20 Interval history: Febrile last evening to 102.1, but has been compeltely afebrile otherwise and is stable with no new complaints. Objective - Exam Narrative Exam: Constitutional: Alert, cooperative. No acute distress Head, Ears, Nose: Normocephalic, atraumatic. Eyes: Conjunctivae/corneas clear. No icterus. No ptosis. Neck: Supple, no meningeal signs Cardiovascular: S1, S2 normal. Respiratory: Good air entry, clear to auscultation bilaterally GI: Soft, non-tender; bowel sounds normal. No peritoneal signs Musculoskeletal: Right knee dressing + Skin: No rash or abscess Hem/Lymphatic: No palpable cervical or supraclavicular nodes. No lymphangitis Psych: Mood ok. Affect normal Neurological: Awake, alert, oriented. No gross abnormality - Constitutional Vitals: Vital Signs Temp Pulse Resp BP Pulse Ox 97.9 F 85 18 120/71 97 07/22/20 08:20 07/22/20 09:22 07/22/20 08:20 07/22/20 09:16 07/22/20 08:20 Temperature -Last 24 Hours Temperature 97.9 F Temperature 98.7 F Temperature 98.8 F Temperature 102.1 F Temperature 98.8 F Temperature 98.7 F - Labs CBC & Chem 7: 07/20/20 04:46 07/20/20 04:46
[2020-07-22] MEDS: oxyCODONE /ACETAMINOPHEN 5-325MG TAB PO PRN ×2 (11:24→18:52)
[2020-07-22] MEDS: LATANOPROST 0.005% OPHTH SOLN 2.5 ML OU SCH (22:04)
[2020-07-23] MEDS: HYDROmorphone 1 MG/1 ML INJ IV PRN ×3 (05:05→13:55)
--- NOTE | 2020-07-23 09:57 | Progress Note ---
Assessment and Plan -- Septic joint of right knee joint-Right knee prosthetic joint infection Care as per primary team, knee x-ray, patient is s/p surgical intervention, Now getting IV antibiotics per ID recommendations Patient will need assisted placement for prolonged wound care and IV antibiotics -- Hypertension Monitor blood pressure every shift, continue medical management. -- Diabetes mellitus type II Consistent carbohydrate diet, Accu-Chek, insulin protocol, hypoglycemia protocol. -- CHF (congestive heart failure) compensated, Strict I's/O, monitor urine output every shift, daily weight, afterload reduction, blood pressure control, supportive care. -- BPH (benign prostatic hyperplasia) Supportive care, continue Flomax. -- CAD (coronary artery disease) Continue anti-platelet therapy, risk factor reduction, statin therapy, supporti ve care. -- Chronic pain syndrome Continue medical management. Pain assessment as per nursing care protocol. -- Legally Blind, supportive care -- DVT prophylaxis SCD to bilateral lower extremities while in bed, continue therapeutic anticoagulation postoperatively. 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 Patient was placed on empiric antibiotics, and admitted for further evaluation and management.. Daily clinical course: 07/08/20: S/P Incision and drainage right knee and wash out with spacer. Per procedure note Procedure The patient was brought to the OR and placed on the OR table supine following induction by anesthesia, the patient's right LE prepped and draped in usual sterile fashion. A time-out procedure done to identify the patient and correct operative site. The tourniquet inflated to 300mm Hg, utilizing previous incision the knee joint entered, the cement spacer appeared intact not much purulent material seen either, sample of tissue given to scrub nurse of microbiology. Next using pulse lavage the joint throughly irrigated with antibiotic solution, next the soft tissues repaired and oscar applied to the skin as well as post op dressings. He tolerated the procedure and there were no complications noted, taken to PACU in stable condition. Follow with [facility] data. Consult placed for ID to assist with antibiotics. Pain control. PT/OT. Patient is legally blind, will need all precautions in place. 07/09: Cultures growing staph areus, not finalized yet, continue pain control, start stool softner. FALL PRECAUTIONS 07/10: Continue supportive care, Per ID Patient has had prolonged and refractory course as discussed above. Status post I&D on 07/07/2020, not much purulence seen in the OR but cultures positive again for Staph aureus- Recommendation is -continue IV ceftriaxone 2 g daily plus IV vancomycin for now -Given culture growth again of Staph aureus, if patient is to eventually get a new joint, may need to consider removal of current spacer, washout and placement of a new spacer along with 6 weeks of IV antibiotics probably at a assisted to ensure good compliance since this has been a recurrent issue for the last several months and patient has failed multiple rounds of antibiotics Culture indeed is growing staph aureus although we are waiting for finalization. Will await surgical reevaluation and intervention. Nursing staff to apply ice pack awaiting for PT evaluation 07/11: PT input noted, will also adjust pain medication. Culture showing MRSA. ID input noted Below. will await Ortho input. -ceftriaxone discontinued -continue with IV vancomycin for now (vancomycin BENY is 2.0, so will likely plan for IV daptomycin upon discharge) -Given culture growth again of MRSA, if patient is to eventually get a new joint, may need to consider removal of current spacer, washout and placement of a new spacer along with 6 weeks of IV antibiotics probably at a assisted to ensure good compliance since this has been a recurrent issue for the last several months and patient has failed multiple rounds of antibiotics. If he is not a candidate for more surgery, chronic suppression with PO abx can be considered. 07/12: Continue plan as outlined above. Awaiting Surgery input. Continue isolation precautions for MRSA 07/13: Continue with abx, PT/OT await Ortho input and this will determine discharge based on ID recommendation 07/14: Cultures from the site grew MRSA and recommended by ID that if there is a plan for patient to have more surgery he needed the washer to be replaced. He continues on antibiotics with vancomycin and was subsequently will need daptomycin IV on discharge. He is going for surgery for further extensive w ashout and spacer replacement. Due to compliance issues in the past this recommendation for patient to be in a personal long term or assisted to ensure compliance as he will need 6 weeks of antibiotics. Otherwise no new complaints except for pain management. 6/3 He continues on antibiotics with vancomycin and was subsequently will need daptomycin IV on discharge. He was taken to OR today by Dr. Batres, Orthopedic Surgeon and had debridement and irrigation with removal of cement spacers with reimplantation of new spacers 07/16/ He was taken to OR yesterday 07/[address] Batres, Orthopedic Surgeon and had debridement and irrigation with removal of cement spacers with reimplantation of new spacers. Nurse tells me Overnight he had bleeding from surgical site. Orthopedic Surgeon informed. Will hold Eliquis until bleeding subsides. Repeat H/H 07/17 bleeding from surgical site now subsided. Eliquis resumed. Hgb slightly lower. Will repeat in am 07/18 need placement. he complains of pain at surgical site. On Prn narcotics. H/H stable Hgb 10.2. 07/19 Patient is a 59-year-old male with multiple medical problems and recently the last 1year knee surgery which has continued to become problematic requiring a spacer to be placed he presented to the hospital and underwent an incision and drainage washout and spacer placement. Cultures from the site grew MRSA and recommended by ID that if there is a plan for patient to have more surgery he needed the washer to be replaced. He continues on antibiotics with vancomycin and was subsequently will need daptomycin IV on discharge. He was taken to OR 07/[address] Batres, Orthopedic Surgeon and had debridement and irrigation with removal of cement spacers with reimplantation of new spacers. He complains of pain at surgical site. On Prn narcotics. H/H stable Hgb 10.2. Medically stable for dc to SNF. Case management working on SNF placement for iv Antibiotics - Daptomycin. I discussed with Dr. Taylor, ID 07/20- 07/22: Waiting on SNF placement, cont current Mx. follow clinically. cont empiric abx per ID Subjective Date of service: 07/22/20 Interval history: Patient seen and examined. Medical records and medication list reviewed. No acute event overnight noted by the RN. Patient denies any chest pain or difficulty breathing. Patient is tolerating diet. Complains of right knee joint pain Discussed plan of care at bedside with patient. Objective - Exam Narrative Exam: General appearance: Present: No distress, legally blind, obese - EENT Eyes: Present: PERRL ENT: hearing intact, clear oral mucosa - Neck Neck: Present: supple, normal ROM - Respiratory Respiratory effort: normal Respiratory: bilateral: CTA - Cardiovascular Heart Sounds: Present: S1 & S2. Absent: rub, click - Extremities Extremities: pulses symmetrical, No edema Extremity abnormal: dressing and immobilizer in place on right knee Peripheral Pulses: within normal limits - Abdominal General gastrointestinal: Present: soft, non-tender, non-distended, normal bowel sounds Male genitourinary: Present: normal - Integumentary Integumentary: Present: clear, warm, dry - Musculoskeletal Musculoskeletal: gait normal, right knee joint with surgical dressing with limit ed movement - Psychiatric Psychiatric: appropriate mood/affect, intact judgment & insight - Neurologic Neurologic: CNII-XII intact, moves all extremities - Constitutional Vitals: Vital Signs - 12hr 07/22/20 07/22/20 07/23/20 23:29 23:59 04:48 Temperature 98.4 F Pulse Rate 69 Respiratory 20 18 18 Rate Blood Pressure 137/75 O2 Sat by Pulse 98 Oximetry 07/23/20 07/23/20 05:05 05:35 Temperature Pulse Rate Respiratory 20 18 Rate Blood Pressure O2 Sat by Pulse Oximetry - Labs CBC & Chem 7: 07/20/20 04:46 07/20/20 04:46
[2020-07-23] MEDS: DOCUSATE SODIUM 100 MG CAP PO SCH ×2 (10:11→22:21)
[2020-07-23] MEDS: ASPIRIN EC 325 MG TAB PO SCH (10:12)
[2020-07-23] MEDS: LOSARTAN 50 MG TAB PO SCH (10:12)
[2020-07-23] MEDS: SERTRALINE 50 MG TAB PO SCH (10:12)
[2020-07-23] MEDS: APIXABAN 5 MG TAB PO SCH ×2 (10:12→22:21)
[2020-07-23] MEDS: amLODIPine 5 MG TAB PO SCH (10:12)
[2020-07-23] MEDS: GABAPENTIN 100 MG CAP PO SCH ×2 (10:12→22:23)
[2020-07-23] MEDS: METOPROLOL TARTRATE 25 MG TAB PO SCH ×2 (10:12→22:22)
[2020-07-23] MEDS: FINASTERIDE 5 MG TAB PO SCH (10:12)
[2020-07-23] MEDS: TAMSULOSIN 0.4 MG CAP PO SCH (10:43)
--- NOTE | 2020-07-23 11:15 | Progress Note ---
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 Per review of clinic notes from Dr. Taylor, it seems patient had noncompliance with IV antibiotics. Most recently, patient was seen in ID clinic on 07/01/2020, recent cultures from the knee wound had grown E. coli and Proteus and patient had received about 30 days of p.o. Bactrim. Due to concern for poor compliance, and based on the cultures, he was given another round of p.o. ciprofloxacin for 6 weeks. His CRP was 75.8 mg/L. Now with: #Right knee prosthetic joint infection: Prolonged and refractory course as discussed above. Status post I&D on 07/07/2020, not much purulence seen in the OR but cultures positive again for MRSA. Given culture growth again of MRSA, since plan is for the patient to eventually get a new joint, we recommended r emoval of current spacer, washout and placement of a new spacer along with 6 weeks of IV antibiotics probably at a correction to ensure good compliance since this has been a recurrent issue for almost a year now and patient has failed multiple rounds of antibiotics. Underwent debridement and irrigation with removal of cement spacers with reimplantation of new spacers on 07/15/2020. #DM type II #Hypertension Recs: -continue with IV daptomycin (vancomycin BENY of 2.0), plan for 6 weeks -Monitor CK closely due to patient also being on statin -Patient agreeable to go to rehab for IV abx to ensure compliance with abx. -CM orders placed for IV Daptomycin x 6 weeks ending 08/26/2020 DC when placement arranged. ID will sign off. Please call with any new concerns. Ayla Taylor MD [facility] ([facility]) O: [phone] F: [phone] Subjective Date of service: 07/23/20 Interval history: Afebrile, normal white count. No change. Awaiting placement. Objective - Exam Narrative Exam: Constitutional: Alert, cooperative. No acute distress Head, Ears, Nose: Normocephalic, atraumatic. Eyes: Conjunctivae/corneas clear. No icterus. No ptosis. Neck: Supple, no meningeal signs Cardiovascular: S1, S2 normal. Respiratory: Good air entry, clear to auscultation bilaterally GI: Soft, non-tender; bowel sounds normal. No peritoneal signs Musculoskeletal: Right knee dressing + Skin: No rash or abscess Hem/Lymphatic: No palpable cervical or supraclavicular nodes. No lymphangitis Psych: Mood ok. Affect normal Neurological: Awake, alert, oriented. No gross abnormality - Constitutional Vitals: Vital Signs Temp Pulse Resp BP Pulse Ox 98.4 F 69 20 137/75 98 07/23/20 04:48 07/23/20 04:48 07/23/20 11:01 07/23/20 04:48 07/23/20 11:01 Temperature -Last 24 Hours Temperature 98.4 F Temperature 98.6 F Temperature 98.8 F - Labs CBC & Chem 7: 07/20/20 04:46 07/20/20 04:46
--- NOTE | 2020-07-23 15:20 | Progress Note ---
Assessment and Plan s/p cement spacer exchange and debridement and irrigation right knee awaiting placement for long-term IVAB Subjective Date of service: 07/23/20 Interval history: c/o incisional pain, otherwise ok, resting comfortably in bed prior to our discussion Objective Vital signs: Vital Signs - 12hr 07/23/20 07/23/20 07/23/20 04:48 05:05 05:35 Temperature 98.4 F Pulse Rate 69 Respiratory 18 20 18 Rate Blood Pressure 137/75 O2 Sat by Pulse 98 Oximetry 07/23/20 07/23/20 07/23/20 10:43 11:01 11:40 Temperature 98.6 F Pulse Rate 75 Respiratory 20 20 18 Rate Blood Pressure 118/72 O2 Sat by Pulse 98 96 Oximetry Incision: healing, clean and dry Weight bearing status: partial - Labs CBC & BMP: 07/20/20 04:46 07/20/20 04:46
--- NOTE | 2020-07-23 15:43 | Progress Note ---
Assessment and Plan -- Septic joint of right knee joint-Right knee prosthetic joint infection Care as per primary team, knee x-ray, patient is s/p surgical intervention, Now getting IV antibiotics per ID recommendations Patient will need care home placement for prolonged wound care and IV antibiotics -- Hypertension Monitor blood pressure every shift, continue medical management. -- Diabetes mellitus type II Consistent carbohydrate diet, Accu-Chek, insulin protocol, hypoglycemia protocol. -- CHF (congestive heart failure) compensated, Strict I's/O, monitor urine output every shift, daily weight, afterload reduction, blood pressure control, supportive care. -- BPH (benign prostatic hyperplasia) Supportive care, continue Flomax. -- CAD (coronary artery disease) Continue anti-platelet therapy, risk factor reduction, statin therapy, supporti ve care. -- Chronic pain syndrome Continue medical management. Pain assessment as per nursing care protocol. -- Legally Blind, supportive care -- DVT prophylaxis SCD to bilateral lower extremities while in bed, continue therapeutic anticoagulation postoperatively. 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 Patient was placed on empiric antibiotics, and admitted for further evaluation and management.. Daily clinical course: 07/08/20: S/P Incision and drainage right knee and wash out with spacer. Per procedure note Procedure The patient was brought to the OR and placed on the OR table supine following induction by anesthesia, the patient's right LE prepped and draped in usual sterile fashion. A time-out procedure done to identify the patient and correct operative site. The tourniquet inflated to 300mm Hg, utilizing previous incision the knee joint entered, the cement spacer appeared intact not much purulent material seen either, sample of tissue given to scrub nurse of microbiology. Next using pulse lavage the joint throughly irrigated with antibiotic solution, next the soft tissues repaired and oscar applied to the skin as well as post op dressings. He tolerated the procedure and there were no complications noted, taken to PACU in stable condition. Follow with [facility] data. Consult placed for ID to assist with antibiotics. Pain control. PT/OT. Patient is legally blind, will need all precautions in place. 07/09: Cultures growing staph areus, not finalized yet, continue pain control, start stool softner. FALL PRECAUTIONS 07/10: Continue supportive care, Per ID Patient has had prolonged and refractory course as discussed above. Status post I&D on 07/07/2020, not much purulence seen in the OR but cultures positive again for Staph aureus- Recommendation is -continue IV ceftriaxone 2 g daily plus IV vancomycin for now -Given culture growth again of Staph aureus, if patient is to eventually get a new joint, may need to consider removal of current spacer, washout and placement of a new spacer along with 6 weeks of IV antibiotics probably at a care home to ensure good compliance since this has been a recurrent issue for the last several months and patient has failed multiple rounds of antibiotics Culture indeed is growing staph aureus although we are waiting for finalization. Will await surgical reevaluation and intervention. Nursing staff to apply ice pack awaiting for PT evaluation 07/11: PT input noted, will also adjust pain medication. Culture showing MRSA. ID input noted Below. will await Ortho input. -ceftriaxone discontinued -continue with IV vancomycin for now (vancomycin BENY is 2.0, so will likely plan for IV daptomycin upon discharge) -Given culture growth again of MRSA, if patient is to eventually get a new joint, may need to consider removal of current spacer, washout and placement of a new spacer along with 6 weeks of IV antibiotics probably at a care home to ensure good compliance since this has been a recurrent issue for the last several months and patient has failed multiple rounds of antibiotics. If he is not a candidate for more surgery, chronic suppression with PO abx can be considered. 07/12: Continue plan as outlined above. Awaiting Surgery input. Continue isolation precautions for MRSA 07/13: Continue with abx, PT/OT await Ortho input and this will determine discharge based on ID recommendation 07/14: Cultures from the site grew MRSA and recommended by ID that if there is a plan for patient to have more surgery he needed the washer to be replaced. He continues on antibiotics with vancomycin and was subsequently will need daptomycin IV on discharge. He is going for surgery for further extensive w ashout and spacer replacement. Due to compliance issues in the past this recommendation for patient to be in a personal mcc or care home to ensure compliance as he will need 6 weeks of antibiotics. Otherwise no new complaints except for pain management. 6/3 He continues on antibiotics with vancomycin and was subsequently will need daptomycin IV on discharge. He was taken to OR today by Dr. Batres, Orthopedic Surgeon and had debridement and irrigation with removal of cement spacers with reimplantation of new spacers 07/16/ He was taken to OR yesterday 07/[address] Batres, Orthopedic Surgeon and had debridement and irrigation with removal of cement spacers with reimplantation of new spacers. Nurse tells me Overnight he had bleeding from surgical site. Orthopedic Surgeon informed. Will hold Eliquis until bleeding subsides. Repeat H/H 07/17 bleeding from surgical site now subsided. Eliquis resumed. Hgb slightly lower. Will repeat in am 07/18 need placement. he complains of pain at surgical site. On Prn narcotics. H/H stable Hgb 10.2. 07/19 Patient is a 59-year-old male with multiple medical problems and recently the last 1year knee surgery which has continued to become problematic requiring a spacer to be placed he presented to the hospital and underwent an incision and drainage washout and spacer placement. Cultures from the site grew MRSA and recommended by ID that if there is a plan for patient to have more surgery he needed the washer to be replaced. He continues on antibiotics with vancomycin and was subsequently will need daptomycin IV on discharge. He was taken to OR 07/[address] Batres, Orthopedic Surgeon and had debridement and irrigation with removal of cement spacers with reimplantation of new spacers. He complains of pain at surgical site. On Prn narcotics. H/H stable Hgb 10.2. Medically stable for dc to SNF. Case management working on SNF placement for iv Antibiotics - Daptomycin. I discussed with Dr. Taylor, ID 07/20- 07/22: Waiting on SNF placement, cont current Mx. follow clinically. cont empiric abx per ID 07/23: medically stable for discharge. d/c to SNF after PICC line placement for IV Daptomycin x 6 weeks ending 08/26/2020 Subjective Date of service: 07/23/20 Interval history: Patient seen and examined. Medical records and medication list reviewed. No acute event overnight noted by the RN. Patient denies any chest pain or difficulty breathing. Patient is tolerating diet. right knee joint pain improved, able to ambulate with assistance Discussed plan of care at bedside with patient. Objective - Exam Narrative Exam: General appearance: Present: No distress, legally blind, obese - EENT Eyes: Present: PERRL ENT: hearing intact, clear oral mucosa - Neck Neck: Present: supple, normal ROM - Respiratory Respiratory effort: normal Respiratory: bilateral: CTA - Cardiovascular Heart Sounds: Present: S1 & S2. Absent: rub, click - Extremities Extremities: pulses symmetrical, No edema Extremity abnormal: dressing and immobilizer in place on right knee Peripheral Pulses: within normal limits - Abdominal General gastrointestinal: Present: soft, non-tender, non-distended, normal bowel sounds Male genitourinary: Present: normal - Integumentary Integumentary: Present: clear, warm, dry - Musculoskeletal Musculoskeletal: gait normal, right knee joint with surgical dressing with limited movement - Psychiatric Psychiatric: appropriate mood/affect, intact judgment & insight - Neurologic Neurologic: CNII-XII intact, moves all extremities - Constitutional Vitals: Vital Signs - 12hr 07/23/20 07/23/20 07/23/20 04:48 05:05 05:35 Temperature 98.4 F Pulse Rate 69 Respiratory 18 20 18 Rate Blood Pressure 137/75 O2 Sat by Pulse 98 Oximetry 07/23/20 07/23/20 07/23/20 10:43 11:01 11:40 Temperature 98.6 F Pulse Rate 75 Respiratory 20 20 18 Rate Blood Pressure 118/72 O2 Sat by Pulse 98 96 Oximetry - Labs CBC & Chem 7: 07/20/20 04:46 07/20/20 04:46
[2020-07-23] MEDS: oxyCODONE /ACETAMINOPHEN 5-325MG TAB PO PRN ×2 (18:15→22:18)
[2020-07-23] MEDS: LATANOPROST 0.005% OPHTH SOLN 2.5 ML OU SCH (22:28)
[2020-07-24] MEDS: oxyCODONE /ACETAMINOPHEN 5-325MG TAB PO PRN ×2 (02:25→08:46)
[2020-07-24 05:16] VITALS: BP 139/70
[2020-07-24] MEDS: LOSARTAN 50 MG TAB PO SCH (09:51)
[2020-07-24] MEDS: ASPIRIN EC 325 MG TAB PO SCH (09:51)
[2020-07-24] MEDS: METOPROLOL TARTRATE 25 MG TAB PO SCH (09:51)
[2020-07-24] MEDS: DOCUSATE SODIUM 100 MG CAP PO SCH (09:52)
[2020-07-24] MEDS: APIXABAN 5 MG TAB PO SCH (09:52)
[2020-07-24] MEDS: FINASTERIDE 5 MG TAB PO SCH (09:52)
[2020-07-24] MEDS: GABAPENTIN 100 MG CAP PO SCH (09:52)
[2020-07-24] MEDS: amLODIPine 5 MG TAB PO SCH (09:52)
[2020-07-24] MEDS: TAMSULOSIN 0.4 MG CAP PO SCH (10:09)
[2020-07-24] MEDS: SERTRALINE 50 MG TAB PO SCH (10:09)
--- NOTE | 2020-07-24 12:28 | Event Note ---
Date: 07/24/20 Patient has transportation setup today for SNF discharge.
--- NOTE | 2020-10-12 16:28 | Discharge Summary ---
Providers - Providers Date of Admission: 07/06/20 15:55 Date of discharge: 07/24/20 Attending physician: ERASTO SMITH MD 07/07/20 11:11 Consult to Physician [CONS] Routine Comment: Consulting Provider: CHARISMA MEREDITH Physician Instructions: Reason For Exam: medical management 07/08/20 07:44 Consult to Physician [CONS] Routine Comment: Consulting Provider: HANNA VILLATORO Physician Instructions: Reason For Exam: septic knee 07/09/20 12:49 Occupational Therapy Evaluate and Treat [CONS] Routine Comment: Reason For Exam: septic knee, debility Physical Therapy Evaluation and Treat [CONS] Routine Comment: Reason For Exam: septic knee, debility 07/13/20 13:32 Consult to Wound/ET Nurse [CONS] Routine Reason For Exam: wound eval 07/15/20 12:19 Consult to Case Management [CONS] Routine Services Needed at Discharge: Other Notified:: CM Comment:: IV abx Additional Physician Instructions: [facility] O: [phone] F: [phone] OUTPATIENT PARENTERAL ANTIBIOTIC THERAPY (OPAT) ORDERS Diagnoses: MRSA prosthetic knee joint infection Antimicrobial administration: IV daptomycin 500 mg daily for 6 weeks ending 08/26/2020 - Remove PICC line after last dose unless otherwise instructed. Lines: Maintain IV access with weekly dressing changes and locks per protocol. Lab monitoring: - CBC with differential, Creatinine, ALT, AST, CK, CRP once a week every Sunday while on IV antibiotics. Please fax results to [phone] and call [phone] for critical lab results. MD Bobby [facility] 07/20/20 08:57 Consult to Wound/ET Nurse [CONS] Routine Reason For Exam: wound eval: right surgical knee Primary care physician: [employer] Hospitalization Condition: Stable Procedures: Debridement irrigation right knee on 07/15/20 Second washout debridement and irrigation removal of cement spacers Hospital course: 60-year-old male with a history of infected right total knee replacement, admitted initially for irrigation and debridement right knee, but intra- operative cultures revealed persistent methicillin resistant staph with input from infectious disease consultants he was taken back to the OR on 07/17/20 where cement spacers remove and replaced with new antibiotic spacers. Patient placed o n long-term IV antibiotics along daily dressing changes. Case management services consulted for placement and DME supplies. Disposition: [facility] Final Discharge Diagnosis (Prints w/discharge instructions): Infected right total knee replacement Core Measure Documentation - Palliative Care Palliative Care/ Comfort Measures: Not Applicable - Core Measures Any of the following diagnoses?: none - VTE Discharge Requirements Deep Vein Thrombosis/Pulmonary Embolism Present on Admission: No - Acute [place] Discharge Requirements Aspirin at discharge: No Reason for no aspirin on DC: Medical contraindication - Heart Failure Discharge Requirements LUANNE/ARB for LVSD if EF <40%: Not Applicable - Stroke Discharge Requirements Statin for LDL = or >70 mg/dl on DC: Not Applicable Exam - Physical Exam Narrative exam: Post op dressing removed today, moderate bloody drainage on bandages, no redness/erythema noted - Constitutional Vitals: Temp Pulse Resp BP Pulse Ox 98 F 64 18 139/70 95 07/24/20 05:16 07/24/20 04:57 07/24/20 04:57 07/24/20 04:57 07/24/20 04:57 Plan Activity: advance as tolerated Weight Bearing Status: Weight Bear as Tolerated Diet: regular Wound: keep clean and dry Special Instructions: physical therapy Durable Medical Equipment Needed Upon Discharge: Walker-Standard Follow up with: PRIMARY CARE, [Primary Care Provider] - 7 Days Prescriptions: oxyCODONE /ACETAMINOPHEN [Percocet 5/325 mg] 1 tab PO Q8H PRN #30 tablet PRN Reason: Pain, Moderate (4-6)
== END 2020-07-24 10:48 | DRG 464 ==
LOC: ED 09:05 → 3A 15:55
PROVIDERS: ADMIT Orthopaedic Surgery; ATTEND Orthopaedic Surgery
PROC: 0S9C0ZZ Drainage of Right Knee Joint, Open Approach (ICD-10-PCS; principal; 2020-07-07)
PROC: 0SPC0JZ Removal of Synthetic Substitute from Right Knee Joint, Open Approach (ICD-10-PCS; 2020-07-15)
PROC: 0SHC08Z Insertion of Spacer into Right Knee Joint, Open Approach (ICD-10-PCS; 2020-07-15)
DX: T84.50XA Infection and inflammatory reaction due to unspecified internal joint prosthesis, initial encounter (principal); M00.9 Pyogenic arthritis, unspecified; L03.115 Cellulitis of right lower limb; I50.32 Chronic diastolic (congestive) heart failure; Z20.822 Contact with and (suspected) exposure to COVID-19; Z96.651 Presence of right artificial knee joint; G89.4 Chronic pain syndrome; I25.10 Atherosclerotic heart disease of native coronary artery without angina pectoris; E11.9 Type 2 diabetes mellitus without complications; I11.0 Hypertensive heart disease with heart failure; F31.9 Bipolar disorder, unspecified; E78.5 Hyperlipidemia, unspecified; J44.9 Chronic obstructive pulmonary disease, unspecified; N40.0 Benign prostatic hyperplasia without lower urinary tract symptoms; I95.9 Hypotension, unspecified; Z79.899 Other long term (current) drug therapy; Z79.82 Long term (current) use of aspirin; Z79.52 Long term (current) use of systemic steroids; Z88.5 Allergy status to narcotic agent; Z83.3 Family history of diabetes mellitus; Z82.49 Family history of ischemic heart disease and other diseases of the circulatory system; Y92.89 Other specified places as the place of occurrence of the external cause
CPT/HCPCS: 36415; 80048; 80053; 80202; 82140; 82550; 82962; 85014; 85018; 85025; 85027; 85652; 86140; 87040; 87075; 87076; 87116; 87186; 88300; 88302; G0378; A4217; A9270-GY; C1713; J0360; J0696; J0878; J1100; J1170; J1885; J2001; J2270; J2370; J2405; J2704; J3010; J3370; J7040; J7050; J7120; Q0177; U0003

== ENCOUNTER 2020-09-08 11:02 | Outpatient (CLI) | payer MEDICAID ==
[2020-09-08] MEDS ORDERED: LIDOCAINE (4%) 40 MG/ML TOPICAL SOLN 50 ML BOTTLE TP SCH (11:30)
== END 2020-09-08 11:03 | disposition home or self-care (01) ==
LOC: WOUND 11:02
PROVIDERS: ATTEND Surgery
DX: T81.31XD Disruption of external operation (surgical) wound, not elsewhere classified, subsequent encounter (principal); L97.212 Non-pressure chronic ulcer of right calf with fat layer exposed; I10 Essential (primary) hypertension; I25.2 Old myocardial infarction; H54.7 Unspecified visual loss; F17.290 Nicotine dependence, other tobacco product, uncomplicated; Z95.818 Presence of other cardiac implants and grafts; Z96.651 Presence of right artificial knee joint; Y83.8 Other surgical procedures as the cause of abnormal reaction of the patient, or of later complication, without mention of misadventure at the time of the procedure

== ENCOUNTER 2020-09-15 08:05 | Outpatient (CLI) | payer MEDICAID ==
[2020-09-15] MEDS ORDERED: LIDOCAINE (4%) 40 MG/ML TOPICAL SOLN 50 ML BOTTLE TP ONE (08:27)
== END 2020-09-15 08:06 | disposition home or self-care (01) ==
LOC: WOUND 08:05
PROVIDERS: ATTEND Surgery
DX: T81.31XD Disruption of external operation (surgical) wound, not elsewhere classified, subsequent encounter (principal); I10 Essential (primary) hypertension; I25.2 Old myocardial infarction; L97.212 Non-pressure chronic ulcer of right calf with fat layer exposed; H54.7 Unspecified visual loss; F17.290 Nicotine dependence, other tobacco product, uncomplicated; Z95.818 Presence of other cardiac implants and grafts; Z96.651 Presence of right artificial knee joint; Y83.8 Other surgical procedures as the cause of abnormal reaction of the patient, or of later complication, without mention of misadventure at the time of the procedure

== ENCOUNTER 2020-10-13 09:15 | Outpatient (CLI) | payer MEDICAID ==
[2020-10-13] MEDS ORDERED: LIDOCAINE (4%) 40 MG/ML TOPICAL SOLN 50 ML BOTTLE TP ONE (09:19)
== END 2020-10-13 09:16 | disposition home or self-care (01) ==
LOC: WOUND 09:15
PROVIDERS: ATTEND Surgery
DX: T81.31XD Disruption of external operation (surgical) wound, not elsewhere classified, subsequent encounter (principal); I10 Essential (primary) hypertension; I25.2 Old myocardial infarction; L97.212 Non-pressure chronic ulcer of right calf with fat layer exposed; H54.7 Unspecified visual loss; F17.290 Nicotine dependence, other tobacco product, uncomplicated; Z95.818 Presence of other cardiac implants and grafts; Z96.651 Presence of right artificial knee joint; Y83.8 Other surgical procedures as the cause of abnormal reaction of the patient, or of later complication, without mention of misadventure at the time of the procedure

== ENCOUNTER 2020-10-20 09:19 | Outpatient (CLI) | payer MEDICAID ==
[2020-10-20] MEDS ORDERED: LIDOCAINE (4%) 40 MG/ML TOPICAL SOLN 50 ML BOTTLE TP ONE (09:30)
== END 2020-10-20 09:20 | disposition home or self-care (01) ==
LOC: WOUND 09:19
PROVIDERS: ATTEND Surgery
DX: T81.31XD Disruption of external operation (surgical) wound, not elsewhere classified, subsequent encounter (principal); L97.212 Non-pressure chronic ulcer of right calf with fat layer exposed; I10 Essential (primary) hypertension; I25.2 Old myocardial infarction; H54.7 Unspecified visual loss; F17.290 Nicotine dependence, other tobacco product, uncomplicated; Z95.818 Presence of other cardiac implants and grafts; Z96.651 Presence of right artificial knee joint; Y83.8 Other surgical procedures as the cause of abnormal reaction of the patient, or of later complication, without mention of misadventure at the time of the procedure